=== PATIENT | female | born 1970 | race Caucasian/White ===

== ENCOUNTER 2021-07-16 12:18 | Emergency (ER) | payer OTHER, SELFPAY | END 2021-07-16 13:40 | disposition left against medical advice (07) | PROVIDERS: Emergency Provider Emergency Medicine; PCP Internal Medicine | DX: R10.9 Unspecified abdominal pain (principal) ==

== ENCOUNTER 2021-08-01 14:14 | Outpatient (REF) | payer OTHER, SELFPAY ==
--- NOTE | ~2021-08-01 | XR_ITS ---
EXAMINATION: XR LUMBAR SPINE XR CERVICAL SPINE CLINICAL INFORMATION: Right-sided sciatica. COMPARISON: None TECHNIQUE: 3 views lumbar spine and 3 views cervical spine. FINDINGS: LUMBAR SPINE: There is maintained lumbar lordosis. The vertebral heights and alignment are normal. There is loss of L5-S1 disc height. Rest of the disc heights are normal. No visible acute fracture, dislocation or lytic process seen. SI joints are symmetrical. There is evidence of previous cholecystectomy. Otherwise the soft tissues are unremarkable. CERVICAL SPINE: There is normal cervical lordosis. There is loss of C5-C6 disc heights with mild ventral and posterior spondylosis. Rest of the disc heights are normal. There is mild bilateral C2-C3, C3-C4 and C4-C5 facet joint arthropathy. The prevertebral soft tissues are normal XR/XR lumbar spine 2-3V IMPRESSION: L5-S1 degenerative disc changes. Otherwise unremarkable lumbar spine. Degenerative C5-C6 disc disease with ventral and posterior spondylosis, cervical spine. There is mild facet joint arthropathy as described above.
--- NOTE | ~2021-08-01 | XR_ITS ---
EXAMINATION: XR LUMBAR SPINE XR CERVICAL SPINE CLINICAL INFORMATION: Right-sided sciatica. COMPARISON: None TECHNIQUE: 3 views lumbar spine and 3 views cervical spine. FINDINGS: LUMBAR SPINE: There is maintained lumbar lordosis. The vertebral heights and alignment are normal. There is loss of L5-S1 disc height. Rest of the disc heights are normal. No visible acute fracture, dislocation or lytic process seen. SI joints are symmetrical. There is evidence of previous cholecystectomy. Otherwise the soft tissues are unremarkable. CERVICAL SPINE: There is normal cervical lordosis. There is loss of C5-C6 disc heights with mild ventral and posterior spondylosis. Rest of the disc heights are normal. There is mild bilateral C2-C3, C3-C4 and C4-C5 facet joint arthropathy. The prevertebral soft tissues are normal XR/XR cervical spine 3V IMPRESSION: L5-S1 degenerative disc changes. Otherwise unremarkable lumbar spine. Degenerative C5-C6 disc disease with ventral and posterior spondylosis, cervical spine. There is mild facet joint arthropathy as described above.
== END 2021-08-01 14:15 | disposition home or self-care (01) ==
LOC: HO.HMGCX 14:14
PROVIDERS: PCP Nurse Practitioner Family; Visit Provider Nurse Practitioner Family
DX: M54.2 Cervicalgia (principal); M54.50 Low back pain, unspecified
CPT/HCPCS: 72040; 72100

== ENCOUNTER 2021-08-28 13:15 | Outpatient (REF) | payer OTHER, SELFPAY ==
[2021-08-30 15:26] LABS: HPV mRNA E6/E7 rflx Not Detected (Not Detected)
== END 2021-08-28 13:16 | disposition home or self-care (01) ==
LOC: HO.LAB 13:15
PROVIDERS: PCP Nurse Practitioner Family; Visit Provider Advanced Practice Midwife
DX: Z01.419 Encounter for gynecological examination (general) (routine) without abnormal findings (principal); Z11.51 Encounter for screening for human papillomavirus (HPV)
CPT/HCPCS: 87624; 88142

== ENCOUNTER → 2021-09-12 11:46 | Outpatient (BNVA) | payer OTHER, SELFPAY | PROVIDERS: PCP Nurse Practitioner Family; Referring Provider Nurse Practitioner Family; Visit Provider Physician Assistant | DX: Z13.89 Encounter for screening for other disorder (principal) ==

== ENCOUNTER 2021-10-12 09:34 | Outpatient (REF) | payer OTHER, SELFPAY ==
[2021-10-12 11:15] LABS: MANUAL DIFF FLAG NO
[2021-10-12 11:28] LABS: Basophils Percent Auto 0.5 % (0-2); Eosinophils Absolute Auto 0.3 X10*3/uL (0.0-0.4); Eosinophils Percent Auto 5.2 % (0-4); Hematocrit 39.9 % (37.0-47.0); Hemoglobin 13.5 g/dl (12.0-16.0); Imm Gran Abs Auto 0.02 X10*3/uL (0.00-0.03); Imm Gran Pct Auto 0.4 % (0.0-0.4); Lymphocytes Absolute Auto 2.5 X10*3/uL (1.2-4.9); Lymphocytes Percent Auto 45.2 % (20-40); Mean Corpuscular HGB Conc 33.8 g/dl (31.0-35.0); Mean Corpuscular Hemoglobin 31.5 pg (27.0-33.0); Mean Platelet Volume 9.9 fL (9.4-12.3); Monocytes Absolute Auto 0.4 X10*3/uL (0.1-1.2); Monocytes Percent Auto 6.6 % (2-11); Neutrophils Absolute Auto 2.3 x10*3/uL (2.0-8.3); Neutrophils Percent Auto 42.1 % (45-73); Platelet Count 334 X10*3/uL (160-400); Red Blood Count 4.29 X10*6/uL (4.20-5.50); Red Cell Distribution Width 12.8 % (11.0-16.0); White Blood Count 5.6 X10*3/uL (4.8-10.8)
[2021-10-12 11:53] LABS: Cholesterol 226 mg/dL; HDL Cholesterol 61 mg/dL; LDL Cholesterol Calculated 137 mg/dl; TSH reflex Free T4 4.82 uIU/mL (0.32-4.0); Triglycerides 144 mg/dL
[2021-10-12 12:47] LABS: Free T4 (Free Thyroxine) 0.79 ng/dL (0.71-1.85)
== END 2021-10-12 09:35 | disposition home or self-care (01) ==
LOC: HO.HMGCLDS 09:34
PROVIDERS: PCP Nurse Practitioner Family; Visit Provider Nurse Practitioner Family
DX: G89.29 Other chronic pain (principal); J43.9 Emphysema, unspecified; M54.2 Cervicalgia; E78.00 Pure hypercholesterolemia, unspecified; I10 Essential (primary) hypertension; Z76.89 Persons encountering health services in other specified circumstances
CPT/HCPCS: 36415; 80061; 84439; 84443; 85025

== ENCOUNTER → 2021-11-02 15:09 | Outpatient (BNVA) | payer OTHER, SELFPAY | PROVIDERS: PCP Nurse Practitioner Family; Visit Provider Internal Medicine Pulmonary Disease | DX: Z13.89 Encounter for screening for other disorder (principal) ==

== ENCOUNTER 2021-11-17 09:09 | Outpatient (REF) | payer OTHER, SELFPAY ==
[2021-11-17 11:01] LABS: MANUAL DIFF FLAG NO
[2021-11-17 11:04] LABS: Basophils Absolute Auto 0.1 X10*3/uL (0.0-0.2); Basophils Percent Auto 1.1 % (0-2); Eosinophils Absolute Auto 0.3 X10*3/uL (0.0-0.4); Eosinophils Percent Auto 5.7 % (0-4); Hemoglobin 12.9 g/dl (12.0-16.0); Imm Gran Abs Auto 0.02 X10*3/uL (0.00-0.03); Imm Gran Pct Auto 0.5 % (0.0-0.4); Lymphocytes Absolute Auto 1.8 X10*3/uL (1.2-4.9); Lymphocytes Percent Auto 42.1 % (20-40); Mean Corpuscular HGB Conc 33.9 g/dl (31.0-35.0); Mean Corpuscular Hemoglobin 31.5 pg (27.0-33.0); Mean Corpuscular Volume 92.9 fL (80.0-98.0); Mean Platelet Volume 9.7 fL (9.4-12.3); Monocytes Absolute Auto 0.3 X10*3/uL (0.1-1.2); Monocytes Percent Auto 7.8 % (2-11); Neutrophils Absolute Auto 1.9 x10*3/uL (2.0-8.3); Neutrophils Percent Auto 42.8 % (45-73); Platelet Count 299 X10*3/uL (160-400); Red Blood Count 4.09 X10*6/uL (4.20-5.50); Red Cell Distribution Width 12.6 % (11.0-16.0); White Blood Count 4.4 X10*3/uL (4.8-10.8)
[2021-11-20 10:46] LABS: Immunoglobulin E 37 kU/L (<OR=114)
== END 2021-11-17 09:10 | disposition home or self-care (01) ==
LOC: HO.CHCLDS 09:09
PROVIDERS: Visit Provider Internal Medicine Pulmonary Disease
DX: Z91.09 Other allergy status, other than to drugs and biological substances (principal)
CPT/HCPCS: 36415; 82785; 85025; 86003

== ENCOUNTER 2021-12-25 07:49 | Day surgery (SDC) | payer OTHER, SELFPAY ==
[2021-12-19 14:02] VITALS: BMI 26.2
[2021-12-25 08:09] VITALS: BP 105/78; PULSE 58; RESP 15; TEMP 36.3; O2SAT 97
[2021-12-25] MEDS: Lactated Ringers 1,000 ML 50 ML IVCONT (08:25)
--- NOTE | 2021-12-25 08:35 | MHC.SHP ---
Pre-Procedural Eval Section A Date of Service: 12/25/21 Section B Chief Complaint: screening Relevant Family History (Specify if Yes): No Relevant Social History: None (ex smoker) Present Medications: see Short Stay Collaborative assessment Medical History: Significant History (Arthritis Cervical spondylosis COVID-19 vaccine series completed Elevated cholesterol Emphysema/COPD GERD (gastroesophageal reflux disease) Thyroid condition) History of Previous Operations: Relevant previous surgery/procedure and date(s) ( History of cholecystectomy History of dental surgery History of partial hysterectomy History of tubal ligation) Allergies: Allergies Allergy/AdvReac Type Severity Reaction Status Date / Time ibuprofen AdvReac Intermediate Stomach Verified 11/02/21 15:11 Upset Review of Systems Sugical H&P ROS: Negative: Constitution, Cardiovascular, Respiratory, Neurological, Psychiatric, Hem-Onc, Allergic/Immunologic, Gastrointestinal, Genitourinary, Musculoskeletal, Integumentary, Endocrine and Eyes/Ears/Nose/Throat Exam Surgical H&P Exam: Normal: HEENT, Normal: Heart, Normal: Lungs, Normal: Extremities, Normal: Abdomen, Normal: Skin and Normal: Neurological Plan Diagnosis/Plan: Unchanged I have reviewed the history and physical and performed a pertinent physical examination on my patient. No changes have occurred unless specified.
--- NOTE | 2021-12-25 08:43 | HO.ANESPROP2 ---
HPI - Anesthesia Eval Consult details Narrative: 51 F for colonoscopy [facility] Active Problems Active Problems: All Active Problems (Updated 12/25/21 @ 08:03 by Surekha Lewis RN) Encounter to establish care (Acute) COPD (chronic obstructive pulmonary disease) (Acute) Cervicalgia (Acute) Chronic neck pain (Acute) Emphysema lung (Acute) Low back pain (Acute) Cervical cancer screening (Acute) History of partial hysterectomy (Acute) Cervical disc disease (Acute) Cervical spondylosis (Acute) Hyperlipidemia (Acute) GERD (gastroesophageal reflux disease) (Acute) Encounter for annual routine gynecological examination (Acute) Encounter for screening mammogram for malignant neoplasm of breast (Acute) Encounter for screening colonoscopy (Acute) Physical exam (Acute) Graves disease (Acute) Environmental allergies (Acute) Past Medical History Medical History (Updated 12/25/21 @ 08:03 by Surekha Lewis RN) Arthritis Cervical spondylosis COVID-19 vaccine series completed Elevated cholesterol Emphysema/COPD GERD (gastroesophageal reflux disease) Thyroid condition Family History Family History Mother GERD (gastroesophageal reflux disease) DVT (deep venous thrombosis) Father HTN (hypertension) Abnormal thyroid hormone metabolism Family history of problems with anesthesia: No Surgical History Surgical History History of cholecystectomy History of dental surgery History of partial hysterectomy History of tubal ligation History of Problems with Anesthesia: No Social History Social History Housing: House Do you presently have visiting nurse or other home services: No Alcohol intake: current Alcohol intake frequency: a few times a week Alcohol type: wine Patient Tobacco Use Status: Former Tobacco user Quit Date: 2019 Tobacco use type: Cigarette e-Cigarette/Vaping Use: Never Used Second Hand Smoke Exposure: No service: No Current occupational status: employed 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 Sexual orientation: Straight/Heterosexual Gender identity: Female Cognitive needs: No Hearing needs: No Vision needs: Yes (glasses) Meds Allergies Allergy/AdvReac Type Severity Reaction Status Date / Time ibuprofen AdvReac Intermediate Stomach Verified 11/02/21 15:11 Upset Active Medications: Current Medications Lactated Ringer's (Lr) 1,000 mls @ 50 mls/hr IVCONT .Q20H EDGARDO Last Admin: 12/25/21 08:25 Dose: 50 mls/hr Home Medications Medication Instructions Recorded Confirmed Last Taken Type acetaminophen 500 mg tablet 500 mg PO QID PRN Pain 08/01/21 12/25/21 Unknown History (Tylenol Extra Strength) ipratropium 20 mcg-albuterol 100 1 spray inhalation BID PRN Wheezing 12/19/21 12/25/21 Unknown History mcg/actuation mist for inhalation (Combivent Respimat) Exam Exam Date and Time: December 25, 2021 0843 Height,Weight and Vital Signs: Height 5 ft 4.5 in Weight 70.307 kg Last Vital Signs Temp 97.3 F 12/25/21 08:09 Pulse 58 12/25/21 08:09 Resp 15 12/25/21 08:09 BP 105/78 12/25/21 08:09 Pulse Ox 97 12/25/21 08:09 O2 Del Method 12/25/21 08:09 Airway Mallampati Class: II TM Dist: >3cm Neck ROM: Full Loose/Missing/Broken Teeth: Yes (Poor dentition globally , chipped multiple . ) Heart: S1,S2 Lungs: b/l breath sounds Assessment and Plan Assessment Anesthesia Assessment: Anesthesia Plan Discussed and Chart Reviewed Final Anesthetic Review Family History of Problems with Anesthesia: No History of Problems with Anesthesia: No NPO: Yes ASA Class: II Final Preanesthetic Review: Meds/Allgs Chart Reviewed, Consent Obtained/Reviewed and Anes Risks/Benef Reviewed Patient Risk: Intermediate Procedure Risk: Intermediate Anesthetic Plan Anesthetic Plan: MAC: Disposition: Standard PACU
--- NOTE | 2021-12-25 09:04 | W.PM.OPN ---
Operative Note Operative Note Date of Service: 12/25/21 Narrative: Operative Information Procedure Description: Colonoscopy Indication: screening Anesthesia: MAC COLONOSCOPY Instrument: Olympus variable stiffness pediatric scope 190L Colonoscopy Monitoring: Vital signs and clinical assessment, continuous EKG monitoring, Pulse oximetry, Carbon Dioxide monitoring and blood pressure monitoring were done throughout the procedure. Colon withdrawal time was 8 minutes. Procedure: The patient was placed in the left lateral decubitis position and pre-procedure medications were administered. After a digital rectal examination of the ano-rectum, the video colonoscope was inserted into the rectum and advanced through the colon to the cecum/TI. The colonoscope was slowly withdrawn in a retrograde panoramic fashion and the colon mucosa was carefully examined including a retroflexed view of the rectum. Findings and interventions are described below. Procedure Difficulty: easy Findings: Terminal Ileum-normal Right sided retroflexion-nml Cecum:normal Ascending Colon: scattered wide mouthed diverticula Transverse Colon -normal Descending Colon: moderate diverticulosis Sigmoid Colon: moderate severe diverticulosis Rectum: Retroflexion with small internal hemorrhoids, grade I Anorectum - normal Colon preparation: Linden Bowel Preparation Scale Right colon; 2 Transverse colon: 3 Left colon; 2 (0 = Unprepared colon segment with mucosa not seen due to solid stool that cannot be cleared. 1 = Portion of mucosa of the colon segment seen, but other areas of the colon segment not well seen due to staining, residual stool and/or opaque liquid. 2 = Minor amount of residual staining, small fragments of stool and/or opaque liquid, but mucosa of colon segment seen well. 3 = Entire mucosa of colon segment seen well with no residual staining, small fragments of stool or opaque liquid) Impression and Post Procedure Diagnosis: internal hemorrhoids diverticular disease Plan: High fiber diet leaflet Avoid straining at stool, epsom salts and sitz bath, anusol supps or cream Repeat Colonoscopy in 10 years or earlier if clinically indicated Above findings were reviewed with the patient and relevant handouts were provided if indicated.
[2021-12-25 09:42] VITALS: BP 103/69; PULSE 86; RESP 16; TEMP 36.3; O2SAT 100
[2021-12-25 09:57] VITALS: BP 122/79; PULSE 69; RESP 18; TEMP 36.6; O2SAT 99
== END 2021-12-25 10:28 | disposition home or self-care (01) ==
PROVIDERS: PCP Nurse Practitioner Family; Visit Provider Internal Medicine Gastroenterology
PROC: 0DJD8ZZ Inspection of Lower Intestinal Tract, Via Natural or Artificial Opening Endoscopic (ICD-10-PCS; CPT 45378; principal; 2021-12-25 09:10)
DX: Z12.11 Encounter for screening for malignant neoplasm of colon (principal); K57.30 Diverticulosis of large intestine without perforation or abscess without bleeding; K64.0 First degree hemorrhoids; J44.9 Chronic obstructive pulmonary disease, unspecified; K21.9 Gastro-esophageal reflux disease without esophagitis; E07.9 Disorder of thyroid, unspecified; Z79.899 Other long term (current) drug therapy; Z88.8 Allergy status to other drugs, medicaments and biological substances
CPT/HCPCS: 45378

== ENCOUNTER 2021-12-28 07:32 | Outpatient (REF) | payer OTHER, SELFPAY ==
[2021-12-28 12:03] LABS: TSH reflex Free T4 3.75 uIU/mL (0.32-4.0)
[2022-01-04 12:56] LABS: Vitamin D 25-OH, D2 <4 ng/mL; Vitamin D 25-OH, D3 23 ng/mL; Vitamin D 25-OH, Total 23 ng/mL (30-100)
== END 2021-12-28 07:33 | disposition home or self-care (01) ==
LOC: HO.HMGCLDS 07:32
PROVIDERS: Visit Provider Nurse Practitioner Family
DX: E05.00 Thyrotoxicosis with diffuse goiter without thyrotoxic crisis or storm (principal)
CPT/HCPCS: 36415; 82306; 84443

== ENCOUNTER 2022-01-07 09:05 | Outpatient (REF) | payer OTHER, SELFPAY ==
--- NOTE | 2022-01-07 11:53 | PFT_ITS ---
INDICATION: Dyspnea. SPIROMETRY: FEV1 to FVC of 83% with an FEV1 of 3.03 L, which is 108% predicted, an FVC of 2.63 L, which is 102% predicted. No significant response to bronchodilators noted. Maximum voluntary ventilation 125% predicted. LUNG VOLUMES: Total lung capacity 102% predicted with an expiratory reserve volume of 71% predicted. DIFFUSION CAPACITY: DLCO 64% predicted. COMPARISONS: None. INTERPRETATION: No obstructive nor restrictive ventilatory defects identified. No significant response to bronchodilators noted. Normal maximum voluntary ventilation. Normal lung volumes. However, the patient does have a mild isolated diffusion impairment. This did not correct to normal when correcting for the alveolar volume. Need to also correct for hemoglobin. Considered pulmonary vascular conditions or occult interstitial lung conditions. Clinical correlation warranted. MD AIDEN Harmon/VANESSA / [id number]
== END 2022-01-07 09:06 | disposition home or self-care (01) ==
LOC: HO.RESP 09:05
PROVIDERS: PCP Nurse Practitioner Family; Visit Provider Internal Medicine Pulmonary Disease
DX: J44.9 Chronic obstructive pulmonary disease, unspecified (principal); R06.00 Dyspnea, unspecified
CPT/HCPCS: 94060; 94727; 94729

== ENCOUNTER 2022-04-02 17:00 | Outpatient (RCR) | payer OTHER, SELFPAY ==
--- NOTE | 2022-03-14 08:44 | MHC.PT.EP ---
[facility] [place] Office [place] Office [place] Office [address] [phone] F: [phone] F: [phone] F: [phone] F: [phone] Physical Therapy Plan of Care Date of Evaluation: Date of Surgery: Diagnosis: Cervicalgia. Assessment: Pt is a 51 y/o female referred to PT for eval and treat of cervicalgia which results in decreased tolerance for reading and turning her head to end ranges, as well as disturbed sleep secondary to decreased cervical ROM and strength, decreased posture, increased cervical accessory muscle tissue tension, and pain. Pt is deemed an appropriate candidate to receive skilled PT services in order to address her physical impairments ti improve her functional ability. Frequency and Duration: The patient will be seen 2 x/ wk x 5 wks. Short Term Goals: Initiate HEP. Improve Baseline pain to < 4/10; initial: 7/10. [facility] Goals: I with HEP. Pt will report at most mildly disturbed sleep d/y cervical pain; initial: greatly disturbed 3-5 hours disturbed. Pt will no longer be limited of her reading tolerance d/t cervical pin; iitial: unable to read desired amount with moderate cervical pain. Symmetrical cervical rotation achieved. Treatment Plan: Modalities to reduce pain, spasms and effusion. Manual therapy to restore motion and function. Therapeutic exercise to improve strength and flexibility. Neuromuscular re-education for posture and balance. Therapeutic activities to return to functional activities of daily living. Electronically signed by: Brady Ingram PT. Please sign and return to therapist. Thank you for your referral.
--- NOTE | 2022-07-26 10:20 | MHC.PT.DC ---
[facility] [place] Office [place] Office [place] Office [address] Jerrod Tijerina [address] [phone] F: [phone] F: [phone] F: [phone] F: [phone] Physical Therapy Discharge Report Diagnosis: Cervicalgia. Date of Surgery: Date of Evaluation: 03/05/22 Date of Discharge: 07/26/22 Treatments to Date: 4 Cancellations to Date: No Shows to Date: 2 Discharge Status: Visit Non-compliance Discharge Summary: Pt DC'd per attendance policy. From last Tx note: Pt returns after about 1.5 weeks and reports she has had a lot of personal things come up and has not been great about her home program. Pt tolerated review well, reported she felt less discomfort post tx; no adverse effects. Electronically signed by: Brady Ingram PT. Please sign and return to therapist. Thank you for your referral.
== END 2022-07-26 10:19 | disposition home or self-care (01) ==
LOC: HO.PTCHIC 17:00
PROVIDERS: Visit Provider Nurse Practitioner Family
DX: M47.812 Spondylosis without myelopathy or radiculopathy, cervical region (principal); M47.817 Spondylosis without myelopathy or radiculopathy, lumbosacral region; M54.2 Cervicalgia; M62.838 Other muscle spasm; G89.29 Other chronic pain
CPT/HCPCS: 97014; 97110; 97140; 97161

== ENCOUNTER 2022-06-04 06:04 | Outpatient (REF) | payer OTHER, SELFPAY | END 2022-06-04 06:05 | disposition home or self-care (01) | LOC: CF 06:04 | PROVIDERS: Visit Provider Anesthesiology | DX: Z13.89 Encounter for screening for other disorder (principal) ==

== ENCOUNTER 2022-06-25 06:23 | Outpatient (REF) | payer OTHER, SELFPAY | END 2022-06-25 06:24 | disposition home or self-care (01) | LOC: CF 06:23 | PROVIDERS: Visit Provider Anesthesiology | DX: Z13.89 Encounter for screening for other disorder (principal) ==

== ENCOUNTER 2022-08-03 09:07 | Outpatient (REF) | payer OTHER, SELFPAY ==
--- NOTE | ~2022-08-03 | XR_ITS ---
EXAMINATION: XR CERVICAL SPINE CLINICAL INFORMATION: Neck pain COMPARISON: None TECHNIQUE: 3 views of the cervical spine were obtained. FINDINGS: There is maintained cervical lordosis. The vertebral heights and alignment is normal. There is loss of C5-C6 disc height with ventral and posterior spondylosis. Rest the disc heights are normal. No visible acute fracture, dislocation or lytic process seen. The soft tissues are normal. XR/XR cervical spine 3V IMPRESSION: Degenerative disc changes C5-C6 disc level with ventral and posterior spondylosis. No visible acute fracture or dislocation seen.
[2022-08-03 11:00] LABS: Hematocrit 42.3 % (37.0-47.0); Hemoglobin 14.6 g/dl (12.0-16.0); Mean Corpuscular HGB Conc 34.5 g/dl (31.0-35.0); Mean Corpuscular Hemoglobin 31.8 pg (27.0-33.0); Mean Corpuscular Volume 92.2 fL (80.0-98.0); Mean Platelet Volume 10.2 fL (9.4-12.3); Platelet Count 307 X10*3/uL (160-400); Red Blood Count 4.59 X10*6/uL (4.20-5.50); Red Cell Distribution Width 12.1 % (11.0-16.0); White Blood Count 6.7 X10*3/uL (4.8-10.8)
[2022-08-03 11:21] LABS: Alanine Aminotransferase 20 U/L (0-31); Albumin Level 4.6 g/dL (3.5-5.0); Alkaline Phosphatase 63 U/L (39-117); Anion Gap 16 (12-20); Aspartate Amino Transferase 17 U/L (5-31); Bilirubin Total 1.9 mg/dL (0.0-1.0); Blood Urea Nitrogen 15 mg/dL (9-16); Calcium 9.3 mg/dL (8.4-10.2); Carbon Dioxide 19 mmol/L (22-29); Chloride 108 mmol/L (96-108); Cholesterol 223 mg/dL; Estimated Glomerular Filt Rate > 60; Glucose Fasting 110 mg/dL (60-99); HDL Cholesterol 49 mg/dL; LDL Cholesterol Calculated 149 mg/dl; Sodium 139 mmol/L (135-145); Total Protein 6.9 g/dL (6.5-8.0); Triglycerides 128 mg/dL
[2022-08-03 11:50] LABS: Folate 13.5 ng/mL (> or = 4.0); TSH reflex Free T4 2.75 uIU/mL (0.32-4.0); Vitamin B12 309 pg/mL (200-900); Vitamin D 25-OH Total 18.5 ng/mL (>30)
== END 2022-08-03 09:08 | disposition home or self-care (01) ==
LOC: HO.HMGCX 09:07
PROVIDERS: PCP Nurse Practitioner Family; Visit Provider Nurse Practitioner Family
DX: M54.2 Cervicalgia (principal); E05.00 Thyrotoxicosis with diffuse goiter without thyrotoxic crisis or storm; E78.5 Hyperlipidemia, unspecified; J44.9 Chronic obstructive pulmonary disease, unspecified; E55.9 Vitamin D deficiency, unspecified
CPT/HCPCS: 36415; 72040; 80053; 80061; 82306; 82607; 82746; 84443; 85027

== ENCOUNTER 2022-08-17 09:32 | Outpatient (REF) | payer OTHER, SELFPAY ==
[2022-08-17 12:09] LABS: Estimated Average Glucose 105 mg/dL; Hemoglobin A1c % 5.3 %
== END 2022-08-17 09:33 | disposition home or self-care (01) ==
LOC: HO.HMGCLDS 09:32
PROVIDERS: PCP Nurse Practitioner Family; Visit Provider Nurse Practitioner Family
DX: R73.01 Impaired fasting glucose (principal)
CPT/HCPCS: 36415; 83036

== ENCOUNTER → 2022-08-26 08:51 | Outpatient (BNVA) | payer OTHER, SELFPAY | PROVIDERS: PCP Nurse Practitioner Family; Visit Provider Nurse Practitioner Family | DX: Z13.89 Encounter for screening for other disorder (principal) ==

== ENCOUNTER 2022-09-26 18:06 | Outpatient (REF) | payer OTHER, SELFPAY ==
--- NOTE | ~2022-09-26 | MR_ITS ---
EXAMINATION: MR CERVICAL SPINE WITHOUT CONTRAST CLINICAL INFORMATION: Cervicalgia. COMPARISON: Plain films of the cervical spine 08/03/2022. TECHNIQUE: MRI of the cervical spine was obtained using routine sequences without contrast. FINDINGS: VERTEBRAL BODIES AND PARASPINAL SOFT TISSUES: There is a mild anterolisthesis of C3 on C4, and there is a retrolisthesis of C5 on C6. There is narrowing of intervertebral disc height at C5-C6. Vertebral body heights are maintained, and no fractures are demonstrated. There are degenerative endplate contour changes with mild edematous signal at C4-C5 and C5-C6 toward the right. There are edematous signal changes in the left facets at C3-C4 and in the right facets at C4-C5. Overall, marrow signal is homogenous. The paravertebral structures are unremarkable. CERVICOMEDULLARY JUNCTION AND VISUALIZED POSTERIOR FOSSA: The craniocervical and posterior fossa structures are normal. Accounting for artifact, spinal cord signal appears normal. SPINAL LEVELS: C2-C3: There is moderate left facet arthropathy. Posterior disc contour is normal and there is no cord compression or central stenosis. There is a small left-sided uncovertebral osteophyte with mild left foraminal narrowing. C3-C4: There is severe left and mild right facet arthropathy, with a left facet joint effusion. There is a shallow posterior disc protrusion without cord compression or central stenosis. Facet arthropathic changes and uncovertebral osteophytes contribute to moderate to severe left foraminal narrowing. The right neural foramen is patent. C4-C5: There is moderate to severe right facet arthropathy with milder changes on the left. Posterior disc contour appears normal and there is no cord compression or central stenosis. There are uncovertebral osteophytes, and there is moderate to severe right foraminal narrowing. C5-C6: There is moderate bilateral facet arthropathy. There is a broad-based posterior disc protrusion which effaces CSF ventral to the cord, but there is no cord compression or central stenosis. There are uncovertebral osteophytes, and there is moderate severe right and mild left foraminal narrowing. C6-C7: There is mild bilateral facet arthropathy. Posterior disc contour is normal and there is no spinal cord compression or central stenosis. There is no central stenosis and the neural foramina are patent bilaterally. C7-T1: The facet joints appear normal bilaterally. Posterior disc contour is normal. There is no spinal cord compression or central stenosis. The neural foramina are patent bilaterally. MR/MR cervical spine wo con IMPRESSION: 1. At C3-C4 there is severe left and mild right facet arthropathy. There is no cord compression or central stenosis. There is moderate to severe left foraminal narrowing. 2. At C4-C5 there is moderate to severe right facet arthropathy. There is no cord compression or central stenosis. There is moderate to severe right foraminal narrowing. 3. At C5-C6 there is facet arthropathy and there is a broad-based posterior disc protrusion. There is no cord compression or central stenosis. There is moderate to severe right and mild left foraminal narrowing.
== END 2022-09-26 18:07 | disposition home or self-care (01) ==
LOC: HO.MRI 18:06
PROVIDERS: PCP Nurse Practitioner Family; Visit Provider Nurse Practitioner Family
DX: M47.812 Spondylosis without myelopathy or radiculopathy, cervical region (principal); M54.12 Radiculopathy, cervical region; M54.2 Cervicalgia
CPT/HCPCS: 72141

== ENCOUNTER → 2022-10-22 10:20 | Outpatient (BNVA) | payer OTHER, SELFPAY | PROVIDERS: PCP Nurse Practitioner Family; Visit Provider Neurological Surgery ==

== ENCOUNTER → 2022-10-29 15:05 | Outpatient (BNVA) | payer OTHER, SELFPAY | PROVIDERS: PCP Nurse Practitioner Family; Visit Provider Obstetrics & Gynecology ==

== ENCOUNTER 2022-11-08 14:03 | Outpatient (REF) | payer OTHER, SELFPAY ==
--- NOTE | ~2022-11-08 | US_ITS ---
EXAMINATION: US PELVIS CLINICAL INFORMATION: Right adnexal fullness. COMPARISON: None available. TECHNIQUE: Ultrasound of the pelvis is performed using both transabdominal and transvaginal transducers along with Doppler. Transvaginal imaging is performed due to inadequate visualization transabdominally. FINDINGS: UTERUS: The uterus has been removed but the cervix remains. No cervical masses seen. Nabothian cysts are present in the cervix. ADNEXA: Both ovaries are visualized. There is normal color flow to the adnexa. There is no ovarian torsion. There is no pelvic ascites or fluid collection. Right ovary measures 2.9 x 2.1 x 1.9 cm for a volume of 59 mL which includes a complex, predominantly solid 1.4 cm mass with cystic and solid components along with an echogenic area suggesting a possible dermoid. Left ovary measures 2.9 x 1.2 x 1.7 cm for a volume of 3.1 mL. US/US pelvic and transvaginal IMPRESSION: 1. Status post hysterectomy. 2. Complex predominantly solid 1.4 cm right ovarian mass. A follow-up study in 3 months is recommended for further evaluation. If this does not resolve, MRI is recommended for further evaluation as no prior studies are available for comparison.
[2022-11-08 16:38] LABS: Cholesterol 221 mg/dL; HDL Cholesterol 63 mg/dL; LDL Cholesterol Calculated 135 mg/dl; Triglycerides 118 mg/dL
[2022-11-08 16:53] LABS: Vitamin D 25-OH Total 27.5 ng/mL (>30)
== END 2022-11-08 14:04 | disposition home or self-care (01) ==
LOC: HO.HMGCX 14:03
PROVIDERS: PCP Nurse Practitioner Family; Visit Provider Obstetrics & Gynecology
DX: N94.9 Unspecified condition associated with female genital organs and menstrual cycle (principal); E78.5 Hyperlipidemia, unspecified; E55.9 Vitamin D deficiency, unspecified
CPT/HCPCS: 36415; 76830; 76856; 80061; 82306

== ENCOUNTER → 2022-11-12 15:28 | Outpatient (BNVA) | payer OTHER, SELFPAY | PROVIDERS: PCP Nurse Practitioner Family; Visit Provider Nurse Practitioner Family ==

== ENCOUNTER → 2022-11-13 11:38 | Outpatient (BNVA) | payer OTHER, SELFPAY | PROVIDERS: PCP Nurse Practitioner Family; Visit Provider Obstetrics & Gynecology ==

== ENCOUNTER 2022-11-13 12:31 | Outpatient (REF) | payer OTHER, SELFPAY ==
[2022-11-13 14:25] LABS: Lactate Dehydrogenase 233 U/L (122-220)
[2022-11-16 06:39] LABS: HCG Tumor Marker <5 mIU/mL
[2022-11-16 11:19] LABS: CA-125 7 U/mL (<35)
[2022-11-18 13:28] LABS: Alpha Fetoprotein 3.9 ng/mL
== END 2022-11-13 12:32 | disposition home or self-care (01) ==
LOC: HO.HMGCLDS 12:31
PROVIDERS: PCP Nurse Practitioner Family; Visit Provider Obstetrics & Gynecology
DX: N83.299 Other ovarian cyst, unspecified side (principal)
CPT/HCPCS: 36415; 82105; 83615; 84702; 86304

== ENCOUNTER → 2022-11-20 14:37 | Outpatient (REF) | payer OTHER, SELFPAY ==
--- NOTE | 2022-11-20 14:41 | ECG_ITS ---
Test Reason : cp Blood Pressure : / mmHG Vent. Rate : 082 BPM Atrial Rate : 082 BPM P-R Int : 148 ms QRS Dur : 074 ms QT Int : 382 ms P-R-T Axes : 066 057 072 degrees QTc Int : 446 ms Sinus rhythm with marked sinus arrhythmia Normal ECG No previous ECGs available Referred By: Elly Bar Electronically Signed By:MAXINE HOPSON
== END ==
LOC: HO.CARD 14:37
PROVIDERS: PCP Nurse Practitioner Family; Visit Provider Nurse Practitioner Family
DX: R07.9 Chest pain, unspecified (principal)
CPT/HCPCS: 93005

== ENCOUNTER → 2022-12-12 09:15 | Outpatient (REF) | payer OTHER, SELFPAY ==
--- NOTE | 2022-12-12 09:26 | HM_ITS ---
Conclusion: 1. Patient was monitored for total period of 2 days 2. Baseline was normal sinus rhythm with average heart rate of 83 beats per minute 3. No significant pauses noted 4. Patient marked the counter 16 times with varied symptoms of palpitations, lightheadedness, shaking, chest pain, shortness of breath, all correlating sinus rhythm MTDD
--- NOTE | 2022-12-12 09:26 | CA_ITS ---
Acquisition Time: 2022-12-12 09:42:45 Total Exercise Time: 00:03:22 Test Indications: CHEST PAIN Medications: Protocol: MIGUEL ANGEL Max HR: 148 BPM 87% of Pred: 169 BPM Max BP: 160/068 mmHG Max Work Load: 5.0 METS Exercise stress test exercise 3 min 22 sec of Miguel Angel protocol acheiving 86% MPHR, with significant SOB, no chest discomfort, without arrhythmias, with normotensive response to exercise, with standing to treatmill HR increased to 107bpm, without EKG changes. Breathing returned to baseline during recovery. Test reviewed with Alberto Martin. Referred By: Elly Bar Overread By:
== END ==
LOC: HO.CARD 09:15
PROVIDERS: PCP Nurse Practitioner Family; Visit Provider Nurse Practitioner Family
DX: R07.9 Chest pain, unspecified (principal); R00.2 Palpitations
CPT/HCPCS: 93017; 93242

== ENCOUNTER → 2022-12-12 09:26 | Outpatient (BNV) | payer OTHER, SELFPAY | PROVIDERS: PCP Nurse Practitioner Family; Visit Provider Internal Medicine Cardiovascular Disease | DX: R00.2 Palpitations (principal) | CPT/HCPCS: 93244 ==

== ENCOUNTER 2022-12-23 12:36 | Outpatient (REF) | payer OTHER, SELFPAY | END 2022-12-23 12:37 | disposition home or self-care (01) | LOC: HO.LNP 12:36 | PROVIDERS: Visit Provider Obstetrics & Gynecology | DX: Z13.89 Encounter for screening for other disorder (principal) ==

== ENCOUNTER 2022-12-23 13:25 | Outpatient (REF) | payer OTHER, SELFPAY ==
--- NOTE | ~2022-12-23 | CT_ITS ---
EXAMINATION: CT ABDOMEN AND PELVIS WITHOUT AND WITH CONTRAST CLINICAL INFORMATION: Ovarian cyst COMPARISON: 11/08/2022 pelvic ultrasound, CT angiography 02/13/2021. TECHNIQUE: Multidetector volumetric imaging was performed of the abdomen and pelvis before and after the IV administration of 85 mL of Omnipaque 300 intravenous contrast. Sagittal and coronal reformatted images were obtained on the technologist's workstation. This CT examination was performed using dose optimization techniques as appropriate, variously including the following: *Automated exposure control *Adjustment of mA and/or kV according to patient size (this includes techniques or standardized protocols for targeted exams where dose is matched to indication/reason for exam; i.e. extremities or head) *Use of iterative reconstruction technique DLP: 624 mGy-cm FINDINGS: HIGH [employer]OT[employer] COACH: Nonobstructive bowel pattern. Cholecystectomy clips. Phleboliths. LUNG BASES: The visualized lung bases are unremarkable. Nonenlarged heart. No pericardial effusion. LIVER, GALLBLADDER, AND BILIARY TREE: The liver is normal in size, shape, and attenuation. 2.9 x 1.5 cm subcapsular right hepatic lobe hypodensity is seen. On contrast enhanced portion of the examination, peripheral enhancement seen characteristic of hemangioma and likely stable from 2020 angiogram. Hypodensity adjacent to the falciform ligament likely focal fatty deposition. No biliary ductal dilatation is present. The gallbladder has been surgically removed. Cholecystectomy clips. PANCREAS: Unremarkable SPLEEN: Unremarkable ADRENAL GLANDS: Unremarkable KIDNEYS AND URETERS: The kidneys are normal in size, shape, and attenuation. No hydronephrosis, hydroureter, or calculi seen. No perinephric stranding. BLADDER: Under distended with thickened cole. GASTROINTESTINAL TRACT: The small and large bowel are unremarkable. The appendix is unremarkable. ABDOMINAL WALL: No significant hernia is appreciated. LYMPH NODES: Normal VASCULAR: Atherosclerotic calcifications nonaneurysmal aorta and iliac arteries. Mesenteric vessels are patent. Unremarkable inferior vena cava and iliac veins. Patent portal system. PELVIC VISCERA: By history, patient is status post hysterectomy. Left-sided vaginal cuff/cervix is bulky with calcifications. There is a 2.7 x 2.3 x 2.4 centimeter lobulated structure in the anterior midline pelvis with central hypoechoic component and intense peripheral enhancement. Mild surrounding stranding. There are no pathognomonic macroscopic fat or calcification components of dermoid. This corresponds in anticipated size and morphology to right ovarian findings on recent ultrasound. OSSEOUS STRUCTURES: Severe L5-S1 disc space narrowing. CT/CT abdomen pelvis wo/w IV con IMPRESSION: 2.7 cm intensely enhancing anterior midline pelvic structure which seems to correlate with recent ultrasound findings of complex predominantly solid right ovarian mass. No pathognomonic macroscopic fat or calcification components of dermoid are seen. Bulky left lateral vaginal cuff/cervix with calcifications status post hysterectomy. Pelvic MRI recommended for both findings. Redemonstration right hepatic hemangioma. An Fleischner guidelines were followed.
[2022-12-23 14:15] LABS: Blood Urea Nitrogen 13 mg/dL (9-16); Estimated Glomerular Filt Rate > 60
[2022-12-23] MEDS: iohexoL 350 MG/ML 100 ML INFUS..BTL IV (15:05)
== END 2022-12-23 13:26 | disposition home or self-care (01) ==
LOC: HO.CT 13:25
PROVIDERS: PCP Nurse Practitioner Family; Visit Provider Obstetrics & Gynecology
DX: N83.299 Other ovarian cyst, unspecified side (principal)
CPT/HCPCS: 36415; 74178; 82565; 84520; Q9967

== ENCOUNTER 2022-12-25 09:18 | Outpatient (REF) | payer OTHER, SELFPAY ==
--- NOTE | ~2022-12-25 | MM_ITS ---
EXAMINATION: MM SCREENING DIGITAL BREAST TOMOSYNTHESIS, BILATERAL CLINICAL INFORMATION: Screening. Asymptomatic. The lifetime risk of breast cancer based on the Tyrer-Cuzick Model is 6%. COMPARISON: Mammography: 02/17/2021, 07/08/2016, and dating back to 2015. TECHNIQUE: Digital breast tomosynthesis is performed in both the craniocaudal and mediolateral oblique views along with computer-aided detection (CAD). Synthesized 2D images are generated from the tomosynthesis. FINDINGS: There are scattered areas of fibroglandular density (ACR BI-RADS breast composition Category b). There are no suspicious masses, suspicious grouped calcifications, or areas of architectural distortion. The parenchymal pattern is stable from prior exams. There is a biopsy clip in the anterior upper outer right breast. There is a similar intramammary lymph node in the upper outer right breast, posterior one third. MM/MM tomosynthesis screening BI IMPRESSION: No mammographic evidence of malignancy. ASSESSMENT: BI-RADS BI-RADS 2 - Benign Findings RECOMMENDATION: Routine annual mammography screening. 1 year F/U This examination should not preclude the clinical evaluation of a suspicious palpable abnormality. This patient's information was entered into a reminder system with a target due date for their next mammogram.
== END 2022-12-25 09:19 | disposition home or self-care (01) ==
LOC: HO.MAMMO 09:18
PROVIDERS: PCP Nurse Practitioner Family; Visit Provider Advanced Practice Midwife
DX: Z12.31 Encounter for screening mammogram for malignant neoplasm of breast (principal)
CPT/HCPCS: 77063; 77067

== ENCOUNTER → 2022-12-25 09:30 | Outpatient (BNV) | payer OTHER, SELFPAY | PROVIDERS: PCP Nurse Practitioner Family; Visit Provider Radiology Diagnostic Radiology | DX: Z12.31 Encounter for screening mammogram for malignant neoplasm of breast (principal) | CPT/HCPCS: 77063; 77067 ==

== ENCOUNTER 2022-12-27 13:04 | Outpatient (AMB) | payer OTHER, SELFPAY ==
--- NOTE | 2022-12-27 09:20 | MHC.OFFVIS ---
Intake Intake Visit Reasons: LDCT SD Intake Note: Initial visit for this 52yo former smoker with a 30PYH. Patient started smoking at age 15 for 34 years at 1ppd. Quit 12/09/2019. . Reports daily marijuana use. Denies second hand smoke exposure. Denies exposure to chemicals or substances like asbestos. 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 Denies known family history of lung cancer. Denies personal history of cancers. . Denies chest CT in last year. Did have recent pelvic ct for ovary - currently undergoing workup. . Denies recent travel outside the [place]. Denies recent respiratory illness or recent hospitalization for respiratory issues. Reports testing positive for COVID last year. Admits receiving COVID Vaccine - x 3. . Denies fever, chills, new/worsening cough, hemoptysis, hoarseness or dysphagia. Denies significant chest pain, significant dyspnea or unintentional weight loss. Patient Lung Cancer Screening Questionnaire reviewed with patient by provider. . Shared Decision Making Completed. Patient meets criteria. Discussed in detail with patient, the risk vs benefit of LDCT screening. Patient consents to proceed with scan. Discussed smoking cessation. Allergies ibuprofen Adverse Reaction (Intermediate, Verified 11/20/22 14:05) Stomach Upset PFSH Medical History (Updated 12/27/22 @ 13:12 by Karolyn Bragg PA-C) Arthritis COPD (chronic obstructive pulmonary disease) COVID-19 vaccine series completed Emphysema lung GERD (gastroesophageal reflux disease) Personal history of nicotine dependence Surgical History (Updated 12/27/22 @ 13:17 by Karolyn Bragg PA-C) History of cholecystectomy History of colonoscopy History of dental surgery History of partial hysterectomy History of tubal ligation Family History Mother GERD (gastroesophageal reflux disease) DVT (deep venous thrombosis) Father HTN (hypertension) Abnormal thyroid hormone metabolism Social History (Updated 12/27/22 @ 13:13 by Karolyn Bragg PA-C) Housing: House Do you presently have visiting nurse or other home services: No Alcohol intake: current Alcohol intake frequency: a few times a week Alcohol type: wine Patient Tobacco Use Status: Former Tobacco user Quit Date: 12/09/2019 Tobacco use type: Cigarette Years Smoked: onset 15yo, 1ppd x 34yrs, 30pyh - quit 2019) e-Cigarette/Vaping Use: Never Used Second Hand Smoke Exposure: No service: No Current occupational status: employed 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 - Patient meets criteria for LDCT for lung cancer screening purposes and is asymptomatic. - Smoking cessation counseling offered. Patients can always call [phone]. - Will arrange for a LDCT scan of the chest for screening purposes at [facility]. - Risks, benefits, and alternatives were discussed in detail and the patient agrees to proceed. - Risks discussed include but are not limited to: radiation exposure, anxiety during testing and while awaiting results, false negatives, false positives and possibility of additional intervention such as further imaging or surgical procedures for benign disease. - Benefits are obviously detection of lung cancer at an early stage which can lead to improved outcomes. - Discussed the importance of screening program compliance with adherence to yearly LDCT scan as scheduled - or sooner interval scans for personalized screening regimen. - Discussed follow up plan. Our office will send a letter discussing results and if needed set up phone call and office visit based on CT findings. - Patient educated on results categorization and the management decisions for suspicious findings potentially found on the screening LDCT scan. Any patient with a Lung RADS score of 3 or 4 will be reviewed by a multidisciplinary team at [facility] to form a plan of action in regards to scan findings. - If further work up is warranted for a suspicious lung finding this will be followed by the Lung Cancer Screening program in conjunction with the Thoracic Surgery Department at [facility]. - A copy of the office note and LDCT will be sent to the patient's PCP - as well as documentation on any associated further plans of care. - Incidental findings on LDCT are the PCP's responsibility. These findings are indicated with an S finding on the LDCT Assessment. A note discussing the findings will be sent to the PCP who is then responsible for further management. - All questions answered.? Coding Level of Care Code Lung Cancer Screening G0296 Diagnoses Personal history of nicotine dependence Z87.891
== END 2022-12-27 13:31 | disposition home or self-care (01) ==
PROVIDERS: PCP Nurse Practitioner Family; Visit Provider Physician Assistant Medical
DX: Z87.891 Personal history of nicotine dependence (principal)
CPT/HCPCS: G0296

== ENCOUNTER 2022-12-27 13:21 | Outpatient (REF) | payer OTHER, SELFPAY ==
--- NOTE | ~2022-12-27 | CT_ITS ---
EXAMINATION: LOW-DOSE SCREENING CT CHEST WITHOUT CONTRAST CLINICAL INFORMATION: History of cigarette smoking. COMPARISON: Chest CT from 02/13/2021. TECHNIQUE: Multidetector volumetric noncontrast CT imaging of the chest was obtained using low dose screening CT technique. Axial thin section reformations in soft tissue and lung windows were obtained. Sagittal and coronal reformatted images were obtained. Axial images were created and reviewed. This CT examination was performed using dose optimization techniques as appropriate, variously including the following: *Automated exposure control *Adjustment of mA and/or kV according to patient size (this includes techniques or standardized protocols for targeted exams where dose is matched to indication/reason for exam; i.e. extremities or head) *Use of iterative reconstruction technique TOTAL EXAM DLP: 39 mGy-cm. CTDIvol: 1.18 mGy. FINDINGS: LUNGS: The central airways are unremarkable. Moderate centrilobular and paraseptal emphysema. A bulla at the anterior right apex measures up to 6.3 cm transverse dimension. No pneumothorax. No interstitial lung disease. NODULES: Small 0.3 cm noncalcified nodular focus in the medial right upper lobe probably represents inspissated mucus within a peripheral bronchus and is stable compared to 02/13/2021 (128, series 5). 0.3 cm noncalcified nodule is present in the lateral right upper lobe (211, series 5). A 0.4 cm noncalcified nodule adjacent to a vessel in the right middle lobe has not significantly changed in size (281, series 5). There is a small smoothly marginated pleural-based nodule or lymph node of the posterior right lower lobe (281, series 5). A 0.4 cm solid, noncalcified nodule in the posteromedial left upper lobe remains unchanged (120, series 5). No interval development of a suspicious-appearing lung nodule, mass or pleural effusion. LYMPHATIC STRUCTURES: No pathologic sized mediastinal, hilar or axillary lymph nodes. THYROID GLAND: Unremarkable to the extent seen. CARDIOVASCULAR STRUCTURES: The heart size is normal. Pulmonary arteries and thoracic aorta are normal in caliber. No pericardial effusion. CORONARY ARTERY CALCIFICATION: Mild atherosclerotic calcification of the left anterior descending coronary artery. MEDIASTINUM: The esophagus is unremarkable. No mediastinal mass. UPPER ABDOMEN: Included portions of the solid organs in the upper abdomen are unremarkable on noncontrast imaging. OSSEOUS STRUCTURES: Mild spondylosis of the thoracic spine. No acute or suspicious osseous abnormality. CT/CT lung screening IMPRESSION: * Moderate pulmonary emphysema. * Several small pulmonary nodules are detected. * However, no suspicious-appearing lung nodule, mass or lymphadenopathy. * There is mild atherosclerotic calcification of the left anterior descending coronary artery. Lung-RADS CATEGORY Lung RADS category: 2. Benign appearance or behavior. Nodules with a very low likelihood of becoming a clinically active cancer due to size or lack of growth. Continue annual screening with low-dose CT in 12 months. Probability of malignancy less than 1%. INCIDENTAL FINDINGS (S CATEGORY): No new or unexpected/actionable findings in this category. RECOMMENDATION: If the patient remains in a screening program, obtain low dose chest CT follow up in 12 months. The USPSTF recommends annual screening for lung cancer using low-dose CT in adults aged 50 - 80 years who have at least a 20 pack-year smoking history and currently smoke or have quit smoking within the past 15 years.
== END 2022-12-27 13:22 | disposition home or self-care (01) ==
LOC: HO.CT 13:21
PROVIDERS: PCP Nurse Practitioner Family; Visit Provider Physician Assistant Medical
DX: Z12.2 Encounter for screening for malignant neoplasm of respiratory organs (principal); Z87.891 Personal history of nicotine dependence
CPT/HCPCS: 71271; G0296

== ENCOUNTER 2023-01-01 07:18 | Outpatient (REF) | payer OTHER, SELFPAY ==
--- NOTE | ~2023-01-01 | FL_ITS ---
EXAMINATION: XR FLUOROSCOPY WITH IMAGES CLINICAL INFORMATION: Spinal stenosis, cervical region. COMPARISON: None available. TECHNIQUE: Fluoroscopy Supervised By: Dr. Jamie Montero. Fluoroscopy Time: 0.5 minutes. Cumulative Dose: 2.87 mGy. DAP: 0.297 Gycm2. Images: 4. FINDINGS: Images demonstrate needle placement and contrast injection adjacent to the lateral bilateral proximal cervical spine FL/FL guidance in treatment room IMPRESSION: Fluoroscopy guidance for pain management procedure.
== END 2023-01-01 07:19 | disposition home or self-care (01) ==
LOC: CF 07:18
PROVIDERS: PCP Nurse Practitioner Family; Visit Provider Internal Medicine
DX: M47.812 Spondylosis without myelopathy or radiculopathy, cervical region (principal); M48.02 Spinal stenosis, cervical region
CPT/HCPCS: 64490; 64491

== ENCOUNTER 2023-01-01 07:51 | Outpatient (AMB) | payer OTHER, SELFPAY ==
[2023-01-01 07:50] VITALS: BP 100/60; PULSE 65; RESP 14; O2SAT 98
--- NOTE | 2023-01-01 07:50 | A.OFFVIS_ITS ---
Intake Vital Signs 01/01/23 07:50 BP 100/60 Blood Pressure Location Rt brachial Position Sitting Respiration 14 Pulse 65 Pulse Source Pulse Oximeter Pulse Oximetry (%) 98 Oxygen Delivery Method Room Air Intake Visit Reasons: Jose Dx C4-C5-C6 MBB Allergies ibuprofen Adverse Reaction (Intermediate, Verified 01/01/23 07:51) Stomach Upset HPI Jose Dx C4-C5-C6 MBB HPI Details Patient presents for scheduled procedure. Denies any recent cough, cold, infection, fever or other significant changes in medical history since last office visit. [facility] Medical History (Updated 12/27/22 @ 13:12 by Karolyn Bragg PA-C) Arthritis COPD (chronic obstructive pulmonary disease) COVID-19 vaccine series completed Emphysema lung GERD (gastroesophageal reflux disease) Personal history of nicotine dependence Surgical History (Updated 12/27/22 @ 13:17 by Karolyn Bragg PA-C) History of cholecystectomy History of colonoscopy History of dental surgery History of partial hysterectomy History of tubal ligation Family History Mother GERD (gastroesophageal reflux disease) DVT (deep venous thrombosis) Father HTN (hypertension) Abnormal thyroid hormone metabolism Social History (Updated 12/27/22 @ 13:13 by Karolyn Bragg PA-C) Housing: House Do you presently have visiting nurse or other home services: No Alcohol intake: current Alcohol intake frequency: a few times a week Alcohol type: wine Patient Tobacco Use Status: Former Tobacco user Quit Date: 12/09/2019 Tobacco use type: Cigarette Years Smoked: onset 15yo, 1ppd x 34yrs, 30pyh - quit 2019) e-Cigarette/Vaping Use: Never Used Second Hand Smoke Exposure: No service: No Current occupational status: employed 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 The patient was placed in a lateral position. The respective cervical area was prepped with chloraprep and draped in sterile fashion. The skin over the target medial branch nerves was anesthetized with 0.5% lidocaine. A 25 gauge 1.5 inch needle was inserted into the target medial branch nerve under fluoroscopic guidance. No paresthesias were elicited with needle placement and aspiration was negative for blood and CSF. Next, 0.2cc of Isovue 300 was injected to verify positioning. Next 0.5 ml 0.5% ropivicaine was injected (0.5 cc total per level). The identical procedure was performed at the remaining levels. The skin was cleansed and a sterile bandage was applied. Following the procedure the patient's vital signs were stable. The patient tolerated the procedure well and no complications were encountered. Following the procedure the patient's vital signs were stable. The patient was discharged home in good condition with post-procedural instructions. Time Out: Immediately prior to the procedure, the following was verbally confirmed that there is a signed consent form and that the correct patient, planned procedure, site and side are consistent with documentation and that necessary equipment and/or blood products are available prior to the start of the case. Complications: none EBL: <5 cc 95534 - second level, with Fluoroscopy (bilateral) Procedure code (CPT) selection complete Assessment & Plan Assessment & Plan (1) Neck arthritis: Code(s): M47.812 - Spondylosis without myelopathy or radiculopathy, cervical region Plan Patient is status post bilateral C3, C4, C5 diagnostic medial branch blocks. Patient tolerated procedure well and was discharged home in stable condition with discharge instructions. All questions were answered. We will follow-up via telephone or in clinic to assess response to therapy. A follow-up appointment was made during today's visit. Orders: Orders FL guidance in treatment room Today M47.817 - Spondylosis without myelopathy or radiculopathy, lumbosacral region, M48.02 - Spinal stenosis, cervical region Coding Level of Care Code Procedure Only Diagnoses Neck arthritis M47.812 CPT Codes Facet Injection Cervical/Thoracic - CPT: 03884 - second level, with Fluoroscopy ([id number])
== END 2023-01-01 08:40 | disposition home or self-care (01) ==
PROVIDERS: PCP Nurse Practitioner Family; Visit Provider Internal Medicine
DX: M47.812 Spondylosis without myelopathy or radiculopathy, cervical region (principal)
CPT/HCPCS: 64490; 64491

== ENCOUNTER 2023-01-03 09:26 | Outpatient (AMB) | payer OTHER, SELFPAY ==
--- NOTE | 2023-01-03 09:34 | A.OFFVIS_ITS ---
Intake Vital Signs 01/03/23 09:38 Height 5 ft 4.5 in Weight 129 lb 4 oz BMI 21.8 BP 123/74 Blood Pressure Location Rt brachial Position Sitting Pulse 67 Pulse Source Pulse Oximeter Pulse Oximetry (%) 98 Oxygen Delivery Method Room Air Intake Visit Reasons: s/p kin Dx C4-C5-C6 MBB Intake Note: Pain today 5/10. 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 Montero Patient reports 10% pain relief for 2-3 hours after procedure with minimal improvement in her neck symptoms. Patient reports she resumed baclofen, tizanidine and Tylenol extra strength for axial cervical pain. She reports stopping gabapentin use after taking it for 2 weeks and developing insomnia and suicidal ideation. Denies any SI/HI or hallucinations since stopping gabapentin. We will add this to her allergies list. She presents with improved cervical ROM and reports having a good day today. She is willing to undergo a repeat cervical diagnostic medial branch block injections in order to establish reproducible response to the treatment for potential Sprint peripheral nerve stimulation. Past Procedures: 01/01/23: Bilateral Diagnostic C3, C4, C5 MBB-10% pain relief for 2-3 hours PRIOR: Patient presents today after neurosurgical evaluation and states she was deemed non-surgical. Patient is interested to proceed for interventional treatments to address her facetogenic cervical pain, most significant on left side but also has occasional pain on right side of the neck with daily headaches, spasms and neck stiffness. We reviewed cervical medial branch blocks again today in more detail and potential therapeutic injections, Sprint PNS trial or cervical medial branch RFA. Patient reports her neck symptoms continues to affect her daily activities, functions, at times are very debilitating and affecting her sleep and social activities. Denies any fever, chills, visual disturbances, unsteady gait, midline tenderness of cervical spine, lack of coordination, bladder or bowel incontinence or saddle anesthesia. PRIOR: Patient presents today for follow up for neck pain. Patient reports her neck pain has been minimal during rest but is significantly aggravated during work h ours. She is right hand dominant and spends time at the desk and working on computer. She reports periods of severe neck pain which put her in bed rest for up to 7 days, but notes this does not happen too often. During intense neck pain episodes, she experiences radiation of pain to her left lower extremity with weakness, numbness and tingling. She also notices numbness and tingling in both hands that has been progressive over the years. Patient reports she was ill when cervical medial blocks were scheduled. She would like to hold off for interventional treatments. Patient is concerned for i ntense severe episodes of disabling neck pain which require her to take time from work as well as affect her daily activities and sleep. She takes tizanidine at bedtime as this causes her drowsiness during daytime. Patient also reports she is using electrical pulse neck massager for muscle spasms and stiffness and is able to feel heat and pulsing on the right but does not feel same on her left side. She reports tenderness and numbness in her left occipital region. I will sent this patient to obtain cervical MRI for further evaluation. If normal, we will consider neurodiagnostic studies. Patient denies any fever, chills, vision disturbances, chest pain, shortness of breath, cough, gait imbalance, bladder or bowel incontinence or saddle anesthesia. PRIOR 05/08/22 Dr. Lambert: Santa is very pleasant 51 years old female who is in my office complaining on left-sided neck pain. She was examined originally by nurse practitioner here and was sent for physical therapy. She reported great improvement with physical therapy until few days before today when she hit her head while working in the office. She reported that all her pain came back. We discussed possibility of diagnosing and treating her condition with C4-C5 C6 left-sided diagnostic medial branch block. I offered her to have this procedure without sedation she agreed. PRIOR 12/28/21: Patient is a pleasant 51 years old female who presents today for evaluation of neck and lower back pain. Denies any trauma, injury or falls. She attributes her pain generators to arthritis and age since 2018. Her neck pain is increased with lateral movements to the left and right sides but no pain with flexion or extension. She reports her neck pain radiates to her left shoulder and at times to her upper chest and refers this to history of COVID illness and COPD. 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 Patient reports occasional objects dropping with mild weakness, numbness and tingling in her left hand and fingers. Lower back pain is aggravated by weather changes and movements. Pain described as intermittent pulsing, throbbing, shooting, stabbing, lancinating, shart, cutting, lacerating, cramping, wrenching, hot burning, tingling, stinging, dull, sore, hurting, aching, heavy, exhausting, radiating, piercing, tight and tearing. Lumbar and cervical spine x rays on 08/01/21 showed L5-S1 degenerative disc changes and degenerative C5-C6 disc disease with ventral and posterior cervical spondylosis and mild facet joint arthropathy. She denies any previous physical therapy, chiropractic manipulation, TENS unit, acupuncture, massage therapy or aqua therapy. Patient has been taking Tylenol, tizanidine and edible marijuana with partial pain relief. Denies any fever, weight changes, headaches, dizziness, abdominal or groin pain, weakness, bowel or bladder incontinence or saddle anesthesia. Ambulates with normal gait without assistive devices.? PFSH Medical History Arthritis COPD (chronic obstructive pulmonary disease) COVID-19 vaccine series completed Emphysema lung GERD (gastroesophageal reflux disease) Personal history of nicotine dependence Surgical History History of cholecystectomy History of colonoscopy History of dental surgery History of partial hysterectomy History of tubal ligation Family History Mother GERD (gastroesophageal reflux disease) DVT (deep venous thrombosis) Father HTN (hypertension) Abnormal thyroid hormone metabolism Social History Housing: House Do you presently have visiting nurse or other home services: No Alcohol intake: current Alcohol intake frequency: a few times a week Alcohol type: wine Patient Tobacco Use Status: Former Tobacco user Quit Date: 12/09/2019 Tobacco use type: Cigarette Years Smoked: onset 15yo, 1ppd x 34yrs, 30pyh - quit 2019) e-Cigarette/Vaping Use: Never Used Second Hand Smoke Exposure: No service: No Current occupational status: employed 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 Alert and oriented. Mood and affect appropriate. Follows and participates in conversation appropriately. Respiratory effort is unlabored. No cough. Able to transition from sit to stand unassisted. Ambulates with bilaterally normal heel strike and toe off. Back/Spine/Pelvis Cervical Spine: cervical ROM normal, cervical muscular tenderness, pain with cervical ROM (left lateral and bending), No Cervical spine tenderness and No step off deformity Assessment & Plan Assessment & Plan (1) Neck arthritis: Code(s): M47.812 - Spondylosis without myelopathy or radiculopathy, cervical region (2) Cervical spondylosis: Code(s): M47.812 - Spondylosis without myelopathy or radiculopathy, cervical region (3) Muscle spasm: Code(s): M62.838 - Other muscle spasm Plan Patient is status post Bilateral Diagnostic C3-C4-C5 MBBs with minimal pain relief. She is willing to undergo a repeat cervical diagnostic medial branch block injections in order to establish reproducible response to the treatment for potential Sprint peripheral nerve stimulation. Schedule a repeat Bilateral Diagnostic C4-C5-C6 MBB with local and fluoroscopy and oral Ativan prn. Gabapentin discontinued and allergy list updated. Continue muscle relaxants and Tylenol ES as tolerated. Script for topical compound cream from [facility]coming pharmacy. All questions and concerns have been answered and patient agreed with the plan. Follow up after injections and sooner if needed. Anticoagulation: Patient not on anticoagulant Justification for interventional therapy: ? Patient with average pain > 6/10 ? Patient has exhausted conservative therapy, NSAIDs, home exercise program The risks, consequences, alternatives, and benefits of various treatment options were discussed with the patient in great detail, including conservative management, injections and procedures. Medications: New cream base no.171 (bulk) (CompoundMax Base cream) Apply pea-sized amount 3-4 times daily to painful areas as needed 4 appl miscellaneous QID 180 grams 2RF muscle pain M47.812 - Spondylosis without myelopathy or radiculopathy, cervical region, M62.838 - Other muscle spasm Refilled diclofenac sodium 1% (Arthritis Pain (diclofenac)) 2 grams topical QID PRN 100 grams 3RF pain G89.29 - Other chronic pain, M47.812 - Spondylosis without mye lopathy or radiculopathy, cervical region, M54.2 - Cervicalgia Coding Level of Care Code Est Pt Level 4 (06453) Diagnoses Neck arthritis M47.812 Cervical spondylosis M47.812 Muscle spasm M62.838
[2023-01-03 09:38] VITALS: BP 123/74; PULSE 67; O2SAT 98; BMI 21.8
== END 2023-01-03 09:58 | disposition home or self-care (01) ==
PROVIDERS: PCP Nurse Practitioner Family; Visit Provider Nurse Practitioner Family
DX: M46.92 Unspecified inflammatory spondylopathy, cervical region (principal); M47.812 Spondylosis without myelopathy or radiculopathy, cervical region; M62.838 Other muscle spasm
CPT/HCPCS: 99214

== ENCOUNTER → 2023-01-03 09:26 | Outpatient (BNVA) | payer OTHER, SELFPAY | PROVIDERS: PCP Nurse Practitioner Family; Visit Provider Nurse Practitioner Family ==

== ENCOUNTER 2023-01-07 12:48 | Outpatient (AMB) | payer OTHER, SELFPAY ==
--- NOTE | 2023-01-07 13:05 | MHC.OFFVIS ---
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 CA 125 within normal, LDH was elevated at 233 CT scan showed the followin.7 cm intensely enhancing anterior midline pelvic structure which seems to correlate with recent ultrasound findings of complex predominantly solid right ovarian mass. No pathognomonic macroscopic fat or calcification components of dermoid are seen. Bulky left lateral vaginal cuff/cervix with calcifications status post hysterectomy. Pelvic MRI recommended for both findings. Redemonstration right hepatic hemangioma PFSH Medical History Arthritis COPD (chronic obstructive pulmonary disease) COVID-19 vaccine series completed Emphysema lung GERD (gastroesophageal reflux disease) Personal history of nicotine dependence Surgical History History of cholecystectomy History of colonoscopy History of dental surgery History of partial hysterectomy History of tubal ligation Family History Mother GERD (gastroesophageal reflux disease) DVT (deep venous thrombosis) Father HTN (hypertension) Abnormal thyroid hormone metabolism Social History Housing: House Do you presently have visiting nurse or other home services: No Alcohol intake: current Alcohol intake frequency: a few times a week Alcohol type: wine Patient Tobacco Use Status: Former Tobacco user Quit Date: 12/09/2019 Tobacco use type: Cigarette Years Smoked: onset 15yo, 1ppd x 34yrs, 30pyh - quit 2019) e-Cigarette/Vaping Use: Never Used Second Hand Smoke Exposure: No service: No Current occupational status: employed 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 In addition, discussed with the patient thickening of the bladder wall, recommended patient to contact her PCP regarding this finding for further management. Furthermore discussed with the patient the finding on CT of done with multiple nodules, possible metastatic lesion were discussed with the patient. CA 19 9 and CEA ordered and will refer to Administrative Library Assistant Oncology. Appointment scheduled on 01/22 at 09:30 , the patient is aware. All questions answered, the patient verbalized understanding. Orders: Orders Carbohydrate Antigen 19-9 Today N94.89 - Other specified conditions associated with female genital organs and menstrual cycle Carcinoembryonic Antigen Today N94.89 - Other specified conditions associated with female genital organs and menstrual cycle Referrals Gynecologic Oncology Referral N94.89 - Other specified conditions associated with female genital organs and menstrual cycle Coding Level of Care Code Est Pt Level 3 (58968) Diagnoses Adnexal mass N94.89
[2023-01-07 13:08] VITALS: BP 116/72; BMI 21.6
== END 2023-01-07 13:28 | disposition home or self-care (01) ==
LOC: HO.HWS 12:48
PROVIDERS: PCP Nurse Practitioner Family; Visit Provider Obstetrics & Gynecology
DX: N94.89 Other specified conditions associated with female genital organs and menstrual cycle (principal)
CPT/HCPCS: 99213

== ENCOUNTER → 2023-01-07 12:48 | Outpatient (BNVA) | payer OTHER, SELFPAY | PROVIDERS: PCP Nurse Practitioner Family; Visit Provider Obstetrics & Gynecology ==

== ENCOUNTER 2023-01-07 13:32 | Outpatient (AMB) | payer OTHER, SELFPAY ==
--- NOTE | 2023-01-07 13:46 | MHC.OFFVIS ---
Intake Vital Signs 01/07/23 13:49 Height 5 ft 3 in Weight 130 lb 1.164 oz BMI 23.0 BP 126/78 Blood Pressure Location Lt brachial Position Sitting Pulse 65 Pulse Source Pulse Oximeter Pulse Oximetry (%) 100 Oxygen Delivery Method Room Air Intake Visit Reasons: Asthma Intake Note: Pt presents today for a routine f/u but reports having a mass on her ovaries and will be going to oncology 01/22/23. 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 Patient also started to follow-up with lung cancer screening program, with essentially normal last CT chest. She is a rarely using albuterol MDI. She denies recent exacerbations. Unfortunately, patient has been recently diagnosed with pelvic mass and is undergoing workup for that. [facility] Medical History Arthritis COPD (chronic obstructive pulmonary disease) COVID-19 vaccine series completed Emphysema lung GERD (gastroesophageal reflux disease) Personal history of nicotine dependence Surgical History History of cholecystectomy History of colonoscopy History of dental surgery History of partial hysterectomy History of tubal ligation Family History Mother GERD (gastroesophageal reflux disease) DVT (deep venous thrombosis) Father HTN (hypertension) Abnormal thyroid hormone metabolism Social History Housing: House Do you presently have visiting nurse or other home services: No Alcohol intake: current Alcohol intake frequency: a few times a week Alcohol type: wine Patient Tobacco Use Status: Former Tobacco user Quit Date: 12/09/2019 Tobacco use type: Cigarette Years Smoked: onset 15yo, 1ppd x 34yrs, 30pyh - quit 2019) e-Cigarette/Vaping Use: Never Used Second Hand Smoke Exposure: No service: No Current occupational status: employed 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 Sexual orientation: Straight/Heterosexual Gender identity: Female Cognitive needs: No Hearing needs: No Vision needs: Yes (glasses) Review of Systems Const Denies daytime sleepiness, Denies excessive sweating, Denies fatigue, Denies fever(s), Denies lethargy, Denies malaise, Denies night sweats, Denies snoring and Denies weight loss Eyes Denies blurry vision and Denies itchy eyes ENT Denies nasal congestion, Denies post nasal drip, Denies sinus pain, Denies sinus pressure and Denies other ( Thrush) Card Denies chest pain, Denies pedal edema, Denies dyspnea, Denies orthopnea and Denies paroxysmal nocturnal dyspnea Resp Denies cough, Denies hemoptysis, Denies excessive phlegm production, Denies dyspnea, Denies snoring and Denies wheezing GI Denies abdominal pain and Denies heartburn Musc Denies myalgias, Denies arthralgias and Denies joint swelling Skin/Breast Denies rash Neuro Denies memory loss and Denies seizure-like activity Psych Denies abnormal sleep pattern, Denies anxiety and Denies memory loss Endo Denies excessive sweating, Denies fatigue and Denies heat intolerance Arie/Lymph Denies easy bruising Aller/Immun Denies itchy eyes, Denies seasonal rhinorrhea and Denies wheezing Physical Exam Vital Signs: Last Vital Signs Pulse 65 01/07/23 13:49 BP 126/78 01/07/23 13:49 Pulse Ox 100 01/07/23 13:49 Oxygen Delivery Method Room Air 01/07/23 13:49 BMI result Body Mass Index 23.0 Const General: no acute distress and alert Nutritional Appearance: not obese Orientation/consciousness: Other orientation findings ( oriented) HEENT Head: Yes atraumatic Eyes General: appearance normal, both eyes and all related structures Sclerae: sclerae normal EOM: EOMs intact bilaterally Neck Neck: Yes supple Lymphatic: no lymphadenopathy noted Resp Effort & Inspection: normal respiratory effort and no use of accessory muscles Auscultation: clear to auscultation bilaterally Cardio Rate: regular rate Rhythm: regular rhythm Heart sounds: no gallops, no murmurs and no rubs Skin General skin exam: other ( warm) Extrem General: No clubbing, No cyanosis and No edema Assessment & Plan Assessment & Plan (1) Emphysema lung: Code(s): J43.9 - Emphysema, unspecified Plan: No fixed obstruction. Rarely requires albuterol MDI. Continue current regimen. (2) Pulmonary nodules: Code(s): R91.8 - Other nonspecific abnormal finding of lung field Plan: Results of most recent screening reviewed. No worrisome nodules at this time. Continue with screening program. Coding Level of Care Code Est Pt Level 4 (98214) Diagnoses Emphysema lung J43.9 Pulmonary nodules R91.8
[2023-01-07 13:49] VITALS: BP 126/78; PULSE 65; O2SAT 100; BMI 23.0
== END 2023-01-07 14:04 | disposition home or self-care (01) ==
PROVIDERS: PCP Nurse Practitioner Family; Visit Provider Internal Medicine Pulmonary Disease
DX: J43.9 Emphysema, unspecified (principal); R91.8 Other nonspecific abnormal finding of lung field
CPT/HCPCS: 99214

== ENCOUNTER 2023-01-08 08:06 | Outpatient (REF) | payer OTHER, SELFPAY ==
[2023-01-10 14:42] LABS: Carbohydrate Antigen 19-9 <3 U/mL (<34)
== END 2023-01-08 08:07 | disposition home or self-care (01) ==
LOC: HO.HMGCLDS 08:06
PROVIDERS: PCP Nurse Practitioner Family; Visit Provider Obstetrics & Gynecology
DX: N94.89 Other specified conditions associated with female genital organs and menstrual cycle (principal)
CPT/HCPCS: 36415; 82378; 86301

== ENCOUNTER 2023-04-02 10:52 | Outpatient (AMB) | payer OTHER, SELFPAY ==
[2023-04-02 10:53] VITALS: BP 110/80; PULSE 61; O2SAT 100; BMI 24.6
--- NOTE | 2023-04-02 10:53 | MHC.PC.OV ---
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: No Allergies ibuprofen Adverse Reaction (Intermediate, Verified 04/02/23 11:00) Stomach Upset gabapentin Allergy (Severe, Uncoded 04/02/23 11:00) Insomnia Medication List - Last Reconciled 04/02/23 by MARLENA Gibson acetaminophen (Tylenol Extra Strength) 500 mg PO QID PRN albuterol sulfate 90 mcg/actuation 2 inhalations inhalation Q6-8H PRN baclofen 10 mg PO TID PRN cholecalciferol (vitamin D3) 25 mcg PO DAILY cream base no.171 (bulk) (CompoundMax Base cream) 4 appl miscellaneous QID diclofenac sodium 1% (Arthritis Pain (diclofenac)) 2 grams topical QID PRN ondansetron 4 mg PO BID PRN tizanidine 4 mg PO BEDTIME Tobacco use date assessed: 04/02/23 HPI F/U anxiety, HLD HPI Details Patient is a 52-year-old female who presents today for a routine follow-up. Medical history significant for low vitamin-D level, emphysema lung, COPD - followed by [facility], neck pain - followed by [facility], hyperlipidemia, GERD, and Graves disease.? Patient was seen by endocrinology due to Graves disease in the past and recommendation to monitor her TSH 1-2 times per year, no need to see endocrinology while TSH is normal. Patient recently did have total hysterectomy with endometriosis surgery with Dr. Orellana 01/2023, she has an upcoming appointment with the surgeon next week. In addition, patient reports ongoing anxiety, interested in medication. She also reports low back pain for the past couple weeks, no injury, pain is worse with activity, pain radiate to her groin and down to both lower extremities, reports chronic tingling in her feet and hands. Reports taking ibuprofen 800 mg and Tylenol 1000 mg as needed with some improvement in pain, also on muscle relaxer, interested in physical therapy referral. 11/2022 CT abdomen OSSEOUS STRUCTURES: Severe L5-S1 disc space narrowing. [facility], [facility] Medical History Personal history of nicotine dependence Emphysema lung COVID-19 vaccine series completed GERD (gastroesophageal reflux disease) Arthritis COPD (chronic obstructive pulmonary disease) Surgical History H/O total hysterectomy History of colonoscopy History of dental surgery History of cholecystectomy History of partial hysterectomy History of tubal ligation Family History Mother GERD (gastroesophageal reflux disease) DVT (deep venous thrombosis) Father HTN (hypertension) Abnormal thyroid hormone metabolism Social History Housing: House Do you presently have visiting nurse or other home services: No Alcohol intake: current Alcohol intake frequency: a few times a week Alcohol type: wine Patient Tobacco Use Status: Former Tobacco user Quit Date: 12/09/2019 Tobacco use type: Cigarette Years Smoked: onset 15yo, 1ppd x 34yrs, 30pyh - quit 2019) e-Cigarette/Vaping Use: Never Used Second Hand Smoke Exposure: No service: No Current occupational status: employed 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 1. Little interest or pleasure in doing things: several days 2. Feeling down, depressed, or hopeless: several days 3. Trouble falling or staying asleep, or sleeping too much: more than half the days 4. Feeling tired or having little energy: nearly every day 5. Poor appetite or overeating: more than half the days 6. Feeling bad about yourself - or that you are a failure or have let yourself or your family down: not at all 7. Trouble concentrating on things, such as reading the newspaper or watching television: not at all 8. Moving or speaking so slowly that other people could have noticed. Or the opposite - being so fidgety or restless that you have been moving around a lot more than usual: not at all 9. Thoughts that you would be better off or of hurting yourself in some way: not at all Total score: 9 Depression Screening Interpretation: Negative Depression Screening Done: Yes 36483 - PHQ-9 Billing: Yes Source: Developed by Drs. Abundio Kirkpatrick, Cassidy Mcfadden, Elier Ralph and colleagues, with an educational angélica from [employer]. Thrive Questionnaire Date Thrive assessed: 08/02/22 AUDIT C Alcohol Use Questionnaire (AUDIT-C) 1. How often do you have a drink containing alcohol?: Never 3. How often do you have six or more drinks on one occasion?: Never Total Score: 0 Score Reviewed/Action Taken: No ALISA-7 AMB Questionnaire ALISA-7 Date ALISA - 7 assessed: 04/02/23 Feeling nervous, anxious, or on edge: 1 = Several days Not being able to stop or control worryin = Several days Worrying too much about different things: 1 = Several days Trouble relaxin = Several days Being so restless that it is hard to sit still: 1 = Several days Becoming easily annoyed or irritable: 1 = Several days Feeling afraid as if something awful might happen: 1 = Several days Total ALISA-7 score (0-4 normal; 5-9 mild; 10-14 moderate; 15-21 severe): 7 Source: Developed by Drs. Abundio Kirkpatrick, Cassidy Mcfadden, Elier Ralph and colleagues, with an educational angélica from [employer]. ALISA-7 Assessment Billing ALISA-7 Assessment Tool: ALISA-7 Assessment 59256 Review of Systems Const Denies body aches, Denies chills, Denies fever(s) and Denies headache(s) Eyes Denies change in vision ENT Denies dizziness, Denies otalgia, Denies headache(s), Denies nasal discharge, Denies sinus pain and Denies sore throat Card Details: Intermittent palpitations Denies chest pain, Denies edema, Denies lightheadedness and Denies dyspnea Resp Denies chest congestion, Denies cough and Denies dyspnea GI Denies abdominal pain, Denies constipation, Denies diarrhea, Reports nausea (Intermittent) and Denies vomiting Denies dysuria Musc Reports as per HPI, Reports back pain and Denies myalgias Skin/Breast Reports lesions and Denies rash Neuro Denies dizziness and Denies headache(s) Physical exam (Primary Care) Vital Signs: Last Vital Signs Pulse 61 04/02/23 10:53 BP 110/80 04/02/23 10:53 Pulse Ox 100 04/02/23 10:53 Oxygen Delivery Method Room Air 04/02/23 10:53 BMI result Body Mass Index 24.6 Tobacco/Smoking Status: Tobacco use Status Tobacco use date assessed 04/02/23 04/02/23 10:58 Patient Tobacco Use Status Former Tobacco user 04/02/23 10:58 Tobacco use type Cigarette 04/02/23 10:58 e-Cigarette/Vaping Use Never Used 04/02/23 10:58 PHQ-9: PHQ-9 Score PHQ-9: Total score 9 04/02/23 10:58 Depression Screening Interpretation: Negative Thrive Assessment: Date of Thrive Assessment Date Thrive assessed 08/02/22 04/02/23 10:58 Const General: cooperative and no acute distress Orientation/consciousness: patient oriented x3 HENMT Head: Yes normocephalic and Yes atraumatic Throat: Yes posterior oropharynx normal Eyes General: appearance normal, both eyes and all related structures Neck Neck: Yes normal visual inspection and Yes full ROM Resp Effort & Inspection: normal respiratory effort and able to speak in complete sentences Auscultation: clear to auscultation bilaterally, no crackles, no rales, no rhonchi and no wheezes Cardio Rate: regular rate Rhythm: regular rhythm Heart sounds: S1 normal heart sound present, S2 normal heart sound present and no murmurs GI Auscultation: normal bowel sounds General: No CVA tenderness Back/Spine/Pelvis Back: No CVA tenderness Thoracic/Lumbar Spine: pain with thoraco-lumbar ROM, No paraspinal muscle tenderness, No thoracic spinal tenderness and No lumbar spinal tenderness Skin Other: Low abdomen surgical incision well approximated, dry, clean, intact, no signs of infection noted Neuro General: patient oriented x3 Gait exam (Neuro): Normal gait present Extrem General: Yes full ROM and No edema Assessment and Plan Assessment & Plan (1) Low back pain: Code(s): M54.50 - Low back pain, unspecified Plan: Physical therapy referral Continue ibuprofen 600-800 mg every 8 hours as needed Continue [id number] Tylenol 1000 mg every 6 hours as needed Continue muscle relaxers Notify office if improvement after physical therapy (2) Emphysema lung: Code(s): J43.9 - Emphysema, unspecified Plan: Albuterol inhaler p.r.n. Continue to follow-up with pulmonology Dr. Castaneda (3) COPD (chronic obstructive pulmonary disease): Code(s): J44.9 - Chronic obstructive pulmonary disease, unspecified Plan: Same as above (4) Hyperlipidemia: Code(s): E78.5 - Hyperlipidemia, unspecified Plan: LDL 135 10/2022 Low-cholesterol diet Continue to monitor (5) GERD (gastroesophageal reflux disease): Code(s): K21.9 - Gastro-esophageal reflux disease without esophagitis Plan: Avoid GERD trigger foods Do not lay down 2-3 hours after evening meal (6) Graves disease: Code(s): E05.00 - Thyrotoxicosis with diffuse goiter without thyrotoxic crisis or storm Plan: Continue to monitor TSH (7) Anxiety: Code(s): F41.9 - Anxiety disorder, unspecified Plan: Patient was referred to counseling in the past, although she did not like counseling, she stopped seeing them, she also reports that she was started on escitalopram and she stopped taking it Start hydroxyzine 10 mg b.i.d. p.r.n.-educated about drowsiness Plan Follow-up in 4 months or sooner as needed Orders: Orders Comprehensive Neptune. Panel Fast 3 Months F41.9 - Anxiety disorder, unspecified TSH reflex Free T4 3 Months E05.00 - Thyrotoxicosis with diffuse goiter without thyrotoxic crisis or storm PT Evaluation and Treatment Today M54.50 - Low back pain, unspecified Lipid Panel 3 Months E78.5 - Hyperlipidemia, unspecified Medications: New tizanidine 2 mg PO BEDTIME PRN 30 tabs 0RF muscle spasticity M54.50 - Low back pain, unspecified hydroxyzine HCl 10 mg PO BID PRN 20 tabs 0RF anxiety F41.9 - Anxiety disorder, unspecified Coding Level of Care Code Est Pt Level 4 (20012) Diagnoses Low back pain M54.50 Emphysema lung J43.9 COPD (chronic obstructive pulmonary disease) J44.9 Hyperlipidemia E78.5 GERD (gastroesophageal reflux disease) K21.9 Graves disease E05.00 Anxiety F41.9 Additional Codes ALISA-7 Assessment Billing - ALISA-7 Assessment Tool: ALISA-7 Assessment 80163 ([id number])
== END 2023-04-02 11:25 | disposition home or self-care (01) ==
PROVIDERS: PCP Nurse Practitioner Family; Visit Provider Nurse Practitioner Family
DX: M54.50 Low back pain, unspecified (principal); J43.9 Emphysema, unspecified; E78.5 Hyperlipidemia, unspecified; K21.9 Gastro-esophageal reflux disease without esophagitis; E05.00 Thyrotoxicosis with diffuse goiter without thyrotoxic crisis or storm; F41.9 Anxiety disorder, unspecified
CPT/HCPCS: 99214

== ENCOUNTER 2023-07-04 20:23 | Emergency (ER) | payer OTHER, SELFPAY ==
--- NOTE | 2023-07-04 | ECG_ITS ---
Test Reason : ABD PAIN Blood Pressure : / mmHG Vent. Rate : 064 BPM Atrial Rate : 064 BPM P-R Int : 154 ms QRS Dur : 080 ms QT Int : 420 ms P-R-T Axes : 070 063 067 degrees QTc Int : 433 ms Sinus rhythm with marked sinus arrhythmia Otherwise normal ECG When compared with ECG of 20-NOV-2022 14:44, No significant change was found Referred By: Generic ED Physician Electronically Signed By:CATARINO KELLY MD
--- NOTE | ~2023-07-04 | CT_ITS ---
EXAMINATION: CT ABDOMEN AND PELVIS WITH CONTRAST CLINICAL INFORMATION: N/V, lower abdominal pain R/O SBO , diverticulitis COMPARISON: 12/23/2022 TECHNIQUE: Multidetector volumetric images were obtained from the superior aspect of the liver through the pubic symphysis following administration 85 mL of Omnipaque 350 intravenous contrast. Sagittal and coronal reformatted images were obtained on the technologist's workstation. Oral contrast: Yes This CT examination was performed using dose optimization techniques as appropriate, variously including the following: *Automated exposure control *Adjustment of mA and/or kV according to patient size (this includes techniques or standardized protocols for targeted exams where dose is matched to indication/reason for exam; i.e. extremities or head) *Use of iterative reconstruction technique DLP: 448 mGy-cm FINDINGS: LUNG BASES: The visualized lung bases are unremarkable. LIVER, GALLBLADDER, AND BILIARY TREE: The liver is normal in size, shape, and attenuation. There is a right hepatic lobe lesion demonstrating peripheral nodular enhancement and central hypoattenuation measuring up to approximately 3 cm in size, most consistent with a hemangioma. Patient is status post cholecystectomy. There is mild hepatic biliary ductal prominence which may be physiologic in this setting. PANCREAS: Unremarkable. SPLEEN: Unremarkable. ADRENAL GLANDS: Unremarkable. KIDNEYS AND URETERS: Bilateral nephrograms are symmetric. No hydronephrosis or obstructing calculus identified. BLADDER: Unremarkable. GASTROINTESTINAL TRACT: No evidence of bowel obstruction. There is limited assessment for wall thickening in the sigmoid colon due to luminal collapse. However, there is slight stranding adjacent to the sigmoid colon along the left pelvic sidewall in the setting of a few diverticula, raising the possibility of mild sequelae of diverticulitis. The appendix is unremarkable. No free fluid or free air is seen. ABDOMINAL WALL: No significant hernia is appreciated. LYMPH NODES: Normal. VASCULAR: Scattered atherosclerotic calcifications. PELVIC VISCERA: Patient is status post hysterectomy. Soft tissue density along the left aspect of the vaginal cuff is decreased compared to prior. Previous pelvic mass adjacent to the anterior aspect of the bladder is no longer seen. OSSEOUS STRUCTURES: Degenerative changes at L5-S1. CT/CT abdomen pelvis w IV con IMPRESSION: 1. Slight stranding adjacent to the sigmoid colon in the setting of a few diverticula, raising the possibility of mild sequelae of diverticulitis. 2. No evidence of bowel obstruction. 3. Mild intrahepatic biliary ductal prominence, which may be physiologic in the setting of prior cholecystectomy.
[2023-07-04 20:29] VITALS: BP 120/80; BP 126/83; PULSE 66; PULSE 68; RESP 22; TEMP 36.9; O2SAT 100; O2SAT 98; BMI 23.8
--- NOTE | 2023-07-04 20:43 | MHC.EDTECH ---
This Tech assumed care of tis PT upon arrival. Pt changed into a hospital gown and hospital socks. PT placed on security monitor. EKG done and handed to provider
[2023-07-04 20:54] VITALS: PULSE 68; RESP 17
[2023-07-04 20:54] LABS: MANUAL DIFF FLAG NO
[2023-07-04 20:56] LABS: Basophils Absolute Auto 0.1 X10*3/uL (0.0-0.2); Basophils Percent Auto 0.6 % (0-2); Eosinophils Absolute Auto 0.2 X10*3/uL (0.0-0.4); Eosinophils Percent Auto 2.2 % (0-4); Hematocrit 36.8 % (37.0-47.0); Hemoglobin 13.3 g/dl (12.0-16.0); Imm Gran Abs Auto 0.03 X10*3/uL (0.00-0.03); Imm Gran Pct Auto 0.4 % (0.0-0.4); Lymphocytes Absolute Auto 2.1 X10*3/uL (1.2-4.9); Mean Corpuscular HGB Conc 36.1 g/dl (31.0-35.0); Mean Corpuscular Hemoglobin 31.5 pg (27.0-33.0); Mean Corpuscular Volume 87.2 fL (80.0-98.0); Mean Platelet Volume 9.4 fL (9.4-12.3); Monocytes Absolute Auto 0.6 X10*3/uL (0.1-1.2); Monocytes Percent Auto 7.9 % (2-11); Neutrophils Absolute Auto 5.1 x10*3/uL (2.0-8.3); Neutrophils Percent Auto 62.9 % (45-73); Platelet Count 307 X10*3/uL (160-400); Red Blood Count 4.22 X10*6/uL (4.20-5.50); Red Cell Distribution Width 12.2 % (11.0-16.0); White Blood Count 8.1 X10*3/uL (4.8-10.8)
[2023-07-04 21:10] LABS: Alanine Aminotransferase 25 U/L (0-31); Albumin Level 4.3 g/dL (3.5-5.0); Alkaline Phosphatase 71 U/L (39-117); Anion Gap 17 (12-20); Aspartate Amino Transferase 20 U/L (5-31); Bilirubin Total 0.6 mg/dL (0.0-1.0); Blood Urea Nitrogen 17 mg/dL (9-16); Calcium 9.7 mg/dL (8.4-10.2); Carbon Dioxide 18 mmol/L (22-29); Chloride 107 mmol/L (96-108); Creatinine Clr Calc Pharmacy 87.4; Estimated Glomerular Filt Rate > 60; Glucose Random 109 mg/dL (60-115); Lipase 52 U/L (8-78); Potassium 3.3 mmol/L (3.3-5.1); Sodium 139 mmol/L (135-145); Total Protein 6.9 g/dL (6.5-8.0)
[2023-07-04 21:18] LABS: Troponin-I High Sensitivity < 2.7 ng/L (<3.5-17.0)
[2023-07-04 21:44] VITALS: BP 114/49; PULSE 64; RESP 14; TEMP 36.9; O2SAT 98
--- NOTE | 2023-07-04 23:08 | ED.NAVMDI ---
HPI - Nausea/Vomiting/Diarrhea General Chief complaint: Nausea/Vomiting/Diarrhea Stated complaint: N/V/D x2 hours, IV established Time Seen by Provider: 07/04/23 22:47 Source: patient Mode of arrival: EMS Limitations: no limitations History of Present Illness HPI Narrative: 53-year-old female history of COPD, neck and back arthritis, endometriosis, cholecystectomy, hysterectomy with bilateral salpingo-oophorectomy who presents emergency department for evaluation of lower abdominal pain which started suddenly in the afternoon. Patient points to her lower abdomen when asked to localize the pain. She states the pain was 6/10 at its worst. Diaphoresis, chills, lightheadedness. She had 4-5 episodes of emesis. She denied feeling bloated or distended. She states this is a 1st episode of this type of pain. Patient states she has had multiple surgeries including a cholecystectomy, hysterectomy with bilateral salpingo-oophorectomy. She states that in January of 2023 surgery for endometriosis. Related Data Home Medications Medication Instructions Recorded Confirmed acetaminophen 500 mg tablet 500 mg PO QID PRN Pain 08/01/21 04/02/23 (Tylenol Extra Strength) Previous Rx's Medication Instructions Recorded albuterol sulfate 90 mcg/actuation 2 inh inhalation Q6-8H PRN 08/01/21 aerosol inhaler shortness of breath or wheezing #8.5 grams cream base no.171 (bulk) 4 appl miscellaneous QID muscle 01/03/23 (CompoundMax Base cream) pain #180 grams cholecalciferol (vitamin D3) 25 25 mcg PO DAILY #90 tabs 05/07/23 mcg (1,000 unit) tablet tizanidine 2 mg tablet 2 mg PO BEDTIME PRN muscle 05/07/23 spasticity #30 tabs ondansetron 4 mg disintegrating 4 mg PO BID PRN nausea and 05/08/23 tablet vomiting #20 tabs baclofen 10 mg tablet 10 mg PO TID PRN for muscle spasm 06/16/23 #90 tabs diclofenac sodium 1 % topical gel 2 g topical QID PRN pain #100 grams 06/16/23 (Arthritis Pain (diclofenac)) hydroxyzine HCl 10 mg tablet 10 mg PO BID PRN anxiety #20 tabs 06/17/23 Allergies Allergy/AdvReac Type Severity Reaction Status Date / Time ibuprofen AdvReac Intermediate Stomach Verified 04/02/23 11:00 Upset gabapentin Allergy Severe Insomnia Uncoded 04/02/23 11:00 Review of Systems Review of Systems: Yes all other systems are reviewed and are negative [facility] Past Medical History [facility] Narrative: Social history: She stop smoking cigarettes in 2019 but has a greater than 30 pack-year history of smoking. She drinks alcohol twice a week, mainly wine. She states that she smokes some marijuana daily and also eats edible marijuana daily Medical History Personal history of nicotine dependence Emphysema lung COVID-19 vaccine series completed GERD (gastroesophageal reflux disease) Arthritis COPD (chronic obstructive pulmonary disease) Surgical History H/O total hysterectomy History of colonoscopy History of dental surgery History of cholecystectomy History of partial hysterectomy History of tubal ligation Family History Family History Mother GERD (gastroesophageal reflux disease) DVT (deep venous thrombosis) Father HTN (hypertension) Abnormal thyroid hormone metabolism Social History Social History Housing: House Do you presently have visiting nurse or other home services: No Alcohol intake: current Alcohol intake frequency: holidays/special occasions only Alcohol type: wine Patient Tobacco Use Status: Former Tobacco user Quit Date: 12/09/2019 Tobacco use type: Cigarette Years Smoked: onset 15yo, 1ppd x 34yrs, 30pyh - quit 2019) Smoked in Last 30 Days: No e-Cigarette/Vaping Use: Never Used Second Hand Smoke Exposure: No Use of substances other than those prescribed or required for medical reasons: Yes Substance Use Type: Marijuana Advance Directives: No Advance Directives Information Provided: No service: No Current occupational status: employed 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 Sexual orientation: Straight/Heterosexual Gender identity: Female Cognitive needs: No Hearing needs: No Vision needs: Yes (glasses) Physical Exam Vital Signs: Vital Signs: Last Vital Signs Temp 98.0 F 07/04/23 23:37 Pulse 68 07/04/23 23:37 Resp 15 07/04/23 23:37 BP 128/70 07/04/23 23:37 Pulse Ox 98 07/04/23 23:37 O2 Del Method Room Air 07/04/23 23:37 BMI result Body Mass Index 23.8 Vital signs were Exam General: Awake, alert in no distress Head: Normocephalic, atraumatic EENT: PERRL, Lids normal, sclera normal, conjunctiva normal, nose normal , ears normal, throat without erythema or exudates Neck: Supple, no adenopathy Lung: breath sounds symmetric, no wheezing, rales or rhonchi Chest: symmetric movement, nontender Heart: regular rate and rhythm, normal S1, S2 no murmurs or rubs Abdomen: Patient's abdomen is soft, the patient has mild diffuse tenderness with moderate right lower quadrant tenderness and moderate to severe left lower quadrant tenderness, no rebound, no voluntary or involuntary guarding, she has normoactive bowel sounds Back: no vertebral tenderness, no CVAT Extremities: no deformities, moves all extremities symmetrically Neuro: Awake, alert, oriented, normal speech, cranial nerves intact, moves all extremities symmetrically Psych: Pleasant, cooperative Medications Administered Discontinued Medications Generic Name Dose Route Start Last Admin Trade Name Freq PRN Reason Stop Dose Admin Diatrizoate Meglum/Diatrizoate Sod 30 ml 07/04/23 23:12 07/04/23 23:13 Diatrizoate Meglumine, Sodium 30 Ml Solution PO 07/04/23 23:13 30 ml ONCE ONE Administration Hydromorphone HCl 1 mg 07/04/23 23:04 07/04/23 23:40 Hydromorphone Hcl 1 Mg/Ml Syringe IVPUSH 07/04/23 23:05 1 mg ONCE STA Administration Protocol Sodium Chloride 1,000 mls @ 999 mls/hr 07/04/23 23:34 07/05/23 01:19 Ns IV 07/05/23 00:34 Infused .Q1H1M STA Infusion Ondansetron HCl 4 mg 07/04/23 23:04 07/04/23 23:40 Ondansetron Hcl 4 Mg/2 Ml Vial IVPUSH 07/04/23 23:05 4 mg ONCE ONE Administration Medical Decision Making Medical Decision Making MDM Narrative: 53-year-old female history of COPD, neck and back arthritis, endometriosis surgery 01/2023, cholecystectomy, hysterectomy with bilateral salpingo-oophorectomy who presents emergency department for evaluation of lower abdominal pain which started suddenly in the afternoon, associated with diaphoresis, lightheadedness, chills nausea and vomiting 4-5 times. Vital signs were normal. Physical examination revealed diffuse abdominal tenderness with increased tenderness in the right lower and left lower quadrant. Differential diagnosis: Diverticulitis, appendicitis, pancreatitis, ureteral colic, small-bowel obstruction Patient was treated with Dilaudid 1 mg IV, Zofran 4 mg IV normal saline x1 L. Given her multiple surgeries the possibility of small-bowel obstruction, I did order a CT scan of the abdomen pelvis with oral and IV contrast. 02:00 My interpretation patient's laboratory evaluation is as follows: CBC was normal bicarb low 18 LFTs were normal troponin was below detectable limits. Lipase was normal at 52 The patient states that her pain improved with the above medications however she still has nausea therefore she was ordered to get Reglan 10 mg IV with Benadryl 25 mg IV. At the end of my shift, CT scan of the abdomen pelvis with IV and oral contrast result is pending therefore the patient's care was turned over to my colleague, Dr. Pascale High. Admission/Observation Consideration of admission/observation: Escalation of care including admission/observation considered Lab Data MDM Lab Attestation statement: I reviewed the patient's lab results. 07/04/23 20:50 07/04/23 20:50 Labs: Lab Results 07/04/23 Range/Units 20:50 WBC 8.1 (4.8-10.8) X10*3/uL RBC 4.22 (4.20-5.50) X10*6/uL Hgb 13.3 (12.0-16.0) g/dl Hct 36.8 L (37.0-47.0) % MCV 87.2 (80.0-98.0) fL MCH 31.5 (27.0-33.0) pg MCHC 36.1 H (31.0-35.0) g/dl RDW 12.2 (11.0-16.0) % Plt Count 307 (160-400) X10*3/uL MPV 9.4 (9.4-12.3) fL Immature Gran % (Auto) 0.4 (0.0-0.4) % Neut % (Auto) 62.9 (45-73) % Lymph % (Auto) 26.0 (20-40) % [place] % (Auto) 7.9 (2-11) % Eos % (Auto) 2.2 (0-4) % Baso % (Auto) 0.6 (0-2) % Lymph # (Auto) 2.1 (1.2-4.9) X10*3/uL [place] # (Auto) 0.6 (0.1-1.2) X10*3/uL Eos # (Auto) 0.2 (0.0-0.4) X10*3/uL Baso # (Auto) 0.1 (0.0-0.2) X10*3/uL Abs Immat Gran (auto) 0.03 (0.00-0.03) X10*3/uL Absolute Neuts (auto) 5.1 (2.0-8.3) x10*3/uL Absolute Nucleated RBC 0.000 (0.0-0.012) X10*3/uL Nucleated RBC % (auto) 0.0 (0.0-0.2) /100WBC Sodium 139 (135-145) mmol/L Potassium 3.3 (3.3-5.1) mmol/L Chloride 107 (96-108) mmol/L Carbon Dioxide 18 L (22-29) mmol/L Anion Gap 17 (12-20) BUN 17 H (9-16) mg/dL Creatinine 0.65 (0.5-1.4) mg/dL Estim Creat Clear Calc 87.4 Estimated GFR > 60 Random Glucose 109 (60-115) mg/dL Calcium 9.7 (8.4-10.2) mg/dL Total Bilirubin 0.6 (0.0-1.0) mg/dL AST 20 (5-31) U/L ALT 25 (0-31) U/L Alkaline Phosphatase 71 (39-117) U/L Troponin I High Sens < 2.7 (<3.5-17.0) ng/L Total Protein 6.9 (6.5-8.0) g/dL Albumin 4.3 (3.5-5.0) g/dL Lipase 52 (8-78) U/L Independent Interpretation I performed an independent interpretation of an: EKG Interpretation: My independent interpretation patient's 12 EKG done at 20:39 hours is as follows: Sinus rhythm with sinus arrhythmia with a rate of 64, normal TN interval, QRS duration QTC interval, no ST segment elevation, no ST segment depression, no significant T-wave abnormalities, this is a normal EKG Discharge Plan Discharge Clinical Impression: Abdominal pain Qualifiers: Abdominal location: lower abdomen, unspecified Qualified Code(s): R10.30 - Lower abdominal pain, unspecified Nausea & vomiting Qualifiers: Vomiting type: unspecified Qualified Code(s): R11.2 - Nausea with vomiting, unspecified Patient Disposition: Still a Patient Prescriptions: No Action tizanidine 2 mg tablet 2 mg PO BEDTIME PRN (Reason: muscle spasticity) Qty: 30 0RF cholecalciferol (vitamin D3) 25 mcg (1,000 unit) tablet 25 mcg PO DAILY Qty: 90 0RF ondansetron 4 mg tablet,disintegrating 4 mg PO BID PRN (Reason: nausea and vomiting) Qty: 20 0RF diclofenac sodium [Arthritis Pain (diclofenac)] 1 % gel 2 g topical QID PRN (Reason: pain) Qty: 100 3RF baclofen 10 mg tablet 10 mg PO TID PRN (Reason: for muscle spasm) Qty: 90 1RF hydroxyzine HCl 10 mg tablet 10 mg PO BID PRN (Reason: anxiety) Qty: 20 0RF acetaminophen [Tylenol Extra Strength] 500 mg tablet 500 mg PO QID PRN (Reason: Pain) albuterol sulfate 90 mcg/actuation HFA aerosol inhaler 2 inh inhalation Q6-8H PRN (Reason: shortness of breath or wheezing) Qty: 8.5 1RF CompoundMax Base Cream 4 appl miscellaneous QID Qty: 180 2RF Rx Instructions: Apply pea-sized amount 3-4 times daily to painful areas as needed
[2023-07-04] MEDS: Diatrizoate Meglumine, Sodium 30 ML SOLUTION PO (23:13)
[2023-07-04 23:37] VITALS: BP 128/70; PULSE 68; RESP 15; TEMP 36.7; O2SAT 98
[2023-07-04] MEDS: ondansetron HCL 4 MG/2 ML VIAL IVPUSH (23:40)
[2023-07-04] MEDS: 0.9 % Sodium Chloride 1,000 ML 999 ML IV (23:40)
[2023-07-04] MEDS: HYDROmorphone HCl 1 MG/ML SYRINGE IVPUSH (23:40)
--- NOTE | 2023-07-05 | PC.NURSE ---
pt tolerated and finished oral contrast. ct scan staff aware.
[2023-07-05] MEDS: iohexoL 350 MG/ML 100 ML INFUS..BTL 85 ML IV (01:35)
[2023-07-05] MEDS: Metoclopramide HCl 10 MG/2 ML VIAL IVPUSH (02:03)
[2023-07-05] MEDS: diphenhydrAMINE HCL 50 MG/ML VIAL 25 MG IVPUSH (02:03)
[2023-07-05 02:40] VITALS: BP 104/71; PULSE 81; RESP 15; TEMP 36.6; O2SAT 96
[2023-07-05] MEDS: Amoxicillin/Potassium Clav 875 MG TABLET PO (03:24)
[2023-07-05 03:28] VITALS: BP 109/66; PULSE 77; RESP 18; O2SAT 97
== END 2023-07-05 04:00 | disposition home or self-care (01) ==
PROVIDERS: Emergency Provider Emergency Medicine Emergency Medical Services
DX: K57.32 Diverticulitis of large intestine without perforation or abscess without bleeding (principal); R10.30 Lower abdominal pain, unspecified; I49.9 Cardiac arrhythmia, unspecified; R11.2 Nausea with vomiting, unspecified; F12.90 Cannabis use, unspecified, uncomplicated; Z79.899 Other long term (current) drug therapy; Z87.891 Personal history of nicotine dependence
CPT/HCPCS: 36415; 74177; 80053; 83690; 84484; 85025; 93005; 96361; 96374; 96375; 99284; 99285; J1170; J1200; J2405; J2765; Q9967

== ENCOUNTER → 2023-07-04 20:39 | Outpatient (BNV) | payer OTHER, SELFPAY | PROVIDERS: Emergency Provider Emergency Medicine Emergency Medical Services; Visit Provider Internal Medicine Cardiovascular Disease | DX: R10.30 Lower abdominal pain, unspecified (principal) | CPT/HCPCS: 93010 ==

== ENCOUNTER 2023-07-31 11:32 | Outpatient (REF) | payer OTHER, SELFPAY ==
[2023-07-31 13:45] LABS: Alanine Aminotransferase 21 U/L (0-31); Albumin Level 4.5 g/dL (3.5-5.0); Alkaline Phosphatase 69 U/L (39-117); Anion Gap 16 (12-20); Aspartate Amino Transferase 19 U/L (5-31); Bilirubin Total 1.2 mg/dL (0.0-1.0); Blood Urea Nitrogen 9 mg/dL (9-16); Calcium 9.8 mg/dL (8.4-10.2); Carbon Dioxide 25 mmol/L (22-29); Chloride 106 mmol/L (96-108); Cholesterol 253 mg/dL (<200); Estimated Glomerular Filt Rate > 60; Glucose Fasting 95 mg/dL (60-99); HDL Cholesterol 60 mg/dL (>40); LDL Cholesterol Calculated 174 mg/dL (<100); Potassium 3.8 mmol/L (3.3-5.1); Sodium 143 mmol/L (135-145); Total Protein 7.4 g/dL (6.5-8.0); Triglycerides 98 mg/dL (<150)
[2023-07-31 14:01] LABS: TSH reflex Free T4 3.07 uIU/mL (0.32-4.0); Vitamin D 25-OH Total 32.7 ng/mL (>30)
== END 2023-07-31 11:33 | disposition home or self-care (01) ==
LOC: HO.HMGCLDS 11:32
PROVIDERS: Visit Provider Nurse Practitioner Family
DX: E05.00 Thyrotoxicosis with diffuse goiter without thyrotoxic crisis or storm (principal); F41.9 Anxiety disorder, unspecified; R79.89 Other specified abnormal findings of blood chemistry; E78.5 Hyperlipidemia, unspecified
CPT/HCPCS: 36415; 80053; 80061; 82306; 84443

== ENCOUNTER 2023-11-19 09:57 | Outpatient (AMB) | payer SELFPAY ==
--- NOTE | 2023-11-19 10:00 | A.OFFPC_ITS ---
Vital Signs 11/19/23 10:05 Height 5 ft 4 in Weight 139 lb 4 oz BMI 23.9 BP 132/80 Blood Pressure Location Lt brachial Position Sitting Pulse 91 Pulse Source Pulse Oximeter Pulse Oximetry (%) 98 Oxygen Delivery Method Room Air Intake Visit Reasons: annual exam- establish [facility] Intake Note: Patient is here today for a physical. Fiberglass Grinder Required: No Sedimentationist: Not Required per policy Accompanied by: Self / Same As Patient Allergies ibuprofen Adverse Reaction (Intermediate, Verified 11/19/23 11:46) Stomach Upset gabapentin Allergy (Severe, Uncoded 11/19/23 11:46) Insomnia Medication List - Last Reconciled 11/19/23 by John Gastelum MD acetaminophen (Tylenol Extra Strength) 500 mg PO QID PRN albuterol sulfate 90 mcg/actuation 2 inhalations inhalation Q6-8H PRN baclofen 10 mg PO TID PRN cholecalciferol (vitamin D3) 25 mcg PO DAILY cream base no.171 (bulk) (CompoundMax Base cream) 4 appl miscellaneous QID hydroxyzine HCl 10 mg PO BID PRN ondansetron 4 mg PO BID PRN tizanidine 4 mg PO BEDTIME PRN Tobacco use date assessed: 11/19/23 Dental Screening Dental Screen Date: 11/19/23 Did you have a dental visit in the last 12 months?: Yes Did you have a dental problem in the last 6 months where you did not have access to dental care?: No Was dental information given to patient?: Patient has dentist HPI annual exam- establish [facility] HPI Details 53-year-old female presents to the offic e to discuss her medical issues. I am taking over her care, as her provider has left the practice. Patient is very tearful throughout the interview. She admits to history of depression, anxiety and worthlessness. She quit her job in June of 2023. 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 She was having pain in her neck, hands and lower extremities. In addition she had recovered from endometriosis surgery. Patient complains of fatigue, unable to work, and a lot of discomfort. She was seen in the pain clinic last year and is taking a prescription from the pain clinic which requires a special formulation. She is used diclofenac sodium in the past for pain relief. Patient lives with her boyfriend. Very few friends. Goes out of the house only to do grocery. [facility] Medical History (Updated 11/19/23 @ 12:01 by John Gastelum MD) Generalized anxiety disorder Personal history of nicotine dependence Emphysema lung COVID-19 vaccine series completed GERD (gastroesophageal reflux disease) Arthritis COPD (chronic obstructive pulmonary disease) Surgical History H/O total hysterectomy History of colonoscopy History of dental surgery History of cholecystectomy History of partial hysterectomy History of tubal ligation Family History Mother GERD (gastroesophageal reflux disease) DVT (deep venous thrombosis) Father HTN (hypertension) Abnormal thyroid hormone metabolism Social History Housing: House Do you presently have visiting nurse or other home services: No Alcohol intake: current Alcohol intake frequency: a few times a week Alcohol type: wine Patient Tobacco Use Status: Former Tobacco user Tobacco use type: Cigarette Years Smoked: onset 15yo, 1ppd x 34yrs, 30pyh - quit 2020) e-Cigarette/Vaping Use: Never Used Second Hand Smoke Exposure: No Substance Use Type: Marijuana service: No Current occupational status: employed 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 1. Little interest or pleasure in doing things: several days 2. Feeling down, depressed, or hopeless: nearly every day 3. Trouble falling or staying asleep, or sleeping too much: nearly every day 4. Feeling tired or having little energy: nearly every day 5. Poor appetite or overeating: several days 6. Feeling bad about yourself - or that you are a failure or have let yourself or your family down: nearly every day 7. Trouble concentrating on things, such as reading the newspaper or watching television: nearly every day 8. Moving or speaking so slowly that other people could have noticed. Or the opposite - being so fidgety or restless that you have been moving around a lot more than usual: not at all 9. Thoughts that you would be better off or of hurting yourself in some way: several days Total score: 18 Depression Screening Interpretation: Positive Depression Screening Done: Yes Source: Developed by Drs. Abundio Kirkpatrick, Elier Caba and colleagues, with an educational angélica from [employer]. Thrive Questionnaire Date Thrive assessed: 11/19/23 I am a: Patient What is your living situation today?: I have a steady place to live Within the past 12 months, did the food you bought not last and you didn't have the money to get more?: Never true Within the past 12 months, did you worry whether your food would run out before you got money to buy more?: Never true Do you have trouble paying for medicines?: No Do you have trouble getting transportation to medical appointments?: No Do you have trouble paying your heating and electricity bill?: No Do you have trouble taking care of your child, family member or friend?: No Do you have trouble with day-to-day activities such as bathing, preparing meals, shopping, managing finances, etc.?: No Are you currently unemployed and looking for a job?: No Are you interested in more education?: No Currently or been in a relationship where the following occur: no concerns reported THRIVE Score: 0 AUDIT C Alcohol Use Questionnaire (AUDIT-C) 1. How often do you have a drink containing alcohol?: Never Total Score: 0 ALISA-7 AMB Questionnaire ALISA-7 Date ALISA - 7 assessed: 11/19/23 Feeling nervous, anxious, or on edge: 3 = Nearly every day Not being able to stop or control worryin = Nearly every day Worrying too much about different things: 3 = Nearly every day Trouble relaxin = Nearly every day Being so restless that it is hard to sit still: 3 = Nearly every day Becoming easily annoyed or irritable: 3 = Nearly every day Feeling afraid as if something awful might happen: 3 = Nearly every day Total ALISA-7 score (0-4 normal; 5-9 mild; 10-14 moderate; 15-21 severe): 21 Source: Developed by Cassidy Mabry Kurt Kroenke and colleagues, with an educational angélica from [employer]. Physical exam (Primary Care) Vital Signs: Last Vital Signs Pulse 91 11/19/23 10:05 BP 132/80 11/19/23 10:05 Pulse Ox 98 11/19/23 10:05 Oxygen Delivery Method Room Air 11/19/23 10:05 BMI result Body Mass Index 23.9 Tobacco/Smoking Status: Tobacco use Status Tobacco use date assessed 11/19/23 11/19/23 10:14 Patient Tobacco Use Status Former Tobacco user 11/19/23 10:10 Tobacco use type Cigarette 11/19/23 10:10 e-Cigarette/Vaping Use Never Used 11/19/23 10:10 PHQ-9: PHQ-9 Score PHQ-9: Total score 18 11/19/23 10:14 Depression Screening Interpretation: Positive Thrive Assessment: Date of Thrive Assessment Date Thrive assessed 11/19/23 11/19/23 10:14 Currently or been in a relationship where the following occur: no concerns reported Const General: cooperative and healthy appearing Nutritional Appearance: well nourished Orientation/consciousness: patient oriented x3 Limitations: no limitations HENMT Head: Yes normal to inspection Eyes General: appearance normal, both eyes and all related structures Neck Neck: Yes normal visual inspection Chest Chest palpation & inspection: normal palpation of entire chest wall Resp Effort & Inspection: normal respiratory effort Neuro General: patient oriented x3 Assessment and Plan Assessment & Plan (1) Generalized anxiety disorder: Code(s): F41.1 - Generalized anxiety disorder Plan: Patient definitely has a lot of anxiety and depression that needs treatment with medications and therapy. She has no insurance and is unwilling to take on any expensive ventures. She declines to do any blood work secondary to the cost. I filled out a legal form that would help her with disability. I will get community navigation involved to see if she can get cheaper insurance. A referral to Psychiatry and possible therapy has been made. Medications: New tizanidine 4 mg PO BEDTIME PRN 30 tabs 0RF muscle spasticity Discontinued ondansetron Discontinued Reason: Doctor's Order 4 mg PO BID PRN 20 tabs 0RF nausea and vomiting R11.0 - Nausea albuterol sulfate 90 mcg/actuation Discontinued Reason: Doctor's Order 2 inhalations inhalation Q6-8H PRN 8.5 grams 1RF shortness of breath or wheezing baclofen Discontinued Reason: Doctor's Order 10 mg PO TID PRN 90 tabs 1RF for muscle spasm G89.29 - Other chronic pain, M54.2 - Cervicalgia, M62.838 - Other muscle spasm Coding Level of Care Code Est Pt Level 4 (98897) Complex EM visit Add On G2211 Diagnoses Generalized anxiety disorder F41.1
[2023-11-19 10:05] VITALS: BP 132/80; PULSE 91; O2SAT 98; BMI 23.9
== END 2023-11-19 10:53 | disposition home or self-care (01) ==
PROVIDERS: Visit Provider Internal Medicine
DX: F41.1 Generalized anxiety disorder (principal)
CPT/HCPCS: 99214; G2211

== ENCOUNTER 2024-04-18 02:59 | Inpatient (IN) | payer MEDICAID, OTHER, SELFPAY ==
[2024-04-18 03:07] VITALS: BP 128/71; BP 142/93; PULSE 84; PULSE 86; RESP 16; TEMP 36.9; O2SAT 100; O2SAT 98; BMI 24.8
--- NOTE | 2024-04-18 03:18 | ECG_ITS ---
Test Reason : OVERDOSE Blood Pressure : / mmHG Vent. Rate : 083 BPM Atrial Rate : 083 BPM P-R Int : 154 ms QRS Dur : 080 ms QT Int : 384 ms P-R-T Axes : 054 042 063 degrees QTc Int : 451 ms Normal sinus rhythm Normal ECG When compared with ECG of 04-JUL-2023 20:39, No significant change was found Referred By: Generic ED Physician Electronically Signed By:Alexys Pope
[2024-04-18 03:39] LABS: Basophils Absolute Auto 0.1 X10*3/uL (0.0-0.2); Basophils Percent Auto 0.5 % (0-2); Eosinophils Absolute Auto 0.1 X10*3/uL (0.0-0.4); Eosinophils Percent Auto 0.5 % (0-4); Hematocrit 36.4 % (37.0-47.0); Hemoglobin 12.9 g/dl (12.0-16.0); Imm Gran Abs Auto 0.04 X10*3/uL (0.00-0.03); Imm Gran Pct Auto 0.3 % (0.0-0.4); Lymphocytes Absolute Auto 1.9 X10*3/uL (1.2-4.9); Lymphocytes Percent Auto 15.7 % (20-40); MANUAL DIFF FLAG NO; Mean Corpuscular HGB Conc 35.4 g/dl (31.0-35.0); Mean Corpuscular Hemoglobin 31.9 pg (27.0-33.0); Mean Corpuscular Volume 89.9 fL (80.0-98.0); Mean Platelet Volume 9.2 fL (9.4-12.3); Monocytes Absolute Auto 0.5 X10*3/uL (0.1-1.2); Neutrophils Absolute Auto 9.4 x10*3/uL (2.0-8.3); Platelet Count 310 X10*3/uL (160-400); Red Blood Count 4.05 X10*6/uL (4.20-5.50); Red Cell Distribution Width 12.3 % (11.0-16.0); White Blood Count 11.9 X10*3/uL (4.8-10.8)
--- NOTE | 2024-04-18 03:49 | PC.NURSE ---
Patient PERI [place] on sec 12 by PD. Patient was found outdoors by PD reporting to officers that she mixed muscle relaxants with alcohol-bottle of wine with Tizanidine x 5 pills-as an attempt to kill herself. Patient had unopened bottle of Baclofen with her. Patient admits SI with plan to overdose. Patient changed into a hospital attire, belongings secured in banner. Cardiac monitoring initiated, EKG completed and reviewed by Dr. Larios, labs drawn and sent to lab. 1:1 sitter at bedside. VSS. Patient alert and oriented x4, speaks in full sentences, denies any pain. 20 G IV line in L FA established by EMS prior to arrival to ED.
--- NOTE | 2024-04-18 03:55 | PC.NURSE ---
Poison Control contacted, plan to redraw Acetaminophen, Salicylates and chemistry in 4 hours, monitor patient for s/s of DATA ENTRY REPRESENTATIVE depression, bradycardia, and hypotension.
[2024-04-18 03:59] LABS: Acetaminophen LAB < 3 mcg/mL (<30); Salicylate < 5.0 mg/dL (15-30)
[2024-04-18 04:00] LABS: Troponin-I High Sensitivity 32.9 ng/L (<3.5-17.0)
[2024-04-18 04:12] LABS: Alanine Aminotransferase 24 U/L (0-31); Albumin Level 4.4 g/dL (3.5-5.0); Alkaline Phosphatase 92 U/L (39-117); Anion Gap 19 (12-20); Aspartate Amino Transferase 32 U/L (5-31); Bilirubin Total 0.3 mg/dL (0.0-1.0); Blood Urea Nitrogen 17 mg/dL (9-16); Calcium 8.7 mg/dL (8.4-10.2); Carbon Dioxide 20 mmol/L (22-29); Chloride 112 mmol/L (96-108); Creatinine Clr Calc Pharmacy 83.1; Estimated Glomerular Filt Rate > 60; Ethanol 61 mg/dL; Glucose Random 94 mg/dL (60-115); Magnesium 1.7 mg/dL (1.6-2.6); Potassium 3.7 mmol/L (3.3-5.1); Sodium 147 mmol/L (135-145); Total Protein 6.9 g/dL (6.5-8.0)
--- NOTE | 2024-04-18 04:44 | PC.NURSE ---
Patient reports feeling nauseous and had 1episode of vomiting. Dr. Larios notified, verbal order obtained for Zofran 4 mg transling.
[2024-04-18] MEDS: Ondansetron ODT 4 MG TAB.RAPDIS TRANSLINGU (04:48)
--- NOTE | 2024-04-18 04:51 | PC.NURSE ---
Patient medicated per MAR.
--- NOTE | 2024-04-18 05:04 | ED_ITS ---
HPI - Psych General Chief Complaint: Psychiatric Symptoms Stated Complaint: Crisis Took hand full pf pills w/ ETOH Time Seen by Provider: 04/18/24 04:57 Source: patient, EMS and police Mode of arrival: EMS Limitations: no limitations History of Present Illness ED Provider: Dr. Vonda Larios HPI Narrative: Patient comes to the emergency room stating that she does not want to live anymore. Patient comes via ambulance with EMS and PD. Patient was found outdoors by police department, patient reported to officer that she makes muscle relaxants with alcohol. Patient mentioned tizanidine 5 mg, states that she took his medications to kill herself. Patient states that she does not want to be around anymore. Patient states she has been diagnosed with anxiety and depression in the past, states she has not compliant with her medications. Denies homicidal ideation Related Data Home Medications ?Medication ?Instructions ?Recorded ?Confirmed acetaminophen 500 mg tablet 500 mg PO QID PRN Pain 08/01/21 11/19/23 (Tylenol Extra Strength) Previous Rx's ?Medication ?Instructions ?Recorded cream base no.171 (bulk) 4 appl miscellaneous QID muscle 01/03/23 (CompoundMax Base cream) pain #180 grams cholecalciferol (vitamin D3) 25 25 mcg PO DAILY #90 tabs 05/07/23 mcg (1,000 unit) tablet tizanidine 4 mg tablet 4 mg PO BEDTIME PRN muscle 11/19/23 spasticity #30 tabs diclofenac sodium 1 % topical gel 2 g topical QID PRN pain #100 grams 12/23/23 (Arthritis Pain (diclofenac)) hydroxyzine HCl 10 mg tablet 10 mg PO BID PRN anxiety #20 tabs 12/23/23 Allergies Allergy/AdvReac Type Severity Reaction Status Date / Time ibuprofen AdvReac Intermediate Stomach Verified 04/18/24 03:08 Upset gabapentin Allergy Severe Insomnia Uncoded 04/18/24 03:08 Review of Systems 2 Review of Systems: Constitutional : No Weight loss, No Fever, No Chills, No Night Sweats, No Fatigue, No Malaise ENT/Mouth : No Hearing loss, No Ear Pain, No Nasal Congestion, No Sinus Pain, No Hoarseness, No sore throat, No Rhinorrhea, No Swallowing Difficulty Eyes: No Eye Pain, No Swelling, No Redness, No Foreign Body, No Discharge, No Vision Changes Cardiovascular : No Chest Pain, No SOB, No Dyspnea on Exertion, No Orthopnea, No Edema, No Palpitations Respiratory : No Cough, No Sputum, No Wheezing, No Smoke Exposure, No Dyspnea Gastrointestinal : No Nausea, No Vomiting, No Diarrhea, No Constipation, No abdominal Pain, No Hematochezia, No Melena Genitourinary : no irregular bleeding, No Dysuria, No Urinary Frequency, No Hematuria, No Urinary Incontinence, No Urgency, No Flank Pain, No Urinary Flow Changes, No Hesitancy Musculoskeletal : No joint pain, No Myalgias, No Joint Swelling Skin : No Skin Lesions, No rash Neuro : No Weakness, No Numbness, No Paresthesias, No Loss of Consciousness, No Dizziness, No Headache Psych : Complaining of anxiety, depression, suicidal ideation that is suicide attempt, no HI Heme/Lymph: No Bruising, No Bleeding,No Lymphadenopathy Endocrine : No Polyuria, No Polydipsia, No Temperature Intolerance PMFSH Past Medical History Medical History Generalized anxiety disorder Personal history of nicotine dependence Emphysema lung COVID-19 vaccine series completed GERD (gastroesophageal reflux disease) Arthritis COPD (chronic obstructive pulmonary disease) Surgical History H/O total hysterectomy History of colonoscopy History of dental surgery History of cholecystectomy History of partial hysterectomy History of tubal ligation Family History Family History Mother GERD (gastroesophageal reflux disease) DVT (deep venous thrombosis) Father HTN (hypertension) Abnormal thyroid hormone metabolism Social History Social History Housing: House Do you presently have visiting nurse or other home services: No Alcohol intake: current Alcohol intake frequency: a few times a week Alcohol type: wine Patient Tobacco Use Status: Former Tobacco user Tobacco use type: Cigarette Years Smoked: onset 15yo, 1ppd x 34yrs, 30pyh - quit 2020) Smoked in Last 30 Days: No e-Cigarette/Vaping Use: Never Used Second Hand Smoke Exposure: No Use of substances other than those prescribed or required for medical reasons: Yes Substance Use Type: Marijuana Substance Use Frequency: Daily Advance Directives: No Advance Directives Information Provided: No Do you have a plan to hurt others: No Plan service: No Current occupational status: employed 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 Oriented X3. No acute distress. Restless Eyes: Pupils equal, round and reactive to light. ENT: Pharynx normal. Neck: Normal inspection. Neck supple. No lymph nodes noted. No crepitus CVS: Normal heart rate and rhythm. Pulses normal. Normal S1 and S2 Respiratory: No respiratory distress. Breath sounds normal. No Wheezing. No rales Abdomen: Soft and nontender. No rigidity. No distention. Skin: Skin warm and dry. Normal skin color. Normal skin turgor. Extremities: No lower extremity edema. No Lacerations. No Rash Neuro: Oriented X 3. No motor deficit. No sensory deficit. Moving all extremities. No slurred speech. CN 2 through 12 grossly intact Psych: calm, cooperative, restless, anxious Medications Administered Discontinued Medications Generic Name Dose Route Start Last Admin Trade Name Williamq PRN Reason Stop Dose Admin Ondansetron HCl 4 mg 04/18/24 04:43 04/18/24 04:48 Ondansetron Odt 4 Mg Tab.Rapdis TRANSLINGU 04/18/24 04:44 4 mg ONCE ONE Administration Medical Decision Making Medical Decision Making [facility] Narrative: My interpretation of EKG, normal sinus rhythm, heart rate 83, no ST segment depression or elevation, no T-wave inversion, QTC 451 Labs: Patient's white blood cell count 11.9, likely reactive leukocytosis, chemistry shows a sodium of 147, normal LFTs, troponin slightly bumped at 32.9. Patient denies any chest pain or shortness of breath. Pathology negative for salicylates or acetaminophen, ETOH level 61 -patient came in on a Section 12 started by police department. -patient is on a one-to-one/sitter -poison control has been contacted, recommendations, monitor for hypotension. Although recommended labs have already been drawn. -troponin 2. Lower than the 1st 1. Flat troponin, no cardiac complaints -care team consult pending -physician observation started at 03:40 Patient has remained stable. At this time, 06:50, poison control called, they no longer have any concerns, patient medically cleared. Differential Diagnosis Differential Diagnoses: The differential diagnosis associated with the presentation includes (Anxiety, depression, alcohol abuse, polysubstance abuse) Admission/Observation Consideration of admission/observation: Escalation of care including admission/observation considered (Patient is under a section 12 waiting to be seen by the care team) Lab Data MDM Lab Attestation statement: I reviewed the patient's lab results. 04/18/24 03:33 04/18/24 03:33 Labs: Lab Results 04/18/24 04/18/24 Range/Units 03:33 05:05 WBC 11.9 H (4.8-10.8) X10*3/uL RBC 4.05 L (4.20-5.50) X10*6/uL Hgb 12.9 (12.0-16.0) g/dl Hct 36.4 L (37.0-47.0) % MCV 89.9 (80.0-98.0) fL MCH 31.9 (27.0-33.0) pg MCHC 35.4 H (31.0-35.0) g/dl RDW 12.3 (11.0-16.0) % Plt Count 310 (160-400) X10*3/uL MPV 9.2 L (9.4-12.3) fL Immature Gran % (Auto) 0.3 (0.0-0.4) % Neut % (Auto) 79.0 H (45-73) % Lymph % (Auto) 15.7 L (20-40) % [place] % (Auto) 4.0 (2-11) % Eos % (Auto) 0.5 (0-4) % Baso % (Auto) 0.5 (0-2) % Lymph # (Auto) 1.9 (1.2-4.9) X10*3/uL [place] # (Auto) 0.5 (0.1-1.2) X10*3/uL Eos # (Auto) 0.1 (0.0-0.4) X10*3/uL Baso # (Auto) 0.1 (0.0-0.2) X10*3/uL Abs Immat Gran (auto) 0.04 H (0.00-0.03) X10*3/uL Absolute Neuts (auto) 9.4 H (2.0-8.3) x10*3/uL Absolute Nucleated RBC 0.000 (0.0-0.012) X10*3/uL Nucleated RBC % (auto) 0.0 (0.0-0.2) /100WBC Sodium 147 H (135-145) mmol/L Potassium 3.7 (3.3-5.1) mmol/L Chloride 112 H (96-108) mmol/L Carbon Dioxide 20 L (22-29) mmol/L Anion Gap 19 (12-20) BUN 17 H (9-16) mg/dL Creatinine 0.71 (0.5-1.4) mg/dL Estim Creat Clear Calc 83.1 Estimated GFR > 60 Random Glucose 94 (60-115) mg/dL Calcium 8.7 D (8.4-10.2) mg/dL Magnesium 1.7 (1.6-2.6) mg/dL Total Bilirubin 0.3 (0.0-1.0) mg/dL AST 32 H (5-31) U/L ALT 24 (0-31) U/L Alkaline Phosphatase 92 (39-117) U/L Troponin I High Sens 32.9 H D 29.3 H (<3.5-17.0) ng/L Total Protein 6.9 (6.5-8.0) g/dL Albumin 4.4 (3.5-5.0) g/dL Salicylates < 5.0 L (15-30) mg/dL Acetaminophen < 3 (<30) mcg/mL Ethyl Alcohol 61 mg/dL Critical Care Time Critical Care Time Critical Care Time: Yes Total Critical Care Time: 40 Attestation: I have personally provided critical care time. Time includes review of lab data, radiology results, discussion with consultants, and monitoring for potential decompensation. Intervention performed as documented. Discharge Plan Discharge Clinical Impression: Suicide attempt Patient Disposition: Still a Patient Prescriptions: No Action cholecalciferol (vitamin D3) 25 mcg (1,000 unit) tablet 25 mcg PO DAILY Qty: 90 0RF diclofenac sodium [Arthritis Pain (diclofenac)] 1 % gel 2 g topical QID PRN (Reason: pain) Qty: 100 0RF hydroxyzine HCl 10 mg tablet 10 mg PO BID PRN (Reason: anxiety) Qty: 20 1RF acetaminophen [Tylenol Extra Strength] 500 mg tablet 500 mg PO QID PRN (Reason: Pain) tizanidine 4 mg tablet 4 mg PO BEDTIME PRN (Reason: muscle spasticity) Qty: 30 0RF CompoundMax Base Cream 4 appl miscellaneous QID Qty: 180 2RF Rx Instructions: Apply pea-sized amount 3-4 times daily to painful areas as needed Interventions: [place]-Suicide Risk Severity Scale Last Done: 04/18/24 03:26 Print Language: Kenyan
[2024-04-18 05:31] LABS: Troponin-I High Sensitivity 29.3 ng/L (<3.5-17.0)
--- NOTE | 2024-04-18 05:41 | PC.NURSE ---
This RN spoke with Rui with Poison prevention and provided to Rui results of labs and vital signs. Per Rui, patient is stable, she is closing the case with poison control. Dr. Larios notified.
[2024-04-18 06:21] VITALS: BP 123/54; PULSE 100; RESP 16; O2SAT 95
--- NOTE | 2024-04-18 07:04 | PC.NURSE ---
Per Yel with [facility]ison Prevention, OK to discontinue blood draw for Acetaminophen, Salicylates, and chem d/t case with Poison Prevention being closed.
[2024-04-18 07:31] VITALS: BP 105/54; PULSE 99; RESP 16; O2SAT 97
--- NOTE | 2024-04-18 07:37 | PC.NURSE ---
Care of Pt assumed at change of shift. Pt is currently resting comfortably with eyes closed. 1:1 sitter present. VSS Per charge master coordinator, Pt has been medically cleared for ED BH pod. Call placed to [facility] for report at this time. Kristin reports Pt will be assigned to room 7.
--- NOTE | 2024-04-18 09:30 | PC.NURSE ---
Assumed care of patient at 0930, patient is calm and cooperative, offering no complaints at this time. This RN removed IV from pts forearm, pt provided with gingerale and warm blanket
[2024-04-18 09:43] LABS: Appearance Urine Clear; Color Urine Yellow; Glucose Urine UA Negative (Negative); Leukocyte Esterase Urine Negative (Negative); Nitrite Urine Negative (Negative); PH 5.5 (5.0-9.0); UMIC TRIGGER UACC YES; Urine Blood Moderate (2+) (Negative); Urine Ketones 40 mg/dL (Negative); Urine Pregnancy NEGATIVE (NEGATIVE); Urine Protein Negative (Neg-Trace)
[2024-04-18 09:44] LABS: UPreg QC Valid YES
[2024-04-18 09:46] LABS: Bacteria Urine None Seen (None Seen); Hyaline Casts Urine 0-2 /LPF (0-2); WBC Urine 0-5 /HPF (0-5)
--- NOTE | 2024-04-18 09:46 | MHC.CARE ---
Pt meets the criteria for IPLOC and will remain on the pod on a Section 12a as an inpatient psychiatric bed search. Provider in agreement.
[2024-04-18 10:01] LABS: Amphetamine Screen Urine Not Detected (Not Detect); Barbiturates, Urine Not Detected (Not Detect); Benzodiazepines Screen Urine Not Detected (Not Detect); Buprenorphine Scr Not Detected (Not Detect); Cannabinoid Screen Urine POSITIVE (Not Detect); Cocaine Screen Urine Not Detected (Not Detect); Fentanyl, urine Not Detected (Not Detect); Methadone Screen, Urine Not Detected (Not Detect); Opiate Screen Urine Not Detected (Not Detect); Oxycodone Screen Urine Not Detected (Not Detect); Phencyclidine Screen Urine Not Detected (Not Detect)
--- NOTE | 2024-04-18 10:03 | MHC.CARE ---
T/W emailed Lina Campos from financial services to see Pt as she requires assistance getting set up with [facility].
[2024-04-18 16:52] VITALS: BP 111/68; PULSE 83; RESP 18; TEMP 36.9; O2SAT 98
--- NOTE | 2024-04-19 00:53 | PC.NURSE ---
verbal order from MD Larios to enter tylenol and melationin for pt
[2024-04-19] MEDS: Acetaminophen 325 MG TABLET 650 MG PO ×2 (01:05→10:15)
[2024-04-19] MEDS: Melatonin 3 MG TABLET 6 MG PO (01:05)
[2024-04-19 01:15] VITALS: BP 142/85; PULSE 94; RESP 16; TEMP 36.9; O2SAT 99
--- NOTE | 2024-04-19 01:15 | PC.NURSE ---
medicated per mar
--- NOTE | 2024-04-19 08:28 | MHC.EDTECH ---
Attempted to do vitals on patient, but patient refused vitals
--- NOTE | 2024-04-19 08:34 | PHA.MEDREC ---
Addendum entered by Terri Freed RPh 04/19/24 09:18: Reviewed by [facility] Original Note: Pharmacy Consult ? Medication Reconciliation Pharmacy has completed the medication reconciliation.
[2024-04-19] MEDS: LORazepam 1 MG TABLET 2 MG PO (19:21)
--- NOTE | 2024-04-19 20:18 | PC.NURSE ---
Addendum entered by Erika Walker RN 04/19/24 20:31: Santa is a former smoker who has not smoked for 3 plus years, declines NRT, and refused the flu vaccine. Original Note: Santa was brought to from [facility] POD on a 12B, skin/safety check was done, eczema looking rash noted on L lower leg. Pt refused vitals and weight, was oriented to her room. Placed on 5 minute checks for safety.
[2024-04-20] VITALS: RESP 14
[2024-04-20 04:00] VITALS: RESP 14
[2024-04-20 08:00] VITALS: BP 133/63; PULSE 112; RESP 16; TEMP 36.4; O2SAT 98
--- NOTE | 2024-04-20 08:49 | P.HPPS_ITS ---
HPI Date of Service: 04/20/24 Chief Complaint: Anxiety, Suicide attempt Sources of Information: chart reviewed and crisis/core team assessment reviewed HPI Subjective Notes: Avery Warning and Section 12B Healthcare Proxy: No Guardianship: No Medical Problems Affecting Mental Status: No Narrative: Do I have a choice of not meeting? Explained AVERY to pt. I prefer to stay here. Declined to meet. 53 yo female, found in the streets of [place] s/p intentional OD of prescription medications, having consumed a bottle of wine, mixed with muscle relaxants, #5 Tizanidine in an attempt to end her life. Baclofen was also on her person. Pt tells CARE Team OD was intentional, a suicide attempt. Section 12B was signed. Identified significant stressors as medical issues-cancer scare, fibromyalgia, arthritis. These caused her to stop work, created financial stressors, loss of health insurance and initiated a process of application for SSDI. Pt's partner tells crisis there was an argument between both, pt had been using alcohol and cannabis, which by history is dysregulating for her. Pt had texted partner that she was going to end her life. Partner continues to be a support and invested in their relationship and life, stating they have lived together for years. Past Psychiatric History: Denies Hx of OP Therapy, medications~ 1year ago. Hx of suicide attempts, OD of Ibuprofen, OD age 14 of OTC medicine Medical Evaluation Reviewed: Yes [facility] Medical History (Updated 04/20/24 @ 10:31 by Cecille Ríos APRN) PTSD (post-traumatic stress disorder) Generalized anxiety disorder Personal history of nicotine dependence Emphysema lung COVID-19 vaccine series completed GERD (gastroesophageal reflux disease) Arthritis COPD (chronic obstructive pulmonary disease) Surgical History H/O total hysterectomy History of colonoscopy History of dental surgery History of cholecystectomy History of partial hysterectomy History of tubal ligation Social History: Raised in [place] by biological parents with one older brother, one younger sister. 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 Alcohol weekly, hx of increased past consumption BAL 61, Toxicology positive for cannabis Trauma History: Affirmed Diagnostics Vital Signs (24Hr): Vital Signs - 24 hr 04/20/24 00:00 04/20/24 04:00 Respiratory Rate 14 14 BMI result Body Mass Index 24.8 Labs 04/18/24 03:33 04/18/24 03:33 Labs: Laboratory Results - last 48 hr 04/18/24 09:21 Urine Color Yellow Urine Appearance Clear Urine pH 5.5 Ur Specific [place] 1.020 Urine Protein Negative Urine Glucose (UA) Negative Urine Ketones 40 Urine Blood Moderate (2+) H Urine Nitrite Negative Ur Leukocyte Esterase Negative Urine RBC 11-20 H Urine WBC 0-5 Ur Squamous Epith Cells 3-5 Urine Bacteria None Seen Hyaline Casts 0-2 Urine Test NEGATIVE Urine Opiates Screen Not Detected Ur Buprenorphine Scrn Not Detected Ur Oxycodone Screen Not Detected Urine Methadone Screen Not Detected Urine Fentanyl Screen Not Detected Ur Barbiturates Screen Not Detected Ur Phencyclidine Scrn Not Detected Ur Amphetamines Screen Not Detected U Benzodiazepines Scrn Not Detected Urine Cocaine Screen Not Detected U Marijuana (THC) Screen POSITIVE H Meds/Allergies Meds Home Medications ?Medication ?Instructions ?Recorded ?Confirmed ?Type No Known Home Meds 04/18/24 04/18/24 History Allergies Allergies Allergy/AdvReac Type Severity Reaction Status Date / Time ibuprofen AdvReac Intermediate Stomach Verified 04/18/24 03:08 Upset gabapentin Allergy Severe Insomnia Uncoded 04/18/24 03:08 Mental Status Exam Mental Status Exam Patient Appearance: Fatigued Patient Orientation: Person, Place and Situation Level of Consciousness: Awake and Alert Patient Behavior: Guarded, Suspicious, Anxious, Fearful, Resistive to Care, Avoidant, Fatigued, Distractible, Isolative and Uncooperative Mood Description: Depressed and Angry Affect Description: Flat Patient Cognition Impaired: No Ability to Follow Directions: Fair Speech Pattern: Clear and Spontaneous Speech Thought Process: Distracted Thought Content: positive for Suicidal Ideation Depressive Symptoms: Thoughts of /Suicide Abnormal Motor Activity Signs and Symptoms: Agitation Judgement: Poor Assessment & Plan Assessment & Plan (1) Suicide attempt: Status: Acute Code(s): T14.91XA - Suicide attempt, initial encounter (2) Generalized anxiety disorder: Status: Acute Code(s): F41.1 - Generalized anxiety disorder (3) PTSD (post-traumatic stress disorder): Status: Acute Code(s): F43.10 - Post-traumatic stress disorder, unspecified Plan PTSD, Suicide Attempt via OD, Anxiety. Plan: Section 12B, 5 minute checks. Pt refuses to interview. Attempt alliance Collateral contacts Medical review as Troponin levels were still high on admission. Medication review when pt is ready Encouarge full milieu. Patient educated on: therapeutic strategies (refused) Reason for continued inpatient stay Substantial Risk for: rapid decompensation Statement Statement: I have reviewed the history and physical and performed a pertinent examination on my patient. No changes have occurred unless specified. If the History and Physical was not performed prior to admission, the Hospitalist's service will be consulted for completing the admission physical. Time Spent With Patient Time: Total time managing care of this patient today ____ minutes.
[2024-04-20 20:00] VITALS: RESP 18
[2024-04-20] MEDS: LORazepam 1 MG TABLET PO (22:18)
[2024-04-21] VITALS: RESP 16
[2024-04-21] MEDS: LORazepam 1 MG TABLET PO ×3 (03:47→19:20)
[2024-04-21 09:12] LABS: C Reactive Protein 0.32 mg/dL (< or = 0.50); Cholesterol 236 mg/dL (<200); HDL Cholesterol 44 mg/dL (>40); LDL Cholesterol Calculated 161 mg/dL (<100); Triglycerides 158 mg/dL (<150); Troponin-I High Sensitivity 7.8 ng/L (<3.5-17.0)
[2024-04-21 09:26] LABS: Thyroid Stimulating Hormone 3.59 uIU/mL (0.32-4.0)
[2024-04-21 09:31] LABS: Estimated Average Glucose 103 mg/dL; Hemoglobin A1C 115.9193 umol/L; Hemoglobin A1c % 5.2 % (<6.0); Total Hemoglobin (HGBA1C) 3431.2594 umol/L
[2024-04-21 09:34] LABS: Erythrocyte Sedimentation Rate 6 MM/HR (0-20)
--- NOTE | 2024-04-21 09:43 | P.PNPSI_ITS ---
Subjective Subjective Date of Service: 04/21/24 Reason For Visit: Anxiety, Suicide attempt Subjective Notes: Section 12B Healthcare Proxy: No Guardianship: No Medical Problems Affecting Mental Status: No Interim History: Pt agreed to meet and attended briefly. She reports her attempt was a suicide attempt. She asks that we fill out a DNR form today. She points out that her BAL was .06, that she is not in withdrawal as she drinks once per week and Ativan is helpful for her anxiety. She reports no trust in any medical provider here. She reports she drank during the day and did not take Tizanidine with the alcohol. She asks to see Hien, her pain mgt [facility]. Message left with pain mgt. Hien is off today. When asked what pain meds she was given in pain mgt she responded that it is in my chart, go through it. Caustic and verbally aggressive, along with angry. Reviewed Section XII B and expiration date of 04/22. Discussed signing a CV or filing for Section Seven. I am tired, and ready to go back to bed. Pt left the meeting. Medication Compliance: No (declines psych meds, will take Ativan and pain meds) Side effects from medications: No Attending Groups: No Review of Systems Chronic pain Review of Systems Review of Systems Chronic Pain Mental Status Exam Mental Status Exam Patient Appearance: Fatigued Patient Orientation: Person, Place, Time and Situation Level of Consciousness: Alert Patient Behavior: Suspicious, Swearing, Anxious, Fearful, Avoidant, Fatigued, Distractible, Impulsive and Poor Eye Contact Mood Description: Depressed, Hostile and Angry Affect Description: Constricted Patient Cognition Impaired: No Ability to Follow Directions: Fair Speech Pattern: Spontaneous Speech Memory Description: Episodic Impaired Thought Process: Distracted and Rumination Thought Content: positive for Circumstantial, positive for Perseveration and positive for Suicidal Ideation Depressive Symptoms: Thoughts of /Suicide Judgement: Poor Diagnostics Vital Signs (24Hr): Vital Signs - 24 hr 04/20/24 20:00 04/21/24 00:00 Respiratory Rate 18 16 BMI result Body Mass Index 24.8 Labs 04/18/24 03:33 04/18/24 03:33 Labs: Laboratory Results - last 48 hr 04/21/24 08:30 ESR 6 Estimat Average Glucose 103 Hemoglobin A1c % 5.2 Troponin I High Sens 7.8 D C-Reactive Protein 0.32 Triglycerides 158 H Cholesterol 236 H LDL Cholesterol, Calc 161 H HDL Cholesterol 44 TSH 3.59 Medications Medications Current Medications Acetaminophen (Acetaminophen 325 Mg Tablet) 650 mg PO Q6H PRN PRN Reason: Headache/Pain Mild Scale (1-3) Acetaminophen (Acetaminophen 325 Mg Tablet) 650 mg PO Q6H PRN PRN Reason: Pain, Mild (Pain Scale 1-3) Al Hydroxide/Mg Hydroxide (Magnesium Hydrox/Alum Hydrox 30 Ml Oral.Susp) 30 ml PO Q6H PRN PRN Reason: Heartburn/Nausea Folic Acid (Folic Acid 1 Mg Tablet) 1 mg PO DAILY [facility] Last Admin: 04/20/24 09:07 Dose: Not Given Hydroxyzine HCl (Hydroxyzine Hcl 25 Mg Tablet) 25 mg PO Q6H PRN PRN Reason: Anxiety Lorazepam (Lorazepam 1 Mg Tablet) 1 mg PO Q2H PRN PRN Reason: ciwa 6-10 Last Admin: 04/20/24 22:18 Dose: 1 mg Lorazepam (Lorazepam 1 Mg Tablet) 2 mg PO Q2H PRN PRN Reason: ciwa 11+ Last Admin: 04/19/24 19:21 Dose: 2 mg Lorazepam (Lorazepam 1 Mg Tablet) 1 mg PO Q4H PRN PRN Reason: anxiety Last Admin: 04/21/24 03:47 Dose: 1 mg Magnesium Hydroxide (Milk Of Magnesia 30 Ml Oral.Susp) 30 ml PO DAILY PRN PRN Reason: Constipation Melatonin (Melatonin 3 Mg Tablet) 6 mg PO BEDTIME PRN PRN Reason: Insomnia Last Admin: 04/19/24 01:05 Dose: 6 mg Multivitamins/Vitamin C (Multivitamin Tablet) 1 tab PO DAILY [facility] Last Admin: 04/20/24 09:07 Dose: Not Given Olanzapine (Olanzapine 5 Mg Tablet) 5 mg PO Q4H PRN PRN Reason: agitation, anxiety Thiamine HCl (Thiamine Hcl 100 Mg Tablet) 100 mg PO DAILY [facility] Last Admin: 04/20/24 09:07 Dose: Not Given Trazodone HCl (Trazodone Hcl 50 Mg Tablet) 50 mg PO BEDTIME MRX1 PRN PRN Reason: Insomnia Allergies Allergies Allergy/AdvReac Type Severity Reaction Status Date / Time ibuprofen AdvReac Intermediate Stomach Verified 04/18/24 03:08 Upset gabapentin Allergy Severe Insomnia Uncoded 04/18/24 03:08 Assessment & Plan Assessment & Plan (1) Suicide attempt: Status: Acute Code(s): T14.91XA - Suicide attempt, initial encounter (2) Generalized anxiety disorder: Status: Acute Code(s): F41.1 - Generalized anxiety disorder (3) PTSD (post-traumatic stress disorder): Status: Acute Code(s): F43.10 - Post-traumatic stress disorder, unspecified Plan PTSD, Suicide Attempt via OD, Anxiety. 04/21: Albuterol Inhaler prn Baclofen prn Vit D3 Lorazepam prn Tizanidine prn Plan: Section 12B, 5 minute checks. Pt refuses to interview. Attempt alliance Collateral contacts Medical review as Troponin levels were still high on admission. Medication review when pt is ready Encouarge full milieu. Reason for continued inpatient stay Substantial Risk for: harm to self and rapid decompensation Time Spent With Patient Time: Total time managing care of this patient today ____ minutes.
[2024-04-21] MEDS: Acetaminophen 325 MG TABLET 650 MG PO ×2 (15:06→20:44)
[2024-04-21] MEDS: Baclofen 10 MG TABLET PO (15:07)
[2024-04-21 19:50] VITALS: BP 129/95; PULSE 65; RESP 16; TEMP 36.9; O2SAT 94
[2024-04-21] MEDS: Melatonin 3 MG TABLET 6 MG PO (20:44)
[2024-04-21] MEDS: TiZANidine HCL 4 MG TABLET PO (20:44)
[2024-04-21] MEDS: traZODone HCL 50 MG TABLET PO (21:35)
[2024-04-22] MEDS: LORazepam 1 MG TABLET PO ×4 (01:55→18:11)
[2024-04-22] MEDS: hydrOXYzine HCL 25 MG TABLET PO ×2 (05:51→15:51)
[2024-04-22] MEDS: Baclofen 10 MG TABLET PO ×2 (09:46→22:58)
[2024-04-22 09:57] VITALS: BP 125/75; PULSE 104; RESP 16; TEMP 36.8; O2SAT 97
[2024-04-22] MEDS: Cholecalciferol (Vitamin D3) 25 MCG TABLET PO (10:00)
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
[2024-04-22] MEDS: Acetaminophen 325 MG TABLET 650 MG PO ×2 (13:06→21:16)
[2024-04-22] MEDS: TiZANidine HCL 4 MG TABLET PO (18:10)
[2024-04-22] MEDS: traZODone HCL 50 MG TABLET PO (21:17)
[2024-04-22] MEDS: Melatonin 3 MG TABLET 6 MG PO (21:17)
[2024-04-22] MEDS: OLANZapine 5 MG TABLET PO (21:18)
[2024-04-23 08:00] VITALS: BP 104/59; PULSE 82; RESP 18; TEMP 36.8; O2SAT 97
[2024-04-23] MEDS: Cholecalciferol (Vitamin D3) 25 MCG TABLET PO (08:37)
[2024-04-23] MEDS: Baclofen 10 MG TABLET PO (10:12)
[2024-04-23] MEDS: TiZANidine HCL 4 MG TABLET PO ×2 (10:20→18:12)
--- NOTE | 2024-04-23 12:48 | HO.PSYCHPN ---
Subjective Subjective Date of Service: 04/23/24 Reason For Visit: Anxiety, Suicide attempt Subjective Notes: Section 7 Healthcare Proxy: No Guardianship: No Medical Problems Affecting Mental Status: No Interim History: Court 04/30. Pt is connecting with team, peers, milieu. She is engaging and talking of her concerns and issues. Discussed scheduling Olanzapine for improved mood stability and mgt, she agrees. Will DC Lorazepam and begin Valium 2 mg tid prn as it may be more effective for pain mgt. Will also add Capsaicin. Pt reports she has been told she has psoriatic arthritis. Literature given on Lamictal, Cymbalta for review for possible trial. Discussed couples meeting for next week. Pt remains suicidal, feeling hopeless however is attempting treatment. Medication Compliance: Yes Side effects from medications: No Attending Groups: Intermittent Review of Systems chronic pain Medical Review of Systems: unchanged Review of Systems Review of Systems chronic pain Mental Status Exam Mental Status Exam Patient Appearance: Fatigued Patient Orientation: Person, Place, Time and Situation Level of Consciousness: Alert Patient Behavior: Anxious, Fearful, Fatigued and Good Eye Contact Mood Description: Depressed, Anxious and Sad Affect Description: Flat Patient Cognition Impaired: No Ability to Follow Directions: Good Speech Pattern: Spontaneous Speech Memory Description: Intact Hallucinations: None Delusions: Not Present Perceptual Disturbances: Depersonalization and Derealization Thought Process: Rumination Thought Content: positive for Circumstantial, positive for Perseveration and positive for Suicidal Ideation Depressive Symptoms: Thoughts of /Suicide Judgement: Fair Diagnostics Vital Signs (24Hr): Vital Signs - 24 hr 04/23/24 08:00 Temperature 98.3 F Pulse Rate 82 Respiratory Rate 18 Blood Pressure 104/59 L Pulse Oximetry 97 Oxygen Delivery Method Room Air BMI result Body Mass Index 24.8 Labs 04/18/24 03:33 04/18/24 03:33 Medications Medications Current Medications Acetaminophen (Acetaminophen 325 Mg Tablet) 650 mg PO Q6H PRN PRN Reason: Headache/Pain Mild Scale (1-3) Last Admin: 04/22/24 21:16 Dose: 650 mg Al Hydroxide/Mg Hydroxide (Magnesium Hydrox/Alum Hydrox 30 Ml Oral.Susp) 30 ml PO Q6H PRN PRN Reason: Heartburn/Nausea Albuterol Sulfate (Albuterol Sulfate 90 Mcg 8 Gm Inhaler) 2 puff INHALE RQ6H PRN PRN Reason: Wheezing Baclofen (Baclofen 10 Mg Tablet) 10 mg PO TID PRN PRN Reason: spasm Last Admin: 04/23/24 10:12 Dose: 10 mg Hydroxyzine HCl (Hydroxyzine Hcl 25 Mg Tablet) 25 mg PO Q6H PRN PRN Reason: Anxiety Last Admin: 04/22/24 15:51 Dose: 25 mg Lorazepam (Lorazepam 1 Mg Tablet) 1 mg PO Q4H PRN PRN Reason: anxiety Last Admin: 04/22/24 18:11 Dose: 1 mg Magnesium Hydroxide (Milk Of Magnesia 30 Ml Oral.Susp) 30 ml PO DAILY PRN PRN Reason: Constipation Melatonin (Melatonin 3 Mg Tablet) 6 mg PO BEDTIME PRN PRN Reason: Insomnia Last Admin: 04/22/24 21:17 Dose: 6 mg Olanzapine (Olanzapine 5 Mg Tablet) 5 mg PO Q4H PRN PRN Reason: agitation, anxiety Last Admin: 04/22/24 21:18 Dose: 5 mg Tizanidine HCl (Tizanidine Hcl 4 Mg Tablet) 4 mg PO DAILY@1800 PRN PRN Reason: spasm Last Admin: 04/22/24 18:10 Dose: 4 mg Trazodone HCl (Trazodone Hcl 50 Mg Tablet) 50 mg PO BEDTIME MRX1 PRN PRN Reason: Insomnia Last Admin: 04/22/24 21:17 Dose: 50 mg Vitamin D (Cholecalciferol (Vitamin D3) 25 Mcg Tablet) 25 mcg PO DAILY [facility] Last Admin: 04/23/24 08:37 Dose: 25 mcg Allergies Allergies Allergy/AdvReac Type Severity Reaction Status Date / Time ibuprofen AdvReac Intermediate Stomach Verified 04/18/24 03:08 Upset gabapentin Allergy Severe Insomnia Uncoded 04/18/24 03:08 Assessment & Plan Assessment & Plan (1) Suicide attempt: Status: Acute Code(s): T14.91XA - Suicide attempt, initial encounter (2) Generalized anxiety disorder: Status: Acute Code(s): F41.1 - Generalized anxiety disorder (3) PTSD (post-traumatic stress disorder): Status: Acute Code(s): F43.10 - Post-traumatic stress disorder, unspecified Plan PTSD, Suicide Attempt via OD, Anxiety. 04/22/24: Continue tx-baclofen, zofran, tizanidine Section 7 filed Medication education 04/23/24: Couples meeting next week Given literature on lamictal, cymbalta for review. Schedule Olanzapine 5 mg bid DC Lorazepam Valium 2 mg tid prn anxiety, muscle pain Capsaicin prn Plan: Section 12B, 5 minute checks. Pt refuses to interview. Attempt [facility] contacts Medical review as Troponin levels were still high on admission. Medication review when pt is ready Encouarge full milieu. Patient educated on: medication risk/benefits and therapeutic strategies Reason for continued inpatient stay Substantial Risk for: harm to self and rapid decompensation Time Spent With Patient Time: Total time managing care of this patient today ____ minutes.
[2024-04-23] MEDS: LORazepam 1 MG TABLET PO (13:21)
[2024-04-23] MEDS: OLANZapine 5 MG TABLET PO ×2 (13:30→21:22)
[2024-04-23] MEDS: diazePAM 2 MG TABLET PO (18:12)
[2024-04-23 20:00] VITALS: RESP 14
[2024-04-23] MEDS: traZODone HCL 50 MG TABLET PO (21:22)
[2024-04-24] MEDS: Baclofen 10 MG TABLET PO ×3 (01:33→14:22)
[2024-04-24] MEDS: Melatonin 3 MG TABLET 6 MG PO ×2 (01:33→22:13)
[2024-04-24] MEDS: traZODone HCL 50 MG TABLET PO ×2 (01:34→22:14)
[2024-04-24 08:55] VITALS: BP 133/90; PULSE 104; RESP 16; TEMP 36.6; O2SAT 98
[2024-04-24] MEDS: Cholecalciferol (Vitamin D3) 25 MCG TABLET PO (09:27)
[2024-04-24] MEDS: OLANZapine 5 MG TABLET PO ×4 (09:27→22:02)
[2024-04-24] MEDS: Acetaminophen 325 MG TABLET 650 MG PO ×2 (10:16→22:13)
--- NOTE | 2024-04-24 11:14 | HO.PSYCHPN ---
Subjective Subjective Date of Service: 04/24/24 Reason For Visit: Anxiety, Suicide attempt Subjective Notes: Section 7 Healthcare Proxy: No Guardianship: No Medical Problems Affecting Mental Status: No Interim History: 53 yo who had suicide attempt and was not engaging in care , now taking medications and more engaged, over involved with roommate- reports in 2022 she was put on ssri which she stopped- not sure why- REviewed what CRaysa Knapp gave her to review and she wants to start duloxetine. She appears quite bright affect on olanzapine . not engaged in outpatient care due to lack of insurance- quit her job Lives with partner of many years but says they are essentially roommates made suicide gesture before admission- Medication Compliance: Yes Side effects from medications: No Attending Groups: Intermittent Review of Systems Acute medical concerns: No Review of Systems: continues to complain of pain - chronic pain Mental Status Exam Mental Status Exam Patient Appearance: Well Grooomed Patient Orientation: Person, Place, Time and Situation Level of Consciousness: Awake Patient Behavior: Appropriate and Good Eye Contact Mood Description: Calm Affect Description: Labile (variable) Patient Cognition Impaired: No Ability to Follow Directions: Fair Speech Pattern: Clear Memory Description: Intact Hallucinations: None Delusions: Paranoid Ideation (? reluctant to engage in care/treatment despite knowing she has been depressed and suicidal with no insurance/care) Thought Process: Intact Thought Content: positive for Intact and positive for Suicidal Ideation (ongoing no intent here) Depressive Symptoms: Diff. Making Decisions, Difficulty Sleeping, Isolating-Friends/Family and Thoughts of /Suicide Judgement: Fair Diagnostics Vital Signs (24Hr): Vital Signs - 24 hr 04/23/24 20:00 04/24/24 08:55 Temperature 97.8 F Pulse Rate 104 H Respiratory Rate 14 16 Blood Pressure 133/90 H Pulse Oximetry 98 Oxygen Delivery Method Room Air BMI result Body Mass Index 24.8 Labs 04/18/24 03:33 04/18/24 03:33 Medications Medications Current Medications Acetaminophen (Acetaminophen 325 Mg Tablet) 650 mg PO Q6H PRN PRN Reason: Headache/Pain Mild Scale (1-3) Last Admin: 04/24/24 10:16 Dose: 650 mg Al Hydroxide/Mg Hydroxide (Magnesium Hydrox/Alum Hydrox 30 Ml Oral.Susp) 30 ml PO Q6H PRN PRN Reason: Heartburn/Nausea Albuterol Sulfate (Albuterol Sulfate 90 Mcg 8 Gm Inhaler) 2 puff INHALE RQ6H PRN PRN Reason: Wheezing Baclofen (Baclofen 10 Mg Tablet) 10 mg PO TID PRN PRN Reason: spasm Last Admin: 04/24/24 10:17 Dose: 10 mg Capsaicin (Capsaicin 0.025% Cream 60 Gm Tube) 1 appl TOPICAL QID PRN; Protocol PRN Reason: Pain, Mild (Pain Scale 1-3) Diazepam (Diazepam 2 Mg Tablet) 2 mg PO TID PRN PRN Reason: anxiety, chronic pain Last Admin: 04/23/24 18:12 Dose: 2 mg Hydroxyzine HCl (Hydroxyzine Hcl 25 Mg Tablet) 25 mg PO Q6H PRN PRN Reason: Anxiety Last Admin: 04/22/24 15:51 Dose: 25 mg Magnesium Hydroxide (Milk Of Magnesia 30 Ml Oral.Susp) 30 ml PO DAILY PRN PRN Reason: Constipation Melatonin (Melatonin 3 Mg Tablet) 6 mg PO BEDTIME PRN PRN Reason: Insomnia Last Admin: 04/24/24 01:33 Dose: 6 mg Olanzapine (Olanzapine 5 Mg Tablet) 5 mg PO Q4H PRN PRN Reason: agitation, anxiety Last Admin: 04/23/24 13:30 Dose: 5 mg Olanzapine (Olanzapine 5 Mg Tablet) 5 mg PO BID [facility] Last Admin: 04/24/24 09:27 Dose: 5 mg Tizanidine HCl (Tizanidine Hcl 4 Mg Tablet) 4 mg PO DAILY@1800 PRN PRN Reason: spasm Last Admin: 04/23/24 18:12 Dose: 4 mg Trazodone HCl (Trazodone Hcl 50 Mg Tablet) 50 mg PO BEDTIME MRX1 PRN PRN Reason: Insomnia Last Admin: 04/24/24 01:34 Dose: 50 mg Vitamin D (Cholecalciferol (Vitamin D3) 25 Mcg Tablet) 25 mcg PO DAILY [facility] Last Admin: 04/24/24 09:27 Dose: 25 mcg Allergies Allergies Allergy/AdvReac Type Severity Reaction Status Date / Time ibuprofen AdvReac Intermediate Stomach Verified 04/18/24 03:08 Upset gabapentin Allergy Severe Insomnia Uncoded 04/18/24 03:08 Assessment & Plan Assessment & Plan (1) Suicide attempt: Status: Acute Code(s): T14.91XA - Suicide attempt, initial encounter (2) Generalized anxiety disorder: Status: Acute Code(s): F41.1 - Generalized anxiety disorder (3) PTSD (post-traumatic stress disorder): Status: Acute Code(s): F43.10 - Post-traumatic stress disorder, unspecified Plan PTSD, Suicide Attempt via OD, Anxiety. 04/22/24: Continue tx-baclofen, zofran, tizanidine Section 7 filed Medication education 04/23/24: Couples meeting next week Given literature on lamictal, cymbalta for review. Schedule Olanzapine 5 mg bid DC Lorazepam Valium 2 mg tid prn anxiety, muscle pain Capsaicin prn Plan: Section 12B, 5 minute checks. Pt refuses to interview. Attempt [facility] contacts Medical review as Troponin levels were still high on admission. Medication review when pt is ready Encouarge full milieu. 04/24 - started patient on duloxetine to start 04/25- seems brighter and more engaged on olanzapine- Patient educated on: medication risk/benefits Informed Consent: understands Reason for continued inpatient stay Substantial Risk for: harm to self and rapid decompensation Time Spent With Patient Time: Total time managing care of this patient today ____ minutes.
[2024-04-24] MEDS: diazePAM 2 MG TABLET PO (14:22)
[2024-04-24] MEDS: polyethylene glycoL 3350 17 GM POWD.PACK PO (14:23)
[2024-04-24 15:11] VITALS: BP 130/70
[2024-04-24] MEDS: TiZANidine HCL 4 MG TABLET PO (18:04)
[2024-04-24 20:00] VITALS: BP 160/65; PULSE 102; TEMP 36.4; O2SAT 98
[2024-04-24] MEDS: hydrOXYzine HCL 25 MG TABLET PO (22:14)
[2024-04-25] MEDS: traZODone HCL 50 MG TABLET PO ×2 (03:22→20:29)
[2024-04-25] MEDS: diazePAM 2 MG TABLET PO ×3 (03:26→14:26)
[2024-04-25 08:00] VITALS: BP 163/92; PULSE 102; TEMP 36.3; O2SAT 99
[2024-04-25] MEDS: polyethylene glycoL 3350 17 GM POWD.PACK PO (09:00)
[2024-04-25] MEDS: OLANZapine 5 MG TABLET PO ×4 (09:00→20:29)
[2024-04-25] MEDS: DULoxetine HCl 20 MG CAPSULE.DR PO (09:00)
[2024-04-25] MEDS: Cholecalciferol (Vitamin D3) 25 MCG TABLET PO (09:01)
[2024-04-25] MEDS: Baclofen 10 MG TABLET PO ×2 (09:21→18:04)
--- NOTE | 2024-04-25 12:46 | P.PNPSI_ITS ---
Subjective Subjective Date of Service: 04/25/24 Reason For Visit: Anxiety, Suicide attempt Subjective Notes: Section 7 Healthcare Proxy: No Guardianship: No Medical Problems Affecting Mental Status: No Interim History: 53 yo WF reports she now has a purpose to get [facility] [place] to code with cleanliness she says she knows some people who will help address this- feeling better on medications started duloxetine 20mg today and likes that no bad effects- also seemed to have gotten much more engaged when olanzapine started- Ongoing backround si but denies focus now as she has a goal to focus on instead- Slept- Medication Compliance: Yes Side effects from medications: No Attending Groups: Yes Review of Systems Acute medical concerns: No Medical Review of Systems: unchanged Review of Systems: ongoing chronic pain Mental Status Exam Mental Status Exam Patient Appearance: Well Grooomed and Appropriate Patient Orientation: Person, Place, Time and Situation Level of Consciousness: Awake Patient Behavior: Appropriate Behavior Comments: out of her room more today- engaging with patients on unit, maybe too exclusively with one person- though yesterday it was her roommate today it is male patient Mood Description: Happy Affect Description: Expansive Patient Cognition Impaired: No Ability to Follow Directions: Fair Speech Pattern: Clear Hallucinations: None Thought Process: Racing Thought Content: positive for Intact Depressive Symptoms: Isolating-Friends/Family, Low Self Esteem (now I can focus on helping others) and Back Pain Judgement: Fair Diagnostics Vital Signs (24Hr): Vital Signs - 24 hr 04/24/24 15:11 04/24/24 20:00 04/25/24 08:00 Temperature 97.5 F 97.3 F Pulse Rate 102 H 102 H Blood Pressure 130/70 160/65 H 163/92 H Pulse Oximetry 98 99 Oxygen Delivery Method Room Air Room Air BMI result Body Mass Index 24.8 Labs 04/18/24 03:33 04/18/24 03:33 Medications Medications Current Medications Acetaminophen (Acetaminophen 325 Mg Tablet) 650 mg PO Q6H PRN PRN Reason: Headache/Pain Mild Scale (1-3) Last Admin: 04/24/24 22:13 Dose: 650 mg Al Hydroxide/Mg Hydroxide (Magnesium Hydrox/Alum Hydrox 30 Ml Oral.Susp) 30 ml PO Q6H PRN PRN Reason: Heartburn/Nausea Albuterol Sulfate (Albuterol Sulfate 90 Mcg 8 Gm Inhaler) 2 puff INHALE RQ6H PRN PRN Reason: Wheezing Baclofen (Baclofen 10 Mg Tablet) 10 mg PO TID PRN PRN Reason: spasm Last Admin: 04/25/24 09:21 Dose: 10 mg Capsaicin (Capsaicin 0.025% Cream 60 Gm Tube) 1 appl TOPICAL QID PRN; Protocol PRN Reason: Pain, Mild (Pain Scale 1-3) Diazepam (Diazepam 2 Mg Tablet) 2 mg PO TID PRN PRN Reason: anxiety, chronic pain Last Admin: 04/25/24 09:21 Dose: 2 mg Duloxetine HCl (Duloxetine Hcl 20 Mg Capsule.Dr) 20 mg PO DAILY [facility] Last Admin: 04/25/24 09:00 Dose: 20 mg Hydroxyzine HCl (Hydroxyzine Hcl 25 Mg Tablet) 25 mg PO Q6H PRN PRN Reason: Anxiety Last Admin: 04/24/24 22:14 Dose: 25 mg Magnesium Hydroxide (Milk Of Magnesia 30 Ml Oral.Susp) 30 ml PO DAILY PRN PRN Reason: Constipation Melatonin (Melatonin 3 Mg Tablet) 6 mg PO BEDTIME PRN PRN Reason: Insomnia Last Admin: 04/24/24 22:13 Dose: 6 mg Olanzapine (Olanzapine 5 Mg Tablet) 5 mg PO Q4H PRN PRN Reason: agitation, anxiety Last Admin: 04/25/24 10:38 Dose: 5 mg Olanzapine (Olanzapine 5 Mg Tablet) 5 mg PO BID [facility] Last Admin: 04/25/24 09:00 Dose: 5 mg Polyethylene Glycol (Polyethylene Glycol 3350 17 Gm Powd.Pack) 17 gm PO DAILY [facility] Last Admin: 04/25/24 09:00 Dose: 17 gm Tizanidine HCl (Tizanidine Hcl 4 Mg Tablet) 4 mg PO DAILY@1800 PRN PRN Reason: spasm Last Admin: 04/24/24 18:04 Dose: 4 mg Trazodone HCl (Trazodone Hcl 50 Mg Tablet) 50 mg PO BEDTIME MRX1 PRN PRN Reason: Insomnia Last Admin: 04/25/24 03:22 Dose: 50 mg Vitamin D (Cholecalciferol (Vitamin D3) 25 Mcg Tablet) 25 mcg PO DAILY [facility] Last Admin: 04/25/24 09:01 Dose: 25 mcg Allergies Allergies Allergy/AdvReac Type Severity Reaction Status Date / Time ibuprofen AdvReac Intermediate Stomach Verified 04/18/24 03:08 Upset gabapentin Allergy Severe Insomnia Uncoded 04/18/24 03:08 Assessment & Plan Assessment & Plan (1) Suicide attempt: Status: Acute Code(s): T14.91XA - Suicide attempt, initial encounter (2) Generalized anxiety disorder: Status: Acute Code(s): F41.1 - Generalized anxiety disorder (3) PTSD (post-traumatic stress disorder): Status: Acute Code(s): F43.10 - Post-traumatic stress disorder, unspecified Plan PTSD, Suicide Attempt via OD, Anxiety. 04/22/24: Continue tx-baclofen, zofran, tizanidine Section 7 filed Medication education 04/23/24: Couples meeting next week Given literature on lamictal, cymbalta for review. Schedule Olanzapine 5 mg bid DC Lorazepam Valium 2 mg tid prn anxiety, muscle pain Capsaicin prn Plan: Section 12B, 5 minute checks. Pt refuses to interview. Attempt [facility] contacts Medical review as Troponin levels were still high on admission. Medication review when pt is ready Encouarge full milieu. 04/24 - started patient on duloxetine to start 04/25- seems brighter and more engaged on olanzapine- 04/25 mood further up? dc duloxetine- will put hold on for am till patient can meet with providers continue olanzapine Patient educated on: medication risk/benefits and therapeutic strategies Informed Consent: further education needed Reason for continued inpatient stay Substantial Risk for: harm to self and rapid decompensation Time Spent With Patient Time: Total time managing care of this patient today ____ minutes.
[2024-04-25] MEDS: Milk of Magnesia 30 ML ORAL.SUSP PO (18:04)
[2024-04-25] MEDS: Acetaminophen 325 MG TABLET 650 MG PO (18:05)
[2024-04-25] MEDS: hydrOXYzine HCL 25 MG TABLET PO (18:06)
[2024-04-25 19:51] VITALS: BP 136/85; PULSE 72; RESP 15; TEMP 37; O2SAT 99
[2024-04-25] MEDS: Melatonin 3 MG TABLET 6 MG PO (20:29)
[2024-04-26 08:00] VITALS: BP 123/86; PULSE 91; TEMP 36.3; O2SAT 99
[2024-04-26] MEDS: Cholecalciferol (Vitamin D3) 25 MCG TABLET PO (08:42)
[2024-04-26] MEDS: OLANZapine 5 MG TABLET PO ×3 (08:42→21:10)
[2024-04-26] MEDS: polyethylene glycoL 3350 17 GM POWD.PACK PO (08:43)
[2024-04-26] MEDS: Baclofen 10 MG TABLET PO ×2 (08:52→17:11)
[2024-04-26] MEDS: diazePAM 2 MG TABLET PO ×2 (10:38→17:13)
--- NOTE | 2024-04-26 15:43 | P.PNPSI_ITS ---
Subjective Subjective Date of Service: 04/26/24 Reason For Visit: Anxiety, Suicide attempt Subjective Notes: Section 7 Healthcare Proxy: No Guardianship: No Medical Problems Affecting Mental Status: No Interim History: Pt met with her medical lab scientist today to discuss court. 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 Wanting her relationship to improve and her life to improve. Tolerating medications, denies SE at this time. Medication Compliance: Yes Side effects from medications: No Attending Groups: Yes Review of Systems Acute medical concerns: No Review of Systems Review of Systems chronic pain Mental Status Exam Mental Status Exam Narrative: Alert, oriented. Speech clear, articulate Mood is depressed, constricted, affect is flat. Apprehensive about couples meeting on 04/27. No symptoms of thought process,content are present Diagnostics Vital Signs (24Hr): Vital Signs - 24 hr 04/25/24 19:51 04/26/24 08:00 Temperature 98.6 F 97.3 F Pulse Rate 72 91 Respiratory Rate 15 Blood Pressure 136/85 123/86 Pulse Oximetry 99 99 Oxygen Delivery Method Room Air BMI result Body Mass Index 24.8 Labs 04/18/24 03:33 04/18/24 03:33 Medications Medications Current Medications Acetaminophen (Acetaminophen 325 Mg Tablet) 650 mg PO Q6H PRN PRN Reason: Headache/Pain Mild Scale (1-3) Last Admin: 04/25/24 18:05 Dose: 650 mg Al Hydroxide/Mg Hydroxide (Magnesium Hydrox/Alum Hydrox 30 Ml Oral.Susp) 30 ml PO Q6H PRN PRN Reason: Heartburn/Nausea Albuterol Sulfate (Albuterol Sulfate 90 Mcg 8 Gm Inhaler) 2 puff INHALE RQ6H PRN PRN Reason: Wheezing Baclofen (Baclofen 10 Mg Tablet) 10 mg PO TID PRN PRN Reason: spasm Last Admin: 04/26/24 08:52 Dose: 10 mg Capsaicin (Capsaicin 0.025% Cream 60 Gm Tube) 1 appl TOPICAL QID PRN; Protocol PRN Reason: Pain, Mild (Pain Scale 1-3) Diazepam (Diazepam 2 Mg Tablet) 2 mg PO TID PRN PRN Reason: anxiety, chronic pain Last Admin: 04/26/24 10:38 Dose: 2 mg Duloxetine HCl (Duloxetine Hcl 20 Mg Capsule.Dr) 20 mg PO DAILY [facility] Last Admin: 04/25/24 09:00 Dose: 20 mg Hydroxyzine HCl (Hydroxyzine Hcl 25 Mg Tablet) 25 mg PO Q6H PRN PRN Reason: Anxiety Last Admin: 04/25/24 18:06 Dose: 25 mg Magnesium Hydroxide (Milk Of Magnesia 30 Ml Oral.Susp) 30 ml PO DAILY PRN PRN Reason: Constipation Last Admin: 04/25/24 18:04 Dose: 30 ml Melatonin (Melatonin 3 Mg Tablet) 6 mg PO BEDTIME PRN PRN Reason: Insomnia Last Admin: 04/25/24 20:29 Dose: 6 mg Olanzapine (Olanzapine 5 Mg Tablet) 5 mg PO Q4H PRN PRN Reason: agitation, anxiety Last Admin: 04/25/24 14:27 Dose: 5 mg Olanzapine (Olanzapine 5 Mg Tablet) 5 mg PO BID [facility] Last Admin: 04/26/24 08:42 Dose: 5 mg Polyethylene Glycol (Polyethylene Glycol 3350 17 Gm Powd.Pack) 17 gm PO DAILY [facility] Last Admin: 04/26/24 08:43 Dose: 17 gm Tizanidine HCl (Tizanidine Hcl 4 Mg Tablet) 4 mg PO DAILY@1800 PRN PRN Reason: spasm Last Admin: 04/24/24 18:04 Dose: 4 mg Trazodone HCl (Trazodone Hcl 50 Mg Tablet) 50 mg PO BEDTIME MRX1 PRN PRN Reason: Insomnia Last Admin: 04/25/24 20:29 Dose: 50 mg Vitamin D (Cholecalciferol (Vitamin D3) 25 Mcg Tablet) 25 mcg PO DAILY [facility] Last Admin: 04/26/24 08:42 Dose: 25 mcg Allergies Allergies Allergy/AdvReac Type Severity Reaction Status Date / Time ibuprofen AdvReac Intermediate Stomach Verified 04/18/24 03:08 Upset gabapentin Allergy Severe Insomnia Uncoded 04/18/24 03:08 Assessment & Plan Assessment & Plan (1) Suicide attempt: Status: Acute Code(s): T14.91XA - Suicide attempt, initial encounter (2) Generalized anxiety disorder: Status: Acute Code(s): F41.1 - Generalized anxiety disorder (3) PTSD (post-traumatic stress disorder): Status: Acute Code(s): F43.10 - Post-traumatic stress disorder, unspecified Plan PTSD, Suicide Attempt via OD, Anxiety. 04/22/24: Continue tx-baclofen, zofran, tizanidine Section 7 filed Medication education 04/23/24: Couples meeting next week Given literature on lamictal, cymbalta for review. Schedule Olanzapine 5 mg bid DC Lorazepam Valium 2 mg tid prn anxiety, muscle pain Capsaicin prn Plan: Section 12B, 5 minute checks. Pt refuses to interview. Attempt [facility] contacts Medical review as Troponin levels were still high on admission. Medication review when pt is ready Encouarge full milieu. 04/24 - started patient on duloxetine to start 04/25- seems brighter and more engaged on olanzapine- 04/25 mood further up? dc duloxetine- will put hold on for am till patient can meet with providers continue olanzapine 04/26 - couples meeting 04/27. Reason for continued inpatient stay Substantial Risk for: rapid decompensation and med/psych decompensation Time Spent With Patient Time: Total time managing care of this patient today ____ minutes.
[2024-04-26 20:00] VITALS: BP 137/93; PULSE 133; TEMP 36.8; O2SAT 98
[2024-04-26] MEDS: traZODone HCL 50 MG TABLET PO (21:13)
[2024-04-26] MEDS: Capsaicin 0.025% Cream 60 GM TUBE 1 APPL TOPICAL (22:05)
[2024-04-26] MEDS: hydrOXYzine HCL 25 MG TABLET PO (22:09)
[2024-04-26 22:10] VITALS: PULSE 110
[2024-04-27] MEDS: traZODone HCL 50 MG TABLET PO (00:15)
[2024-04-27 09:29] VITALS: BP 121/71; PULSE 94; TEMP 36.8; O2SAT 99
[2024-04-27] MEDS: Cholecalciferol (Vitamin D3) 25 MCG TABLET PO (09:52)
[2024-04-27] MEDS: OLANZapine 5 MG TABLET PO ×3 (09:52→20:59)
[2024-04-27] MEDS: polyethylene glycoL 3350 17 GM POWD.PACK PO (09:53)
[2024-04-27] MEDS: diazePAM 2 MG TABLET PO ×2 (10:01→14:46)
[2024-04-27] MEDS: Acetaminophen 325 MG TABLET 650 MG PO ×2 (10:01→17:14)
[2024-04-27] MEDS: Baclofen 10 MG TABLET PO (10:01)
--- NOTE | 2024-04-27 18:07 | HO.PSYCHPN ---
Subjective Subjective Date of Service: 04/27/24 Reason For Visit: Anxiety, Suicide attempt Subjective Notes: Conditional Voluntary Healthcare Proxy: No Guardianship: No Medical Problems Affecting Mental Status: No Interim History: Pt signed CV today. [address] Difficult meeting with partner today, however, both did well. Pt articulate and comprehensive regarding her history, experience of trauma and rationale for her symptoms. Partner able to listen, confrontive on some subjects. Both affirm the importance of their relationship, their love for one another, yet both affirm not being happy in current circumstances. Medication Compliance: Yes Side effects from medications: No Attending Groups: Yes Review of Systems Acute medical concerns: No Medical Review of Systems: unchanged Review of Systems Review of Systems chronic pain Mental Status Exam Mental Status Exam Narrative: Alert, oriented, speech is clear, articulate. Denies SI.HI.AH.VH. No sx of tanja, psychosis Mood is depressed, labile, affect flat Expressive in articulating her traumatic hx to partner Diagnostics Vital Signs (24Hr): Vital Signs - 24 hr 04/26/24 20:00 04/26/24 22:10 04/27/24 09:29 Temperature 98.2 F 98.2 F Pulse Rate 133 H 110 H 94 Blood Pressure 137/93 H 121/71 Pulse Oximetry 98 99 Oxygen Delivery Method Room Air Room Air BMI result Body Mass Index 24.8 Labs 04/18/24 03:33 04/18/24 03:33 Medications Medications Current Medications Acetaminophen (Acetaminophen 325 Mg Tablet) 650 mg PO Q6H PRN PRN Reason: Headache/Pain Mild Scale (1-3) Last Admin: 04/27/24 17:14 Dose: 650 mg Al Hydroxide/Mg Hydroxide (Magnesium Hydrox/Alum Hydrox 30 Ml Oral.Susp) 30 ml PO Q6H PRN PRN Reason: Heartburn/Nausea Albuterol Sulfate (Albuterol Sulfate 90 Mcg 8 Gm Inhaler) 2 puff INHALE RQ6H PRN PRN Reason: Wheezing Baclofen (Baclofen 10 Mg Tablet) 10 mg PO TID PRN PRN Reason: spasm Last Admin: 04/27/24 10:01 Dose: 10 mg Capsaicin (Capsaicin 0.025% Cream 60 Gm Tube) 1 appl TOPICAL QID PRN; Protocol PRN Reason: Pain, Mild (Pain Scale 1-3) Last Admin: 04/26/24 22:05 Dose: 1 appl Diazepam (Diazepam 2 Mg Tablet) 2 mg PO TID PRN PRN Reason: anxiety, chronic pain Last Admin: 04/27/24 14:46 Dose: 2 mg Duloxetine HCl (Duloxetine Hcl 20 Mg Capsule.Dr) 20 mg PO DAILY [facility] Last Admin: 04/25/24 09:00 Dose: 20 mg Hydroxyzine HCl (Hydroxyzine Hcl 25 Mg Tablet) 25 mg PO Q6H PRN PRN Reason: Anxiety Last Admin: 04/26/24 22:09 Dose: 25 mg Magnesium Hydroxide (Milk Of Magnesia 30 Ml Oral.Susp) 30 ml PO DAILY PRN PRN Reason: Constipation Last Admin: 04/25/24 18:04 Dose: 30 ml Melatonin (Melatonin 3 Mg Tablet) 6 mg PO BEDTIME PRN PRN Reason: Insomnia Last Admin: 04/25/24 20:29 Dose: 6 mg Olanzapine (Olanzapine 5 Mg Tablet) 5 mg PO Q4H PRN PRN Reason: agitation, anxiety Last Admin: 04/27/24 14:46 Dose: 5 mg Olanzapine (Olanzapine 5 Mg Tablet) 5 mg PO BID [facility] Last Admin: 04/27/24 09:52 Dose: 5 mg Polyethylene Glycol (Polyethylene Glycol 3350 17 Gm Powd.Pack) 17 gm PO DAILY [facility] Last Admin: 04/27/24 09:53 Dose: 17 gm Tizanidine HCl (Tizanidine Hcl 4 Mg Tablet) 4 mg PO DAILY@1800 PRN PRN Reason: spasm Last Admin: 04/24/24 18:04 Dose: 4 mg Trazodone HCl (Trazodone Hcl 50 Mg Tablet) 50 mg PO BEDTIME MRX1 PRN PRN Reason: Insomnia Last Admin: 04/27/24 00:15 Dose: 50 mg Triamcinolone Acetonide (Triamcinolone Acet 0.1 % Cream 15 Gm Tube) 1 appl TOPICAL BID [facility]; Protocol Vitamin D (Cholecalciferol (Vitamin D3) 25 Mcg Tablet) 25 mcg PO DAILY [facility] Last Admin: 04/27/24 09:52 Dose: 25 mcg Allergies Allergies Allergy/AdvReac Type Severity Reaction Status Date / Time ibuprofen AdvReac Intermediate Stomach Verified 04/18/24 03:08 Upset gabapentin Allergy Severe Insomnia Uncoded 04/18/24 03:08 Assessment & Plan Assessment & Plan (1) Suicide attempt: Status: Acute Code(s): T14.91XA - Suicide attempt, initial encounter (2) Generalized anxiety disorder: Status: Acute Code(s): F41.1 - Generalized anxiety disorder (3) PTSD (post-traumatic stress disorder): Status: Acute Code(s): F43.10 - Post-traumatic stress disorder, unspecified Plan PTSD, Suicide Attempt via OD, Anxiety. 04/22/24: Continue tx-baclofen, zofran, tizanidine Section 7 filed Medication education 04/23/24: Couples meeting next week Given literature on lamictal, cymbalta for review. Schedule Olanzapine 5 mg bid DC Lorazepam Valium 2 mg tid prn anxiety, muscle pain Capsaicin prn Plan: Section 12B, 5 minute checks. Pt refuses to interview. Attempt [facility] contacts Medical review as Troponin levels were still high on admission. Medication review when pt is ready Encouarge full milieu. 04/24 - started patient on duloxetine to start 04/25- seems brighter and more engaged on olanzapine- 04/25 mood further up? dc duloxetine- will put hold on for am till patient can meet with providers continue olanzapine 04/27- Triamcinolone cream for areas of eczema Continue milieu work/work with medications. Reason for continued inpatient stay Substantial Risk for: rapid decompensation Time Spent With Patient Time: Total time managing care of this patient today ____ minutes.
[2024-04-27] MEDS: TiZANidine HCL 4 MG TABLET PO (18:26)
[2024-04-27 19:37] VITALS: BP 139/102; PULSE 109; RESP 16; TEMP 36.8; O2SAT 98
[2024-04-27] MEDS: Melatonin 3 MG TABLET 6 MG PO (20:59)
[2024-04-28 08:00] VITALS: BP 111/75; PULSE 74; TEMP 36.9; O2SAT 99
[2024-04-28] MEDS: Acetaminophen 325 MG TABLET 650 MG PO ×2 (08:33→20:18)
[2024-04-28] MEDS: Baclofen 10 MG TABLET PO ×2 (08:34→13:50)
[2024-04-28] MEDS: Cholecalciferol (Vitamin D3) 25 MCG TABLET PO (08:34)
[2024-04-28] MEDS: OLANZapine 5 MG TABLET PO ×2 (08:34→20:18)
[2024-04-28] MEDS: polyethylene glycoL 3350 17 GM POWD.PACK PO (08:36)
[2024-04-28] MEDS: hydrOXYzine HCL 25 MG TABLET PO ×2 (11:04→20:18)
[2024-04-28] MEDS: DULoxetine HCl 20 MG CAPSULE.DR PO (11:04)
[2024-04-28] MEDS: diazePAM 2 MG TABLET PO ×2 (13:50→23:45)
[2024-04-28] MEDS: Capsaicin 0.025% Cream 60 GM TUBE 1 APPL TOPICAL (13:50)
--- NOTE | 2024-04-28 18:04 | P.PNPSI_ITS ---
Subjective Subjective Date of Service: 04/28/24 Reason For Visit: Anxiety, Suicide attempt Subjective Notes: Conditional Voluntary Healthcare Proxy: No Guardianship: No Medical Problems Affecting Mental Status: No Interim History: Review of couples meeting. Discussion of communication strategies, supports from the environment to be more attuned to in moving forward. Cymbalta restarted today. Medication Compliance: Yes Side effects from medications: No Attending Groups: Yes Review of Systems Acute medical concerns: No Review of Systems Review of Systems Chronic pain Mental Status Exam Mental Status Exam Narrative: Alert, oriented, speech is clear, articulate. Denies SI.HI.AH.VH. No sx of tanja, psychosis Mood is depressed, labile, affect flat Considering her perceptions based upon what she has learned and beginning to challenge these. Diagnostics Vital Signs (24Hr): Vital Signs - 24 hr 04/27/24 19:37 04/28/24 08:00 Temperature 98.2 F 98.4 F Pulse Rate 109 H 74 Respiratory Rate 16 Blood Pressure 139/102 H 111/75 Pulse Oximetry 98 99 Oxygen Delivery Method Room Air Room Air BMI result Body Mass Index 24.8 Labs 04/18/24 03:33 04/18/24 03:33 Medications Medications Current Medications Acetaminophen (Acetaminophen 325 Mg Tablet) 650 mg PO Q6H PRN PRN Reason: Headache/Pain Mild Scale (1-3) Last Admin: 04/28/24 08:33 Dose: 650 mg Al Hydroxide/Mg Hydroxide (Magnesium Hydrox/Alum Hydrox 30 Ml Oral.Susp) 30 ml PO Q6H PRN PRN Reason: Heartburn/Nausea Albuterol Sulfate (Albuterol Sulfate 90 Mcg 8 Gm Inhaler) 2 puff INHALE RQ6H PRN PRN Reason: Wheezing Baclofen (Baclofen 10 Mg Tablet) 10 mg PO TID PRN PRN Reason: spasm Last Admin: 04/28/24 13:50 Dose: 10 mg Capsaicin (Capsaicin 0.025% Cream 60 Gm Tube) 1 appl TOPICAL QID PRN; Protocol PRN Reason: Pain, Mild (Pain Scale 1-3) Last Admin: 04/28/24 13:50 Dose: 1 appl Diazepam (Diazepam 2 Mg Tablet) 2 mg PO TID PRN PRN Reason: anxiety, chronic pain Last Admin: 04/28/24 13:50 Dose: 2 mg Duloxetine HCl (Duloxetine Hcl 20 Mg Capsule.Dr) 20 mg PO DAILY [facility] Last Admin: 04/28/24 11:04 Dose: 20 mg Hydroxyzine HCl (Hydroxyzine Hcl 25 Mg Tablet) 25 mg PO Q6H PRN PRN Reason: Anxiety Last Admin: 04/28/24 11:04 Dose: 25 mg Magnesium Hydroxide (Milk Of Magnesia 30 Ml Oral.Susp) 30 ml PO DAILY PRN PRN Reason: Constipation Last Admin: 04/25/24 18:04 Dose: 30 ml Melatonin (Melatonin 3 Mg Tablet) 6 mg PO BEDTIME PRN PRN Reason: Insomnia Last Admin: 04/27/24 20:59 Dose: 6 mg Olanzapine (Olanzapine 5 Mg Tablet) 5 mg PO Q4H PRN PRN Reason: agitation, anxiety Last Admin: 04/27/24 14:46 Dose: 5 mg Olanzapine (Olanzapine 5 Mg Tablet) 5 mg PO BID [facility] Last Admin: 04/28/24 08:34 Dose: 5 mg Polyethylene Glycol (Polyethylene Glycol 3350 17 Gm Powd.Pack) 17 gm PO DAILY [facility] Last Admin: 04/28/24 08:36 Dose: 17 gm Tizanidine HCl (Tizanidine Hcl 4 Mg Tablet) 4 mg PO DAILY@1800 PRN PRN Reason: spasm Last Admin: 04/27/24 18:26 Dose: 4 mg Trazodone HCl (Trazodone Hcl 50 Mg Tablet) 50 mg PO BEDTIME MRX1 PRN PRN Reason: Insomnia Last Admin: 04/27/24 00:15 Dose: 50 mg Triamcinolone Acetonide (Triamcinolone Acet 0.1 % Cream 15 Gm Tube) 1 appl TOPICAL BID [facility]; Protocol Last Admin: 04/28/24 11:10 Dose: Not Given Vitamin D (Cholecalciferol (Vitamin D3) 25 Mcg Tablet) 25 mcg PO DAILY [facility] Last Admin: 04/28/24 08:34 Dose: 25 mcg Allergies Allergies Allergy/AdvReac Type Severity Reaction Status Date / Time ibuprofen AdvReac Intermediate Stomach Verified 04/18/24 03:08 Upset gabapentin Allergy Severe Insomnia Uncoded 04/18/24 03:08 Assessment & Plan Assessment & Plan (1) Suicide attempt: Status: Acute Code(s): T14.91XA - Suicide attempt, initial encounter (2) Generalized anxiety disorder: Status: Acute Code(s): F41.1 - Generalized anxiety disorder (3) PTSD (post-traumatic stress disorder): Status: Acute Code(s): F43.10 - Post-traumatic stress disorder, unspecified Plan PTSD, Suicide Attempt via OD, Anxiety. 04/22/24: Continue tx-baclofen, zofran, tizanidine Section 7 filed Medication education 04/23/24: Couples meeting next week Given literature on lamictal, cymbalta for review. Schedule Olanzapine 5 mg bid DC Lorazepam Valium 2 mg tid prn anxiety, muscle pain Capsaicin prn Plan: Section 12B, 5 minute checks. Pt refuses to interview. Attempt [facility] [employer] contacts Medical review as Troponin levels were still high on admission. Medication review when pt is ready Encouarge full milieu. 04/24 - started patient on duloxetine to start 04/25- seems brighter and more engaged on olanzapine- 04/25 mood further up? dc duloxetine- will put hold on for am till patient can meet with providers continue olanzapine 04/27- Triamcinolone cream for areas of eczema Continue milieu work/work with medications. 04/28- Restart Cymbalta 20 mg daily Patient educated on: medication risk/benefits and therapeutic strategies Reason for continued inpatient stay Substantial Risk for: rapid decompensation Time Spent With Patient Time: Total time managing care of this patient today ____ minutes.
[2024-04-28 19:54] VITALS: BP 161/68; PULSE 84; RESP 16; TEMP 36.8; O2SAT 98
[2024-04-28] MEDS: TiZANidine HCL 4 MG TABLET PO (20:18)
[2024-04-28] MEDS: traZODone HCL 50 MG TABLET PO (23:45)
[2024-04-29] MEDS: Baclofen 10 MG TABLET PO ×4 (04:07→21:16)
[2024-04-29] MEDS: Acetaminophen 325 MG TABLET 650 MG PO ×2 (04:07→11:52)
[2024-04-29] MEDS: Capsaicin 0.025% Cream 60 GM TUBE 1 APPL TOPICAL (05:32)
[2024-04-29 08:00] VITALS: BP 185/93; PULSE 68; TEMP 36.4; O2SAT 99
[2024-04-29 09:02] VITALS: BP 136/82
[2024-04-29] MEDS: DULoxetine HCl 20 MG CAPSULE.DR PO (09:21)
[2024-04-29] MEDS: polyethylene glycoL 3350 17 GM POWD.PACK PO (09:21)
[2024-04-29] MEDS: Cholecalciferol (Vitamin D3) 25 MCG TABLET PO (09:21)
[2024-04-29] MEDS: OLANZapine 5 MG TABLET PO ×2 (09:21→21:14)
--- NOTE | 2024-04-29 09:40 | P.PNPSI_ITS ---
Subjective Subjective Date of Service: 04/29/24 Reason For Visit: Anxiety, Suicide attempt Interim History: Patient seen and discussed. Reports improvement in mood since admission although says she is generally irritable. It's my nature I think. No SI. Denies side effects. Denies AVH. Mostly isolated to her room. Overall doing better. Recent medication adjustments. Review of Systems Review of Systems Chronic pain Yes Unobtainable due to mental status Mental Status Exam Mental Status Exam Narrative: Alert, oriented, speech is clear, articulate. Denies SI.HI.AH.VH. No sx of tanja, psychosis Mood is depressed, labile, affect flat Considering her perceptions based upon what she has learned and beginning to challenge these. Patient Appearance: Well Grooomed and Appropriate Patient Orientation: Person, Place, Time and Situation Level of Consciousness: Awake Patient Behavior: Appropriate Behavior Comments: out of her room more today- engaging with patients on unit, maybe too exclusively with one person- though yesterday it was her roommate today it is male patient Mood Description: Happy Affect Description: Expansive Patient Cognition Impaired: No Ability to Follow Directions: Fair Speech Pattern: Clear Memory Description: Intact Diagnostics Vital Signs (24Hr): Vital Signs - 24 hr 04/28/24 19:54 Temperature 98.2 F Pulse Rate 84 Respiratory Rate 16 Blood Pressure 161/68 H Pulse Oximetry 98 Oxygen Delivery Method Room Air BMI result Body Mass Index 24.8 Labs 04/18/24 03:33 04/18/24 03:33 Medications Medications Current Medications Acetaminophen (Acetaminophen 325 Mg Tablet) 650 mg PO Q6H PRN PRN Reason: Headache/Pain Mild Scale (1-3) Last Admin: 04/29/24 04:07 Dose: 650 mg Al Hydroxide/Mg Hydroxide (Magnesium Hydrox/Alum Hydrox 30 Ml Oral.Susp) 30 ml PO Q6H PRN PRN Reason: Heartburn/Nausea Albuterol Sulfate (Albuterol Sulfate 90 Mcg 8 Gm Inhaler) 2 puff INHALE RQ6H PRN PRN Reason: Wheezing Baclofen (Baclofen 10 Mg Tablet) 10 mg PO TID PRN PRN Reason: spasm Last Admin: 04/29/24 04:07 Dose: 10 mg Capsaicin (Capsaicin 0.025% Cream 60 Gm Tube) 1 appl TOPICAL QID PRN; Protocol PRN Reason: Pain, Mild (Pain Scale 1-3) Last Admin: 04/29/24 05:32 Dose: 1 appl Diazepam (Diazepam 2 Mg Tablet) 2 mg PO TID PRN PRN Reason: anxiety, chronic pain Last Admin: 04/28/24 23:45 Dose: 2 mg Duloxetine HCl (Duloxetine Hcl 20 Mg Capsule.Dr) 20 mg PO DAILY [facility] Last Admin: 04/29/24 09:21 Dose: 20 mg Hydroxyzine HCl (Hydroxyzine Hcl 25 Mg Tablet) 25 mg PO Q6H PRN PRN Reason: Anxiety Last Admin: 04/28/24 20:18 Dose: 25 mg Magnesium Hydroxide (Milk Of Magnesia 30 Ml Oral.Susp) 30 ml PO DAILY PRN PRN Reason: Constipation Last Admin: 04/25/24 18:04 Dose: 30 ml Melatonin (Melatonin 3 Mg Tablet) 6 mg PO BEDTIME PRN PRN Reason: Insomnia Last Admin: 04/27/24 20:59 Dose: 6 mg Olanzapine (Olanzapine 5 Mg Tablet) 5 mg PO Q4H PRN PRN Reason: agitation, anxiety Last Admin: 04/27/24 14:46 Dose: 5 mg Olanzapine (Olanzapine 5 Mg Tablet) 5 mg PO BID [facility] Last Admin: 04/29/24 09:21 Dose: 5 mg Polyethylene Glycol (Polyethylene Glycol 3350 17 Gm Powd.Pack) 17 gm PO DAILY [facility] Last Admin: 04/29/24 09:21 Dose: 17 gm Tizanidine HCl (Tizanidine Hcl 4 Mg Tablet) 4 mg PO DAILY@1800 PRN PRN Reason: spasm Last Admin: 04/28/24 20:18 Dose: 4 mg Trazodone HCl (Trazodone Hcl 50 Mg Tablet) 50 mg PO BEDTIME MRX1 PRN PRN Reason: Insomnia Last Admin: 04/28/24 23:45 Dose: 50 mg Triamcinolone Acetonide (Triamcinolone Acet 0.1 % Cream 15 Gm Tube) 1 appl TOPICAL BID [facility]; Protocol Last Admin: 04/28/24 20:18 Dose: Not Given Vitamin D (Cholecalciferol (Vitamin D3) 25 Mcg Tablet) 25 mcg PO DAILY [facility] Last Admin: 04/29/24 09:21 Dose: 25 mcg Allergies Allergies Allergy/AdvReac Type Severity Reaction Status Date / Time ibuprofen AdvReac Intermediate Stomach Verified 04/18/24 03:08 Upset gabapentin Allergy Severe Insomnia Uncoded 04/18/24 03:08 Assessment & Plan Assessment & Plan (1) Suicide attempt: Status: Acute Code(s): T14.91XA - Suicide attempt, initial encounter (2) Generalized anxiety disorder: Status: Acute Code(s): F41.1 - Generalized anxiety disorder (3) PTSD (post-traumatic stress disorder): Status: Acute Code(s): F43.10 - Post-traumatic stress disorder, unspecified Plan PTSD, Suicide Attempt via OD, Anxiety. 04/22/24: Continue tx-baclofen, zofran, tizanidine Section 7 filed Medication education 04/23/24: Couples meeting next week Given literature on lamictal, cymbalta for review. Schedule Olanzapine 5 mg bid DC Lorazepam Valium 2 mg tid prn anxiety, muscle pain Capsaicin prn Plan: Section 12B, 5 minute checks. Pt refuses to interview. Attempt [facility] contacts Medical review as Troponin levels were still high on admission. Medication review when pt is ready Encouarge full milieu. 04/24 - started patient on duloxetine to start 04/25- seems brighter and more engaged on olanzapine- 04/25 mood further up? dc duloxetine- will put hold on for am till patient can meet with providers continue olanzapine 04/27- Triamcinolone cream for areas of eczema Continue milieu work/work with medications. 04/28- Restart Cymbalta 20 mg daily 04/29: Continue current management and treatment plan. Recent restart of Cymbalta. Monitor response. Reason for continued inpatient stay Substantial Risk for: harm to self, inability to function and rapid decompensation Time Spent With Patient Time: Total time managing care of this patient today ____ minutes.
[2024-04-29] MEDS: TiZANidine HCL 4 MG TABLET PO (17:58)
[2024-04-29] MEDS: diazePAM 2 MG TABLET PO (17:58)
[2024-04-29 20:00] VITALS: BP 152/96; PULSE 107; O2SAT 98
[2024-04-29] MEDS: traZODone HCL 50 MG TABLET PO (21:14)
[2024-04-30 08:00] VITALS: BP 142/85; PULSE 123; TEMP 36.7; O2SAT 96
[2024-04-30] MEDS: polyethylene glycoL 3350 17 GM POWD.PACK PO (08:44)
[2024-04-30] MEDS: Cholecalciferol (Vitamin D3) 25 MCG TABLET PO (08:44)
[2024-04-30] MEDS: OLANZapine 5 MG TABLET PO ×2 (08:44→20:41)
[2024-04-30] MEDS: DULoxetine HCl 20 MG CAPSULE.DR PO (08:44)
[2024-04-30] MEDS: Baclofen 10 MG TABLET PO ×2 (08:44→15:47)
[2024-04-30] MEDS: diazePAM 2 MG TABLET PO ×2 (10:55→17:09)
[2024-04-30] MEDS: Acetaminophen 325 MG TABLET 650 MG PO ×2 (12:38→20:41)
--- NOTE | 2024-04-30 15:01 | HO.PSYCHPN ---
Subjective Subjective Date of Service: 04/30/24 Reason For Visit: Anxiety, Suicide attempt Subjective Notes: Conditional Voluntary Healthcare Proxy: No Guardianship: No Medical Problems Affecting Mental Status: No Interim History: Today, Santa had an adverse response to Cymbalta, BP 171/97, 104, 174/99 91, so this was discontinued. Lamictal trial to begin. Message from partner Mane as he had been having difficulty reaching pt, however, they were able to talk on Thanksgiving. Pt has lost a pair of earrings-Mane is looking in her belongings he brought home from the unit. Pt is well engaged, spending some time giving thought to Monet perspective on their friends and some of the situations discussed in family meeting. Medication Compliance: Yes Side effects from medications: Yes (HTN with cymbalta this am. along with lightheadedness) Attending Groups: Yes Review of Systems Acute medical concerns: No Medical Review of Systems: unchanged Mental Status Exam Mental Status Exam Narrative: Alert, oriented. Affect flat Mood constricted Thought content and process intact Working in the milieu Medication reaction this a.m. with some recovery this afternoon. Diagnostics Vital Signs (24Hr): Vital Signs - 24 hr 04/29/24 20:00 04/30/24 08:00 Temperature 98.0 F Pulse Rate 107 H 123 H Blood Pressure 152/96 H 142/85 H Pulse Oximetry 98 96 Oxygen Delivery Method Room Air Room Air BMI result Body Mass Index 24.8 Labs 04/18/24 03:33 04/18/24 03:33 Medications Medications Current Medications Acetaminophen (Acetaminophen 325 Mg Tablet) 650 mg PO Q6H PRN PRN Reason: Headache/Pain Mild Scale (1-3) Last Admin: 04/30/24 12:38 Dose: 650 mg Al Hydroxide/Mg Hydroxide (Magnesium Hydrox/Alum Hydrox 30 Ml Oral.Susp) 30 ml PO Q6H PRN PRN Reason: Heartburn/Nausea Albuterol Sulfate (Albuterol Sulfate 90 Mcg 8 Gm Inhaler) 2 puff INHALE RQ6H PRN PRN Reason: Wheezing Baclofen (Baclofen 10 Mg Tablet) 10 mg PO TID PRN PRN Reason: spasm Last Admin: 04/30/24 08:44 Dose: 10 mg Capsaicin (Capsaicin 0.025% Cream 60 Gm Tube) 1 appl TOPICAL QID PRN; Protocol PRN Reason: Pain, Mild (Pain Scale 1-3) Last Admin: 04/29/24 05:32 Dose: 1 appl Diazepam (Diazepam 2 Mg Tablet) 2 mg PO TID PRN PRN Reason: anxiety, chronic pain Last Admin: 04/30/24 10:55 Dose: 2 mg Hydroxyzine HCl (Hydroxyzine Hcl 25 Mg Tablet) 25 mg PO Q6H PRN PRN Reason: Anxiety Last Admin: 04/28/24 20:18 Dose: 25 mg Magnesium Hydroxide (Milk Of Magnesia 30 Ml Oral.Susp) 30 ml PO DAILY PRN PRN Reason: Constipation Last Admin: 04/25/24 18:04 Dose: 30 ml Melatonin (Melatonin 3 Mg Tablet) 6 mg PO BEDTIME PRN PRN Reason: Insomnia Last Admin: 04/27/24 20:59 Dose: 6 mg Olanzapine (Olanzapine 5 Mg Tablet) 5 mg PO Q4H PRN PRN Reason: agitation, anxiety Last Admin: 04/27/24 14:46 Dose: 5 mg Olanzapine (Olanzapine 5 Mg Tablet) 5 mg PO BID [facility] Last Admin: 04/30/24 08:44 Dose: 5 mg Polyethylene Glycol (Polyethylene Glycol 3350 17 Gm Powd.Pack) 17 gm PO DAILY [facility] Last Admin: 04/30/24 08:44 Dose: 17 gm Tizanidine HCl (Tizanidine Hcl 4 Mg Tablet) 4 mg PO DAILY@1800 PRN PRN Reason: spasm Last Admin: 04/29/24 17:58 Dose: 4 mg Trazodone HCl (Trazodone Hcl 50 Mg Tablet) 50 mg PO BEDTIME MRX1 PRN PRN Reason: Insomnia Last Admin: 04/29/24 21:14 Dose: 50 mg Triamcinolone Acetonide (Triamcinolone Acet 0.1 % Cream 15 Gm Tube) 1 appl TOPICAL BID [facility]; Protocol Last Admin: 04/30/24 11:30 Dose: Not Given Vitamin D (Cholecalciferol (Vitamin D3) 25 Mcg Tablet) 25 mcg PO DAILY [facility] Last Admin: 04/30/24 08:44 Dose: 25 mcg Allergies Allergies Allergy/AdvReac Type Severity Reaction Status Date / Time ibuprofen AdvReac Intermediate Stomach Verified 04/18/24 03:08 Upset gabapentin Allergy Severe Insomnia Uncoded 04/18/24 03:08 Assessment & Plan Assessment & Plan (1) Suicide attempt: Status: Acute Code(s): T14.91XA - Suicide attempt, initial encounter (2) Generalized anxiety disorder: Status: Acute Code(s): F41.1 - Generalized anxiety disorder (3) PTSD (post-traumatic stress disorder): Status: Acute Code(s): F43.10 - Post-traumatic stress disorder, unspecified Plan PTSD, Suicide Attempt via OD, Anxiety. 04/22/24: Continue tx-baclofen, zofran, tizanidine Section 7 filed Medication education 04/23/24: Couples meeting next week Given literature on lamictal, cymbalta for review. Schedule Olanzapine 5 mg bid DC Lorazepam Valium 2 mg tid prn anxiety, muscle pain Capsaicin prn Plan: Section 12B, 5 minute checks. Pt refuses to interview. Attempt [facility] contacts Medical review as Troponin levels were still high on admission. Medication review when pt is ready Encouarge full milieu. 04/24 - started patient on duloxetine to start 04/25- seems brighter and more engaged on olanzapine- 04/25 mood further up? dc duloxetine- will put hold on for am till patient can meet with providers continue olanzapine 04/27- Triamcinolone cream for areas of eczema Continue milieu work/work with medications. 04/28- Restart Cymbalta 20 mg daily 04/29: Continue current management and treatment plan. Recent restart of Cymbalta. Monitor response. 04/30: DC Cymbalta-HTN, lightheadedness Lamictal 25 mg HS Reason for continued inpatient stay Substantial Risk for: rapid decompensation Time Spent With Patient Time: Total time managing care of this patient today ____ minutes.
[2024-04-30 19:54] VITALS: BP 132/81; PULSE 115; RESP 16; TEMP 36.8; O2SAT 97
[2024-04-30] MEDS: lamoTRIgine 25 MG TABLET PO (20:41)
[2024-04-30] MEDS: TiZANidine HCL 4 MG TABLET PO (20:41)
[2024-05-01] MEDS: Cholecalciferol (Vitamin D3) 25 MCG TABLET PO (08:28)
[2024-05-01] MEDS: polyethylene glycoL 3350 17 GM POWD.PACK PO (08:28)
[2024-05-01] MEDS: OLANZapine 5 MG TABLET PO ×3 (08:28→20:40)
[2024-05-01] MEDS: Triamcinolone Acet 0.1 % Cream 15 GM TUBE 1 APPL TOPICAL (08:33)
[2024-05-01 08:51] VITALS: BP 121/70; PULSE 86; RESP 18; TEMP 36.9; O2SAT 98
--- NOTE | 2024-05-01 10:41 | HO.PSYCHPN ---
Subjective Subjective Date of Service: 05/01/24 Reason For Visit: Anxiety, Suicide attempt Interim History: Patient reports she is improved compared to prior to admission. She had a visit with sig other. Having some lower abdominal pain. She says she had a bout of diverticulitis but also has a history of endometriosis and had hysterectomy and oophorectomy done so she is not sure it is related to her diverticulitis also has been constipated. Doesn't appear to be in distress. No N/V. No fevers. Mood is brighter than on previous occasions and more engaged. Review of Systems Review of Systems Chronic pain Mental Status Exam Mental Status Exam Narrative: Alert, oriented. Affect more reactive Mood constricted Thought content and process intact Working in the milieu Patient Appearance: Well Grooomed and Appropriate Patient Orientation: Person, Place, Time and Situation Level of Consciousness: Awake Patient Behavior: Appropriate Mood Description: Happy Affect Description: Expansive Patient Cognition Impaired: No Ability to Follow Directions: Fair Speech Pattern: Clear Memory Description: Intact Diagnostics Vital Signs (24Hr): Vital Signs - 24 hr 04/30/24 19:54 05/01/24 08:51 Temperature 98.2 F 98.5 F Pulse Rate 115 H 86 Respiratory Rate 16 18 Blood Pressure 132/81 121/70 Pulse Oximetry 97 98 Oxygen Delivery Method Room Air Room Air BMI result Body Mass Index 24.8 Labs 04/18/24 03:33 04/18/24 03:33 Medications Medications Current Medications Acetaminophen (Acetaminophen 325 Mg Tablet) 650 mg PO Q6H PRN PRN Reason: Headache/Pain Mild Scale (1-3) Last Admin: 04/30/24 20:41 Dose: 650 mg Al Hydroxide/Mg Hydroxide (Magnesium Hydrox/Alum Hydrox 30 Ml Oral.Susp) 30 ml PO Q6H PRN PRN Reason: Heartburn/Nausea Albuterol Sulfate (Albuterol Sulfate 90 Mcg 8 Gm Inhaler) 2 puff INHALE RQ6H PRN PRN Reason: Wheezing Baclofen (Baclofen 10 Mg Tablet) 10 mg PO TID PRN PRN Reason: spasm Last Admin: 04/30/24 15:47 Dose: 10 mg Capsaicin (Capsaicin 0.025% Cream 60 Gm Tube) 1 appl TOPICAL QID PRN; Protocol PRN Reason: Pain, Mild (Pain Scale 1-3) Last Admin: 04/29/24 05:32 Dose: 1 appl Diazepam (Diazepam 2 Mg Tablet) 2 mg PO TID PRN PRN Reason: anxiety, chronic pain Last Admin: 04/30/24 17:09 Dose: 2 mg Hydroxyzine HCl (Hydroxyzine Hcl 25 Mg Tablet) 25 mg PO Q6H PRN PRN Reason: Anxiety Last Admin: 04/28/24 20:18 Dose: 25 mg Lamotrigine (Lamotrigine 25 Mg Tablet) 25 mg PO BEDTIME EDGARDO Last Admin: 04/30/24 20:41 Dose: 25 mg Magnesium Hydroxide (Milk Of Magnesia 30 Ml Oral.Susp) 30 ml PO DAILY PRN PRN Reason: Constipation Last Admin: 04/25/24 18:04 Dose: 30 ml Melatonin (Melatonin 3 Mg Tablet) 6 mg PO BEDTIME PRN PRN Reason: Insomnia Last Admin: 04/27/24 20:59 Dose: 6 mg Olanzapine (Olanzapine 5 Mg Tablet) 5 mg PO Q4H PRN PRN Reason: agitation, anxiety Last Admin: 04/27/24 14:46 Dose: 5 mg Olanzapine (Olanzapine 5 Mg Tablet) 5 mg PO BID [facility] Last Admin: 05/01/24 08:28 Dose: 5 mg Polyethylene Glycol (Polyethylene Glycol 3350 17 Gm Powd.Pack) 17 gm PO DAILY EDGARDO Last Admin: 05/01/24 08:28 Dose: 17 gm Tizanidine HCl (Tizanidine Hcl 4 Mg Tablet) 4 mg PO DAILY@1800 PRN PRN Reason: spasm Last Admin: 04/30/24 20:41 Dose: 4 mg Trazodone HCl (Trazodone Hcl 50 Mg Tablet) 50 mg PO BEDTIME MRX1 PRN PRN Reason: Insomnia Last Admin: 04/29/24 21:14 Dose: 50 mg Triamcinolone Acetonide (Triamcinolone Acet 0.1 % Cream 15 Gm Tube) 1 appl TOPICAL BID EDGARDO; Protocol Last Admin: 05/01/24 08:33 Dose: 1 appl Vitamin D (Cholecalciferol (Vitamin D3) 25 Mcg Tablet) 25 mcg PO DAILY [facility] Last Admin: 05/01/24 08:28 Dose: 25 mcg Allergies Allergies Allergy/AdvReac Type Severity Reaction Status Date / Time ibuprofen AdvReac Intermediate Stomach Verified 04/18/24 03:08 Upset gabapentin Allergy Severe Insomnia Uncoded 04/18/24 03:08 Assessment & Plan Assessment & Plan (1) Suicide attempt: Status: Acute Code(s): T14.91XA - Suicide attempt, initial encounter (2) Generalized anxiety disorder: Status: Acute Code(s): F41.1 - Generalized anxiety disorder (3) PTSD (post-traumatic stress disorder): Status: Acute Code(s): F43.10 - Post-traumatic stress disorder, unspecified Plan PTSD, Suicide Attempt via OD, Anxiety. 04/22/24: Continue tx-baclofen, zofran, tizanidine Section 7 filed Medication education 04/23/24: Couples meeting next week Given literature on lamictal, cymbalta for review. Schedule Olanzapine 5 mg bid DC Lorazepam Valium 2 mg tid prn anxiety, muscle pain Capsaicin prn Plan: Section 12B, 5 minute checks. Pt refuses to interview. Attempt [facility] contacts Medical review as Troponin levels were still high on admission. Medication review when pt is ready Encouarge full milieu. 04/24 - started patient on duloxetine to start 04/25- seems brighter and more engaged on olanzapine- 04/25 mood further up? dc duloxetine- will put hold on for am till patient can meet with providers continue olanzapine 04/27- Triamcinolone cream for areas of eczema Continue milieu work/work with medications. 04/28- Restart Cymbalta 20 mg daily 04/29: Continue current management and treatment plan. Recent restart of Cymbalta. Monitor response. 04/30: DC Cymbalta-HTN, lightheadedness Lamictal 25 mg HS 05/01: Continue current management and treatment plan. Reason for continued inpatient stay Substantial Risk for: harm to self and rapid decompensation Time Spent With Patient Time: Total time managing care of this patient today ____ minutes.
[2024-05-01] MEDS: diazePAM 2 MG TABLET PO ×3 (11:25→20:41)
[2024-05-01] MEDS: Acetaminophen 325 MG TABLET 650 MG PO (14:22)
[2024-05-01] MEDS: Capsaicin 0.025% Cream 60 GM TUBE 1 APPL TOPICAL (14:26)
[2024-05-01] MEDS: Baclofen 10 MG TABLET PO (16:18)
[2024-05-01] MEDS: hydrOXYzine HCL 25 MG TABLET PO (16:19)
[2024-05-01] MEDS: TiZANidine HCL 4 MG TABLET PO (18:05)
[2024-05-01 20:00] VITALS: BP 111/60; PULSE 84; RESP 16; TEMP 36.4; O2SAT 96
[2024-05-01] MEDS: traZODone HCL 50 MG TABLET PO ×2 (20:41→22:28)
[2024-05-01] MEDS: lamoTRIgine 25 MG TABLET PO (20:41)
[2024-05-02] MEDS: hydrOXYzine HCL 25 MG TABLET PO ×3 (00:03→17:39)
[2024-05-02] MEDS: diazePAM 2 MG TABLET PO ×2 (04:48→13:14)
[2024-05-02] MEDS: Baclofen 10 MG TABLET PO ×2 (04:48→13:14)
[2024-05-02] MEDS: OLANZapine 5 MG TABLET PO ×2 (08:31→21:25)
[2024-05-02] MEDS: Cholecalciferol (Vitamin D3) 25 MCG TABLET PO (08:31)
[2024-05-02] MEDS: polyethylene glycoL 3350 17 GM POWD.PACK PO (08:32)
[2024-05-02] MEDS: Acetaminophen 325 MG TABLET 650 MG PO ×2 (08:34→14:52)
--- NOTE | 2024-05-02 09:13 | HO.PSYCHPN ---
Subjective Subjective Date of Service: 05/02/24 Reason For Visit: Anxiety, Suicide attempt Interim History: Patient reports she is feeling better and ready for DC and is excited to be leaving soon. Reports tolerating medications well. Denies SI/HI or AVH. She is engaged in the milieu. Mood improved. Review of Systems Review of Systems Chronic pain Yes Unobtainable due to mental status Mental Status Exam Mental Status Exam Narrative: Alert, oriented. Affect more reactive Mood constricted Thought content and process intact Working in the milieu Patient Appearance: Well Grooomed and Appropriate Patient Orientation: Person, Place, Time and Situation Level of Consciousness: Awake Patient Behavior: Appropriate Behavior Comments: out of her room more today- engaging with patients on unit, maybe too exclusively with one person- though yesterday it was her roommate today it is male patient Mood Description: Happy Affect Description: Expansive Patient Cognition Impaired: No Ability to Follow Directions: Fair Speech Pattern: Clear Memory Description: Intact Diagnostics Vital Signs (24Hr): Vital Signs - 24 hr 05/01/24 20:00 Temperature 97.5 F Pulse Rate 84 Respiratory Rate 16 Blood Pressure 111/60 Pulse Oximetry 96 Oxygen Delivery Method Room Air BMI result Body Mass Index 24.8 Labs 04/18/24 03:33 04/18/24 03:33 Medications Medications Current Medications Acetaminophen (Acetaminophen 325 Mg Tablet) 650 mg PO Q6H PRN PRN Reason: Headache/Pain Mild Scale (1-3) Last Admin: 05/02/24 08:34 Dose: 650 mg Al Hydroxide/Mg Hydroxide (Magnesium Hydrox/Alum Hydrox 30 Ml Oral.Susp) 30 ml PO Q6H PRN PRN Reason: Heartburn/Nausea Albuterol Sulfate (Albuterol Sulfate 90 Mcg 8 Gm Inhaler) 2 puff INHALE RQ6H PRN PRN Reason: Wheezing Baclofen (Baclofen 10 Mg Tablet) 10 mg PO TID PRN PRN Reason: spasm Last Admin: 05/02/24 04:48 Dose: 10 mg Capsaicin (Capsaicin 0.025% Cream 60 Gm Tube) 1 appl TOPICAL QID PRN; Protocol PRN Reason: Pain, Mild (Pain Scale 1-3) Last Admin: 05/01/24 14:26 Dose: 1 appl Hydroxyzine HCl (Hydroxyzine Hcl 25 Mg Tablet) 25 mg PO Q6H PRN PRN Reason: Anxiety Last Admin: 05/02/24 00:03 Dose: 25 mg Lamotrigine (Lamotrigine 25 Mg Tablet) 25 mg PO BEDTIME EDGARDO Last Admin: 05/01/24 20:41 Dose: 25 mg Magnesium Hydroxide (Milk Of Magnesia 30 Ml Oral.Susp) 30 ml PO DAILY PRN PRN Reason: Constipation Last Admin: 04/25/24 18:04 Dose: 30 ml Melatonin (Melatonin 3 Mg Tablet) 6 mg PO BEDTIME PRN PRN Reason: Insomnia Last Admin: 04/27/24 20:59 Dose: 6 mg Olanzapine (Olanzapine 5 Mg Tablet) 5 mg PO Q4H PRN PRN Reason: agitation, anxiety Last Admin: 05/01/24 18:06 Dose: 5 mg Olanzapine (Olanzapine 5 Mg Tablet) 5 mg PO BID [facility] Last Admin: 05/02/24 08:31 Dose: 5 mg Polyethylene Glycol (Polyethylene Glycol 3350 17 Gm Powd.Pack) 17 gm PO DAILY EDGARDO Last Admin: 05/02/24 08:32 Dose: 17 gm Tizanidine HCl (Tizanidine Hcl 4 Mg Tablet) 4 mg PO DAILY@1800 PRN PRN Reason: spasm Last Admin: 05/01/24 18:05 Dose: 4 mg Trazodone HCl (Trazodone Hcl 50 Mg Tablet) 50 mg PO BEDTIME MRX1 PRN PRN Reason: Insomnia Last Admin: 05/01/24 22:28 Dose: 50 mg Triamcinolone Acetonide (Triamcinolone Acet 0.1 % Cream 15 Gm Tube) 1 appl TOPICAL BID [facility]; Protocol Last Admin: 05/01/24 22:26 Dose: Not Given Vitamin D (Cholecalciferol (Vitamin D3) 25 Mcg Tablet) 25 mcg PO DAILY [facility] Last Admin: 05/02/24 08:31 Dose: 25 mcg Allergies Allergies Allergy/AdvReac Type Severity Reaction Status Date / Time ibuprofen AdvReac Intermediate Stomach Verified 04/18/24 03:08 Upset gabapentin Allergy Severe Insomnia Uncoded 04/18/24 03:08 Assessment & Plan Assessment & Plan (1) Suicide attempt: Status: Acute Code(s): T14.91XA - Suicide attempt, initial encounter (2) Generalized anxiety disorder: Status: Acute Code(s): F41.1 - Generalized anxiety disorder (3) PTSD (post-traumatic stress disorder): Status: Acute Code(s): F43.10 - Post-traumatic stress disorder, unspecified Plan PTSD, Suicide Attempt via OD, Anxiety. 04/22/24: Continue tx-baclofen, zofran, tizanidine Section 7 filed Medication education 04/23/24: Couples meeting next week Given literature on lamictal, cymbalta for review. Schedule Olanzapine 5 mg bid DC Lorazepam Valium 2 mg tid prn anxiety, muscle pain Capsaicin prn Plan: Section 12B, 5 minute checks. Pt refuses to interview. Attempt [facility] [employer] contacts Medical review as Troponin levels were still high on admission. Medication review when pt is ready Encouarge full milieu. 04/24 - started patient on duloxetine to start 04/25- seems brighter and more engaged on olanzapine- 04/25 mood further up? dc duloxetine- will put hold on for am till patient can meet with providers continue olanzapine 04/27- Triamcinolone cream for areas of eczema Continue milieu work/work with medications. 04/28- Restart Cymbalta 20 mg daily 04/29: Continue current management and treatment plan. Recent restart of Cymbalta. Monitor response. 04/30: DC Cymbalta-HTN, lightheadedness Lamictal 25 mg HS 05/01: Continue current management and treatment plan. 05/02: Continue current management and treatment plan. Reason for continued inpatient stay Substantial Risk for: harm to self and rapid decompensation Time Spent With Patient Time: Total time managing care of this patient today ____ minutes.
[2024-05-02 10:20] VITALS: BP 118/72; PULSE 72; RESP 16; TEMP 36.9; O2SAT 100
[2024-05-02] MEDS: TiZANidine HCL 4 MG TABLET PO (17:39)
[2024-05-02 20:00] VITALS: BP 119/76; PULSE 112; TEMP 36.8; O2SAT 98
[2024-05-02] MEDS: lamoTRIgine 25 MG TABLET PO (21:25)
[2024-05-02] MEDS: traZODone HCL 50 MG TABLET PO (21:35)
[2024-05-03] MEDS: Acetaminophen 325 MG TABLET 650 MG PO (06:34)
[2024-05-03] MEDS: Baclofen 10 MG TABLET PO ×3 (06:34→16:39)
[2024-05-03 08:00] VITALS: BP 147/83; PULSE 84; RESP 16; TEMP 36.4; O2SAT 99
[2024-05-03] MEDS: Triamcinolone Acet 0.1 % Cream 15 GM TUBE 1 APPL TOPICAL (09:17)
[2024-05-03] MEDS: Cholecalciferol (Vitamin D3) 25 MCG TABLET PO (09:18)
[2024-05-03] MEDS: OLANZapine 5 MG TABLET PO ×3 (09:18→20:41)
[2024-05-03] MEDS: polyethylene glycoL 3350 17 GM POWD.PACK PO (09:18)
--- NOTE | 2024-05-03 10:15 | HO.PSYCHPN ---
Subjective Subjective Date of Service: 05/03/24 Reason For Visit: Anxiety, Suicide attempt Subjective Notes: Conditional Voluntary Healthcare Proxy: No Guardianship: No Medical Problems Affecting Mental Status: No Interim History: Preparing for discharge. Pt attempting to make contact with Naa Webb [employer] to initiate psychotherapy today. Pt feeling prepared for discharge, hopeful. Denies SI,HI, AH, VH No sx of acute psychosis, tanja. Medication Compliance: Yes Side effects from medications: No Attending Groups: Intermittent Review of Systems Acute medical concerns: No Medical Review of Systems: unchanged Review of Systems Review of Systems Yes all other systems are reviewed and are negative Mental Status Exam Mental Status Exam Narrative: Alert, oriented. Speech is clear. Thought process and content are logical, without SI,HI, AH, VH, paranoia or psychosis. Mood and affect are appropriate. Diagnostics Vital Signs (24Hr): Vital Signs - 24 hr 05/02/24 10:20 05/02/24 20:00 05/03/24 08:00 Temperature 98.4 F 98.2 F 97.5 F Pulse Rate 72 112 H 84 Respiratory Rate 16 16 Blood Pressure 118/72 119/76 147/83 H Pulse Oximetry 100 98 99 Oxygen Delivery Method Room Air Room Air BMI result Body Mass Index 24.8 Labs 04/18/24 03:33 04/18/24 03:33 Medications Medications Current Medications Acetaminophen (Acetaminophen 325 Mg Tablet) 650 mg PO Q6H PRN PRN Reason: Headache/Pain Mild Scale (1-3) Last Admin: 05/03/24 06:34 Dose: 650 mg Al Hydroxide/Mg Hydroxide (Magnesium Hydrox/Alum Hydrox 30 Ml Oral.Susp) 30 ml PO Q6H PRN PRN Reason: Heartburn/Nausea Albuterol Sulfate (Albuterol Sulfate 90 Mcg 8 Gm Inhaler) 2 puff INHALE RQ6H PRN PRN Reason: Wheezing Baclofen (Baclofen 10 Mg Tablet) 10 mg PO TID PRN PRN Reason: spasm Last Admin: 05/03/24 06:34 Dose: 10 mg Capsaicin (Capsaicin 0.025% Cream 60 Gm Tube) 1 appl TOPICAL QID PRN; Protocol PRN Reason: Pain, Mild (Pain Scale 1-3) Last Admin: 05/01/24 14:26 Dose: 1 appl Diazepam (Diazepam 2 Mg Tablet) 2 mg PO TID PRN PRN Reason: anxiety and chronic pain Last Admin: 05/02/24 13:14 Dose: 2 mg Hydroxyzine HCl (Hydroxyzine Hcl 25 Mg Tablet) 25 mg PO Q6H PRN PRN Reason: Anxiety Last Admin: 05/02/24 17:39 Dose: 25 mg Lamotrigine (Lamotrigine 25 Mg Tablet) 25 mg PO BEDTIME EDGARDO Last Admin: 05/02/24 21:25 Dose: 25 mg Magnesium Hydroxide (Milk Of Magnesia 30 Ml Oral.Susp) 30 ml PO DAILY PRN PRN Reason: Constipation Last Admin: 04/25/24 18:04 Dose: 30 ml Melatonin (Melatonin 3 Mg Tablet) 6 mg PO BEDTIME PRN PRN Reason: Insomnia Last Admin: 04/27/24 20:59 Dose: 6 mg Olanzapine (Olanzapine 5 Mg Tablet) 5 mg PO Q4H PRN PRN Reason: agitation, anxiety Last Admin: 05/01/24 18:06 Dose: 5 mg Olanzapine (Olanzapine 5 Mg Tablet) 5 mg PO BID [facility] Last Admin: 05/03/24 09:18 Dose: 5 mg Polyethylene Glycol (Polyethylene Glycol 3350 17 Gm Powd.Pack) 17 gm PO DAILY EDGARDO Last Admin: 05/03/24 09:18 Dose: 17 gm Tizanidine HCl (Tizanidine Hcl 4 Mg Tablet) 4 mg PO DAILY@1800 PRN PRN Reason: spasm Last Admin: 05/02/24 17:39 Dose: 4 mg Trazodone HCl (Trazodone Hcl 50 Mg Tablet) 50 mg PO BEDTIME MRX1 PRN PRN Reason: Insomnia Last Admin: 05/02/24 21:35 Dose: 50 mg Triamcinolone Acetonide (Triamcinolone Acet 0.1 % Cream 15 Gm Tube) 1 appl TOPICAL BID [facility]; Protocol Last Admin: 05/03/24 09:17 Dose: 1 appl Vitamin D (Cholecalciferol (Vitamin D3) 25 Mcg Tablet) 25 mcg PO DAILY [facility] Last Admin: 05/03/24 09:18 Dose: 25 mcg Allergies Allergies Allergy/AdvReac Type Severity Reaction Status Date / Time ibuprofen AdvReac Intermediate Stomach Verified 04/18/24 03:08 Upset gabapentin Allergy Severe Insomnia Uncoded 04/18/24 03:08 Assessment & Plan Assessment & Plan (1) Suicide attempt: Status: Acute Code(s): T14.91XA - Suicide attempt, initial encounter (2) Generalized anxiety disorder: Status: Acute Code(s): F41.1 - Generalized anxiety disorder (3) PTSD (post-traumatic stress disorder): Status: Acute Code(s): F43.10 - Post-traumatic stress disorder, unspecified Plan PTSD, Suicide Attempt via OD, Anxiety. 04/22/24: Continue tx-baclofen, zofran, tizanidine Section 7 filed Medication education 04/23/24: Couples meeting next week Given literature on lamictal, cymbalta for review. Schedule Olanzapine 5 mg bid DC Lorazepam Valium 2 mg tid prn anxiety, muscle pain Capsaicin prn Plan: Section 12B, 5 minute checks. Pt refuses to interview. Attempt [facility] [employer] contacts Medical review as Troponin levels were still high on admission. Medication review when pt is ready Encouarge full milieu. 04/24 - started patient on duloxetine to start 04/25- seems brighter and more engaged on olanzapine- 04/25 mood further up? dc duloxetine- will put hold on for am till patient can meet with providers continue olanzapine 04/27- Triamcinolone cream for areas of eczema Continue milieu work/work with medications. 04/28- Restart Cymbalta 20 mg daily 04/29: Continue current management and treatment plan. Recent restart of Cymbalta. Monitor response. 04/30: DC Cymbalta-HTN, lightheadedness Lamictal 25 mg HS 05/01: Continue current management and treatment plan. 05/02: Continue current management and treatment plan. 05/03: Discharge 05/04. Reason for continued inpatient stay Substantial Risk for: stable for discharge Time Spent With Patient Time: Total time managing care of this patient today ____ minutes.
[2024-05-03] MEDS: diazePAM 2 MG TABLET PO ×2 (11:18→18:02)
[2024-05-03] MEDS: hydrOXYzine HCL 25 MG TABLET PO (16:39)
[2024-05-03 20:00] VITALS: BP 167/110; PULSE 89; TEMP 36.6; O2SAT 100
[2024-05-03] MEDS: TiZANidine HCL 4 MG TABLET PO (20:41)
[2024-05-03] MEDS: traZODone HCL 50 MG TABLET PO (20:42)
[2024-05-03] MEDS: lamoTRIgine 25 MG TABLET PO (20:42)
[2024-05-03 22:20] VITALS: BP 105/65; PULSE 87; TEMP 36.4
[2024-05-04] MEDS: traZODone HCL 50 MG TABLET PO (00:36)
[2024-05-04] MEDS: Baclofen 10 MG TABLET PO (07:32)
[2024-05-04] MEDS: Acetaminophen 325 MG TABLET 650 MG PO (07:33)
[2024-05-04] MEDS: diazePAM 2 MG TABLET PO (07:33)
[2024-05-04 08:00] VITALS: BP 176/97; PULSE 87; RESP 16; TEMP 36.5; O2SAT 98
[2024-05-04] MEDS: OLANZapine 5 MG TABLET PO (08:32)
[2024-05-04] MEDS: Cholecalciferol (Vitamin D3) 25 MCG TABLET PO (08:32)
[2024-05-04] MEDS: polyethylene glycoL 3350 17 GM POWD.PACK PO (08:33)
[2024-05-04 10:00] VITALS: BP 134/78
--- NOTE | 2024-05-04 23:52 | PM.PSYDC ---
DS: Providers Provider Date of admission: 04/19/24 15:50 Primary care physician: Unknown Physician DS: Diagnosis Discharge Diagnosis (1) Suicide attempt: Status: Acute (2) Generalized anxiety disorder: Status: Acute (3) PTSD (post-traumatic stress disorder): Status: Acute DS: Medications Discharge Medications Home Medications: Previous Rx's ?Medication ?Instructions ?Recorded albuterol sulfate 90 mcg/actuation 2 puff inhalation RQ6H PRN 05/03/24 aerosol inhaler (Ventolin HFA) Wheezing #1 inhaler baclofen 10 mg tablet 10 mg PO TID PRN spasm #90 tabs 05/03/24 capsaicin 0.025 % topical cream 1 appl topical QID PRN Pain, Mild 05/03/24 (Pain Scale 1-3) #42.5 grams cholecalciferol (vitamin D3) 25 25 mcg PO DAILY #30 tabs 05/03/24 mcg (1,000 unit) tablet diazepam 2 mg tablet 2 mg PO TID PRN anxiety and 05/03/24 chronic pain #21 tabs hydroxyzine HCl 25 mg tablet 25 mg PO Q6H PRN Anxiety #30 tabs 05/03/24 lamotrigine 25 mg tablet 25 mg PO BEDTIME #30 tabs 05/03/24 melatonin 3 mg tablet 6 mg (2 x 3 mg) PO BEDTIME PRN 05/03/24 Insomnia #30 tabs olanzapine 5 mg tablet 5 mg PO BID #60 tabs 05/03/24 olanzapine 5 mg tablet 5 mg PO Q4H PRN agitation, anxiety 05/03/24 #30 tabs tizanidine 4 mg tablet 4 mg PO DAILY@1800 PRN spasm #30 05/03/24 tabs trazodone 50 mg tablet 50 mg PO BEDTIME MRX1 PRN Insomnia 05/03/24 #30 tabs triamcinolone acetonide 0.1 % 1 appl topical BID #28 grams 05/03/24 topical cream DS: Summary Time Spent with Patient Time attestation: Total time managing care of this patient today ____ minutes. Discharge Plan Discharge Anticipated Discharge Date/Time: 05/04/24 12:00 Patient Disposition: Home, Self-Care Discharge Diagnosis: PTSD Recurrent Major Depression Anxiety Referrals: Physician,Unknown J [Primary Care Provider] - 1 Week Discharge Medications: New trazodone 50 mg Tablet 50 mg PO BEDTIME MRX1 PRN (Reason: Insomnia) Qty: 30 1RF tizanidine 4 mg Tablet 4 mg PO DAILY@1800 PRN (Reason: spasm) Qty: 30 0RF olanzapine 5 mg Tablet 5 mg PO Q4H PRN (Reason: agitation, anxiety) Qty: 30 0RF olanzapine 5 mg Tablet 5 mg PO BID Qty: 60 0RF melatonin 3 mg Tablet 6 mg PO BEDTIME PRN (Reason: Insomnia) Qty: 30 0RF lamotrigine 25 mg Tablet 25 mg PO BEDTIME Qty: 30 0RF diazepam 2 mg Tablet 2 mg PO TID PRN (Reason: anxiety and chronic pain) Qty: 21 4RF baclofen 10 mg Tablet 10 mg PO TID PRN (Reason: spasm) Qty: 90 0RF hydroxyzine HCl 25 mg Tablet 25 mg PO Q6H PRN (Reason: Anxiety) Qty: 30 0RF capsaicin 0.025 % Cream 1 appl topical QID PRN (Reason: Pain, Mild (Pain Scale 1-3)) Qty: 42.5 0RF Protocol: Apply to: Apply to: affected areas albuterol sulfate [Ventolin HFA] 90 mcg/actuation Hfa Aerosol Inhaler 2 puff inhalation RQ6H PRN (Reason: Wheezing) Qty: 1 0RF triamcinolone acetonide 0.1 % Cream 1 appl topical BID Qty: 28 0RF Protocol: Apply to: Apply to: affected areas cholecalciferol (vitamin D3) 25 mcg (1,000 unit) Tablet 25 mcg PO DAILY Qty: 30 0RF Discharge Orders: Discharge Order (Routine); Ordered 05/04/24 Ordered By: Tristin Krueger Diet: Advance to usual diet Activity on Discharge: As tolerated Stand Alone Forms: Patient Portal Discharge page, Community Support Print Language: Sammarinese Care Plan Goals: Mood and Behavioral Stabilization Health Concerns: Mood and Behavioral Stabilization Plan of Treatment: Attend scheduled appointments Take medications as directed Call Naa DURAND [phone] [email or web address] for therapy appt. Assessment: Risk assessment at time of discharge:? Patient was interviewed prior to discharge and found to be fully oriented and without any SI or HI. Patient has improved insight and judgment and wants to continue treatment. Patient is not in imminent risk of harm to self or others and has a safety plan that includes presenting to the closest ER or calling 911 if feeling unsafe.? Patient has been observed closely by nursing and unit staff throughout admission; patient has not engaged in any behaviors that suggest dangerousness to self or others and has demonstrated appropriate behaviors and impulse control Discharge Date/Time: 05/04/24 11:40
== END 2024-05-04 11:40 | disposition home or self-care (01) | DRG 751 ==
LOC: HO.ED 04-19 08:13 → HO.PM5 04-19 16:15
PROVIDERS: Emergency Medicine; Admitting Provider Clinical Nurse Specialist Psychiatric/Mental Health, Adult; Emergency Provider Emergency Medicine Emergency Medical Services; Visit Provider Clinical Nurse Specialist Psychiatric/Mental Health, Adult
DX: F33.9 Major depressive disorder, recurrent, unspecified (principal); F41.1 Generalized anxiety disorder; F43.10 Post-traumatic stress disorder, unspecified; T42.8X2A Poisoning by antiparkinsonism drugs and other central muscle-tone depressants, intentional self-harm, initial encounter; Z87.891 Personal history of nicotine dependence; Z79.899 Other long term (current) drug therapy
CPT/HCPCS: 36415; 80053; 80061; 80143; 80179; 80307; 81001; 81025; 83036; 83735; 84443; 84484; 85025; 85652; 86140; 93005; 99285; S9485

== ENCOUNTER → 2024-04-18 03:18 | Outpatient (BNV) | payer MEDICAID, SELFPAY | PROVIDERS: Emergency Provider Emergency Medicine; Visit Provider Internal Medicine Cardiovascular Disease | DX: T14.91XA Suicide attempt, initial encounter (principal) | CPT/HCPCS: 93010 ==

== ENCOUNTER → 2024-04-19 15:50 | Outpatient (BNV) | payer OTHER, SELFPAY | PROVIDERS: Admitting Provider Clinical Nurse Specialist Psychiatric/Mental Health, Adult; Emergency Provider Emergency Medicine Emergency Medical Services; Visit Provider Clinical Nurse Specialist Psychiatric/Mental Health, Adult | DX: F41.1 Generalized anxiety disorder (principal); T14.91XA Suicide attempt, initial encounter; F43.11 Post-traumatic stress disorder, acute | CPT/HCPCS: 99231; 99232 ==

== ENCOUNTER 2024-09-27 10:41 | Outpatient (AMB) | payer OTHER, SELFPAY ==
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
[2024-09-27 10:44] VITALS: BP 112/70; PULSE 97; O2SAT 99; BMI 26.3
== END 2024-09-27 12:20 | disposition home or self-care (01) ==
LOC: HO.HMCH 10:41
PROVIDERS: PCP Internal Medicine
DX: J44.9 Chronic obstructive pulmonary disease, unspecified (principal); F41.1 Generalized anxiety disorder; F43.10 Post-traumatic stress disorder, unspecified; E78.00 Pure hypercholesterolemia, unspecified; M25.641 Stiffness of right hand, not elsewhere classified; M25.642 Stiffness of left hand, not elsewhere classified; M25.561 Pain in right knee; M25.562 Pain in left knee; R55 Syncope and collapse; R00.2 Palpitations; L30.9 Dermatitis, unspecified; R73.01 Impaired fasting glucose

== ENCOUNTER → 2024-09-27 10:41 | Outpatient (BNVA) | payer OTHER, SELFPAY | PROVIDERS: PCP Internal Medicine | DX: F41.1 Generalized anxiety disorder (principal); F43.10 Post-traumatic stress disorder, unspecified; E78.00 Pure hypercholesterolemia, unspecified; M25.461 Effusion, right knee; M25.462 Effusion, left knee; M25.561 Pain in right knee; M25.562 Pain in left knee; R55 Syncope and collapse; R00.2 Palpitations; L30.9 Dermatitis, unspecified; R73.01 Impaired fasting glucose; J44.9 Chronic obstructive pulmonary disease, unspecified; M54.12 Radiculopathy, cervical region | CPT/HCPCS: 96127; 99212 ==

== ENCOUNTER 2024-10-15 10:37 | Outpatient (REF) | payer OTHER, SELFPAY ==
--- NOTE | ~2024-10-15 | XR_ITS ---
EXAMINATION: XR KNEE 1-2 VIEWS BILATERAL HISTORY: M25.561 - Pain in right knee COMPARISON: There are no prior studies available for comparison. FINDINGS: AP and lateral views of the bilateral knees are submitted. Osseous mineralization is normal. There is no fracture or dislocation. The joint spaces are preserved. The soft tissues are unremarkable. There is no joint effusion. XR/XR Knee Jose 1or 2V IMPRESSION: Unremarkable examination of the bilateral knees. Electronically signed by: Abundio Csatro MD 10/15/2024 01:41 PM EDT
--- OUTSIDE RECORDS SUMMARY | 2024-10-15 11:07 | XMS_ITS | Encounter Summary ---
Author Organization [facility] Address [address] [place] [address] Care Team Providers Care Lamination Operator Name Role Phone Lacey Rivas MD Primary Care Provider [phone] Reason for Visit * Reason Onset Date Comments Appointment-Internal Referral 07/08/2016 Transfer Records 07/08/2016 Encounter Details Date Type Department Care Team Description 07/08/2016 Telephone OBGYN - [place] [address] [place] [address] Patricia Dunn MD Appointment-Internal Referral; Transfer Records Social History Tobacco Use Types Packs/Day Years Used Date Smoking Tobacco: Every Day Cigarettes 1 Alcohol Use Standard Drinks/Week Comments Yes 0 (1 standard drink = 0.6 oz pur e alcohol) 18/week Sex Assigned at Date Recorded Not on file documented as of this encounter Miscellaneous Notes * Telephone Encounter - Elizabeth Beck - 07/15/2016 2:00 PM EST Records received, placed in Dr. Dunn's bin. Appointment needs to be made once records are reviewed. * Telephone Encounter - Jose Aguirre - 07/08/2016 12:01 PM EST Patient stopped in and filled out LEYDA. Faxed to [facility] documented in this encounter Plan of Treatment Not on file documented as of this encounter Visit Diagnoses Not on filedocumented in this encounter Care Teams Lamination Operator Relationship Specialty Start Date End Date Lacey Rivas MD [address] [place] [id number] PCP - General Internal Medicine 06/15/15 documented as of this encounter
--- OUTSIDE RECORDS SUMMARY | 2024-10-15 11:07 | XMS_ITS | Encounter Summary ---
Author Organization [facility] Address [address] [place] [address] Care Team Providers Care Coin Box Inspector Name Role Phone Lacey Rivas MD Primary Care Provider [phone] Encounter Details Date Type Department Care Team Description 07/04/2015 Transfer Records Medical Records [address] [place] [id number] Abstract, Provider Social History Tobacco Use Types Packs/Day Years Used Date Smoking Tobacco: Every Day Cigarettes 1 Alcohol Use Standard Drinks/Week Comments Yes 0 (1 standard drink = 0.6 oz pur e alcohol) 18/week Sex Assigned at Date Recorded Not on file documented as of this encounter Plan of Treatment Not on file documented as of this encounter Visit Diagnoses Not on filedocumented in this encounter Care Teams Coin Box Inspector Relationship Specialty Start Date End Date Lacey Rivas MD [address] [place] [id number] PCP - General Internal Medicine 06/15/15 documented as of this encounter
--- OUTSIDE RECORDS SUMMARY | 2024-10-15 11:07 | XMS_ITS | Encounter Summary ---
Author Organization [facility] Address [address] [place] [address] Care Team Providers Care Splitter Hand Name Role Phone Lacey Rivas MD Primary Care Provider [phone] Encounter Details Date Type Department Care Team Description 07/21/2016 Release of Information Medical Records [address] [place] [id number] Abstract, Provider Social History Tobacco Use Types [...] on filedocumented in this encounter Care Teams Splitter Hand Relationship Specialty Start Date End Date Lacey Rivas MD [address] [place] [id number] PCP - General Internal Medicine 06/15/15 documented as of this encounter
--- OUTSIDE RECORDS SUMMARY | 2024-10-15 11:07 | XMS_ITS | Encounter Summary ---
Author Organization [facility] Address [address] [place] [address] Care Team Providers Care Sales And Service Consultant Name Role Phone Lacey Rivas MD Primary Care Provider [phone] Encounter Details Date Type Department Care Team Description 05/10/2019 Orders Only Adult Medicine [facility] [address] [place] [id number] Madeleine Morgan PA-C [address] [place] [address] [phone] Leukocytosis, unspecified type (Primary Dx) Social History Tobacco Use Types Packs/Day Years Used Date Smoking Tobacco: Every Day Cigarettes 1 Smokeless Tobacco: Former Alcohol Use Standard Drinks/Week Comments Yes 0 (1 standard drink = 0.6 oz pur e alcohol) 18/week Sex Assigned at Date Recorded Not on file documented as of this encounter Plan of Treatment Not on file documented as of this encounter Results * CBC (AUTO DIFF PLATELET) (07/02/2019 11:10 AM EST) WHITE BLOOD COUNT 6.3 4.8 - 10.8 x10-3/uL 07/02/2019 2:27 PM EST [facility] RED BLOOD COUNT 4.3 3.8 - 4.8 x10-6/uL 07/02/2019 2:27 PM EST [facility] Hemoglobin 13.6 11.5 - 16.0 g/dL 07/02/2019 2:27 PM EST [facility] Hematocrit 39.8 35 - 47 % 07/02/2019 2:27 PM EST [facility] MEAN CORPUSCULAR VOLUME 93.6 79 - 98 fL 07/02/2019 2:27 PM EST [facility] MEAN CORPUSCULAR HEMOGLOBIN 32.0 27 - 32 pg 07/02/2019 2:27 PM EST [facility] MEAN CORPUSCULAR HGB CONC 34.2 32 - 37 g/dL 07/02/2019 2:27 PM EST [facility] RED CELL DISTRIBUTION WIDTH 12.2 11 - 15 % 07/02/2019 2:27 PM EST [facility] PLT COUNT 374 130 - 400 x10-3/uL 07/02/2019 2:27 PM EST [facility] MEAN PLATELET VOLUME 9.7 7 - 11 fL 07/02/2019 2:27 PM EST [facility] NRBC % AUTO 0.0 <1 % 07/02/2019 2:27 PM EST [facility] NEUTROPHILS % 44.4 % 07/02/2019 2:27 PM EST [facility] LYMPH % 43.2 % 07/02/2019 2:27 PM EST [facility] MONO % 6.6 % 07/02/2019 2:27 PM EST [facility] EOS % 4.7 % 07/02/2019 2:27 PM EST [facility] BASO % 0.6 % 07/02/2019 2:27 PM EST [facility] IMMATURE GRANULOCYTES % 0.5 % 07/02/2019 2:27 PM EST [facility] NRBC # AUTO 0.00 <0.1 x10-3/uL 07/02/2019 2:27 PM EST [facility] NEUT # 2.81 1.5 - 7.0 x10-3/uL 07/02/2019 2:27 PM EST [facility] LYMPH # 2.74 1 - 5.0 x10-3/uL 07/02/2019 2:27 PM EST [facility] MONO # 0.42 0.2 - 1.0 x10-3/uL 07/02/2019 2:27 PM EST [facility] EOS # 0.30 0 - 0.5 x10-3/uL 07/02/2019 2:27 PM EST [facility] BASO # 0.04 0 - 0.2 x10-3/uL 07/02/2019 2:27 PM EST [facility] IMMATURE GRANULOCYTES # 0.03 0 - 0.03 x10-3/uL 07/02/2019 2:27 PM EST [facility] 07/02/2019 11:1 0 AM EST 07/02/2019 11:11 AM EST Madeleine Morgan PA-C [facility] documented in this encounter Visit Diagnoses Diagnosis Leukocytosis, unspecified type- Primary documented in this encounter Care Teams Sales And Service Consultant Relationship Specialty Start Date End Date Lacey Rivas MD [address] [place] [phone] PCP - General Internal Medicine 06/15/15 documented as of this encounter
--- OUTSIDE RECORDS SUMMARY | 2024-10-15 11:07 | XMS_ITS | Encounter Summary ---
Author Organization [facility] Address [address] [place] [address] Care Team Providers Care Learning Designer Name Role Phone Lacey Rivas MD Primary Care Provider [phone] Encounter Details Date Type Department Care Team Description 12/10/2019 Sagger Preparer Report Medical Records [address] [place] [address] Shonda Avina Social History Tobacco Use Types Packs/Day Years Used Date Smoking Tobacco: Some Days Cigarettes 1 20 Smokeless Tobacco: Former Comments:currently- 1 PP Wee k Alcohol Use Standard Drinks/Week Comments Yes 0 (1 standard drink = 0.6 oz pur e alcohol) 18/week Sex Assigned at Date Recorded Not on file documented as of this encounter Plan of Treatment Not on file documented as of this encounter Visit Diagnoses Not on filedocumented in this encounter Care Teams Learning Designer Relationship Specialty Start Date End Date Lacey Rivas MD [address] [place] [phone] PCP - General Internal Medicine 06/15/15 documented as of this encounter
--- OUTSIDE RECORDS SUMMARY | 2024-10-15 11:07 | XMS_ITS | Encounter Summary ---
Author Organization [facility] Address [address] [place] [address] Care Team Providers Care Scagliola Mechanic Name Role Phone Lacey Rivas MD Primary Care Provider [phone] Reason for Visit * Reason Onset Date Comments Call From Office 08/02/2016 Encounter Details Date Type Department Care Team Description 08/02/2016 Telephone Adult Medicine [address] [phone] Lacey Rivas MD [address] [place] [address] [phone] Call From Md Office Social History Tobacco Use Types Packs/Day Years Used Date Smoking Tobacco: Every Day Cigarettes 1 Alcohol Use Standard Drinks/Week Comments Yes 0 (1 standard drink = 0.6 oz pur e alcohol) 18/week Sex Assigned at Date Recorded Not on file documented as of this encounter Miscellaneous Notes * Telephone Encounter - Wilbert Bonilla PA-C - 08/02/2016 3:33 PM EST Failure to keep referral letter sent. sabina * Telephone Encounter - Leticia Peace - 08/02/2016 9:39 AM EST KAYLIN Brandon from [facility] was calling to inform Wilbert Bonilla that the pt no showed her appointment.They have tried to contact her to reschedule but they are unable to reach her. documented in this encounter Plan of Treatment Not on file documented as of this encounter Visit Diagnoses Not on filedocumented in this encounter Care Teams Scagliola Mechanic Relationship Specialty Start Date End Date Lacey Rivas MD [address] [place] [phone] PCP - General Internal Medicine 06/15/15 documented as of this encounter
--- OUTSIDE RECORDS SUMMARY | 2024-10-15 11:07 | XMS_ITS | Encounter Summary ---
Author Organization [facility] Address [address] [place] [address] Care Team Providers Care Stretching Machine Tender Frame Name Role Phone Lacey Rivas MD Primary Care Provider [phone] Encounter Details Date Type Department Care Team Description 01/15/2021 Release of Information Medical Records [address] [place] [id number] Abstract, Provider Social History Tobacco Use Types Packs/Day Years Used Date Smoking Tobacco: Former Cigarettes 1 20 Smokeless Tobacco: Former Comments:quit in December 2019 Alcohol Use Standard Drinks/Week Comments Yes 0 (1 standard drink = 0.6 oz pur e alcohol) 2 glasses of wine a week Sex Assigned at Date Recorded Not on file COVID-19 Exposure Response Date Recorded In the last month, have you been in contact with someone who was confirmed or suspected to have Coronavirus / COVID-19? No / Unsure 01/10/2021 1:03 PM EDT documented as of this encounter Nursing Notes * Elyse Keith - 01/15/2021 11:31 AM EDT AUTHORIZATION TO OBTAIN MEDICAL RECORDS FAXED TO DR LENARD JACKSON. documented in this encounter Plan of Treatment Not on file documented as of this encounter Visit Diagnoses Not on filedocumented in this encounter Care Teams Stretching Machine Tender Frame Relationship Specialty Start Date End Date Lacey Rivas MD [address] [place] [phone] PCP - General Internal Medicine 06/15/15 documented as of this encounter
--- OUTSIDE RECORDS SUMMARY | 2024-10-15 11:07 | XMS_ITS | Encounter Summary ---
Author Organization [facility] Address [address] [place] [address] Care Team Providers Care Rail Car Mechanic Name Role Phone Lacey Rivas MD Primary Care Provider Reason for Visit * Reason Comments E-prescribe Rx Request Encounter Details Date Type Department Care Team Description 08/24/2020 Refill Adult Medicine [address] [phone] Lacey Rivas MD [address] [place] [address] [phone] E-prescribe Rx Request Social History Tobacco Use Types Packs/Day Years Used Date Smoking Tobacco: Former Cigarettes 1 20 Smokeless Tobacco: Former Comments:quit in December 2019 Alcohol Use Standard Drinks/Week Comments Yes 0 (1 standard drink = 0.6 oz pur e alcohol) 2 glasses of wine a week Sex Assigned at Date Recorded Not on file documented as of this encounter Miscellaneous Notes * Telephone Encounter - Mary Bradley M.A. - 08/24/2020 11:49 AM EDT [place] 04/10/2020 No F/U appt * Telephone Encounter - Bonita Dave - 08/24/2020 11:07 AM EDT Patient would like script to be: E-PRESCRIBED/FAXED TO PHARMACY WHEN WAS THE PATIENT'S LAST APPOINTMENT IN ADULT MEDICINE? 04/10/2020 WHEN WAS THE LAST TIME THE PATIENT SAW THEIR PCP? 05/12/2019 Does patient have an upcoming appointment? No- patient will get letter to book appointment (THE MEDICATION REQUESTED IS ON THE MED LIST ABOVE) All of the medications requested were on the CURRENT MEDS list Did you check the Pharmacy information above?: YES Patient wants: 90 -day supply Is this a mail order prescription request ? NO If the refill is from a FAXED refill request what is the RX # listed on the fax? N/A Patients current insurance carrier is: Payor: [employer] / Plan: PPO $[id number] [id number] / Product Type: PPO [id number] documented in this encounter Plan of Treatment Not on file documented as of this encounter Visit Diagnoses Not on filedocumented in this encounter Care Teams Rail Car Mechanic Relationship Specialty Start Date End Date Lacey Rivas MD [address] [place] [phone] PCP - General Internal Medicine 06/15/15 documented as of this encounter
--- OUTSIDE RECORDS SUMMARY | 2024-10-15 11:07 | XMS_ITS | Encounter Summary ---
Author Organization [facility] Address [address] [place] [address] Care Team Providers Care Clinical Engineer Name Role Phone Lacey Rivas MD Primary Care Provider [phone] Encounter Details Date Type Department Care Team Description 07/16/2016 Pt. Referral Request [facility] Alex [address] [place] [phone] Md Alex Social History Tobacco Use Types Packs/Day Years [...] on filedocumented in this encounter Care Teams Clinical Engineer Relationship Specialty Start Date End Date Lacey Rivas MD [address] [place] [address] [phone] PCP - General Internal Medicine 06/15/15 documented as of this encounter
[2024-10-15 13:17] LABS: MANUAL DIFF FLAG NO
[2024-10-15 13:24] LABS: Basophils Absolute Auto 0.1 X10*3/uL (0.0-0.2); Basophils Percent Auto 1.1 % (0-2); Eosinophils Absolute Auto 0.3 X10*3/uL (0.0-0.4); Eosinophils Percent Auto 4.2 % (0-4); Hematocrit 37.7 % (37.0-47.0); Hemoglobin 12.7 g/dl (12.0-16.0); Imm Gran Abs Auto 0.01 X10*3/uL (0.00-0.03); Imm Gran Pct Auto 0.2 % (0.0-0.4); Lymphocytes Absolute Auto 2.7 X10*3/uL (1.2-4.9); Mean Corpuscular HGB Conc 33.7 g/dl (31.0-35.0); Mean Corpuscular Hemoglobin 30.8 pg (27.0-33.0); Mean Corpuscular Volume 91.3 fL (80.0-98.0); Mean Platelet Volume 9.9 fL (9.4-12.3); Monocytes Absolute Auto 0.4 X10*3/uL (0.1-1.2); Monocytes Percent Auto 6.9 % (2-11); Neutrophils Absolute Auto 2.8 x10*3/uL (2.0-8.3); Neutrophils Percent Auto 44.6 % (45-73); Platelet Count 330 X10*3/uL (160-400); Red Blood Count 4.13 X10*6/uL (4.20-5.50); Red Cell Distribution Width 13.2 % (11.0-16.0); White Blood Count 6.2 X10*3/uL (4.8-10.8)
[2024-10-15 13:40] LABS: Alanine Aminotransferase 27 U/L (0-31); Albumin Level 4.3 g/dL (3.5-5.0); Alkaline Phosphatase 94 U/L (39-117); Anion Gap 12 (12-20); Aspartate Amino Transferase 30 U/L (5-31); Bilirubin Total 0.5 mg/dL (0.0-1.0); Blood Urea Nitrogen 12 mg/dL (9-16); Calcium 9.6 mg/dL (8.4-10.2); Carbon Dioxide 26 mmol/L (22-29); Chloride 107 mmol/L (96-108); Estimated Glomerular Filt Rate > 60; Glucose Random 97 mg/dL (60-115); Sodium 141 mmol/L (135-145); Total Protein 6.9 g/dL (6.5-8.0)
[2024-10-15 13:57] LABS: Free T4 (Free Thyroxine) 0.71 ng/dL (0.71-1.85); TSH reflex Free T4 5.63 uIU/mL (0.32-4.0); Vitamin D 25-OH Total 38.3 ng/mL (>30)
[2024-10-15 14:07] LABS: Folate 12.2 ng/mL (> or = 4.0); Vitamin B12 260 pg/mL (200-900)
== END 2024-10-15 10:38 | disposition home or self-care (01) ==
LOC: HO.HMGCX 10:37
DX: Z00.00 Encounter for general adult medical examination without abnormal findings (principal); M25.561 Pain in right knee; M25.562 Pain in left knee
CPT/HCPCS: 36415; 73560; 80053; 82306; 82607; 82746; 84439; 84443; 85025

== ENCOUNTER → 2024-10-15 10:46 | Outpatient (BNV) | payer OTHER, SELFPAY | PROVIDERS: Visit Provider Radiology Diagnostic Radiology | DX: M25.561 Pain in right knee (principal) | CPT/HCPCS: 73560 ==

== ENCOUNTER → 2024-10-19 14:01 | Outpatient (REF) | payer OTHER, SELFPAY ==
--- NOTE | 2024-10-19 14:08 | ECG_ITS ---
Test Reason : SYNCOPE Blood Pressure : */* mmHG Vent. Rate : 73 BPM Atrial Rate : 73 BPM P-R Int : 144 ms QRS Dur : 78 ms QT Int : 402 ms P-R-T Axes : 66 61 72 degrees QTcB Int : 442 ms Normal sinus rhythm with sinus arrhythmia Normal ECG When compared with ECG of 18-Apr-2024 03:34, No significant change was found Referred By: Katie Mcginnis Electronically Signed By: Alexys Pope
--- OUTSIDE RECORDS SUMMARY | 2024-10-19 15:24 | XMS_ITS | Encounter Summary ---
Author Organization [facility] Address [address] [place] [address] Care Team Providers Care Prn Physical Therapist Name Role Phone Lacey Rivas MD Primary Care Provider [phone] Encounter Details Date Type Department Care Team Description 07/16/2016 Pt. Referral Request [facility] Alex [address] [place] [id number] Md Alex Social History Tobacco Use Types [...] on filedocumented in this encounter Care Teams Prn Physical Therapist Relationship Specialty Start Date End Date Lacey Rivas MD [address] [place] [address] [phone] PCP - General Internal Medicine 06/15/15 documented as of this encounter
--- OUTSIDE RECORDS SUMMARY | 2024-10-19 15:24 | XMS_ITS | Encounter Summary ---
Author Organization [facility] Address [address] [place] [address] Care Team Providers Care Maintenance Leader Name Role Phone Lacey Rivas MD Primary Care Provider [phone] Encounter Details Date Type Department Care Team Description 07/08/2021 Telephone Pulmonology - [place] [address] [facility] [address] [place] [address] Héctor Guevara MD [address] [place] [address] Social History Tobacco Use Types Packs/Day Years [...] have Coronavirus / COVID-19? No / Unsure 07/02/2021 11:15 AM EST documented as of this encounter Miscellaneous Notes * Telephone Encounter - Héctor Guevara MD - 07/09/2021 6:52 PM EST Spoke to her and gave her the results- she will sign form * Telephone Encounter - Jeannie Combs - 07/09/2021 10:09 AM EST Called [facility] and they wouldn't release patient information without a release. I called patient and she stated that she gave you a copy of the CD and a detailedreport in office visit. She also stated you called her recently and said everything is looking good. So patient is now anxious because she would like to know what happened to the original cd and report? * Telephone Encounter - Héctor Guevara MD - 07/08/2021 4:54 PM EST Can you get me a CD of the pt's chest CT from [facility]- done in 01/2021 documented in this encounter Plan of Treatment Not on file documented as of this encounter Visit Diagnoses Not on filedocumented in this encounter Care Teams Maintenance Leader Relationship Specialty Start Date End Date Lacey Rivas MD [address] [place] [phone] PCP - General Internal Medicine 06/15/15 documented as of this encounter
--- OUTSIDE RECORDS SUMMARY | 2024-10-19 15:24 | XMS_ITS | Encounter Summary ---
Author Organization [facility] Address [address] [place] [address] Care Team Providers Care Nuclear Plant Technical Advisor Name Role Phone Lacey Rivas MD Primary Care Provider [phone] Encounter Details Date Type Department Care Team Description 07/21/2016 Release of Information Medical Records [address] [place] [id number] Abstract, Provider Social History Tobacco Use Types [...] on filedocumented in this encounter Care Teams Nuclear Plant Technical Advisor Relationship Specialty Start Date End Date Lacey Rivas MD [address] [place] [phone] PCP - General Internal Medicine 06/15/15 documented as of this encounter
--- OUTSIDE RECORDS SUMMARY | 2024-10-19 15:24 | XMS_ITS | Encounter Summary ---
Author Organization [facility] Address [address] [place] [address] Care Team Providers Care Physician Recruiter Name Role Phone Lacey Rivas MD Primary Care Provider [phone] Encounter Details Date Type Department Care Team Description 12/10/2019 Fine Hairer Report Medical Records [address] [place] [address] Shonda Avina Social History Tobacco Use Types [...] on filedocumented in this encounter Care Teams Physician Recruiter Relationship Specialty Start Date End Date Lacey Rivas MD [address] [place] [phone] PCP - General Internal Medicine 06/15/15 documented as of this encounter
--- OUTSIDE RECORDS SUMMARY | 2024-10-19 15:24 | XMS_ITS | Encounter Summary ---
Author Organization [facility] Address [address] [place] [address] Care Team Providers Care Identity Management Developer Name Role Phone Lacey Rivas MD Primary Care Provider Encounter Details Date Type Department Care Team Description 01/15/2021 Release of Information Medical Records [address] [place] [id number] Abstract, Provider Social History Tobacco Use Types [...] of this encounter Nursing Notes * Elyse Keiht - 01/15/2021 11:31 AM EDT AUTHORIZATION TO OBTAIN MEDICAL RECORDS FAXED TO DR LENARD JACKSON. documented in this encounter Plan of Treatment Not on file documented as of this encounter Visit Diagnoses Not on filedocumented in this encounter Care Teams Identity Management Developer Relationship Specialty Start Date End Date Lacey Rivas MD [address] [place] [phone] PCP - General Internal Medicine 06/15/15 documented as of this encounter
--- OUTSIDE RECORDS SUMMARY | 2024-10-19 15:24 | XMS_ITS | Encounter Summary ---
Author Organization [facility] Address [address] [place] [address] Care Team Providers Care Safety Engineer Pressure Vessels Name Role Phone Lacey Rivas MD Primary Care Provider [phone] Encounter Details Date Type Department Care Team Description 11/10/2020 Refill Adult Medicine [address] [address] Lacey Rivas MD [address] [place] [address] [phone] Social History Tobacco Use Types Packs/Day Years [...] on filedocumented in this encounter Care Teams Safety Engineer Pressure Vessels Relationship Specialty Start Date End Date Lacey Rivas MD [address] [place] [address] [phone] PCP - General Internal Medicine 06/15/15 documented as of this encounter
--- OUTSIDE RECORDS SUMMARY | 2024-10-19 15:24 | XMS_ITS | Encounter Summary ---
Author Organization [facility] Address [address] [place] [address] Care Team Providers Care Undercoater Name Role Phone Lacey Rivas MD Primary Care Provider [phone] Encounter Details Date Type Department Care Team Description 05/10/2019 Pt. Non Urgent [place] [address] Madeleine Morgan PA-C [address] [place] [address] Social History Tobacco Use Types Packs/Day Years Used Date Smoking Tobacco: Every Day Cigarettes 1 Smokeless Tobacco: Former Alcohol Use Standard Drinks/Week Comments Yes 0 (1 standard drink = 0.6 oz pur e alcohol) 18/week Sex Assigned at Date Recorded Not on file documented as of this encounter Progress Notes * Madeleine Morgan PA-C - 05/10/2019 11:14 AM EST Reviewed; [employer] message sent. Madeleine Morgan PA-C documented in this encounter Miscellaneous Notes * Telephone Encounter - Leticia Varma M.A. - 05/10/2019 9:48 AM ESTFrom: Leona Frank To: Madeleine Morgan PA-C Sent: 05/10/2019 9:42 AM EST Subject: Follow up to blood work Waylon Salvador, Thank you for sending me the results of my blood work. When you have a chance can you give me an idea of what all of this means? It looks like there have been some changes since my last panel and I'mwondering if there are next steps that need to be taken - should I start see ing an Endocrinologistfor my Thyroid? Should I be concerned about any of the other changes for example my white blood cell count? I'm absolutely ok with a response to the message rather than a phone call - which ever means of communication is best for you. Thank you again, Leona Frank documented in this encounter Plan of Treatment Not on file documented as of this encounter Visit Diagnoses Not on filedocumented in this encounter Care Teams Undercoater Relationship Specialty Start Date End Date Lacey Rivas MD [address] [place] [address] 13257 PCP - General Internal Medicine 06/15/15 documented as of this encounter
--- OUTSIDE RECORDS SUMMARY | 2024-10-19 15:24 | XMS_ITS | Encounter Summary ---
Author Organization [facility] Address [address] [place] [address] Care Team Providers Care Manager Of Hospital Name Role Phone Lacey Rivas MD Primary Care Provider [phone] Reason for Visit * Reason Comments E-prescribe Rx Request Encounter Details Date Type Department Care Team Description 08/24/2020 Refill Adult Medicine [address] [id number] Lacey Rivas MD [address] [place] [address] [phone] E-prescribe Rx Request Social History Tobacco Use [...] N/A Patients current insurance carrier is: Payor: [facility] / Plan: PPO $20 ANDOVER [id number] / Product Type: PPO [id number] documented in this encounter Plan of Treatment Not on file documented as of this encounter Visit Diagnoses Not on filedocumented in this encounter Care Teams Manager Of Hospital Relationship Specialty Start Date End Date Lacey Rivas MD [address] [place] [address]77 PCP - General Internal Medicine 06/15/15 documented as of this encounter
--- OUTSIDE RECORDS SUMMARY | 2024-10-19 15:24 | XMS_ITS | Encounter Summary ---
Author Organization [facility] Address [address] [place] [address] Care Team Providers Care Sales And Marketing Administrator Name Role Phone Lacey Rivas MD Primary Care Provider [phone] Reason for Visit * Reason Onset Date Comments Appointment-Internal Referral 07/08/2016 Transfer Records 07/08/2016 Encounter Details Date Type Department Care Team Description 07/08/2016 Telephone OBGYN - [place] [address] [place] [address] Patricia Dunn MD Appointment-Internal Referral; Transfer Records [...] in and filled out LEYDA. Faxed to [facility] documented in this encounter Plan of Treatment Not on file documented as of this encounter Visit Diagnoses Not on filedocumented in this encounter Care Teams Sales And Marketing Administrator Relationship Specialty Start Date End Date Lacey Rivas MD [address] [place] [phone] PCP - General Internal Medicine 06/15/15 documented as of this encounter
--- OUTSIDE RECORDS SUMMARY | 2024-10-19 15:24 | XMS_ITS | Encounter Summary ---
Author Organization [facility] Address [address] [place] [address] Care Team Providers Care Home Appliance Tech Name Role Phone Lacey Rivas MD Primary Care Provider [phone] Encounter Details Date Type Department Care Team Description 07/04/2015 Transfer Records Medical Records [address] [place] [address] 30545 Abstract, Provider Social History Tobacco Use Types [...] on filedocumented in this encounter Care Teams Home Appliance Tech Relationship Specialty Start Date End Date Lacey Rivas MD [address] [place] [address] 0[address] PCP - General Internal Medicine 06/15/15 documented as of this encounter
--- OUTSIDE RECORDS SUMMARY | 2024-10-19 15:24 | XMS_ITS | Encounter Summary ---
Author Organization [facility] Address [address] [place] [address] Care Team Providers Care General Surgeon Name Role Phone Lacey Rivas MD Primary Care Provider [phone] Encounter Details Date Type Department Care Team Description 05/10/2019 Orders Only Adult Medicine [facility] [address] [place] [address] Madeleine Morgan PA-C [address] [place] [address] [phone] Leukocytosis, unspecified type (Primary Dx) Social History [...] Primary documented in this encounter Care Teams General Surgeon Relationship Specialty Start Date End Date Lacey Rivas MD [address] [place] [address] PCP - General Internal Medicine 06/15/15 documented as of this encounter
== END ==
LOC: HO.CARD 14:01
PROVIDERS: PCP Internal Medicine
DX: R55 Syncope and collapse (principal); M47.817 Spondylosis without myelopathy or radiculopathy, lumbosacral region; M51.369 Other intervertebral disc degeneration, lumbar region without mention of lumbar back pain or lower extremity pain; M54.16 Radiculopathy, lumbar region; M62.830 Muscle spasm of back; M54.51 Vertebrogenic low back pain
CPT/HCPCS: 93005; 99212

== ENCOUNTER → 2024-10-19 14:08 | Outpatient (BNV) | payer OTHER, SELFPAY | PROVIDERS: PCP Internal Medicine; Visit Provider Internal Medicine Cardiovascular Disease | DX: R55 Syncope and collapse (principal) | CPT/HCPCS: 93010 ==

== ENCOUNTER 2024-10-19 14:38 | Outpatient (AMB) | payer OTHER, SELFPAY ==
--- NOTE | 2024-10-19 14:52 | A.OFFVIS_ITS ---
Vital Signs 10/19/24 14:53 Height 5 ft 4 in Weight 161 lb 2 oz BMI 27.7 BP 125/79 Blood Pressure Location Rt brachial Position Sitting Pulse 69 Pulse Source Pulse Oximeter Pulse Oximetry (%) 98 Oxygen Delivery Method Room Air Intake Visit Reasons: Back Pain SHERWIN 01/03/23 Intake Note: Pain today 12/09 Business Intelligence Architect Required: No Accompanied by: Self / Same As Patient Allergies gabapentin Allergy (Unknown, Verified 10/19/24 14:53) Insomnia ibuprofen Adverse Reaction (Intermediate, Verified 10/19/24 14:53) Stomach Upset HPI Comments Details: The patient is a 54-year-old female presenting with chronic back pain with radiculopathy for evaluation. The primary concerns involve persistent cervical and lumbar spine pain, with lumbar radiculopathy resulting in bilateral leg pain. The cervical issue dates back to December 2022, described as arthritis, where initial management via injections did not yield relief. Lumbar symptoms, exacerbated following a recent accident, have been ongoing, impacting ambulatory function and pain expressed both anteriorly and posteriorly in the legs, worse on the right. Furthermore, intermittent bowel incontinence episodes and muscle spasms affect multiple areas, including lower lumbar paraspinals and genital areas. Current conditions are complicated by suspected carpal tunnel syndrome with pending neurodiagnostic studies per Hand Specialist recent evaluation. The patient reports a concerning episode involving transient loss of consciousness, followed by involuntary urination six weeks ago, marking a new occurrence without prior similar episodes. - Onset: Chronic, with recent exacerbation following an accident two weeks ago. - Quality: Described as varied in pattern, both piercing and aching, with distinct posterior and anterior leg involvement. - Primary Location: Lower back, extending to both legs. - Radiation: Pain radiates along the anterior and posterior aspects of both lower extremities. - Aggravating Factors: Includes walking and forward bending. - Alleviating Factors: Extension of the back and some medication use. - Interference with Activities: Significant impact on walking, standing, and activities requiring bending. - Affect: Pain contributes to psychological stress, manifesting as anxiety and frustration. - Analgesia: Current medications include Baclofen, which has been beneficial, supplemented by Tizanidine. Goal is to maintain pain at a functional level. - Adverse Effects: Concerns about medication effects on blood pressure. Liver function considerations were noted for Tizanidine use. - Activities of Daily Living: Pain significantly impacts mobility, requiring frequent readjustments during seated periods. - Aberrant Drug Related Behaviors: None reported; there is frustration with changes in medication management by other providers. PRIOR 01/03/23: Patient presents today to assess response to Bilateral Diagnostic C3, C4, C5 medial branches blocks on 01/01/[address] Montero Patient reports 10% pain relief for 2-3 hours after procedure with minimal improvement in her neck symptoms. Patient reports she resumed baclofen, tizanidine and Tylenol extra strength for axial cervical pain. She reports stopping gabapentin use after taking it for 2 weeks and developing insomnia and suicidal ideation. Denies any SI/HI or hallucinations since stopping gabapentin. We will add this to her allergies list. She presents with improved cervical ROM and reports having a good day today. She is willing to undergo a repeat cervical diagnostic medial branch block injections in order to establish reproducible response to the treatment for potential Sprint peripheral nerve stimulation. Past Procedures: 01/01/23: Bilateral Diagnostic C3, C4, C5 MBB-10% pain relief for 2-3 hours PRIOR: Patient presents today after neurosurgical evaluation and states she was deemed non-surgical. Patient is interested to proceed for interventional treatments to address her facetogenic cervical pain, most significant on left side but also has occasional pain on right side of the neck with daily headaches, spasms and neck stiffness. We reviewed cervical medial branch blocks again today in more detail and potential therapeutic injections, Sprint PNS trial or cervical medial branch RFA. Patient reports her neck symptoms continues to affect her daily activities, functions, at times are very debilitating and affecting her sleep and social activities. Denies any fever, chills, visual disturbances, unsteady gait, midline tenderness of cervical spine, lack of coordination, bladder or bowel incontinence or saddle anesthesia. PRIOR: Patient presents today for follow up for neck pain. Patient reports her neck pain has been minimal during rest but is significantly aggravated during work hours. She is right hand dominant and spends time at the desk and working on computer. She reports periods of severe neck pain which put her in bed rest for up to 7 days, but notes this does not happen too often. During intense neck pain episodes, she experiences radiation of pain to her left lower extremity with weakness, numbness and tingling. She also notices numbness and tingling in both hands that has been progressive over the years. Patient reports she was ill when cervical medial blocks were scheduled. She would like to hold off for interventional treatments. Patient is concerned for intense severe episodes of disabling neck pain which require her to take time from work as well as affect her daily activities and sleep. She takes tizanidine at bedtime as this causes her drowsiness during daytime. Patient also reports she is using electrical pulse neck massager for muscle spasms and stiffness and is able to feel heat and pulsing on the right but does not feel same on her left side. She reports tenderness and numbness in her left occipital region. I will sent this patient to obtain cervical MRI for further evaluation. If normal, we will consider neurodiagnostic studies. Patient denies any fever, chills, vision disturbances, chest pain, shortness of breath, cough, gait imbalance, bladder or bowel incontinence or saddle anesthesia. PRIOR 05/08/22 Dr. Lambert: Santa is very pleasant 51 years old female who is in my office complaining on left-sided neck pain. She was examined originally by nurse practitioner here and was sent for physical therapy. She reported great improvement with physical therapy until few days before today when she hit her head while working in the office. She reported that all her pain came back. We discussed possibility of diagnosing and treating her condition with C4-C5 C6 left-sided diagnostic medial branch block. I offered her to have this procedure without sedation she agreed. PRIOR 12/28/21: Patient is a pleasant 51 years old female who presents today for evaluation of neck and lower back pain. Denies any trauma, injury or falls. She attributes her pain generators to arthritis and age since 2018. Her neck pain is increased with lateral movements to the left and right sides but no pain with flexion or extension. She reports her neck pain radiates to her left shoulder and at times to her upper chest and refers this to history of COVID illness and COPD. 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 Patient reports occasional objects dropping with mild weakness, numbness and tingling in her left hand and fingers. Lower back pain is aggravated by weather changes and movements. Pain described as intermittent pulsing, throbbing, shooting, stabbing, lancinating, shart, cutting, lacerating, cramping, wrenching, hot burning, tingling, stinging, dull, sore, hurting, aching, heavy, exhausting, radiating, piercing, tight and tearing. Lumbar and cervical spine x rays on 08/01/21 showed L5-S1 degenerative disc changes and degenerative C5-C6 disc disease with ventral and posterior cervical spondylosis and mild facet joint arthropathy. She denies any previous physical therapy, chiropractic manipulation, TENS unit, acupuncture, massage therapy or aqua therapy. Patient has been taking Tylenol, tizanidine and edible marijuana with partial pain relief. Denies any fever, weight changes, headaches, dizziness, abdominal or groin pain, weakness, bowel or bladder incontinence or saddle anesthesia. Ambulates with normal gait without assistive devices.? [facility] Medical History PTSD (post-traumatic stress disorder) Generalized anxiety disorder Personal history of nicotine dependence Emphysema lung COVID-19 vaccine series completed GERD (gastroesophageal reflux disease) Arthritis COPD (chronic obstructive pulmonary disease) Surgical History H/O total hysterectomy History of colonoscopy History of dental surgery History of cholecystectomy History of partial hysterectomy History of tubal ligation Family History Mother GERD (gastroesophageal reflux disease) DVT (deep venous thrombosis) Father HTN (hypertension) Abnormal thyroid hormone metabolism Social History Housing: House Do you presently have visiting nurse or other home services: No Alcohol intake: current Alcohol intake frequency: a few times a week Alcohol type: wine Patient Tobacco Use Status: Former Tobacco user Tobacco use type: Cigarette Years Smoked: onset 15yo, 1ppd x 34yrs, 30pyh - quit 2020) e-Cigarette/Vaping Use: Never Used Second Hand Smoke Exposure: No Substance Use Type: Marijuana service: No Current occupational status: employed 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 - Neurological: Denies dizziness or falls. Reports muscle spasms and numbness in buttocks. - Gastrointestinal: Reports bowel incontinence. - Urinary: Reports one episode of involuntary urination. - Constitutional: Reports difficulty with flexibility. - Other: Denies daily alcohol use; reports marijuana use for anxiety. All systems reviewed & are unremarkable except as noted in HPI and below Physical Exam Vital Signs: Last Vital Signs Pulse 69 10/19/24 14:53 BP 125/79 10/19/24 14:53 Pulse Ox 98 10/19/24 14:53 Oxygen Delivery Method Room Air 10/19/24 14:53 BMI result Body Mass Index 27.7 General: Appears afebrile. Alert and oriented. Mood and affect appropriate. Follows and participates in conversation appropriately. Respiratory effort is unlabored. No cough. Able to transition from sit to stand unassisted. Ambulates with bilaterally normal heel strike and toe off. General: Yes no CVA tenderness Back/Spine/Pelvis Other: Patient is able to walk and stand on heels and tip toes with no difficulties demonstrating good motor tone. No limping. Limited lumbar ROM due to pain. Lumbar bending and flexing forward reproduces moderate to severe pain, lumbar extension is intact and relieves back pain after bending partially. Demonstrates 5/5 left and 4/5 right strength of quadriceps bilaterally as well as flexion/dorsiflexion of bilateral feet against resistance. 2+ pedal pulses bilaterally. Straight leg rise with dorsiflexion positive on the right. +2 left +1 right patellar and +1 achilles reflexes bilaterally. Facet loading test positive bilaterally. Santy sign, Yobany?s, Pelvic compression and Stinchfield tests are positive bilaterally. No groin pain with I/E hip rotations. Valsalva maneuver negative. Back: no CVA tenderness Cervical Spine: cervical ROM normal, cervical muscular tenderness, pain with cervical ROM (left lateral and bending), No Cervical spine tenderness and No step off deformity Thoracic/Lumbar Spine: thoracic and lumbar spine normal to inspection, No Thoracic/lumbar spine scar(s), Lasegue's sign positive on the right and localized, pain with thoraco-lumbar ROM, paraspinal muscle tenderness, thoraco- lumbar ROM limited, No thoracic spinal tenderness and lumbar spinal tenderness (L4-S1) Pelvis: buttock tenderness on the right Sacroiliac joints: bilaterally tender to palpation Extrem General: Yes capillary refill normal, Yes no clubbing, cyanosis or edema and Yes no calf tenderness Results Reviewed Results Reviewed: XR LUMBAR SPINE 08/01/21 XR CERVICAL SPINE 08/01/21 FINDINGS: LUMBAR SPINE: There is maintained lumbar lordosis. The vertebral heights and alignment are normal. There is loss of L5-S1 disc height. Rest of the disc heights are normal. No visible acute fracture, dislocation or lytic process seen. SI joints are symmetrical. There is evidence of previous cholecystectomy. Otherwise the soft tissues are unremarkable. CERVICAL SPINE: There is normal cervical lordosis. There is loss of C5-C6 disc heights with mild ventral and posterior spondylosis. Rest of the disc heights are normal. There is mild bilateral C2-C3, C3-C4 and C4-C5 facet joint arthropathy. The prevertebral soft tissues are normal IMPRESSION: L5-S1 degenerative disc changes. Otherwise unremarkable lumbar spine. Degenerative C5-C6 disc disease with ventral and posterior spondylosis, cervical spine. There is mild facet joint arthropathy as described above. CT abdomen pelvis w IV con 07/05/23: OSSEOUS STRUCTURES: Degenerative changes at L5-S1. Assessment & Plan Assessment & Plan (1) Lumbosacral spondylosis: Code(s): M47.817 - Spondylosis without myelopathy or radiculopathy, lumbosacral region Category: Medical (2) Lumbar degenerative disc disease: Code(s): M51.369 - Other intervertebral disc degeneration, lumbar region without mention of lumbar back pain or lower extremity pain Category: Medical (3) Lumbar radiculopathy: Code(s): M54.16 - Radiculopathy, lumbar region Category: Medical (4) Muscle spasm of back: Code(s): M62.830 - Muscle spasm of back Category: Medical (5) Vertebrogenic low back pain: Code(s): M54.51 - Vertebrogenic low back pain Category: Medical Plan To manage the chronic lumbar pain, suspect lumbar radiculopathy is prioritized, pending further imaging via an MRI. Concurrently, physical therapy is initiated to enhance mobility, flexibility, strength and manage pain effectively. Baclofen will be prescribed to maintain current analgesic levels while monitoring for adverse effects associated with its use. Patient alternates baclofen with tizanidine. Continued use of adjunct therapies is recommended as we assess responses, ensure efficacy, and mitigate adverse effects. Follow-up care was discussed, focusing on potential progression monitoring. Patient was informed and verbally consented to the use of an ambient scribe for clinic note documentation during this visit. Orders: Orders PT Evaluation and Treatment Today M47.817 - Spondylosis without myelopathy or radiculopathy, lumbosacral region, M51.369 - Other intervertebral disc degeneration, lumbar region without mention of lumbar back pain or lower extremity pain, M54.16 - Radiculopathy, lumbar region, M62.830 - Muscle spasm of back MR lumbar spine wo con Today M47.817 - Spondylosis without myelopathy or radiculopathy, lumbosacral region, M51.369 - Other intervertebral disc degeneration, lumbar region without mention of lumbar back pain or lower extremity pain, M54.16 - Radiculopathy, lumbar region, M62.830 - Muscle spasm of back Medications: Changed From baclofen 10 mg PO TID PRN 90 tabs 3RF spasm M47.817 - Spondylosis without myelopathy or radiculopathy, lumbosacral region, M51.369 - Other intervertebral disc degeneration, lumbar region without mention of lumbar back pain or lower extremity pain, M62.830 - Muscle spasm of back To baclofen 10 mg PO TID 90 days PRN 270 tabs 3RF spasm M47.817 - Spondylosis without myelopathy or radiculopathy, lumbosacral region, M51.369 - Other intervertebral disc degeneration, lumbar region without mention of lumbar back pain or lower extremity pain, M62.830 - Muscle spasm of back Patient Instructions: - Attend scheduled physical therapy sessions for back and radicular pain. - You will receive a Baclofen prescription to help with muscle spasms. - Inform me immediately if your symptoms worsen or new symptoms appear. - Follow through with MRI and hand specialist appointment as soon as possible. - Avoid activities that exacerbate your pain, such as prolonged walking and bending forward. - You should monitor your response to medication and keep track of any side effects. - Contact claim review medical director if bowel or urinary symptoms return or increase. Coding Level of Care Code Est Pt Level 4 (57921) Complex EM visit Add On G2211 Diagnoses Lumbosacral spondylosis M47.817 Lumbar degenerative disc disease M51.369 Lumbar radiculopathy M54.16 Muscle spasm of back M62.830 Vertebrogenic low back pain M54.51
[2024-10-19 14:53] VITALS: BP 125/79; PULSE 69; O2SAT 98; BMI 27.7
--- OUTSIDE RECORDS SUMMARY | 2024-10-19 15:59 | XMS_ITS | Encounter Summary ---
Author Organization [facility] Address [address] [place] [address] Care Team Providers Care Builder Beam Name Role Phone Lacey Rivas MD Primary Care Provider [phone] Reason for Visit * Reason Onset Date Comments Abnormal Mammogram 02/20/2016 Encounter Details Date Type Department Care Team Description 02/20/2016 Telephone Radiology - [address] [phone] Radiology, Authorizing Abnormal Mammogram Social History Tobacco Use Types Packs/Day Years Used Date Smoking Tobacco: Every Day Cigarettes 1 Alcohol Use Standard Drinks/Week Comments Yes 0 (1 standard drink = 0.6 oz pur e alcohol) 18/week Sex Assigned at Date Recorded Not on file documented as of this encounter Miscellaneous Notes * Telephone Encounter - Elly Hoover - 02/20/2016 10:08 AM EDT Benavidez for pt to jose her f/u mammo 02/20/16 bw documented in this encounter Plan of Treatment Not on file documented as of this encounter Visit Diagnoses Not on filedocumented in this encounter Care Teams Builder Beam Relationship Specialty Start Date End Date Lacey Rivas MD [address] [place] [address] [phone] PCP - General Internal Medicine 06/15/15 documented as of this encounter
--- OUTSIDE RECORDS SUMMARY | 2024-10-19 15:59 | XMS_ITS | Encounter Summary ---
Author Organization [facility] Address [address] [place] [address] Care Team Providers Care Tucking Machine Operator Name Role Phone Lacey Rivas MD Primary Care Provider [phone] Encounter Details Date Type Department Care Team Description 07/04/2015 Transfer Records Medical Records [address] [place] [address] Abstract, Provider Social History Tobacco Use Types [...] on filedocumented in this encounter Care Teams Tucking Machine Operator Relationship Specialty Start Date End Date Lacey Rivas MD [address] [place] [address] PCP - General Internal Medicine 06/15/15 documented as of this encounter
--- OUTSIDE RECORDS SUMMARY | 2024-10-19 15:59 | XMS_ITS | Encounter Summary ---
Author Organization [facility] Address [address] [place] [address] Care Team Providers Care Roller Mill Operator Name Role Phone Lacey Rivas MD Primary Care Provider [phone] Encounter Details Date Type Department Care Team Description 07/21/2016 Release of Information Medical Records [address] [place] [address] 414[address] Abstract, Provider Social History Tobacco Use Types [...] on filedocumented in this encounter Care Teams Roller Mill Operator Relationship Specialty Start Date End Date Lacey Rivas MD [address] [place] [address] 447[address] PCP - General Internal Medicine 06/15/15 documented as of this encounter
--- OUTSIDE RECORDS SUMMARY | 2024-10-19 15:59 | XMS_ITS | Encounter Summary ---
Author Organization [facility] Address [address] [place] [address] Care Team Providers Care Oven Loader Name Role Phone Lacey Rivas MD Primary Care Provider [phone] Reason for Visit * Reason Onset Date Comments Mammography Outreach 05/07/2019 Encounter Details Date Type Department Care Team Description 05/07/2019 Telephone Adult Medicine [address] [phone] Madeleine Morgan PA-C [address] [place] [address] Mammography Outreach Social History Tobacco Use Types Packs/Day Years Used Date Smoking Tobacco: Every Day Cigarettes 1 Smokeless Tobacco: Former Alcohol Use Standard Drinks/Week Comments Yes 0 (1 standard drink = 0.6 oz pur e alcohol) 18/week Sex Assigned at Date Recorded Not on file documented as of this encounter Miscellaneous Notes * Telephone Encounter - Renetta Edwards M.A. - 05/11/2019 3:43 PM EST Left voicemail for pt to call back * Telephone Encounter - Madeleine Morgan PA-C - 05/07/2019 5:57 PM EST Please call patient and ask where she is receiving mammograms. We do not have record of mammogram since 2017. Please schedule patient for physical exam with PCP to address overdue health maintenance items. Madeleine Morgan PA-C documented in this encounter Plan of Treatment Not on file documented as of this encounter Visit Diagnoses Not on filedocumented in this encounter Care Teams Oven Loader Relationship Specialty Start Date End Date Lacey Rivas MD [address] [place], [place] [phone] PCP - General Internal Medicine 06/15/15 documented as of this encounter
--- OUTSIDE RECORDS SUMMARY | 2024-10-19 15:59 | XMS_ITS | Encounter Summary ---
Author Organization [facility] Address [address] [place] [address] Care Team Providers Care Tool Dresser Name Role Phone Lacey Rivas MD Primary Care Provider [phone] Encounter Details Date Type Department Care Team Description 01/15/2021 Release of Information Medical Records [address] [place] [address] 28524 Abstract, Provider Social History Tobacco Use Types [...] on filedocumented in this encounter Care Teams Tool Dresser Relationship Specialty Start Date End Date Lacey Rivas MD [address] [place] [address] 87182 PCP - General Internal Medicine 06/15/15 documented as of this encounter
--- OUTSIDE RECORDS SUMMARY | 2024-10-19 15:59 | XMS_ITS | Encounter Summary ---
Author Organization [facility] Address [address] [place] [address] Care Team Providers Care Vending Route Servicer Name Role Phone Lacey iRvas MD Primary Care Provider [phone] Reason for Visit * Reason Onset Date Comments Call-returning From Provider 07/13/2015 Encounter Details Date Type Department Care Team Description 07/13/2015 Telephone Adult Medicine [address] [phone] Tye Mackenzie PA-C Call-returning From Provider Social History Tobacco Use Types Packs/Day Years Used Date Smoking Tobacco: Every Day Cigarettes 1 Alcohol Use Standard Drinks/Week Comments Yes 0 (1 standard drink = 0.6 oz pur e alcohol) 18/week Sex Assigned at Date Recorded Not on file documented as of this encounter Miscellaneous Notes * Telephone Encounter - Karen Torrez - 07/13/2015 2:28 PM EST Patient returned call from Tye/ Ulices time to reach her is 1 PM or after 5 PM/she is aware he has left for the day today/ [phone] documented in this encounter Plan of Treatment Not on file documented as of this encounter Visit Diagnoses Not on filedocumented in this encounter Care Teams Vending Route Servicer Relationship Specialty Start Date End Date Lacey Rivas MD [address] [place] [phone] PCP - General Internal Medicine 06/15/15 documented as of this encounter
--- OUTSIDE RECORDS SUMMARY | 2024-10-19 15:59 | XMS_ITS | Encounter Summary ---
Author Organization [facility] Address [address] [place] [address] Care Team Providers Care Energy Conservation Engineer Name Role Phone Lacey Rivas MD Primary Care Provider [phone] Reason for Visit * Reason Onset Date Comments Appointment-Internal Referral 07/08/2016 Transfer Records 07/08/2016 Encounter Details Date Type Department Care Team Description 07/08/2016 Telephone OBGYN - [place] [address] [place] [address] Patricia Dunn MD Appointment-Internal Referral; Transfer Records [...] in and filled out LEYDA. Faxed to [facility] documented in this encounter Plan of Treatment Not on file documented as of this encounter Visit Diagnoses Not on filedocumented in this encounter Care Teams Energy Conservation Engineer Relationship Specialty Start Date End Date Lacey Rivas MD [address] [place] [address] 9[address]10 PCP - General Internal Medicine 06/15/15 documented as of this encounter
--- OUTSIDE RECORDS SUMMARY | 2024-10-19 15:59 | XMS_ITS | Encounter Summary ---
Author Organization [facility] Address [address] [place] [address] Care Team Providers Care Stewarding Supervisor Name Role Phone Lacey Rivas MD Primary Care Provider [phone] Reason for Visit * Reason Comments E-prescribe Rx Request Encounter Details Date Type Department Care Team Description 08/24/2020 Refill Adult Medicine [address] [phone] Lacey Rivas MD [address] [place] [address] [phone] E-prescribe Rx Request Social History Tobacco Use [...] N/A Patients current insurance carrier is: [facility]: [facility] / Plan: PPO $20 ANDOVER [id number] / Product Type: PPO [id number] documented in this encounter Plan of Treatment Not on file documented as of this encounter Visit Diagnoses Not on filedocumented in this encounter Care Teams Stewarding Supervisor Relationship Specialty Start Date End Date Lacey Rivas MD [address] [place] [address] PCP - General Internal Medicine 06/15/15 documented as of this encounter
--- OUTSIDE RECORDS SUMMARY | 2024-10-19 15:59 | XMS_ITS | Clinical Summary ---
Author Organization [facility] Address [address] [place] [address] Care Team Providers Care Sales And Merchandising Representative Name Role Phone Lacey Rivas MD Primary Care Provider [phone] Allergies No known active allergies Medications Medication Sig Dispensed Refills Start Date End Date Status acetaminophen (TYLENOL) 500 MG tablet Take 500 mg by mouth every 6 hours as needed. 0 Active tizanidine (ZANAFLEX) 4 MG tablet TAKE 1 TABLET BY MOUTH 3 TIMES A WEEK 36 tablet 0 11/13/2020 Active Ipratropium-Albuterol (Combivent Respimat) 20-100 MCG/ACT Aero SolnIndications:Chroni c obstructive pulmonary disease, unspecified COPD type (HCC) Inhale 20 mcg into the lungs 4 times daily as needed (Dyspnea/Wheezin g) for up to 90 days. This is a rescue medication. No exceed more than 6 puffs daily. 1 g 2 07/02/2021 Active Active Problems Problem Noted Date GERD (gastroesophageal reflux disease) 0 01/10/2021 Cervical polyp 11/01/2020 Seasonal allergies 11/01/2020 Cervical spondylosis 05/07/2019 Heavy alcohol use 05/07/2019 Subclinical hypothyroidism 07/06/2015 Overview: Graves disease in the distant past, rx methimazole, no JONES, stabilized Resolved Problems Problem Noted Date Resolved Date Left flank pain 07/06/2015 05/12/2019 Breast pain, left 07/06/2015 05/12/2019 Abnormal mammogram 07/06/2015 05/12/2019 Immunizations Name Administration Dates Next Due COVID-19 (Pfizer) 10/18/2020,09/27/2020 Tdap 07/08/2016 Family History Medical History Relation Name Comments VA Aunt 1 40s skin cancer Aunt 2 Hypothyroid Maternal Grandmother Colon Polyps Mother ??>10 graves Other cousin VA Paternal Grandfather 55 thyroid dysfunction Paternal Grandmother CA of Pancreas Uncle CA Breast Negative Hx Relation Name Status Comments Aunt 1 Aunt 2 Maternal Grandmother Mother Alive Other Paternal Grandfather Paternal Grandmother Uncle Social History Tobacco Use Types Packs/Day Years Used Date Smoking Tobacco: Former Cigarettes 1 20 Smokeless Tobacco: Former Tobacco Cessation:Ready to Q uit: No; Counseling Given: Yes Comments:quit in December 2019 Alcohol Use Standard Drinks/Week Comments Yes 0 (1 standard drink = 0.6 oz pur e alcohol) 2 glasses of wine a week Sex Assigned at Date Recorded Not on file Last Filed Vital Signs Vital Sign Reading Time Taken Comments Blood Pressure 120/78 07/02/2021 11:25 AM EST Pulse 80 07/02/2021 11:25 AM EST Temperature 36.5 ??C (97.7 ??F) 07/02/2021 11:[address] Respiratory Rate 12 07/02/2021 11:25 AM EST Oxygen Saturation 98% 07/02/2021 11:25 AM EST Inhaled Oxygen Concentration - - Weight 67.1 kg (148 lb) 07/02/2021 11:25 AM EST Height 162.6 cm (5' 4 ) 07/02/2021 11:25 AM EST Body Mass Index 25.4 07/02/2021 11:25 AM EST Plan of Treatment Health Maintenance Due Date Last Done Comments BASELINE HEALTH EXAM 40-64 07/08/201807/08, 07/08/2016, 06/27/2015, Additional history exists CERVICAL CANCER SCREENING 07/19/2019 07/19/2016 COLON CANCER SCREENING 2021 SHINGLES VACCINE (1 of 2) 2021 MAMMOGRAM 02/17/2022 02/17/2021, 02/0 10/2016, 04/05/2016, Additional history exists Covid-19 Vaccine (2022-2 4 season) 2024 10/18/2020, 09/27/2020 BMI CHECK/ADVISE 06/02/2024 01/10/2021, 04/2019, 07/19/2016, Additional history exists INFLUENZA (Season Ended) 2025 CHOLESTEROL SCREENING 01/10/2026 01/10/2021 , 05/06/2019, 07/08/2016, Additional history exists DTAP/TDAP/TD (2 - Td or Tdap) 07/08/2026 07/08/2016 PNEUMOCOCCAL VACCINE FOR HIG H RISK PATIENTS (#1) 2036 Care Teams Sales And Merchandising Representative Relationship Specialty Start Date End Date Lacey Rivas MD [address] [place] [phone] PCP - General Internal Medicine 06/15/15
--- OUTSIDE RECORDS SUMMARY | 2024-10-19 15:59 | XMS_ITS | Encounter Summary ---
Author Organization [facility] Address [address] [place] [address] Care Team Providers Care Truck Caterer Name Role Phone Lacey Rivas MD Primary Care Provider [phone] Encounter Details Date Type Department Care Team Description 07/08/2021 Telephone Pulmonology - [place] [address] [facility] [address] [place] [address] Héctor Guevara MD [address] [place] [address] Social History Tobacco Use Types [...] CD of the pt's chest CT from [facility]- done in 01/2021 documented in this encounter Plan of Treatment Not on file documented as of this encounter Visit Diagnoses Not on filedocumented in this encounter Care Teams Truck Caterer Relationship Specialty Start Date End Date Lacey Rivas MD [address] [place] [address] PCP - General Internal Medicine 06/15/15 documented as of this encounter
== END 2024-10-19 15:30 | disposition home or self-care (01) ==
LOC: HO.PMC 14:38
PROVIDERS: PCP Internal Medicine; Visit Provider Nurse Practitioner Family
DX: M47.817 Spondylosis without myelopathy or radiculopathy, lumbosacral region (principal); M51.369 Other intervertebral disc degeneration, lumbar region without mention of lumbar back pain or lower extremity pain; M54.16 Radiculopathy, lumbar region; M62.830 Muscle spasm of back; M54.51 Vertebrogenic low back pain
CPT/HCPCS: 99214; G2211

== ENCOUNTER → 2024-10-30 08:22 | Outpatient (BNV) | payer OTHER, SELFPAY | PROVIDERS: PCP Internal Medicine; Visit Provider Specialist | DX: M51.362 Other intervertebral disc degeneration, lumbar region with discogenic back pain and lower extremity pain (principal) | CPT/HCPCS: 72148 ==

== ENCOUNTER 2024-10-30 08:30 | Outpatient (REF) | payer OTHER, SELFPAY ==
--- NOTE | ~2024-10-30 | MR_ITS ---
CLINICAL HISTORY: M47.817 - Spondylosis without myelopathy or radiculopathy, lumbosacral r... MR lumbar spine without gadolinium Comparison: None Findings: No scoliosis or spondylolisthesis. No acute fracture or pathologic bone lesion. Cauda equina and conus medullaris within normal limits. No significant spinal canal or foraminal stenoses. There is broad-based degenerative disc bulge at L4-L5 and L5-S1. There is reactive marrow signal changes in the posterior superior L5 vertebra. Paraspinous musculature intact. IMPRESSION: No acute findings. This document has been electronically signed by: Wilbert Moody MD on 10/30/2024 09:38:27
== END 2024-10-30 08:31 | disposition home or self-care (01) ==
LOC: HO.MRI 08:30
PROVIDERS: PCP Internal Medicine; Visit Provider Nurse Practitioner Family
DX: M47.817 Spondylosis without myelopathy or radiculopathy, lumbosacral region (principal); M51.369 Other intervertebral disc degeneration, lumbar region without mention of lumbar back pain or lower extremity pain; M54.16 Radiculopathy, lumbar region; M62.830 Muscle spasm of back
CPT/HCPCS: 72148

== ENCOUNTER 2024-11-16 08:23 | Outpatient (REF) | payer OTHER, SELFPAY ==
--- NOTE | 2024-11-16 08:26 | EMG_ITS ---
FINDINGS: Bilateral median and ulnar motor and sensory studies were performed. Bilateral radial and median and lateral antecubital brachial sensory studies were performed and paraspinal muscles were tested with a needle. IMPRESSION: Mild bilateral median neuropathy across carpal tunnel. No evidence of radiculopathy. MD YONG Nava/AFUAL / [id number]
--- OUTSIDE RECORDS SUMMARY | 2024-11-16 08:37 | XMS_ITS | Encounter Summary ---
Author Organization [facility] Address [address] [place] [address] Care Team Providers Care Rn Military Name Role Phone Lacey Rivas MD Primary Care Provider [phone] Encounter Details Date Type Department Care Team Description 07/08/2021 Telephone Pulmonology - [place] [address] [facility] [address] [place] [address] Héctor Guevara MD [address] [place] [address] Social History Tobacco Use Types [...] CD of the pt's chest CT from [facility]- done in 01/2021 documented in this encounter Plan of Treatment Not on file documented as of this encounter Visit Diagnoses Not on filedocumented in this encounter Care Teams Rn Military Relationship Specialty Start Date End Date Lacey Rivas MD [address] [place] [phone] PCP - General Internal Medicine 06/15/15 documented as of this encounter
== END 2024-11-16 08:24 | disposition home or self-care (01) ==
LOC: HO.NEURO 08:23
PROVIDERS: PCP Internal Medicine
DX: R20.0 Anesthesia of skin (principal); R20.2 Paresthesia of skin
CPT/HCPCS: 95886; 95913

== ENCOUNTER 2024-11-22 14:03 | Outpatient (AMB) | payer OTHER, SELFPAY ==
--- NOTE | 2024-11-22 14:16 | A.OFFVIS_ITS ---
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: No Accompanied by: Self / Same As Patient Allergies gabapentin Allergy (Unknown, Verified 11/23/24 10:36) Insomnia ibuprofen Adverse Reaction (Intermediate, Verified 11/23/24 10:36) Stomach Upset Medication List - Last Reconciled 11/22/24 by MARLENA Carey albuterol sulfate 90 mcg/actuation (Ventolin HFA) 2 puffs inhalation RQ6H PRN baclofen 10 mg PO TID PRN 90 days cholecalciferol (vitamin D3) 25 mcg PO DAILY clobetasol 0.05% 1 appl topical DAILY diazepam 2 mg PO TID PRN hydroxyzine HCl 25 mg PO Q6H PRN melatonin 6 mg (2 x 3 mg) PO BEDTIME PRN olanzapine 5 mg PO BID olanzapine 5 mg PO Q4H PRN tizanidine 4 mg PO DAILY@1800 PRN trazodone 50 mg PO BEDTIME MRX1 PRN HPI Comments Details: The patient is a 54-year-old female presenting with chronic low back pain and associated intermittent radiculopathy. She reports that the pain began more than 30 years ago and initially stemmed from an injury. 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 She indicates the pain is aggravated by sitting for extended periods, bending, or lifting, increased discomfort while rising from flexed position and notes difficulty maintaining a single position due to discomfort between the neck and back. Earlier diagnostic evaluations have revealed lumbar disc degeneration, particularly at the L4, L5, and S1 intervertebral disc spaces and Modic changes on endplates. Neuropathy symptoms suggest possible involvement of cervical or lumbar nerves, though further evaluation by Orthopedics is planned to rule out other causes, including carpal tunnel syndrome for ongoing numbness and tingling in both hands. The patient has previously undergone EMG studies on her hands and neck for evaluation purposes and is dealing with osteoarthritis, impacting her musculoskeletal health. Denies any recent cough, cold, infection, fever or any other significant changes in medical history since last office visit. PRIOR: The patient is a 54-year-old female presenting with chronic back pain with radiculopathy for evaluation. The primary concerns involve persistent cervical and lumbar spine pain, with lumbar radiculopathy resulting in bilateral leg pain. The cervical issue dates back to December 2022, described as arthritis, where initial management via injections did not yield relief. Lumbar symptoms, exacerbated following a recent accident, have been ongoing, impacting ambulatory function and pain expressed both anteriorly and posteriorly in the legs, worse on the right. Furthermore, intermittent bowel incontinence episodes and muscle spasms affect multiple areas, including lower lumbar paraspinals and genital areas. Current conditions are complicated by suspected carpal tunnel syndrome with pending neurodiagnostic studies per Hand Specialist recent evaluation. The patient reports a concerning episode involving transient loss of consciousness, followed by involuntary urination six weeks ago, marking a new occurrence without prior similar episodes. - Onset: Chronic, with recent exacerbation following an accident two weeks ago. - Quality: Described as varied in pattern, both piercing and aching, with distinct posterior and anterior leg involvement. - Primary Location: Lower back, extending to both legs. - Radiation: Pain radiates along the anterior and posterior aspects of both lower extremities. - Aggravating Factors: Includes walking and forward bending. - Alleviating Factors: Extension of the back and some medication use. - Interference with Activities: Significant impact on walking, standing, and activities requiring bending. - Affect: Pain contributes to psychological stress, manifesting as anxiety and frustration. - Analgesia: Current medications include Baclofen, which has been beneficial, supplemented by Tizanidine. Goal is to maintain pain at a functional level. - Adverse Effects: Concerns about medication effects on blood pressure. Liver function considerations were noted for Tizanidine use. - Activities of Daily Living: Pain significantly impacts mobility, requiring frequent readjustments during seated periods. - Aberrant Drug Related Behaviors: None reported; there is frustration with changes in medication management by other providers. PRIOR 01/03/23: Patient presents today to assess response to Bilateral Diagnostic C3, C4, C5 medial branches blocks on 01/01/[address] Montero Patient reports 10% pain relief for 2-3 hours after procedure with minimal improvement in her neck symptoms. Patient reports she resumed baclofen, tizanidine and Tylenol extra strength for axial cervical pain. She reports stopping gabapentin use after taking it for 2 weeks and developing insomnia and suicidal ideation. Denies any SI/HI or hallucinations since stopping gabapentin. We will add this to her allergies list. She presents with improved cervical ROM and reports having a good day today. She is willing to undergo a repeat cervical diagnostic medial branch block injections in order to establish reproducible response to the treatment for potential Sprint peripheral nerve stimulation. Past Procedures: 01/01/23: Bilateral Diagnostic C3, C4, C5 MBB-10% pain relief for 2-3 hours PRIOR: Patient presents today after neurosurgical evaluation and states she was deemed non-surgical. Patient is interested to proceed for interventional treatments to address her facetogenic cervical pain, most significant on left side but also has occasional pain on right side of the neck with daily headaches, spasms and neck stiffness. We reviewed cervical medial branch blocks again today in more detail and potential therapeutic injections, Sprint PNS trial or cervical medial branch RFA. Patient reports her neck symptoms continues to affect her daily activities, functions, at times are very debilitating and affecting her sleep and social activities. Denies any fever, chills, visual disturbances, unsteady gait, midline tenderness of cervical spine, lack of coordination, bladder or bowel incontinence or saddle anesthesia. PRIOR: Patient presents today for follow up for neck pain. Patient reports her neck pain has been minimal during rest but is significantly aggravated during work hours. She is right hand dominant and spends time at the desk and working on computer. She reports periods of severe neck pain which put her in bed rest for up to 7 days, but notes this does not happen too often. During intense neck pain episodes, she experiences radiation of pain to her left lower extremity with weakness, numbness and tingling. She also notices numbness and tingling in both hands that has been progressive over the years. Patient reports she was ill when cervical medial blocks were scheduled. She would like to hold off for interventional treatments. Patient is concerned for intense severe episodes of disabling neck pain which require her to take time from work as well as affect her daily activities and sleep. She takes tizanidine at bedtime as this causes her drowsiness during daytime. Patient also reports she is using electrical pulse neck massager for muscle spasms and stiffness and is able to feel heat and pulsing on the right but does not feel same on her left side. She reports tenderness and numbness in her left occipital region. I will sent this patient to obtain cervical MRI for further evaluation. If normal, we will consider neurodiagnostic studies. Patient denies any fever, chills, vision disturbances, chest pain, shortness of breath, cough, gait imbalance, bladder or bowel incontinence or saddle anesthesia. PRIOR 05/08/22 Dr. Lambert: Santa is very pleasant 51 years old female who is in my office complaining on left-sided neck pain. She was examined originally by nurse practitioner here and was sent for physical therapy. She reported great improvement with physical therapy until few days before today when she hit her head while working in the office. She reported that all her pain came back. We discussed possibility of diagnosing and treating her condition with C4-C5 C6 left-sided diagnostic medial branch block. I offered her to have this procedure without sedation she agreed. PRIOR 12/28/21: Patient is a pleasant 51 years old female who presents today for evaluation of neck and lower back pain. Denies any trauma, injury or falls. She attributes her pain generators to arthritis and age since 2018. Her neck pain is increased with lateral movements to the left and right sides but no pain with flexion or extension. She reports her neck pain radiates to her left shoulder and at times to her upper chest and refers this to history of COVID illness and COPD. 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 Patient reports occasional objects dropping with mild weakness, numbness and tingling in her left hand and fingers. Lower back pain is aggravated by weather changes and movements. Pain described as intermittent pulsing, throbbing, shooting, stabbing, lancinating, shart, cutting, lacerating, cramping, wrenching, hot burning, tingling, stinging, dull, sore, hurting, aching, heavy, exhausting, radiating, piercing, tight and tearing. Lumbar and cervical spine x rays on 08/01/21 showed L5-S1 degenerative disc changes and degenerative C5-C6 disc disease with ventral and posterior cervical spondylosis and mild facet joint arthropathy. She denies any previous physical therapy, chiropractic manipulation, TENS unit, acupuncture, massage therapy or aqua therapy. Patient has been taking Tylenol, tizanidine and edible marijuana with partial pain relief. Denies any fever, weight changes, headaches, dizziness, abdominal or groin pain, weakness, bowel or bladder incontinence or saddle anesthesia. Ambulates with normal gait without assistive devices.? PFSH Medical History PTSD (post-traumatic stress disorder) Generalized anxiety disorder Personal history of nicotine dependence Emphysema lung COVID-19 vaccine series completed GERD (gastroesophageal reflux disease) Arthritis COPD (chronic obstructive pulmonary disease) Surgical History H/O total hysterectomy History of colonoscopy History of dental surgery History of cholecystectomy History of partial hysterectomy History of tubal ligation Family History Mother GERD (gastroesophageal reflux disease) DVT (deep venous thrombosis) Father HTN (hypertension) Abnormal thyroid hormone metabolism Social History Housing: House Do you presently have visiting nurse or other home services: No Alcohol intake: current Alcohol intake frequency: a few times a week Alcohol type: wine Patient Tobacco Use Status: Former Tobacco user Tobacco use type: Cigarette Years Smoked: onset 15yo, 1ppd x 34yrs, 30pyh - quit 2020) e-Cigarette/Vaping Use: Never Used Second Hand Smoke Exposure: No Substance Use Type: Marijuana service: No Current occupational status: employed 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 Alert and oriented. Mood and affect appropriate. Follows and participates in conversation appropriately. Respiratory effort is unlabored. No cough. Able to transition from sit to stand unassisted. Ambulates with bilaterally normal heel strike and toe off. General: Yes no CVA tenderness Back/Spine/Pelvis Other: Limited lumbar ROM due to pain. Lumbar bending and flexing forward reproduces moderate to severe pain, lumbar extension reproduces mild to moderate pain. Lumbar spine stiffness upon forward flexion with increased discomfort while rising from flexed position. Demonstrates 5/5 strength of quadriceps bilaterally as well as flexion/dorsiflexion of bilateral feet against resistance. 2+ pedal pulses bilaterally. Straight leg rise with dorsiflexion is negative bilaterally. +2 patellar and +1 achilles reflexes bilaterally. Facet loading test positive bilaterally. Santy sign, Yobany?s, Pelvic compression and Stinchfield tests are positive bilaterally. No groin pain with I/E hip rotations. Valsalva maneuver is negative. Back: no CVA tenderness Cervical Spine: cervical ROM normal, cervical muscular tenderness, pain with cervical ROM (left lateral and bending), No Cervical spine tenderness and No step off deformity Thoracic/Lumbar Spine: thoracic and lumbar spine normal to inspection, No Thoracic/lumbar spine scar(s), Lasegue's sign negative, straight leg raise negative bilaterally, pain with thoraco-lumbar ROM, paraspinal muscle tenderness, thoraco-lumbar ROM limited, No thoracic spinal tenderness and lumbar spinal tenderness (L4-S1) Pelvis: buttock tenderness on the right Sacroiliac joints: bilaterally tender to palpation Extrem General: Yes capillary refill normal, Yes no clubbing, cyanosis or edema and Yes no calf tenderness Results Reviewed Results Reviewed: MR lumbar spine without gadolinium 10/30/24 Comparison: None Findings: No scoliosis or spondylolisthesis. No acute fracture or pathologic bone lesion. Cauda equina and conus medullaris within normal limits. No significant spinal canal or foraminal stenoses. There is broad-based degenerative disc bulge at L4-L5 and L5-S1. There is reactive marrow signal changes in the posterior superior L5 vertebra. Paraspinous musculature intact. IMPRESSION: No acute findings. Assessment & Plan Assessment & Plan (1) Lumbosacral spondylosis: Code(s): M47.817 - Spondylosis without myelopathy or radiculopathy, lumbosacral region Category: Medical (2) Lumbar degenerative disc disease: Code(s): M51.369 - Other intervertebral disc degeneration, lumbar region without mention of lumbar back pain or lower extremity pain Category: Medical (3) Vertebrogenic low back pain: Code(s): M54.51 - Vertebrogenic low back pain Category: Medical (4) Muscle spasm of back: Code(s): M62.830 - Muscle spasm of back Category: Medical (5) Chronic low back pain: Code(s): M54.50 - Low back pain, unspecified; G89.29 - Other chronic pain Category: Medical Plan We discussed the presence of degenerative changes at L3 through S1, contributing to the patient's chronic low back pain. I explained the potential benefits of basivertebral nerve ablation as a targeted approach to disrupt pain transmission and alleviate symptoms related to vertebrogenic pain. The patient expressed understanding and a willingness to pursue this plan. She was also guided regarding the pre-authorization process, and optimistic outcomes were communicated given her age and condition specifics. We also reviewed alternative options and continued physical therapy as possible treatment options Proceed with basivertebral nerve ablation at L3, L4, L5, S1 levels to address vertebrogenic pain with sedation and fluoroscopy. Expectations, risks and benefits were reviewed. Patient is aware she will be contacted to schedule this procedure. All questions and concerns have been answered and patient agreed with the treatment plan. Follow-up after BVN ablation (Intracept) and sooner as needed. Patient was informed and verbally consented to the use of an ambient scribe for clinic note documentation during this visit. Coding Level of Care Code Est Pt Level 4 (06895) Complex EM visit Add On G2211 Diagnoses Lumbosacral spondylosis M47.817 Lumbar degenerative disc disease M51.369 Vertebrogenic low back pain M54.51 Muscle spasm of back M62.830 Chronic low back pain M54.50; G89.29
[2024-11-22 14:20] VITALS: BP 141/86; PULSE 71; O2SAT 98; BMI 26.8
== END 2024-11-22 14:52 | disposition home or self-care (01) ==
LOC: HO.PMC 14:04
PROVIDERS: PCP Internal Medicine; Visit Provider Nurse Practitioner Family
DX: M47.817 Spondylosis without myelopathy or radiculopathy, lumbosacral region (principal); M51.369 Other intervertebral disc degeneration, lumbar region without mention of lumbar back pain or lower extremity pain; M54.51 Vertebrogenic low back pain; M62.830 Muscle spasm of back; M54.50 Low back pain, unspecified; G89.29 Other chronic pain
CPT/HCPCS: 99214; G2211

== ENCOUNTER → 2024-11-22 14:03 | Outpatient (BNVA) | payer OTHER, SELFPAY | PROVIDERS: PCP Internal Medicine; Visit Provider Nurse Practitioner Family | DX: M47.817 Spondylosis without myelopathy or radiculopathy, lumbosacral region (principal); M51.369 Other intervertebral disc degeneration, lumbar region without mention of lumbar back pain or lower extremity pain; M54.51 Vertebrogenic low back pain; M54.50 Low back pain, unspecified; G89.29 Other chronic pain; M62.830 Muscle spasm of back | CPT/HCPCS: 99212 ==

== ENCOUNTER 2024-11-23 10:27 | Outpatient (AMB) | payer OTHER, SELFPAY ==
[2024-11-23 10:35] VITALS: BMI 26.8
--- NOTE | 2024-11-23 10:35 | MHC.OFFVIS ---
Vital Signs 11/23/24 10:35 Height 5 ft 4 in Weight 156 lb BMI 26.8 Intake Visit Reasons: Right knee pain and giving way Intake Note: Santa is a 54 year old male who presents with complaints of progressively worsening bilateral knee pains and giving way, right greater than left. She describes her right knee pain as sharp in nature. Most of the pain is along the medial aspect of her knee. She states that her symptoms have gotten worse over the last year. She has failed the last 6 weeks of conservative treatment which has included physical therapy exercises, a home exercise program, Tylenol and anti-inflammatory medicines. She states that her right knee will give out several times per day. Allergies gabapentin Allergy (Unknown, Verified 11/23/24 10:36) Insomnia ibuprofen Adverse Reaction (Intermediate, Verified 11/23/24 10:36) Stomach Upset Medication List - Last Reconciled 11/23/24 by Michael Bardales MD albuterol sulfate 90 mcg/actuation (Ventolin HFA) 2 puffs inhalation RQ6H PRN baclofen 10 mg PO TID PRN 90 days cholecalciferol (vitamin D3) 25 mcg PO DAILY clobetasol 0.05% 1 appl topical DAILY diazepam 2 mg PO TID PRN hydroxyzine HCl 25 mg PO Q6H PRN melatonin 6 mg (2 x 3 mg) PO BEDTIME PRN olanzapine 5 mg PO BID olanzapine 5 mg PO Q4H PRN tizanidine 4 mg PO DAILY@1800 PRN trazodone 50 mg PO BEDTIME MRX1 PRN PFSH Medical History PTSD (post-traumatic stress disorder) Generalized anxiety disorder Personal history of nicotine dependence Emphysema lung COVID-19 vaccine series completed GERD (gastroesophageal reflux disease) Arthritis COPD (chronic obstructive pulmonary disease) Surgical History H/O total hysterectomy History of colonoscopy History of dental surgery History of cholecystectomy History of partial hysterectomy History of tubal ligation Family History Mother GERD (gastroesophageal reflux disease) DVT (deep venous thrombosis) Father HTN (hypertension) Abnormal thyroid hormone metabolism Social History Housing: House Do you presently have visiting nurse or other home services: No Alcohol intake: current Alcohol intake frequency: a few times a week Alcohol type: wine Patient Tobacco Use Status: Former Tobacco user Tobacco use type: Cigarette Years Smoked: onset 15yo, 1ppd x 34yrs, 30pyh - quit 2020) e-Cigarette/Vaping Use: Never Used Second Hand Smoke Exposure: No Substance Use Type: Marijuana service: No Current occupational status: employed 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 Sexual orientation: Straight/Heterosexual Gender identity: Female Cognitive needs: No Hearing needs: No Vision needs: Yes (glasses) Physical Exam Vital Signs: BMI result Body Mass Index 26.8 Const Other: Well-nourished well-developed very friendly female awake alert and oriented x3 in no acute distress Extrem Other: Bilateral lower extremity examination shows good capillary refill, no skin lesions noted, normal sensation light touch Right knee examination shows a minimal effusion, mild crepitus with range of motion, tenderness along her medial joint line, positive Sandrita's test, no instability Results Reviewed Results Reviewed: X-rays of the patient's right knee show mild diffuse joint space narrowing, no acute bony abnormalities Assessment & Plan Assessment & Plan (1) Tear of medial meniscus of right knee: Code(s): S83.241A - Other tear of medial meniscus, current injury, right knee, initial encounter Category: Medical Plan Ms. Frank presents with right knee pain and mechanical symptoms most likely due to a medial meniscus tear. Thus, I will send the patient for an MRI of her right knee for further evaluation. I will see her back following the MRI to discuss the findings and treatment options. Feel free to call me at any time should questions regarding her orthopedic management arise. Thank you very much for asking me to see this very friendly patient. I spent 20 minutes in reviewing the patient's records and imaging studies, seeing the patient and documenting in the medical record. Orders: Orders MR knee RT wo con 11/23/24 S83.241A - Other tear of medial meniscus, current injury, right knee, initial encounter Coding Level of Care Code New Pt Level 3 (95886) Complex EM visit Add On G2211 Diagnoses Tear of medial meniscus of right knee S83.241A
== END 2024-11-23 11:10 | disposition home or self-care (01) ==
LOC: HO.HOS 10:28
PROVIDERS: PCP Internal Medicine; Visit Provider Orthopaedic Surgery
DX: S83.241A Other tear of medial meniscus, current injury, right knee, initial encounter (principal)
CPT/HCPCS: 99203; G2211

== ENCOUNTER → 2024-11-23 10:27 | Outpatient (BNVA) | payer OTHER, SELFPAY | PROVIDERS: PCP Internal Medicine; Visit Provider Orthopaedic Surgery | DX: M25.561 Pain in right knee (principal); M25.562 Pain in left knee; S83.241A Other tear of medial meniscus, current injury, right knee, initial encounter | CPT/HCPCS: 99202 ==

== ENCOUNTER 2024-12-06 08:06 | Outpatient (REF) | payer OTHER, SELFPAY ==
[2024-12-06 12:13] LABS: Free T4 (Free Thyroxine) 0.66 ng/dL (0.71-1.85)
[2024-12-06 12:53] LABS: Cholesterol 258 mg/dL (<200); HDL Cholesterol 61 mg/dL (>40); Triglycerides 205 mg/dL (<150)
== END 2024-12-06 08:07 | disposition home or self-care (01) ==
LOC: HO.HMGCLDS 08:06
PROVIDERS: PCP Internal Medicine
DX: E78.00 Pure hypercholesterolemia, unspecified (principal); R79.89 Other specified abnormal findings of blood chemistry; G56.03 Carpal tunnel syndrome, bilateral upper limbs
CPT/HCPCS: 36415; 80061; 84439; 84443; 99212

== ENCOUNTER 2024-12-06 12:44 | Outpatient (AMB) | payer OTHER, SELFPAY ==
--- NOTE | 2024-12-06 12:49 | MHC.OFFVIS ---
Vital Signs 12/06/24 12:50 Height 5 ft 3 in Weight 164 lb BMI 29.0 Intake Visit Reasons: New Prob:Numbness & tingling B/L hands-EMG Review Intake Note: Santa is a 54 year old right hand dominant female who presents today for a new problem of her bilateral hands paresthesia and EMG review. Patient reports that both hand pain has been going on for years now. Patient states that b/l hands hurt to make a fist, she noted that her right middle finger is a concern for her. EMG/NCS done on 11/16/24 IMPRESSION: Mild bilateral median neuropathy across carpal tunnel. No evidence of radiculopathy. Allergies gabapentin Allergy (Unknown, Verified 12/06/24 12:52) Insomnia ibuprofen Adverse Reaction (Intermediate, Verified 12/06/24 12:52) Stomach Upset PFSH Medical History PTSD (post-traumatic stress disorder) Generalized anxiety disorder Personal history of nicotine dependence Emphysema lung COVID-19 vaccine series completed GERD (gastroesophageal reflux disease) Arthritis COPD (chronic obstructive pulmonary disease) Surgical History H/O total hysterectomy History of colonoscopy History of dental surgery History of cholecystectomy History of partial hysterectomy History of tubal ligation Family History Mother GERD (gastroesophageal reflux disease) DVT (deep venous thrombosis) Father HTN (hypertension) Abnormal thyroid hormone metabolism Social History Housing: House Do you presently have visiting nurse or other home services: No Alcohol intake: current Alcohol intake frequency: a few times a week Alcohol type: wine Patient Tobacco Use Status: Former Tobacco user Tobacco use type: Cigarette Years Smoked: onset 15yo, 1ppd x 34yrs, 30pyh - quit 2019) e-Cigarette/Vaping Use: Never Used Second Hand Smoke Exposure: No Substance Use Type: Marijuana service: No Current occupational status: employed 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 The symptoms are primarily in the hands and have been described as cramping and tingling, particularly worsening at night, causing sleep disturbances. The patient reports that the numbness and tingling come and go during the day but intensify when lying down at night. The patient has been diagnosed with mild carpal tunnel syndrome, which is believed to explain the symptoms from the wrist down but not the forearm or proximal symptoms. The patient also reports swelling in the middle finger, which has been persistent for the past couple of years, although no arthritis was noted on the EMG. The patient denies having diabetes and is not on any blood-thinning medications. She is currently unemployed and awaiting disability for neck and back issues, which are not the focus of this visit. Review of Systems - Neurological: Reports numbness and tingling in hands, particularly at night. Denies persistent numbness. - Musculoskeletal: Reports swelling in the middle finger. Denies arthritis diagnosis. - Endocrine: Denies diabetes. Systems reviewed and are negative except as per HPI and below Physical Exam - Neurological: Normal sensation in the tips of all digits of both hands - Musculoskeletal: No evidence of thenar muscle wasting Results - EMG: Mild carpal tunnel syndrome, no evidence of arthritis Procedure Plan I educated the patient about the condition. I discussed both operative and nonoperative treatment options. The patient would like to proceed with surgery. The risks and benefits of operative treatment were discussed with the patient and the patient wishes to proceed with surgery. These risks include, but are not limited to, risk of damage to blood vessels, nerves, tendons, infection, recurrence, incomplete relief of preoperative symptoms, persistent pain, possible need for further surgery, and the risks associated with regional blocks and/or anesthesia. Plan is to take the patient to the operating room at some point in the next few weeks for the following procedures: 1. Left carpal tunnel release under local All of the preoperative paperwork including the consent was discussed today. All of the patient's questions were answered in the clinic today. The patient understands that they will be in contact with our neurosurgical physician assistant to discuss scheduling their procedure. Patient denies diabetes, blood thinners, asthma, heart issues, lung issues, kidney issues, or current smoking. Discussion Notes I discussed with the patient the diagnosis of carpal tunnel syndrome and the recommended surgical intervention. We reviewed the risks, including injury to blood vessels, nerves, tendons, and bones, as well as infection and the possibility of the surgery not being effective. These risks are considered low for this procedure. The patient was informed about the postoperative care and the importance of not using both hands simultaneously for surgery to maintain daily functionality. The patient agreed to proceed with the surgery, and we discussed the follow-up plan, including the potential for surgery on the other hand if recovery is satisfactory. Patient Instructions - Keep the dressing clean and dry for the first five days after surgery. - Avoid submerging the hand in water for three weeks. - Do not lift anything heavier than a cell phone for four weeks. - Follow up in two weeks for suture removal and assessment. Coding Level of Care Code New Pt Level 4 (62898) Diagnoses Bilateral carpal tunnel syndrome G56.03
[2024-12-06 12:50] VITALS: BMI 29.0
== END 2024-12-06 13:28 | disposition home or self-care (01) ==
LOC: HO.HOS 12:45
PROVIDERS: PCP Internal Medicine
DX: G56.03 Carpal tunnel syndrome, bilateral upper limbs (principal)
CPT/HCPCS: 99214

== ENCOUNTER 2024-12-08 14:31 | Outpatient (AMB) | payer OTHER, SELFPAY ==
--- NOTE | 2024-12-08 14:38 | MHC.PC.OV ---
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 Secret Service Required: No Accompanied by: Self / Same As Patient Allergies gabapentin Allergy (Unknown, Verified 12/08/24 14:58) Insomnia ibuprofen Adverse Reaction (Intermediate, Verified 12/08/24 14:58) Stomach Upset Medication List - Last Reconciled 12/08/24 by Katie Mcginnis PA-C albuterol sulfate 90 mcg/actuation (Ventolin HFA) 2 puffs inhalation RQ6H PRN baclofen 10 mg PO TID PRN 90 days cholecalciferol (vitamin D3) 25 mcg PO DAILY clobetasol 0.05% 1 appl topical DAILY diazepam 2 mg PO TID PRN hydroxyzine HCl 25 mg PO Q6H PRN melatonin 6 mg (2 x 3 mg) PO BEDTIME PRN olanzapine 5 mg PO BID olanzapine 5 mg PO Q4H PRN tizanidine 4 mg PO DAILY@1800 PRN trazodone 50 mg PO BEDTIME MRX1 PRN Tobacco use date assessed: 12/08/24 Dental Screening Dental Screen Date: 12/08/24 HPI annual exam HPI Details 54-year-old female with past medical history of PTSD, anxiety, GERD, COPD, impaired glucose tolerance, Graves disease and generalized anxiety disorder last seen 08/2024 coming to the office for annual exam. Presenting for an annual wellness visit and management of chronic conditions. Left-sided abdominal spasms unrelieved by muscle relaxants, with a history of diverticulitis. Reports weight gain, possibly related to lifestyle and menopause. Experiences GERD symptoms which were previously managed with dietary modification, advised to try omeprazole. colonoscopy: 2021 repeat in 10 years pap smear: overdue for annual exam - does not have cervix vaccines: UTD mammogram: 2022 overdue [facility] Medical History PTSD (post-traumatic stress disorder) Generalized anxiety disorder Personal history of nicotine dependence Emphysema lung COVID-19 vaccine series completed GERD (gastroesophageal reflux disease) Arthritis COPD (chronic obstructive pulmonary disease) Surgical History H/O total hysterectomy History of colonoscopy History of dental surgery History of cholecystectomy History of partial hysterectomy History of tubal ligation Family History Mother GERD (gastroesophageal reflux disease) DVT (deep venous thrombosis) Father HTN (hypertension) Abnormal thyroid hormone metabolism Social History Housing: House Do you presently have visiting nurse or other home services: No Alcohol intake: current Alcohol intake frequency: a few times a week Alcohol type: wine Patient Tobacco Use Status: Former Tobacco user Tobacco use type: Cigarette Years Smoked: onset 15yo, 1ppd x 34yrs, 30pyh - quit 2020) e-Cigarette/Vaping Use: Never Used Second Hand Smoke Exposure: No Substance Use Type: Marijuana service: No Current occupational status: employed 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 1. Little interest or pleasure in doing things: nearly every day 2. Feeling down, depressed, or hopeless: nearly every day 3. Trouble falling or staying asleep, or sleeping too much: nearly every day 4. Feeling tired or having little energy: nearly every day 5. Poor appetite or overeating: nearly every day 6. Feeling bad about yourself - or that you are a failure or have let yourself or your family down: nearly every day 7. Trouble concentrating on things, such as reading the newspaper or watching television: nearly every day 8. Moving or speaking so slowly that other people could have noticed. Or the opposite - being so fidgety or restless that you have been moving around a lot more than usual: nearly every day 9. Thoughts that you would be better off or of hurting yourself in some way: nearly every day Total score: 27 Depression Screening Interpretation: Positive Depression Screening Follow-up: Existing condition and In treatment Depression Screening Done: Yes 29580 - PHQ-9 Billing: Yes Source: Developed by Drs. Abundio Kirkpatrick, Elier Caba and colleagues, with an educational angélica from [employer]. Thrive Questionnaire Date Thrive assessed: 12/08/24 I am a: Patient What is your living situation today?: I have a place to live, but I am worried about losing it in the future Within the past 12 months, did the food you bought not last and you didn't have the money to get more?: I choose not to answer this question Within the past 12 months, did you worry whether your food would run out before you got money to buy more?: Often true Do you have trouble paying for medicines?: I choose not to answer this question Do you have trouble getting transportation to medical appointments?: Yes Do you have trouble paying your heating and electricity bill?: Yes Do you have trouble taking care of your child, family member or friend?: I choose not to answer this question Do you have trouble with day-to-day activities such as bathing, preparing meals, shopping, managing finances, etc.?: Yes Are you currently unemployed and looking for a job?: I choose not to answer this question Are you interested in more education?: I choose not to answer this question THRIVE Score: 4 AUDIT C Alcohol Use Questionnaire (AUDIT-C) 1. How often do you have a drink containing alcohol?: Never 3. How often do you have six or more drinks on one occasion?: Never Total Score: 0 ALISA-7 AMB Questionnaire ALISA-7 Date ALISA - 7 assessed: 12/08/24 Feeling nervous, anxious, or on edge: 3 = Nearly every day Not being able to stop or control worryin = Nearly every day Worrying too much about different things: 3 = Nearly every day Trouble relaxin = Nearly every day Being so restless that it is hard to sit still: 3 = Nearly every day Becoming easily annoyed or irritable: 3 = Nearly every day Feeling afraid as if something awful might happen: 3 = Nearly every day Total ALISA-7 score (0-4 normal; 5-9 mild; 10-14 moderate; 15-21 severe): 21 Source: Developed by Drs. Abundio Kirkpatrick, Elier Caba and colleagues, with an educational angélica from [employer]. ALISA-7 Assessment Billing ALISA-7 Assessment Tool: ALISA-7 Assessment 18371 Review of Systems Const Denies body aches, Denies fatigue, Denies fever(s), Denies frequent falls, Denies headache(s) and Denies weakness Eyes Reports no additional complaints, Denies change in vision and Reports requires corrective lenses ENT Denies dysphagia, Denies dizziness, Denies headache(s) and Denies odynophagia Card Denies chest pain, Denies syncope, Reports irregular heart rhythm, Denies leg edema, Denies lightheadedness and Denies dyspnea Resp Denies cough and Denies dyspnea GI Details: left flank pain Denies abdominal pain, Denies constipation, Denies dysphagia, Reports dyspepsia, Reports heartburn, Denies diarrhea, Reports nausea, Denies odynophagia and Denies vomiting Denies urinary frequency, Denies dysuria, Denies urinary hesitancy and Denies urinary urgency Musc Denies back pain and Denies myalgias Skin/Breast Reports system reviewed and no additional complaints, except as documented Neuro Denies dizziness, Denies syncope, Denies frequent falls, Denies headache(s) and Denies weakness Psych Reports no additional complaints Endo Denies fatigue Physical exam (Primary Care) Vital Signs: Last Vital Signs Temp 97.3 F 12/08/24 14:40 Pulse 92 12/08/24 14:40 BP 110/70 12/08/24 14:40 Pulse Ox 98 12/08/24 14:40 Oxygen Delivery Method Room Air 12/08/24 14:40 BMI result Body Mass Index 28.9 Tobacco/Smoking Status: Tobacco use Status Tobacco use date assessed 12/08/24 12/08/24 14:41 Patient Tobacco Use Status Former Tobacco user 12/08/24 14:41 Tobacco use type Cigarette 12/08/24 14:41 e-Cigarette/Vaping Use Never Used 12/08/24 14:41 PHQ-9: PHQ-9 Score PHQ-9: Total score 27 12/08/24 14:58 Depression Screening Interpretation: Positive Depression Screening Follow-up: Existing condition and In treatment Thrive Assessment: Date of Thrive Assessment Date Thrive assessed 12/08/24 12/08/24 14:41 Const General: cooperative, healthy appearing, comfortable and no acute distress Orientation/consciousness: patient oriented x3 HENMT Head: Yes normocephalic Ears: hearing grossly normal bilaterally, external ears normal, TM's normal bilaterally and EAC's normal General nose exam: Normal external nose present Face and sinus: Yes normal facial exam and Yes sinuses nontender Mouth: Normal oral and palatal mucosa present and tongue normal Throat: Yes posterior oropharynx normal Eyes General: appearance normal, both eyes and all related structures Conjunctivae: conjunctivae normal Pupils: Equal, round and reactive pupils present EOM: EOMs intact bilaterally and No Nystagmus present Neck Neck: Yes normal visual inspection, Yes full ROM and Yes no lymphadenopathy Chest Chest palpation & inspection: normal inspection of the chest Resp Effort & Inspection: normal respiratory effort Auscultation: clear to auscultation bilaterally, no crackles, no rales, no rhonchi, no wheezes and breath sounds present Cardio Rate: regular rate Rhythm: regular rhythm Peripheral pulses: radial pulses present and dorsalis pedis present GI Other: Left flank tenderness Inspection: Yes normal to inspection and No Abdominal wall edema Palpation (GI): Soft to palpation, not firm and nontender Auscultation: normal bowel sounds Rectal Exam - Female: deferred General: Yes no CVA tenderness Back/Spine/Pelvis Back: no CVA tenderness Skin General skin exam: no rashes or lesions noted Neuro General: patient oriented x3 Cranial nerves: Yes Equal, round and reactive pupils present, Yes Midline tongue present, Yes Ability to bilaterally elevate shoulders present and No Nystagmus present Gait exam (Neuro): Normal gait present Extrem General: Yes normal to inspection, Yes full ROM, No no pedal edema and No edema Psych Speech and movement: Normal speech and movement present Affect: normal affect Insight: Good insight present (Psych) Judgement: Good judgement present (Psych) Coding Level of Care Code Est Pt Prev Care 40-64y(92408) Diagnoses Annual physical exam Z00.00 Generalized anxiety disorder F41.1 PTSD (post-traumatic stress disorder) F43.10 Hypercholesterolemia E78.00 Bilateral knee pain M25.561; M25.562 Syncopal episodes R55 Intermittent palpitations R00.2 Impaired fasting glucose R73.01 COPD (chronic obstructive pulmonary disease) J44.9 Graves disease E05.00 GERD (gastroesophageal reflux disease) K21.9 Cervical radiculopathy M54.12 Lumbar degenerative disc disease M51.369 Bilateral carpal tunnel syndrome G56.03 Overweight (BMI 25.0-29.9) E66.3 Left flank pain R10.9 Additional Codes ALISA-7 Assessment Billing - ALISA-7 Assessment Tool: ALISA-7 Assessment 49583 ([id number]) PHQ-9 - 86393 - PHQ-9 Billing: Yes ([id number]) Assessment & Plan Assessment & Plan (1) Annual physical exam: Code(s): Z00.00 - Encounter for general adult medical examination without abnormal findings Category: Medical Plan: She is overdue for her mammogram and orders have been placed today. She is up to date on her colonoscopy and is no longer having pap smears. Healthy diet and regular exercise is encouraged. Blood work is up to date and has been reviewed with the patient today. (2) Generalized anxiety disorder: Code(s): F41.1 - Generalized anxiety disorder Category: Medical Plan: She was recently hospitilized for management of mental health. She is being seen by [facility] every Friday and she will work on establishing with a med provider through their practice. (3) PTSD (post-traumatic stress disorder): Code(s): F43.10 - Post-traumatic stress disorder, unspecified Category: Medical Plan: See above plan (4) Hypercholesterolemia: Code(s): E78.00 - Pure hypercholesterolemia, unspecified Category: Medical Plan: Avoid foods that are high in cholesterol such as red meat, fried foods, eggs and baked goods. Triglyceride goal of less than 150 and LDL goal of less than 130. Plan to start on low-dose atorvastatin for better cholesterol management and repeat labs in 3 months (5) Bilateral knee pain: Code(s): M25.561 - Pain in right knee; M25.562 - Pain in left knee Category: Medical Plan: Patient having chronic bilateral knee pain for the last several years. Orthopedic appointment is coming up after MRI of knees to evaluate for meniscus tear. (6) Syncopal episodes: Code(s): R55 - Syncope and collapse Category: Medical Plan: Patient having suspected syncopal episode 2 months ago. Blood work and EKG are normal. She has appt with cardiology in January. (7) Intermittent palpitations: Code(s): R00.2 - Palpitations Category: Medical Plan: Patient has a long history of intermittent palpitations and has had workup in the past years including various EKGs and Holter monitor all revealing normal sinus rhythm. Appt with cardiology in January. (8) Impaired fasting glucose: Code(s): R73.01 - Impaired fasting glucose Category: Medical Plan: Decrease the amount of carbohydrates such as pasta, bread, rice, and potatoes and limit the amount of sweets. Although fruits are generally healthy they should be eaten in moderation as they are still high in sugar. (9) COPD (chronic obstructive pulmonary disease): Code(s): J44.9 - Chronic obstructive pulmonary disease, unspecified Category: Medical Plan: Advised patient to reach out to pulmonology to schedule follow up. (10) Graves disease: Code(s): E05.00 - Thyrotoxicosis with diffuse goiter without thyrotoxic crisis or storm Category: Medical Plan: history of Graves and was previously seeing Dr. Sheffield. She was discharged from their practice and advised to monitor TSH every 6 months if exceeds 10 then start 75mcg Levothyhroxine or refer back to endo. (11) GERD (gastroesophageal reflux disease): Code(s): K21.9 - Gastro-esophageal reflux disease without esophagitis Category: Medical Plan: Avoid trigger foods such as citrus, tomato products, soda, caffeine, spicy foods and other foods that may be irritating to your stomach. Avoid laying flat 3-4 hours after eating and elevate the head of the bed 30 degrees to prevent acid from moving into the esophagus. Restart on Omeprazole 20mg (12) Cervical radiculopathy: Code(s): M54.12 - Radiculopathy, cervical region Category: Medical Plan: Seeing pain management for the back and neck and has been finding this helpful. (13) Lumbar degenerative disc disease: Code(s): M51.369 - Other intervertebral disc degeneration, lumbar region without mention of lumbar back pain or lower extremity pain Category: Medical Plan: See above. (14) Bilateral carpal tunnel syndrome: Code(s): G56.03 - Carpal tunnel syndrome, bilateral upper limbs Category: Medical Plan: Scheduled to have CTR with [facility] [place] in January. (15) Overweight (BMI 25.0-29.9): Code(s): E66.3 - Overweight Category: Medical Plan: Healthy diet and regular exercise is encouraged. Referral was placed to longwall shearer operator today (16) Left flank pain: Code(s): R10.9 - Unspecified abdominal pain Category: Medical Plan: Patient could not provide urine sample in the office today. Placed order for urinalysis with culture she agrees to have it done tomorrow morning at the [place] location. If urinalysis is negative likely muscular. Plan The patient will undergo further evaluation for the visual disturbance, and a urine test will be conducted to rule out a urinary tract infection related to the left-sided abdominal spasms. Anxiety management will continue with weekly sessions, and establishing a medication provider at [facility] is recommended. Hyperlipidemia will be addressed with a low-dose statin, and cholesterol levels will be reassessed in three months. Thyroid levels will be monitored due to the patient's history of Graves' disease, with potential adjustments in consultation with an incinerator operator. Weight management strategies, including dietary changes and exercise, will be discussed with a longwall shearer operator to address weight gain and menopausal symptoms. For GERD, the patient will try omeprazole, starting with a 20 mg dose once daily, with the option to increase to twice daily if needed. Preventative care measures include scheduling a mammogram and ensuring vaccinations are up to date. This note was constructed using voice recognition software. While every effort has been made to ensure accuracy and online project manager, still areas may have been included sometimes these areas may affect the content or meeting of the given symptoms. Total time spent caring for the patient today was 45 minutes. This includes time spent before the visit reviewing the chart, time spent during the visit, and time spent after the visit and documentation. Patient was informed and verbally consented to the use of an ambient scribe for clinic note documentation during this visit. Orders: Orders Lipid Panel 3 Months E78.00 - Pure hypercholesterolemia, unspecified MM tomosynthesis screening BI Today Z12.31 - Encounter for screening mammogram for malignant neoplasm of breast AMB Urinalysis Dipstick Today Z13.9 - Encounter for screening, unspecified UA CC w/rflx Micro + Cult Today R35.89 - Other polyuria Referrals Optometry Referral Z00.00 - Encounter for general adult medical examination without abnormal findings Candy Maker Helper Nutrition Referral E66.3 - Overweight Medications: New atorvastatin (Lipitor) 10 mg PO BEDTIME 90 tabs 1RF omeprazole 20 mg PO DAILY 90 caps 0RF
[2024-12-08 14:40] VITALS: BP 110/70; PULSE 92; TEMP 36.3; O2SAT 98; BMI 28.9
== END 2024-12-08 15:44 | disposition home or self-care (01) ==
LOC: HO.HMCH 14:32
PROVIDERS: PCP Internal Medicine
DX: Z00.00 Encounter for general adult medical examination without abnormal findings (principal); F41.1 Generalized anxiety disorder; J44.9 Chronic obstructive pulmonary disease, unspecified; F43.10 Post-traumatic stress disorder, unspecified; E78.00 Pure hypercholesterolemia, unspecified; M25.561 Pain in right knee; M25.562 Pain in left knee; R55 Syncope and collapse; R00.2 Palpitations; R73.01 Impaired fasting glucose; E05.00 Thyrotoxicosis with diffuse goiter without thyrotoxic crisis or storm; K21.9 Gastro-esophageal reflux disease without esophagitis

== ENCOUNTER → 2024-12-08 14:31 | Outpatient (BNVA) | payer OTHER, SELFPAY | PROVIDERS: PCP Internal Medicine | DX: Z00.00 Encounter for general adult medical examination without abnormal findings (principal); F41.1 Generalized anxiety disorder; F43.10 Post-traumatic stress disorder, unspecified; E78.00 Pure hypercholesterolemia, unspecified; M25.561 Pain in right knee; M25.562 Pain in left knee; R55 Syncope and collapse; R00.2 Palpitations; R73.01 Impaired fasting glucose; J44.9 Chronic obstructive pulmonary disease, unspecified; E05.00 Thyrotoxicosis with diffuse goiter without thyrotoxic crisis or storm; K21.9 Gastro-esophageal reflux disease without esophagitis; M54.12 Radiculopathy, cervical region; M51.369 Other intervertebral disc degeneration, lumbar region without mention of lumbar back pain or lower extremity pain; G56.03 Carpal tunnel syndrome, bilateral upper limbs; E66.3 Overweight; R10.9 Unspecified abdominal pain; Z13.31 Encounter for screening for depression; Z13.30 Encounter for screening examination for mental health and behavioral disorders, unspecified | CPT/HCPCS: 96127; 99396 ==

== ENCOUNTER 2024-12-10 07:57 | Outpatient (REF) | payer OTHER, SELFPAY ==
[2024-12-10 10:36] LABS: Appearance Urine Clear; Glucose Urine UA Negative (Negative); PH 7.0 (5.0-9.0); Specific Gravity - Urine <= 1.005 (1.005-1.025); UMIC TRIGGER UACC YES
== END 2024-12-10 07:58 | disposition home or self-care (01) ==
LOC: HO.HMGCLDS 07:57
DX: R35.89 Other polyuria (principal)
CPT/HCPCS: 81001

== ENCOUNTER 2024-12-23 13:23 | Day surgery (SDC) | payer OTHER, SELFPAY ==
--- NOTE | 2024-12-23 10:24 | W.PM.OPN ---
Operative Note Operative Note Date of Service: 12/23/24 Narrative: Preop diagnosis: 1. Left Carpal tunnel syndrome Postop diagnosis: same Procedure: 1. Left Carpal tunnel release Surgeon: Italia Mackenzie MD Street Light Inspector: Brent ALVAREZ Anesthesia: local block using 1% lidocaine with epinephrine Findings: Thickened transverse carpal ligament. EBL: Less than 5 mL Specimens: None Complications: None Disposition: Brought to recovery room in stable condition Plan: Follow-up for 10-14 days for wound check and suture removal Indications: The patient is 54 years old, with left carpal tunnel syndrome that has been unresponsive to nonoperative management. The risks and benefits of operative treatment including but not limited to risk of damage to blood vessels, nerves, tendons, infection, persistent pain, persistent symptoms, or possible need for additional surgery were discussed with the patient and the patient wishes to proceed with surgery. Procedure: Once consent was obtained a local block was performed using a combination of 1% lidocaine with epinephrine. The patient was then brought back to the operating suite and placed on the operative table in supine position. The left upper extremity was prepped and draped in a standard surgical fashion. Once assured that we had a good block, a 2.0 cm longitudinal incision was made centered over the carpal tunnel. The incision was made through the skin to the subcutaneous tissues using a #15 blade. Dissection was made down to the level of the transverse carpal ligament with care being taken to protect the palmar cutaneous nerve. Once the transverse carpal ligament was clearly visualized, a longitudinal incision was made in the transverse carpal ligament 1st using a #15 blade, then using tenotomy scissors under direct visualization. Care was taken to look for and protect the motor branch of the median nerve when seen in this area. Once satisfied with our carpal tunnel release the wound was copiously irrigated with normal saline and hemostasis was obtained with a brief period of local pressure. The skin edges were reapproximated with some 5.0 nylon suture material and a sterile dressing was applied. The patient appears to have tolerated the procedure well and with no complications. All digits were well vascularized at the conclusion of the case.
[2024-12-23 13:34] VITALS: BMI 29.2
[2024-12-23 13:37] VITALS: BP 114/73; PULSE 76; RESP 16; TEMP 36.8; O2SAT 97
--- NOTE | 2024-12-23 14:26 | MHC.SHP ---
Pre-Procedural Eval Section A - 24 Hr Update-Section A only Date of Service: 12/23/24 The patient is an INPATIENT: No Changes since office visit: No Cold of Flu in the past 2 weeks, No New Medical Problems, No Changes in Medication and No Patient answered all questions The patient has been examined within 24 hours of the surgical procedure. The History & Physical has been completed within 30 days and I have reviewed it.: Yes Section B - Complete if H&P > 30 days Chief Complaint: Carpal tunnel syndrome, left upper limb Allergies: Allergies Allergy/AdvReac Type Severity Reaction Status Date / Time gabapentin Allergy Intermediate Insomnia Verified 12/23/24 13:33 ibuprofen AdvReac Intermediate Stomach Verified 12/23/24 13:33 Upset Plan Diagnosis/Plan: Unchanged I have reviewed the history and physical and performed a pertinent physical examination on my patient. No changes have occurred unless specified. Time Spent With Patient Time: Total time managing care of this patient today ____ minutes.
[2024-12-23 14:43] VITALS: BP 113/71; PULSE 68; RESP 16; O2SAT 96
== END 2024-12-23 15:19 | disposition home or self-care (01) ==
PROVIDERS: PCP Internal Medicine; Visit Provider Orthopaedic Surgery
PROC: (CPT 64721; principal; 2024-12-23 15:10)
DX: G56.02 Carpal tunnel syndrome, left upper limb (principal); R20.0 Anesthesia of skin; R20.2 Paresthesia of skin; J44.9 Chronic obstructive pulmonary disease, unspecified; K21.9 Gastro-esophageal reflux disease without esophagitis; F41.1 Generalized anxiety disorder; M19.90 Unspecified osteoarthritis, unspecified site; F43.10 Post-traumatic stress disorder, unspecified; Z88.6 Allergy status to analgesic agent; Z88.8 Allergy status to other drugs, medicaments and biological substances; Z87.891 Personal history of nicotine dependence; Z98.890 Other specified postprocedural states; Z56.0 Unemployment, unspecified
CPT/HCPCS: 64721; J0165; J2003; J2004

== ENCOUNTER → 2024-12-23 13:23 | Outpatient (BNV) | payer OTHER, SELFPAY | PROVIDERS: PCP Internal Medicine; Visit Provider Orthopaedic Surgery | DX: G56.02 Carpal tunnel syndrome, left upper limb (principal) | CPT/HCPCS: 64721 ==

== ENCOUNTER → 2024-12-31 07:13 | Outpatient (BNV) | payer OTHER, SELFPAY | PROVIDERS: Visit Provider Radiology Diagnostic Radiology | DX: M17.11 Unilateral primary osteoarthritis, right knee (principal) | CPT/HCPCS: 73721 ==

== ENCOUNTER 2024-12-31 07:16 | Outpatient (REF) | payer OTHER, SELFPAY ==
--- NOTE | ~2024-12-31 | MR_ITS ---
EXAM: MRI LOWER EXTREMITY JOINT, KNEE, LEFT TECHNIQUE: Multiplanar multisequence MR imaging performed through the left knee without contrast. INDICATION: Right knee pain, mostly medial, chronic PRIOR: X-ray on October 15, 2024 FINDINGS: Menisci: Lateral Meniscus: Intact Medial Meniscus: Intact ACL/PCL: ACL is intact. PCL is intact. There is a multiloculated cystic lesion is recommended PCL, likely ganglion or synovial cyst. Extensor mechanism: There is a physiologic volume of joint fluid. There is no fat pad edema. Tendons are intact and unremarkable. MCL/LCL: Proximal fibers of superficial MCL are minimally thickened with mildly increased signal. LCL complex is within normal limits. There is trace fluid signal between impacted and lateral femoral condyle. Articular cartilage: Patellofemoral Compartment: Very shallow surface defect 5 mm wide is present in the middle third patella, lateral facet, grade II chondromalacia Trochlear cartilage is intact. Lateral Compartment: Lateral compartment articular cartilage is intact. Medial Compartment: There is a full-thickness fissure in the articular cartilage centrally appearing region of the medial femoral condyle with adjacent reactive marrow signal change. Toward the notch side of the medial femoral condyle there is a 6 mm partial thickness articular cartilage defect involving less than half of the thickness. On the left side of this defect, there is a fracture that extends through nearly the full-thickness of the articular cartilage. Tibial cartilage is intact. Bones/Marrow: 6 mm low signal focus in the far medial aspect of medial femoral condyle is consistent with a benign bone island. There is a smaller similar lesion in the lateral femoral condyle. There is a marginal osteophyte involving the right side of the medial femoral condyle. Soft tissues: There is no mass, fluid collection, muscle edema, or fatty infiltration. MR/MR knee RT wo con IMPRESSION: Medial compartment osteoarthritis: Irregular articular cartilage defects in the central weightbearing region the medial femoral condyle with areas of full-thickness or near full-thickness fissuring with adjacent reactive marrow signal change. Additionally, there is a marginal osteophyte, not side of the medial femoral condyle. Finally, there is a 5 mm area of grade II chondromalacia involving the middle third patella, lateral facet. Chronic changes in proximal superficial MCL related to a remote sprain. There is a ganglion or synovial cyst encircling PCL. Minimal edema like signal interposed between IT band lateral femoral condyle is probably not clinically significant. Correlate for signs symptoms of IT band friction syndrome. Electronically signed by: Deandre Graff MD 12/31/2024 09:57 AM EDT RP
== END 2024-12-31 07:17 | disposition home or self-care (01) ==
LOC: HO.MRI 07:16
PROVIDERS: Visit Provider Orthopaedic Surgery
DX: S83.241A Other tear of medial meniscus, current injury, right knee, initial encounter (principal)
CPT/HCPCS: 73721

== ENCOUNTER 2025-01-05 13:02 | Outpatient (AMB) | payer OTHER, SELFPAY ==
--- NOTE | 2025-01-05 13:13 | A.OFFVIS_ITS ---
Vital Signs 01/05/25 13:22 Height 5 ft 3 in Weight 165 lb BMI 29.2 Intake Visit Reasons: PO LT CTR 12/23/24 AR Intake Note: Santa is a 54 year old right hand dominant female who presents today for their first post-operative visit status post left carpal tunnel release, DOS: 12/23/[address] Mackenzie. Patient reports she is doing well. Denies numbness, tingling, finger locking. Patient is not taking any pain medications at this time. Sutures removed and steri strips applied. Allergies gabapentin Allergy (Intermediate, Verified 01/05/25 13:23) Insomnia ibuprofen Adverse Reaction (Intermediate, Verified 01/05/25 13:23) Stomach Upset HPI HPI PO LT CTR 12/23/24 AR: Details: Santa is a 54 year old right hand dominant female who presents today for their first post-operative visit status post left carpal tunnel release, DOS: 12/23/[address] Mackenzie. Patient reports she is doing well. Denies numbness, tingling, finger locking. Patient is not taking any pain medications at this time. Sutures removed and steri strips applied. FOR[facility]LY [facility], [facility] Medical History (Updated 12/30/24 @ 08:07 by Karolyn Bragg PA-C) PTSD (post-traumatic stress disorder) Generalized anxiety disorder Personal history of nicotine dependence Emphysema lung COVID-19 vaccine series completed GERD (gastroesophageal reflux disease) Arthritis COPD (chronic obstructive pulmonary disease) Surgical History H/O total hysterectomy History of colonoscopy History of dental surgery History of cholecystectomy History of partial hysterectomy History of tubal ligation Family History Mother GERD (gastroesophageal reflux disease) DVT (deep venous thrombosis) Father HTN (hypertension) Abnormal thyroid hormone metabolism Social History Housing: House Do you presently have visiting nurse or other home services: No Alcohol intake: current Alcohol intake frequency: a few times a week Alcohol type: wine Comment: COUNTS CORRECT Patient Tobacco Use Status: Former Tobacco user Tobacco use type: Cigarette Years Smoked: onset 15yo, 1ppd x 34yrs, 30pyh - quit 2019) e-Cigarette/Vaping Use: Never Used Second Hand Smoke Exposure: No Substance Use Type: Marijuana service: No Current occupational status: employed 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 Good APB muscle firing and good finger cross. Vascular: Capillary refill brisk. ROM: Patient can make a fist and extend all their digits. Skin: Well approximated and well healing incision site noted on the volar left wrist No lacerations or abrasions noted. General: No ecchymosis. No erythema or evidence of infection. Results Reviewed Results Reviewed: IMPRESSION: Mild bilateral median neuropathy across carpal tunnel. No evidence of radiculopathy. Jacky Hameed MD Assessment & Plan Assessment & Plan (1) Bilateral carpal tunnel syndrome: Code(s): G56.03 - Carpal tunnel syndrome, bilateral upper limbs Category: Medical Plan 1. Right carpal tunnel syndrome Symptoms intermittent, daily, worse at night I educated the patient about the condition. I discussed both operative and nonoperative treatment options. The patient would like to proceed with surgery. The risks and benefits of operative treatment were discussed with the patient and the patient wishes to proceed with surgery. These risks include, but are not limited to, risk of damage to blood vessels, nerves, tendons, infection, recurrence, incomplete relief of preoperative symptoms, persistent pain, possible need for further surgery, and the risks associated with regional blocks and/or anesthesia. Plan is to take the patient to the operating room at some point in the next few weeks for the following procedures: 1. Right carpal tunnel release under local All of the preoperative paperwork including the consent was discussed today. All of the patient's questions were answered in the clinic today. The patient understands that they will be in contact with our tapper bit to discuss scheduling their procedure. Patient denies diabetes, blood thinners, asthma, heart issues, lung issues, kidney issues, or current smoking. 2. Status post left carpal tunnel release DOS 12/23/2024 Patient appears to be recovering very well postoperatively Patient is educated about the typical recovery course Patient is educated on the particular restrictions of the next 2 weeks, particularly no under water or dirty activities for one-week any 2 lb weight limit for a further 2 weeks No acute follow-up indicated, as patient appears to be recovering very well Patient understands this is amenable to this plan Coding Level of Care Code Est Pt Level 4 (47659) Diagnoses Bilateral carpal tunnel syndrome G56.03
[2025-01-05 13:22] VITALS: BMI 29.2
== END 2025-01-05 13:48 | disposition home or self-care (01) ==
LOC: HO.HOS 13:03
PROVIDERS: PCP Internal Medicine
DX: G56.03 Carpal tunnel syndrome, bilateral upper limbs (principal)
CPT/HCPCS: 99214

== ENCOUNTER → 2025-01-05 13:02 | Outpatient (BNVA) | payer OTHER, SELFPAY | PROVIDERS: PCP Internal Medicine | DX: G56.03 Carpal tunnel syndrome, bilateral upper limbs (principal) | CPT/HCPCS: 99212 ==

== ENCOUNTER 2025-01-27 07:30 | Outpatient (AMB) | payer OTHER, SELFPAY ==
--- OUTSIDE RECORDS SUMMARY | 2025-01-27 07:33 | XMS_ITS | Encounter Summary ---
Author Organization [facility] Address [address] [place] [address] Care Team Providers Care Shirt Creaser Name Role Phone Lacey Rivas MD Primary Care Provider [phone] Reason for Visit * Reason Onset Date Comments Mammography Outreach 05/07/2019 Encounter Details Date Type Department Care Team Description 05/07/2019 Telephone Adult Medicine [address] [phone] Madeleine Morgan PA-C [address] [place] [address] [phone] Mammography Outreach Social History Tobacco Use Types [...] on filedocumented in this encounter Care Teams Shirt Creaser Relationship Specialty Start Date End Date Lacey Rivas MD [address] [place], [place] [phone] PCP - General Internal Medicine 06/15/15 documented as of this encounter
--- OUTSIDE RECORDS SUMMARY | 2025-01-27 07:33 | XMS_ITS | Encounter Summary ---
Author Organization [facility] Address [address] [place] [address] Care Team Providers Care Cvicu Nurse Name Role Phone Lacey Rivas MD Primary Care Provider [phone] Encounter Details Date Type Department Care Team Description 05/10/2019 Orders Only Adult Medicine [facility] [address] [place] [phone] Madeleine Morgan PA-C [address] [place] [address] [phone] Leukocytosis, unspecified type (Primary Dx) Social History [...] Primary documented in this encounter Care Teams Cvicu Nurse Relationship Specialty Start Date End Date Lacey Rivas MD [address] [place] [phone] PCP - General Internal Medicine 06/15/15 documented as of this encounter
--- OUTSIDE RECORDS SUMMARY | 2025-01-27 07:33 | XMS_ITS | Encounter Summary ---
Author Organization [facility] Address [address] [place] [address] Care Team Providers Care Dry Cell Battery Assembler Name Role Phone Lacey Rivas MD Primary Care Provider [phone] Reason for Visit * Reason Onset Date Comments Call From Office 08/02/2016 Encounter Details Date Type Department Care Team Description 08/02/2016 Telephone Adult Medicine [address] [phone] Lacey Rivas MD [address] [place] [address] [phone] Call From Md Office Social History Tobacco [...] 08/02/2016 9:39 AM EST KAYLIN Brandon from [facility] was calling to inform Wilbert Bonilla that the pt no showed her appointment.They have tried to contact her to reschedule but they are unable to reach her. documented in this encounter Plan of Treatment Not on file documented as of this encounter Visit Diagnoses Not on filedocumented in this encounter Care Teams Dry Cell Battery Assembler Relationship Specialty Start Date End Date Lacey Rivas MD [address] [place] [phone] PCP - General Internal Medicine 06/15/15 documented as of this encounter
--- OUTSIDE RECORDS SUMMARY | 2025-01-27 07:33 | XMS_ITS | Encounter Summary ---
Author Organization [facility] Address [address] [place] [address] Care Team Providers Care Band Saw Operator Cake Cutting Name Role Phone Lacey Rivas MD Primary Care Provider [phone] Encounter Details Date Type Department Care Team Description 11/10/2020 Refill Adult Medicine [address] [phone] Lacey Rivas MD [address] [place] [address] [phone] Social History Tobacco Use Types Packs/Day Years [...] on filedocumented in this encounter Care Teams Band Saw Operator Cake Cutting Relationship Specialty Start Date End Date Lacey Rivas MD [address] [place] [address] [phone] PCP - General Internal Medicine 06/15/15 documented as of this encounter
--- OUTSIDE RECORDS SUMMARY | 2025-01-27 07:33 | XMS_ITS | Clinical Summary ---
Author Organization [facility] Address [address] [place] [address] Care Team Providers Care Metal Sprayer Production Name Role Phone Lacey Rivas MD Primary Care Provider [phone] Allergies No known active allergies Medications Medication [...] Family History Medical History Relation Name Comments CT Aunt 1 40s skin cancer Aunt 2 Hypothyroid Maternal Grandmother Colon Polyps Mother ??>[address] Paternal Grandfather 55 thyroid dysfunction Paternal Grandmother [...] 81 07/02/2021 11:25 AM EST Temperature 36.5 C (97.7 F) 07/02/2021 11:25 AM EST Respiratory Rate 12 07/02/2021 11:25 AM EST [...] (1 of 2) 2021 MAMMOGRAM 02/17/2022 02/17/2021, 02/10/2016, 04/05/2016, Additional history exists Covid-19 Vaccine ( - 2022-2 4 season) 2024 10/18/2020, 09/27/2020 BMI CHECK/ADVISE 06/02/2024 01/10/2021, 04/2019, 07/19/2016, Additional history exists INFLUENZA (#1) 2025 CHOLESTEROL SCREENING 01/10/2026 01/10/2021 , 05/06/2019, 07/08/2016, Additional history exists DTAP/TDAP/TD (2 - Td or Tdap) 07/08/2026 07/08/2016 PNEUMOCOCCAL VACCINE FOR HIG H RISK PATIENTS (#1) 2036 Care Teams Metal Sprayer Production Relationship Specialty Start Date End Date Lacey Rivas MD [address] [place] [phone] PCP - General Internal Medicine 06/15/15
--- OUTSIDE RECORDS SUMMARY | 2025-01-27 07:33 | XMS_ITS | Encounter Summary ---
Author Organization [facility] Address [address] [place] [address] Care Team Providers Care Retail Cosmetics Sales Beauty Advisor Name Role Phone Lacey Rivas MD Primary Care Provider [phone] Reason for Visit * Reason Onset Date Comments Call-returning From Provider 07/13/2015 Encounter Details Date Type Department Care Team Description 07/13/2015 Telephone Adult Medicine [address] [phone] Tye Mackenzie PA-C Call-returning From Provider Social [...] he has left for the day today/ [phone] documented in this encounter Plan of Treatment Not on file documented as of this encounter Visit Diagnoses Not on filedocumented in this encounter Care Teams Retail Cosmetics Sales Beauty Advisor Relationship Specialty Start Date End Date Lacey Rivas MD [address] [place] [phone] PCP - General Internal Medicine 06/15/15 documented as of this encounter
--- OUTSIDE RECORDS SUMMARY | 2025-01-27 07:33 | XMS_ITS | Encounter Summary ---
Author Organization [facility] Address [address] [place] [address] Care Team Providers Care Silicator Name Role Phone Lacey Rivas MD Primary Care Provider [phone] Encounter Details Date Type Department Care Team Description 07/04/2015 Transfer Records Medical Records [address] [place] [phone] Abstract, Provider Social History Tobacco Use Types [...] on filedocumented in this encounter Care Teams Silicator Relationship Specialty Start Date End Date Lacey Rivas MD [address] [place] [phone] PCP - General Internal Medicine 06/15/15 documented as of this encounter
--- OUTSIDE RECORDS SUMMARY | 2025-01-27 07:33 | XMS_ITS | Encounter Summary ---
Author Organization [facility] Address [address] [place] [address] Care Team Providers Care Report Analyst Name Role Phone Lacey Rivas MD Primary Care Provider Reason for Visit * Reason Onset Date Comments medication problems 05/07/2019 Encounter Details Date Type Department Care Team Description 05/07/2019 Telephone Adult Medicine [address] [address] Kate Morgan PA-C [address] [place] [address] [phone] medication problems Social History Tobacco Use Types Packs/Day Years Used Date Smoking Tobacco: Every Day Cigarettes 1 Smokeless Tobacco: Former Alcohol Use Standard Drinks/Week Comments Yes 0 (1 standard drink = 0.6 oz pur e alcohol) 18/week Sex Assigned at Date Recorded Not on file documented as of this encounter Miscellaneous Notes * Telephone Encounter - Kate Morgan PA-C - 05/07/2019 3:11 PM EST RX sent. Kate Morgan PA-C * Telephone Encounter - Kimberlyn Vera M.A. - 05/07/2019 1:42 PM EST Kate, Please see message below. I can not tell what was discussed due to note not being done yet. please review and advise * Telephone Encounter - Zulema Tyler - 05/07/2019 1:33 PM EST Pt saw kate ramirez on 05/06/19. Pt states she discussed with kate the possiblity of a muscle relaxer sent to pharmacy. Pt does not know the name of the drug. Please review documented in this encounter Plan of Treatment Not on file documented as of this encounter Visit Diagnoses Not on filedocumented in this encounter Care Teams Report Analyst Relationship Specialty Start Date End Date Lacey Rivas MD [address] [place] [id number] PCP - General Internal Medicine 06/15/15 documented as of this encounter
--- NOTE | 2025-01-27 07:44 | A.OFFVIS_ITS ---
Vital Signs 01/27/25 07:45 Height 5 ft 3 in Weight 165 lb BMI 29.2 Intake Visit Reasons: Bilateral knee pain and giving way Intake Note: Santa is a 54 year old female who presents with complaints of progressively worsening bilateral knee pain and giving way, left greater than right. She describes her left knee pain as sharp in nature. Most of the pain is along the medial aspect of her left knee. She has failed the last 6 weeks of conservative treatment which has included Tylenol, anti-inflammatory medicines, muscle relaxants, a home exercise program and physical therapy exercises. The patient states that her left knee will give out several times per day. Allergies gabapentin Allergy (Intermediate, Verified 01/05/25 13:23) Insomnia ibuprofen Adverse Reaction (Intermediate, Verified 01/05/25 13:23) Stomach Upset Medication List - Last Reconciled 01/27/25 by Michael Bardales MD albuterol sulfate 90 mcg/actuation (Ventolin HFA) 2 puffs inhalation RQ6H PRN atorvastatin (Lipitor) 20 mg (2 x 10 mg) PO BEDTIME baclofen 10 mg PO TID PRN 90 days cholecalciferol (vitamin D3) 25 mcg PO DAILY clobetasol 0.05% 1 appl topical DAILY diazepam 2 mg PO TID PRN hydroxyzine HCl 25 mg PO Q6H PRN melatonin 6 mg (2 x 3 mg) PO BEDTIME PRN olanzapine 5 mg PO BID olanzapine 5 mg PO Q4H PRN omeprazole 20 mg PO DAILY tizanidine 4 mg PO DAILY@1800 PRN trazodone 50 mg PO BEDTIME MRX1 PRN PFSH Medical History (Updated 01/27/25 @ 08:12 by Michael Bardales MD) PTSD (post-traumatic stress disorder) Generalized anxiety disorder Personal history of nicotine dependence Emphysema lung COVID-19 vaccine series completed GERD (gastroesophageal reflux disease) Arthritis COPD (chronic obstructive pulmonary disease) Surgical History H/O total hysterectomy History of colonoscopy History of dental surgery History of cholecystectomy History of partial hysterectomy History of tubal ligation Family History Mother GERD (gastroesophageal reflux disease) DVT (deep venous thrombosis) Father HTN (hypertension) Abnormal thyroid hormone metabolism Social History Housing: House Do you presently have visiting nurse or other home services: No Alcohol intake: current Alcohol intake frequency: a few times a week Alcohol type: wine Comment: COUNTS CORRECT Patient Tobacco Use Status: Former Tobacco user Tobacco use type: Cigarette Years Smoked: onset 15yo, 1ppd x 34yrs, 30pyh - quit 2020) e-Cigarette/Vaping Use: Never Used Second Hand Smoke Exposure: No Substance Use Type: Marijuana service: No Current occupational status: employed 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 Sexual orientation: Straight/Heterosexual Gender identity: Female Cognitive needs: No Hearing needs: No Vision needs: Yes (glasses) Physical Exam Vital Signs: BMI result Body Mass Index 29.2 Const Other: Well-nourished well-developed very friendly female awake alert and oriented x3 in no acute distress Extrem Other: Right knee examination shows a minimal effusion, minimal crepitus with range of motion, tenderness over her medial collateral ligament, no instability Left knee examination shows a mild effusion, minimal crepitus with range of motion, tenderness along her medial joint line, positive Sandrita's test Results Reviewed Results Reviewed: Standing full weight-bearing x-rays of the patient's left knee taken previously show mild diffuse joint space narrowing, no acute bony abnormalities MRI of the patient's right knee shows a sprain of the medial collateral ligament, no evidence of meniscus injury, mild diffuse degenerative changes Assessment & Plan Assessment & Plan (1) Tear of medial meniscus of left knee: Code(s): S83.242A - Other tear of medial meniscus, current injury, left knee, initial encounter Category: Medical Plan Ms. Frank presents with progressively worsening left knee pain and mechanical symptoms most likely due to a tear of her medial meniscus. Thus, I will send the patient for an MRI of her left knee for further evaluation. I will see her back once the MRI is completed to discuss the findings and treatment options. Feel free to call me at any time should questions regarding her orthopedic management arise. I spent 22 minutes in reviewing the patient's records and imaging studies, seeing the patient and documenting in the medical record. Orders: Orders MR knee LT wo con 01/28/25 S83.242A - Other tear of medial meniscus, current injury, left knee, initial encounter Coding Level of Care Code Est Pt Level 3 (31202) Complex EM visit Add On G2211 Diagnoses Tear of medial meniscus of left knee S83.346L
[2025-01-27 07:45] VITALS: BMI 29.2
== END 2025-01-27 08:15 | disposition home or self-care (01) ==
LOC: HO.HOS 07:31
PROVIDERS: PCP Internal Medicine; Visit Provider Orthopaedic Surgery
DX: S83.242A Other tear of medial meniscus, current injury, left knee, initial encounter (principal)
CPT/HCPCS: 99213

== ENCOUNTER → 2025-01-27 07:30 | Outpatient (BNVA) | payer OTHER, SELFPAY | PROVIDERS: PCP Internal Medicine; Visit Provider Orthopaedic Surgery | DX: M25.561 Pain in right knee (principal); M25.562 Pain in left knee; S83.242A Other tear of medial meniscus, current injury, left knee, initial encounter | CPT/HCPCS: 99212 ==

== ENCOUNTER 2025-02-01 09:27 | Outpatient (AMB) | payer OTHER, SELFPAY ==
--- NOTE | 2025-02-01 09:39 | MHC.OFFVIS ---
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 Allergies gabapentin Allergy (Intermediate, Verified 01/05/25 13:23) Insomnia ibuprofen Adverse Reaction (Intermediate, Verified 01/05/25 13:23) Stomach Upset Medication List - Last Reconciled 02/01/25 by Paul Dominguez MD albuterol sulfate 90 mcg/actuation (Ventolin HFA) 2 puffs inhalation RQ6H PRN atorvastatin (Lipitor) 20 mg (2 x 10 mg) PO BEDTIME baclofen 10 mg PO TID PRN 90 days cholecalciferol (vitamin D3) 25 mcg PO DAILY clobetasol 0.05% 1 appl topical DAILY diazepam 2 mg PO TID PRN hydroxyzine HCl 25 mg PO Q6H PRN melatonin 6 mg (2 x 3 mg) PO BEDTIME PRN olanzapine 5 mg PO Q4H PRN omeprazole 20 mg PO DAILY tizanidine 4 mg PO DAILY@1800 PRN trazodone 50 mg PO BEDTIME MRX1 PRN HPI Comments Details: Santa was referred here for symptoms of palpitations as well as loss of consciousness in winter. Patient says about 2 years ago she started having symptoms of palpitations. She describes 2 different kinds of palpitation. She says when she is in bed and turning over she feels like a heart turning over/flip-flop feeling in his chest. This lasts for few sec. she also symptoms at other times of rapid heart rate which last for few sec in his subside. This is sometimes associated with dizziness. She had also has dizziness intermittently without palpitations. No clear orthostatic symptoms. She said about last winter she was in bed and not feeling well and felt like she might throw up so she is start rushing to the bathroom and then woke up on the floor with a puddle of urine. Not sure as to if she had a seizure event. She had no obvious tongue bites. Patient has not had any significant episodes of syncope since then. She had a Holter monitor in 2022 for symptoms of palpitation which was benign and she had reported multiple symptoms all of which correlated with sinus rhythm. Patient also had a stress test although she was able to only performed low-level stress test up to 4 minutes with shortness of breath or symptoms but negative EKG changes at a heart rate which was well above her age predicted maximum heart rate. Patient has reduced exercise capacity due to her emphysema. She has stopped smoking at current point time. She denies any exertional chest pain. Denies any orthopnea, PND, leg edema. She is limited in exercise because of her back issues and neck issues. She has prior history of anxiety as well as posttraumatic stress disorder. She had also worried about heart disease as she has strong family history on father's side of premature coronary artery disease [facility] Medical History PTSD (post-traumatic stress disorder) Generalized anxiety disorder Personal history of nicotine dependence Emphysema lung COVID-19 vaccine series completed GERD (gastroesophageal reflux disease) Arthritis COPD (chronic obstructive pulmonary disease) Surgical History H/O total hysterectomy History of colonoscopy History of dental surgery History of cholecystectomy History of partial hysterectomy History of tubal ligation Family History Mother GERD (gastroesophageal reflux disease) DVT (deep venous thrombosis) Father HTN (hypertension) Abnormal thyroid hormone metabolism Social History Housing: House Do you presently have visiting nurse or other home services: No Alcohol intake: current Alcohol intake frequency: a few times a week Alcohol type: wine Comment: COUNTS CORRECT Patient Tobacco Use Status: Former Tobacco user Tobacco use type: Cigarette Years Smoked: onset 15yo, 1ppd x 34yrs, 30pyh - quit 2019) e-Cigarette/Vaping Use: Never Used Second Hand Smoke Exposure: No Substance Use Type: Marijuana service: No Current occupational status: employed 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 Sexual orientation: Straight/Heterosexual Gender identity: Female Cognitive needs: No Hearing needs: No Vision needs: Yes (glasses) Review of Systems Const Reports body aches and Denies weakness ENT Reports dizziness and Reports neck pain Card Reports chest pain, Reports chest pain at rest, Reports chest pain with activity, Denies syncope, Denies rapid heart rate, Denies pedal edema, Denies edema, Denies leg edema, Reports lightheadedness, Reports palpitations, Reports dyspnea, Reports dyspnea on exertion and Reports orthopnea Resp Denies cough, Reports dyspnea and Reports dyspnea on exertion GI Denies hematochezia and Denies change in stool character Musc Denies abnormal gait, Reports myalgias, Denies muscle cramps, Denies muscle weakness, Reports neck pain, Denies numbness, Denies radiating pain into limb and Denies tingling Neuro Denies abnormal gait, Reports dizziness, Denies syncope, Denies numbness, Denies tingling and Denies weakness Endo Reports palpitations Physical Exam Vital Signs: Last Vital Signs Pulse 80 02/01/25 09:55 BP 120/80 02/01/25 09:55 BMI result Body Mass Index 28.5 Const General: cooperative, comfortable, no acute distress, alert and awake Nutritional Appearance: overweight Orientation/consciousness: patient oriented x3 Limitations: no limitations HEENT Head: Yes normocephalic and Yes atraumatic Neck Neck: Yes trachea midline, Yes supple and Yes no JVD Resp Effort & Inspection: normal respiratory effort Auscultation: clear to auscultation bilaterally and diminished lung sounds Cardio Jugular venous distension: no JVD Palpation: normal PMI Rate: regular rate Rhythm: regular rhythm Heart sounds: S1 normal heart sound present, S2 normal heart sound present, no click, no gallops, no murmurs and no rubs GI Auscultation: normal bowel sounds Skin General skin exam: no rashes or lesions noted Neuro General: patient oriented x3 and no focal motor deficits Extrem General: Yes no clubbing, cyanosis or edema Psych Appearance: grossly normal Office Procedures EKG Details: EKG shows sinus bradycardia 56 beats per minute [id number], Complete Assessment & Plan Assessment & Plan (1) Intermittent palpitations: Code(s): R00.2 - Palpitations Category: Medical Plan: Patient has 2 different forms of palpitation, flip-flops as well as short rapid heart rate. She had a Holter monitor couple of years ago and with that Holter monitor with her symptoms she had predominantly normal sinus rhythm without any significant arrhythmias. It is possibl that her flip-flops that she feels a probably related to isolated extra systoles. A short rapid heart rate could be SVT, less likely atrial fibrillation or more likely related to her anxiety stress disorder. Will suggest a event monitor to assess for the same. Will also suggest echocardiogram to evaluate LV systolic and diastolic function to evaluate for biatrial chamber size in his any valvular abnormality. (2) LOC (loss of consciousness): Code(s): R40.20 - Unspecified coma Plan: Patient had transient loss of consciousness after getting out of bed and not feeling well. She had a urinary incontinence. Suspect that this could be a seizure. Although also likely that this could be orthostatic hypotension. Suggest her to undergo head-up tilt-table test for further evaluation. (3) At risk for cardiovascular event: Code(s): Z91.89 - Other specified personal risk factors, not elsewhere classified Plan: Patient with premature coronary artery disease in his family with hyperlipidemia. Her stress test although at low exercise capacity was within normal limits. I suggested her to go for screening test with coronary calcium score to assess for presence of coronary atherosclerosis that can guide treatment. Further arrhythmias based on the findings. We discussed the rationale for coronary calcium score. She wants to think about it due to cost issues associated with it. Benefits of the testing was discussed. Will follow up in 3 months after testing. Thank you for allowing me to partake in her care Orders: Orders ECG 30 day event monitor Today R00.2 - Palpitations CA echo transthoracic complete Today R00.2 - Palpitations ECG Tilt Table Test Today R40.20 - Unspecified coma Coding Level of Care Code New Pt Level 4 (57088) Complex EM visit Add On G2211 Diagnoses Intermittent palpitations R00.2 LOC (loss of consciousness) R40.20 At risk for cardiovascular event Z91.89 CPT Codes EKG - CPT: 80440-[id number], Complete ([id number])
[2025-02-01 09:40] VITALS: BP 120/80; PULSE 71; BMI 28.5
[2025-02-01 09:50] VITALS: BP 124/80; PULSE 73
[2025-02-01 09:55] VITALS: BP 120/80; PULSE 80
== END 2025-02-01 10:12 | disposition home or self-care (01) ==
LOC: HO.HCS 09:28
PROVIDERS: PCP Internal Medicine; Visit Provider Internal Medicine Cardiovascular Disease
DX: R00.2 Palpitations (principal); R40.20 Unspecified coma; Z91.89 Other specified personal risk factors, not elsewhere classified; R00.1 Bradycardia, unspecified
CPT/HCPCS: 93010; 99214

== ENCOUNTER → 2025-02-01 09:27 | Outpatient (BNVA) | payer OTHER, SELFPAY | PROVIDERS: PCP Internal Medicine; Visit Provider Internal Medicine Cardiovascular Disease | DX: R00.2 Palpitations (principal); R40.20 Unspecified coma; Z91.89 Other specified personal risk factors, not elsewhere classified | CPT/HCPCS: 93005; 99212 ==

== ENCOUNTER 2025-03-07 09:46 | Emergency (ER) | payer OTHER, SELFPAY ==
--- NOTE | ~2025-03-07 | CT_ITS ---
EXAMINATION: CT ABDOMEN AND PELVIS WITH CONTRAST CLINICAL INFORMATION: Left lower quadrant abdominal pain. COMPARISON: 07/05/2023, 12/23/2022. TECHNIQUE: Multidetector volumetric images were obtained from the superior aspect of the liver through the pubic symphysis following administration 85 mL of Omnipaque 350 intravenous contrast. Sagittal and coronal reformatted images were obtained on the technologist's workstation. Oral contrast: No This CT examination was performed using dose optimization techniques as appropriate, variously including the following: *Automated exposure control *Adjustment of mA and/or kV according to patient size (this includes techniques or standardized protocols for targeted exams where dose is matched to indication/reason for exam; i.e. extremities or head) *Use of iterative reconstruction technique FINDINGS: LUNG BASES: The visualized lung bases are unremarkable. There is a small type I hiatus hernia. LIVER, GALLBLADDER, AND BILIARY TREE: The liver is normal in size, shape, and attenuation. No suspicious focal hepatic lesion or pathologic biliary ductal dilatation is present. Stable mild prominence of the bile ducts. There is a segment 7 hemangioma again demonstrated measuring approximately 2.8 cm in diameter. The gallbladder is surgically absent. PANCREAS: Unremarkable. SPLEEN: Unremarkable. ADRENAL GLANDS: Unremarkable. KIDNEYS AND URETERS: The kidneys are normal in size, shape, and attenuation. No hydronephrosis, hydroureter, or calculi seen. No perinephric stranding. There is a 3 mm nonobstructing calculus in the left kidney inferior pole. BLADDER: Unremarkable. GASTROINTESTINAL TRACT: There is a prominent enhancing diverticulum in the ascending colon just inferior to the hepatic flexure, with abutting wall thickening and pericolonic fat stranding/inflammation. Findings are consistent with acute uncomplicated diverticulitis. There is diverticulosis of the entire colon, most severe in the sigmoid region. No additional regions of inflammation. There is a small type I hiatus hernia. Stomach and duodenal sweep appear normal. The small bowel is normal in caliber and course without wall thickening or inflammation. A normal appendix is visualized. ABDOMINAL WALL: No significant hernia is appreciated. LYMPH NODES: There is no abnormal lymphadenopathy present. VASCULAR: Mild to moderate atheromatous calcification of the aorta and iliac arteries, without aneurysm present. PELVIC VISCERA: There has been a hysterectomy. There are no adnexal masses. OSSEOUS STRUCTURES: No suspicious lytic or blastic bone lesions. Degenerative disc and facet changes at L5-S1. Mild degenerative arthritis bilateral hip joints. CT/CT abdomen pelvis w IV con IMPRESSION: 1. Acute noncomplicated diverticulitis of the ascending colon. 2. Extensive colonic diverticulosis, severe in the sigmoid region. 3. Small type I hiatus hernia. 4. Cholecystectomy. 5. Stable hemangioma in segment 7 of the liver. 6. Nonobstructing 3 mm calculus in the left kidney inferior pole. Electronically signed by: Tye Sandoval MD 03/07/2025 01:25 PM EDT
[2025-03-07 10:17] VITALS: BP 177/82; PULSE 78; RESP 18; TEMP 36.7; O2SAT 97; BMI 28.7
--- NOTE | 2025-03-07 10:20 | ED.GENADULT ---
HPI - General Adult General Chief complaint: Abdominal Pain Stated complaint: severe abd pain Time Seen by Provider: 03/07/25 11:50 Source: patient and old records reviewed Mode of arrival: ambulatory Limitations: no limitations History of Present Illness ED Provider: NIA KOLB narrative: 54 yo female with PMH of back pain, HLD, PTSD, COPD, GERD, prior colonoscopy a few years ago follow up in 10 years here with c/o LLQ Pain and n/v with chills and mucousy non bloody stools. Hasn't felt well for a week but her pain really worsened in the last few days. She thinks she has diverticulitis vs renal colic. She has no urinary symptoms. She has not had a fever but feels like her temp has been off. MD complaint: abd pain Onset (ago): day(s) (few) Location: abdomen Radiation: non-radiation Severity: severe Quality: stabbing and aching Pain Consistency: constant Relieving factors: none Exacerbating factors: movement Associated symptoms: fever/chills, loss of appetite, malaise and nausea/vomiting Treatments prior to arrival: none Related Data Previous Rx's ?Medication ?Instructions ?Recorded cholecalciferol (vitamin D3) 25 25 mcg PO DAILY #30 tabs 05/03/24 mcg (1,000 unit) tablet albuterol sulfate 90 mcg/actuation 2 puff inhalation RQ6H PRN 09/27/24 aerosol inhaler (Ventolin HFA) Wheezing #1 inhaler clobetasol 0.05 % topical cream 1 appl topical DAILY #45 grams 09/27/24 melatonin 3 mg tablet 6 mg (2 x 3 mg) PO BEDTIME PRN 09/27/24 Insomnia #90 tabs olanzapine 5 mg tablet 5 mg PO Q4H PRN agitation, anxiety 09/27/24 #30 tabs tizanidine 4 mg tablet 4 mg PO DAILY@1800 PRN spasm #30 09/27/24 tabs baclofen 10 mg tablet 10 mg PO TID PRN spasm 90 days 10/19/24 #270 tabs diazepam 2 mg tablet 2 mg PO TID PRN anxiety and 12/08/24 chronic pain #21 tabs omeprazole 20 mg capsule,delayed 20 mg PO DAILY #90 caps 12/08/24 release atorvastatin 10 mg tablet (Lipitor) 20 mg (2 x 10 mg) PO BEDTIME #90 12/10/24 tabs hydroxyzine HCl 25 mg tablet 25 mg PO Q6H PRN Anxiety #90 tabs 02/17/25 amoxicillin 875 mg-potassium 1 tab PO BID 10 days #14 tabs 03/07/25 clavulanate 125 mg tablet hydrocodone 5 mg-acetaminophen 325 1 tab PO Q6H PRN pain #10 tabs 03/07/25 mg tablet ondansetron 4 mg disintegrating 4 mg PO Q8H PRN nausea and 03/07/25 tablet vomiting #20 tabs trazodone 50 mg tablet 50 mg PO BEDTIME MRX1 PRN Insomnia 03/08/25 #30 tabs Allergies Allergy/AdvReac Type Severity Reaction Status Date / Time gabapentin Allergy Intermediate Insomnia Verified 03/07/25 10:21 ibuprofen AdvReac Intermediate Stomach Verified 03/07/25 10:21 Upset Review of Systems Review of Systems: Constitutional : No Weight loss, No Fever, pos Chills ENT/Mouth : No sore throat, No Rhinorrhea Eyes: No Swelling, No Redness Cardiovascular : No Chest Pain, No SOB, NoEdema Respiratory : No Cough, No Sputum, No Wheezing Gastrointestinal : Positive Nausea, Positive Vomiting, positive Diarrhea, positive abdominal Pain, No Hematochezia, No Melena Genitourinary : No Dysuria, No Urinary Frequency, No Hematuria, No Urgency Musculoskeletal : No joint pain, No Myalgias, No Joint Swelling Skin : No Skin Lesions, No rash Neuro : No Weakness, No Numbness, No Dizziness, No Headache All other systems reviewed and are negative. [facility] Past Medical History Attestation statement: The following information was validated with the patient. Source: old records reviewed Medical History PTSD (post-traumatic stress disorder) Generalized anxiety disorder Personal history of nicotine dependence Emphysema lung COVID-19 vaccine series completed GERD (gastroesophageal reflux disease) Arthritis COPD (chronic obstructive pulmonary disease) Surgical History H/O total hysterectomy History of colonoscopy History of dental surgery History of cholecystectomy History of partial hysterectomy History of tubal ligation Family History Family History Mother GERD (gastroesophageal reflux disease) DVT (deep venous thrombosis) Father HTN (hypertension) Abnormal thyroid hormone metabolism Social History Social History Housing: House Do you presently have visiting nurse or other home services: No Alcohol intake: current Alcohol intake frequency: a few times a week Alcohol type: wine Comment: COUNTS CORRECT Patient Tobacco Use Status: Former Tobacco user Tobacco use type: Cigarette Years Smoked: onset 15yo, 1ppd x 34yrs, 30pyh - quit 2019) e-Cigarette/Vaping Use: Never Used Second Hand Smoke Exposure: No Substance Use Type: Marijuana service: No Current occupational status: employed 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 Oriented X3. No acute distress. Eyes: Pupils equal, round and reactive to light. ENT: Pharynx normal. Neck: Normal inspection. Neck supple. CVS: Normal heart rate and rhythm. Pulses normal. Respiratory: No respiratory distress. Breath sounds normal. Abdomen: Soft and moderate ttp in LLQ no rebound Skin: Skin warm and dry. Normal skin color. Normal skin turgor. Extremities: No lower extremity edema. No calf ttp Neuro: Oriented X 3. No motor deficit. No sensory deficit. CN2-12 intact Course Course Course Narrative: RME: 54 yold female with pmh of diverticulitits presents to the ED for left flank radiating to left lower quadrant pain for the past couple of days. Patient states also diarhea. patient denies any upper abdominal pain. positive for LLQ tenderness on palpation. labs ordered. Medications Administered Discontinued Medications Generic Name Dose Route Start Last Admin Trade Name Freq PRN Reason Stop Dose Admin Amoxicillin/Clavulanate Potassium 875 mg 03/07/25 13:31 03/07/25 13:52 Amoxicillin/Potassium Clav 875 Mg Tablet PO 03/07/25 13:32 875 mg ONCE ONE Administration Lactated Ringer's 1,000 mls @ 999 mls/hr 03/07/25 11:51 03/07/25 13:42 Lr IV 03/07/25 12:51 Infused .Q1H1M ONE Infusion Iohexol 100 ml 03/07/25 13:14 03/07/25 13:14 Iohexol 350 Mg/Ml 100 Ml Infus..Btl IV 03/07/25 13:15 85 ml ONCE ONE Administration Lorazepam 0.5 mg 03/07/25 13:45 03/07/25 13:53 Lorazepam 0.5 Mg Tablet PO 03/07/25 13:46 0.5 mg ONCE ONE Administration Morphine Sulfate 4 mg 03/07/25 11:51 03/07/25 12:14 Morphine Sulfate 4 Mg/Ml Cartridge IVPUSH 03/07/25 11:52 4 mg ONCE ONE Administration Protocol Morphine Sulfate 15 mg 03/07/25 13:45 03/07/25 13:52 Morphine Sulfate Immed Release 15 Mg Tablet PO 03/07/25 13:46 15 mg ONCE ONE Administration Ondansetron HCl 4 mg 03/07/25 11:51 03/07/25 12:14 Ondansetron Hcl 4 Mg/2 Ml Vial IVPUSH 03/07/25 11:52 4 mg ONCE ONE Administration Medical Decision Making Medical Decision Making [facility] Narrative: 54 yo female with PMH of back pain, HLD, PTSD, COPD, GERD, prior colonoscopy here with LLQ pain she is afebrile, not vomiting, not toxic at this time will need labs, UA, IV pain control, CT scan for suspected diverticulitis vs renal colic. She will likely be stable for outpatient care. Differential Diagnosis Differential Diagnoses: The differential diagnosis associated with the presentation includes renal colic, diverticulitis Admission/Observation Consideration of admission/observation: Escalation of care including admission/observation considered labs and VS stable can be managed with outpatient meds prior to DC given oral pain medications patient then notes she feels anxiety and felt weird after IV dye - no angioedema no hives will dose with oral ativan and reassess Lab Data [facility] Lab Attestation statement: I reviewed the patient's lab results. 03/07/25 11:22 03/07/25 11:22 Labs: Lab Results 03/07/25 03/07/25 03/07/25 Range/Units 11:22 11:33 11:47 WBC 10.9 H (4.8-10.8) X10*3/uL RBC 4.45 (4.20-5.50) X10*6/uL Hgb 13.8 (12.0-16.0) g/dl Hct 39.0 (37.0-47.0) % MCV 87.6 (80.0-98.0) fL MCH 31.0 (27.0-33.0) pg MCHC 35.4 H (31.0-35.0) g/dl RDW 12.7 (11.0-16.0) % Plt Count 279 (160-400) X10*3/uL MPV 9.4 (9.4-12.3) fL Immature Gran % (Auto) 0.4 (0.0-0.4) % Neut % (Auto) 63.2 (45-73) % Lymph % (Auto) 26.9 (20-40) % [place] % (Auto) 6.2 (2-11) % Eos % (Auto) 2.9 (0-4) % Baso % (Auto) 0.4 (0-2) % Lymph # (Auto) 2.9 (1.2-4.9) X10*3/uL [place] # (Auto) 0.7 (0.1-1.2) X10*3/uL Eos # (Auto) 0.3 (0.0-0.4) X10*3/uL Baso # (Auto) 0.0 (0.0-0.2) X10*3/uL Abs Immat Gran (auto) 0.04 H (0.00-0.03) X10*3/uL Absolute Neuts (auto) 6.9 (2.0-8.3) x10*3/uL Absolute Nucleated RBC 0.000 (0.0-0.012) X10*3/uL Nucleated RBC % (auto) 0.0 (0.0-0.2) /100WBC PT 11.6 (10.9-12.4) SEC INR 1.0 (0.9-1.1) APTT 26.2 L (26.7-34.1) SEC Sodium 138 (135-145) mmol/L Potassium 3.8 (3.3-5.1) mmol/L Chloride 106 (96-108) mmol/L Carbon Dioxide 24 (22-29) mmol/L Anion Gap 12 (12-20) BUN 15 (9-16) mg/dL Creatinine 0.65 (0.5-1.4) mg/dL Estim Creat Clear Calc 96.1 Estimated GFR > 60 Random Glucose 109 (60-115) mg/dL Calcium 9.6 (8.4-10.2) mg/dL Total Bilirubin 1.4 H (0.0-1.0) mg/dL AST 26 (5-31) U/L ALT 39 H (0-31) U/L Alkaline Phosphatase 107 (39-117) U/L Total Protein 7.4 (6.5-8.0) g/dL Albumin 4.8 (3.5-5.0) g/dL Beta HCG, Quant 4 mIU/mL Urine Color Yellow Urine Appearance Clear Urine pH 6.0 (5.0-9.0) Ur Specific [place] <= 1.005 (1.005-1.025) Urine Protein Negative (Neg-Trace) mg/dL Urine Glucose (UA) Negative (Negative) mg/dL Urine Ketones Negative (Negative) mg/dL Urine Blood Small (1+) H (Negative) Urine Nitrite Negative (Negative) Ur Leukocyte Esterase Negative (Negative) Urine RBC 0-2 (0-2) /HPF Urine WBC 0-5 (0-5) /HPF Ur Squamous Epith Cells 0-2 (0-2) /HPF Urine Bacteria None Seen (None Seen) Hyaline Casts 0-2 (0-2) /LPF Independent Interpretation I performed an independent interpretation of an: EKG and CT Scan (uncomplicated diverticulitis) Interpretation: Rate: 61 Rhythm: NSR [place]: normal Normal P waves. Normal SO. Normal QRS complex. ST T wave : no ADE, artifact in lateral leads qTC: 424 prior studies: no acute ischemia The study has been interpreted contemporaneously by me. . Radiology Impression Discussion of test interpretation with radiology: I have reviewed the radiologist's reading. External Record Review External record reviewed: Outpatient record Prescription Management I considered prescription management with: Pain Medication and Antibiotic Discharge Plan Discharge Clinical Impression: Diverticulitis Patient Disposition: Home, Self-Care Instructions: Diverticulitis (ED) Additional Instructions: labs reassuring other than mild bump in liver enzyme would repeat in 1 week with your doctor urine is normal blood pressure slightly elevated - repeat in [address] your doctor CT scan shows diverticulitis return for worsening pain, fevers, unable to eat or drinking, or any other concerns CT/CT abdomen pelvis w IV con IMPRESSION: 1. Acute noncomplicated diverticulitis of the ascending colon. 2. Extensive colonic diverticulosis, severe in the sigmoid region. 3. Small type I hiatus hernia. 4. Cholecystectomy. 5. Stable hemangioma in segment 7 of the liver. 6. Nonobstructing 3 mm calculus in the left kidney inferior pole. Prescriptions: New hydrocodone-acetaminophen 5-325 mg tablet 1 tab PO Q6H PRN (Reason: pain) Qty: 10 0RF Rx Instructions: partial fill okay; Partial Fill upon patient request. ondansetron 4 mg tablet,disintegrating 4 mg PO Q8H PRN (Reason: nausea and vomiting) Qty: 20 0RF amoxicillin-pot clavulanate 875-125 mg tablet 1 tab PO BID 10 Days Qty: 14 0RF No Action atorvastatin [Lipitor] 10 mg tablet 20 mg PO BEDTIME Qty: 90 1RF hydroxyzine HCl 25 mg tablet 25 mg PO Q6H PRN (Reason: Anxiety) Qty: 90 0RF trazodone 50 mg tablet 50 mg PO BEDTIME MRX1 PRN (Reason: Insomnia) Qty: 30 1RF cholecalciferol (vitamin D3) 25 mcg (1,000 unit) Tablet 25 mcg PO DAILY Qty: 30 0RF omeprazole 20 mg capsule,delayed release(DR/EC) 20 mg PO DAILY Qty: 90 0RF diazepam 2 mg tablet 2 mg PO TID PRN (Reason: anxiety and chronic pain) Qty: 21 0RF tizanidine 4 mg tablet 4 mg PO DAILY@1800 PRN (Reason: spasm) Qty: 30 0RF albuterol sulfate [Ventolin HFA] 90 mcg/actuation HFA aerosol inhaler 2 puff inhalation RQ6H PRN (Reason: Wheezing) Qty: 1 2RF melatonin 3 mg tablet 6 mg PO BEDTIME PRN (Reason: Insomnia) Qty: 90 2RF olanzapine 5 mg tablet 5 mg PO Q4H PRN (Reason: agitation, anxiety) Qty: 30 2RF clobetasol 0.05 % cream 1 appl topical DAILY Qty: 45 0RF baclofen 10 mg tablet 10 mg PO TID PRN (Reason: spasm) 90 Days Qty: 270 3RF Interventions: ED Discharge Assessment Last Done: 03/07/25 14:06 Discharge Date/Time: 03/07/25 14:26 Print Language: Afghan
[2025-03-07 11:28] LABS: MANUAL DIFF FLAG NO
[2025-03-07 11:30] LABS: Hematocrit 39.0 % (37.0-47.0); Hemoglobin 13.8 g/dl (12.0-16.0); Imm Gran Abs Auto 0.04 X10*3/uL (0.00-0.03); Imm Gran Pct Auto 0.4 % (0.0-0.4); Lymphocytes Absolute Auto 2.9 X10*3/uL (1.2-4.9); Mean Corpuscular HGB Conc 35.4 g/dl (31.0-35.0); Mean Corpuscular Hemoglobin 31.0 pg (27.0-33.0); Mean Corpuscular Volume 87.6 fL (80.0-98.0); NRBC Abs Auto 0.000 X10*3/uL (0.0-0.012); NRBC Pct Auto 0.0 /100WBC (0.0-0.2); Platelet Count 279 X10*3/uL (160-400); Red Blood Count 4.45 X10*6/uL (4.20-5.50); White Blood Count 10.9 X10*3/uL (4.8-10.8)
[2025-03-07 11:49] LABS: Alanine Aminotransferase 39 U/L (0-31); Albumin Level 4.8 g/dL (3.5-5.0); Alkaline Phosphatase 107 U/L (39-117); Anion Gap 12 (12-20); Aspartate Amino Transferase 26 U/L (5-31); Blood Urea Nitrogen 15 mg/dL (9-16); Calcium 9.6 mg/dL (8.4-10.2); Carbon Dioxide 24 mmol/L (22-29); Chloride 106 mmol/L (96-108); Creatinine Clr Calc Pharmacy 96.1; Estimated Glomerular Filt Rate > 60; Potassium 3.8 mmol/L (3.3-5.1); Sodium 138 mmol/L (135-145); Total Protein 7.4 g/dL (6.5-8.0)
[2025-03-07 11:54] LABS: INTERNATIONAL NORM RATIO 1.0 (0.9-1.1); Prothrombin Time 11.6 SEC (10.9-12.4)
[2025-03-07 11:56] LABS: Appearance Urine Clear; Glucose Urine UA Negative (Negative); PH 6.0 (5.0-9.0); Specific Gravity - Urine <= 1.005 (1.005-1.025); UMIC TRIGGER UACC YES
[2025-03-07 11:56] LABS: Partial Thromboplastin Time 26.2 SEC (26.7-34.1)
[2025-03-07] MEDS: Lactated Ringers 1,000 ML 999 ML IV (12:15)
[2025-03-07] MEDS: iohexoL 350 MG/ML 100 ML INFUS..BTL IV (13:14)
--- NOTE | 2025-03-07 13:45 | ECG_ITS ---
Test Reason : PAIN Blood Pressure : */* mmHG Vent. Rate : 61 BPM Atrial Rate : 61 BPM P-R Int : 136 ms QRS Dur : 80 ms QT Int : 422 ms P-R-T Axes : 65 54 70 degrees QTcB Int : 424 ms Normal sinus rhythm Normal ECG When compared with ECG of 19-Oct-2024 14:30, No significant change was found Referred By: Pascale High Electronically Signed By: CATARINO KELLY MD
[2025-03-07] MEDS: Morphine Sulfate Immed Release 15 MG TABLET PO (13:52)
--- OUTSIDE RECORDS SUMMARY | 2025-03-07 14:01 | XMS_ITS | Clinical Summary ---
Author Organization [facility] ity Address [address] [place] [address] Care Team Providers Care Glass Novelty Maker Name Role Phone Lacey Rivas MD Primary Care Provider [phone] Allergies No known active allergies Medications tiZANidine (ZANAFLEX) 4 mg tablet TAKE 1 TABLET BY MOUTH 3 TIMES A WEEK 11/13/2020 Active acetaminophen (TYLENOL) 500 mg tablet Take 500 mg by mouth every 6 hours as needed. Active Active Problems Problem Noted Date Diagnosed Date GERD (gastroesophageal reflux disease) 1 Cervical polyp 11/01/2020 Seasonal allergies 11/01/2020 Cervical spondylosis 05/07/2019 Heavy alcohol use 05/07/2019 Subclinical hypothyroidism 07/06/2015 Overview (05/24/2024): Graves disease in the distant past, rx methimazole, no JONES, stabilized Immunizations Immunization Administration Dates Next Due Smart Mocha SARS-CoV-2 COVID-19, mRNA, LNP-S, preservative free 10/18/2020 Tdap Tetanus diptheria acell ular pertussis (Boostrix; Adacel) 7yo and older 07/08/2016 Surgical History Surgery Date Site/Laterality Comments CHOLECYSTECTOMY 1989 PROCEDURE: LAPAROSCOPY, CHOLECYSTECTOMY PARTIAL HYSTERECTOMY jan 2013 PROCEDURE: DC SUPRACERVICAL ABDL HYSTER W/WO RMVL TUBE OVARY BREAST SURGERY age 21 Left PROCEDURE: DC UNLISTED PROCEDURE BREAST; COMMENT: cyst removed left breast neg OTHER SURGICAL HISTORY PROCEDURE: ---- OTHER ----; COMMENT: cervical laser surgery TUBAL LIGATION PROCEDURE: HISTORICAL TUBAL LIGATION BREAST BIOPSY 07/20/15 N/A PROCEDURE: BX BREAST; PERC NEEDLE CORE W/IMAG GUID; COMMENT: benign cyst-rt breast Medical History Medical History Date Comments Cervical dysplasia DX:Cervical d ysplasia; COMMENT: s/p laser surgery Cholecystitis DX:Cholecystitis Family History Medical History Relation Name Comments Heart attack Aunt 1 40s Other: skin cancer Aunt 2 Hyperthyroidism Maternal Grandmother Colon polyps Mother ??>10 Other: graves Other cousin Heart attack Paternal Grandfather 55 Other: thyroid dysfunction Paternal Grandmother Pancreatic cancer Uncle Breast cancer Neg Hx Relation Name Status Comments Aunt 1 Aunt 2 Maternal Grandmother Mother Alive Other Paternal Grandfather Paternal Grandmother Uncle Social History Tobacco Use Types Packs/Day Years Used Date Smoking Tobacco: Former Cigarettes Smokeless Tobacco: Former Alcohol Use Standard Drinks/Week Comments Yes 0 (1 standard drink = 0.6 oz pur e alcohol) Comments Unknown Sex and Gender Information Value Date Recorded Sex Assigned at Not on file Legal Sex Female 8:17 PM EST Gender Identity Not on file Sexual Orientation Not on file Obstetrics History Plan of Treatment Upcoming Encounters Date Type Department Care Team (Late st Contact Info) Description 05/17/2025 1:00 PM EST Appointment [facility] X[facility] [address] [place] [address] Health Maintenance Due Date Last Done Comments Colorectal Cancer Screening: Colonoscopy 1971 Hepatitis B Vaccines (1 of 3 - 19+ 3-dose series) 1990 Cervical Cancer Screening: P ap Smear 07/19/2019 07/19/2016, 07/19/2016 Pneumococcal Vaccine: 50+ Years (1 of 1 - PCV) 2021 Zoster Vaccines (1 of 2) 2021 Social Influencers of Health Screening 05/04/2022 Breast Cancer Screening 02/17/2023 02/17/2021 Depression Screening 06/02/2024 COVID-19 Vaccine (3 - 2024-2 6 season) 2025 10/18/2020, 09/27/2020 Influenza Vaccine (#1) 2025 Cholesterol Screening (Lipid Panel) 01/10/2026 01/10/2021 DTaP,Tdap,and Td Vaccines (2 - Td or Tdap) 07/08/2026 07/08/2016 RSV Immunization Adult Patients (1 - 1-dose 75+ series) 2046 HIV Screening Completed 07/19/2016 Hepatitis C Screening Completed 07/19/2016 HIB Vaccines Aged Out No longer eligi ble based on patient's age to complete this topic HPV Vaccines Aged Out No longer eligi ble based on patient's age to complete this topic Hepatitis A Vaccines Aged Out No long er eligible based on patient's age to complete this topic IPV Vaccines Aged Out No longer eligi ble based on patient's age to complete this topic MMR Vaccines Aged Out No longer eligi ble based on patient's age to complete this topic Meningococcal ACWY Vaccine Aged Out N o longer eligible based on patient's age to complete this topic Meningococcal B Vaccine Aged Out No l onger eligible based on patient's age to complete this topic RSV Immunization Patients Under 20 months Aged Out No longer eligible b ased on patient's age to complete this topic Varicella Vaccines Aged Out No longer eligible based on patient's age to complete this topic Procedures Procedure Name Priority Date/Time Associated Diagnosis Comments SCREENING MAMMOGRAPHY BI 2-VIEW BREAST INC CAD Routine 02/17/2021 9:17 AM EDT Encounter for screening mammogram for malignant neoplasm of breast LIPID PANEL Routine 01/10/2021 HEPATITIS C SCREENING Routine 07/19/2016 HIV SCREENING Routine 07/19/2016 HPV Routine 07/19/2016 from Last 3 Months or Most Recently Relevant to Health Maintenance Results * SCREENING MAMMOGRAPHY BI 2-VIEW BREAST INC CAD (02/17/2021 9:17 AM EDT) Anatomical Region Laterality Modality Radiographic Michelle ging 11/01/2020 9:54 AM EDT Narrative 02/19/2021 4:17 PM EDT This is a summary report. The complete report is available in the patient's medical record. If you cannot access the medical record, please contact the sending organization for a detailed fax or copy. Exam: Screening mammogram Findings: Digital bilateral full-field screening mammography is performed with tomosynthesis and interpreted with the aid of computer-aided detection. Comparison is made with 07/08/2016 and 04/05/2016. Breast parenchyma is composed of scattered fibroglandular densities. No new suspicious mass, architectural distortion, or suspicious calcifications. Impression: No mammographic evidence of malignancy. BI-RADS 1 - negative Procedure Note Bri Gomez MD - 05/21/2022 This is a summary report. The complete report is available in thepatient's medical record. If you cannot access the medical record, pleasecontact the sending organization for a detailed fax or copy. Exam: Screening mammogram Findings: Digital bilateral full-field screening mammography is performedwith tomosynthesis and interpreted with the aid of computer-aideddetection. Comparison is made with 07/08/2016 and 04/05/2016. Breast parenchyma is composed of scattered fibroglandular densities. Nonew suspicious mass, architectural distortion, or suspiciouscalcifications. Impression: No mammographic evidence of malignancy. BI-RADS 1 - negative Madeleine ALVAREZ IMG XR PROCEDURES Final Resul t * (ABNORMAL) Lipid panel (01/10/2021) [facility] LDL/HDL Ratio 4 0 - 4 Triglycerides 87 0 - 150 mg/dL Cholesterol 225(A) 0 - 200 mg/dL HDL 52 >=40 mg/dL LDL Cholesterol 156(A) 0 - 100 mg/dL Blood Venous blood specimen / Unknown Result [facility] Provider LAB BLOOD ORDERABLES Vanessa l Result * Cervical Cancer Screening: HPV (07/19/2016) [facility] Cervical Cancer Screening: HPV No interpretation , abstracted Result [facility] Provider HEALTH MAINTENANCE Final Result * HIV Screening (07/19/2016) [facility] HIV Screening Abstracted Result [facility] Provider HEALTH MAINTENANCE Final Result * Hepatitis C Screening (07/19/2016) [facility] Hepatitis C Screening Abstracted Result [facility] Provider HEALTH MAINTENANCE Final Result from Last 3 Months or Most Recently Relevant to Health Maintenance Insurance [facility] [employer] Care Teams Glass Novelty Maker Relationship Specialty Start Date End Date Lacey Rivas MD [address] [place] [address] PCP - General Internal Medicine 06/15/15
[2025-03-07 14:06] VITALS: BP 177/82; PULSE 78; RESP 18; TEMP 36.7; O2SAT 97
== END 2025-03-07 14:26 | disposition home or self-care (01) ==
PROVIDERS: Physician Assistant; Emergency Provider Emergency Medicine
DX: K57.92 Diverticulitis of intestine, part unspecified, without perforation or abscess without bleeding (principal); R10.32 Left lower quadrant pain; R11.2 Nausea with vomiting, unspecified; R07.9 Chest pain, unspecified
CPT/HCPCS: 36415; 74177; 80053; 81001; 84702; 85025; 85610; 85730; 93005; 96361; 96374; 96375; 99285; J2270; J2405; J7120; Q9967

== ENCOUNTER → 2025-03-07 11:51 | Outpatient (BNV) | payer OTHER, SELFPAY | PROVIDERS: Emergency Provider Emergency Medicine; Visit Provider Radiology Diagnostic Radiology | DX: K57.32 Diverticulitis of large intestine without perforation or abscess without bleeding (principal); K57.30 Diverticulosis of large intestine without perforation or abscess without bleeding; K44.9 Diaphragmatic hernia without obstruction or gangrene; D18.03 Hemangioma of intra-abdominal structures; N20.0 Calculus of kidney; Z90.49 Acquired absence of other specified parts of digestive tract | CPT/HCPCS: 74177 ==

== ENCOUNTER → 2025-03-07 13:45 | Outpatient (BNV) | payer OTHER, SELFPAY | PROVIDERS: Emergency Provider Emergency Medicine; Visit Provider Internal Medicine Cardiovascular Disease | DX: R10.32 Left lower quadrant pain (principal) | CPT/HCPCS: 93010 ==

== ENCOUNTER → 2025-03-12 09:17 | Outpatient (BNV) | payer OTHER, SELFPAY | PROVIDERS: PCP Internal Medicine; Visit Provider Radiology Diagnostic Radiology | DX: M71.22 Synovial cyst of popliteal space [Baker], left knee (principal); M65.862 Other synovitis and tenosynovitis, left lower leg; M94.262 Chondromalacia, left knee | CPT/HCPCS: 73721 ==

== ENCOUNTER 2025-03-12 09:27 | Outpatient (REF) | payer OTHER, SELFPAY ==
--- OUTSIDE RECORDS SUMMARY | 2025-03-12 09:29 | XMS_ITS | Clinical Summary ---
Author Organization [facility] ity Address [address] [place] [address] Care Team Providers Care Powder Blender And Pourer Name Role Phone Lacey Rivas MD Primary Care Provider [phone] Allergies No known active allergies Medications tiZANidine [...] stabilized Immunizations Immunization Administration Dates Next Due [employer] SARS-CoV-2 COVID-19, mRNA, LNP-S, preservative free 10/18/2020 Tdap Tetanus diptheria acell ular pertussis (Boostrix; Adacel) 7yo and older 07/08/2016 Surgical History Surgery Date Site/Laterality Comments CHOLECYSTECTOMY 1989 PROCEDURE: LAPAROSCOPY, CHOLECYSTECTOMY PARTIAL HYSTERECTOMY jan 2013 PROCEDURE: CA SUPRACERVICAL ABDL HYSTER W/WO RMVL TUBE OVARY BREAST SURGERY age 21 Left PROCEDURE: CA UNLISTED PROCEDURE BREAST; COMMENT: cyst removed left [...] Info) Description 05/17/2025 1:00 PM EST Appointment [facility] Xray [address] [place] [address] Health Maintenance Due Date Last [...] Resul t * (ABNORMAL) Lipid panel (01/10/2021) [facility] LDL/HDL Ratio 4 0 - 4 Triglycerides 87 0 - 150 mg/dL Cholesterol 225(A) 0 - 200 mg/dL HDL 52 >=40 mg/dL LDL Cholesterol 156(A) 0 - 100 mg/dL Blood Venous blood specimen / Unknown Result [facility] Provider LAB BLOOD ORDERABLES Vanessa l Result * Cervical Cancer Screening: HPV (07/19/2016) [facility] Cervical Cancer Screening: HPV No interpretation , abstracted Result [facility] Provider HEALTH MAINTENANCE Final Result * HIV Screening (07/19/2016) [facility] HIV Screening Abstracted Result [facility] Provider HEALTH MAINTENANCE Final Result * Hepatitis C Screening (07/19/2016) [facility] Hepatitis C Screening Abstracted Result [facility] Provider HEALTH MAINTENANCE Final Result from Last 3 Months or Most Recently Relevant to Health Maintenance Insurance [facility] Care Teams Powder Blender And Pourer Relationship Specialty Start Date End Date Lacey Rivas MD [address] [place] [address] PCP - General Internal Medicine 06/15/15
== END 2025-03-12 09:28 | disposition home or self-care (01) ==
LOC: HO.MRI 09:27
PROVIDERS: PCP Internal Medicine; Visit Provider Orthopaedic Surgery
DX: S83.242A Other tear of medial meniscus, current injury, left knee, initial encounter (principal)
CPT/HCPCS: 73721

== ENCOUNTER → 2025-03-16 07:32 | Outpatient (REF) | payer OTHER, SELFPAY ==
--- NOTE | 2025-03-16 07:34 | CA_ITS ---
Transthoracic Echocardiogram Patient (Last, First, Middle): Santa Frank L Gender: F Date of : 1970 Age: 54 Procedure Date: 03/16/2025 Procedure Type: Transthoracic Echocardiogram Location: OP Height: 160.02 cm Weight: 72.58 kg BSA: 1.76 m2 Heart Rate: bpm BP: 122 / 80 mmHg Rail Manager: Referring MD: Paul Dominguez MD Tool Machinist: Paul Dominguez MD Symptoms: R00.2 - Palpitations Study Quality: Good ECG Rhythm: Sinus Conclusions: - Essentially normal study Findings Left Ventricle Normal left ventricular size, thickness, and systolic function. The visually estimated ejection fraction is between 60-65%. Spectral Doppler is indicative of a normal filling pattern. Right Ventricle Normal right ventricular cavity size and systolic function. Atria Both atria are normal in size. There is no evidence of interatrial shunt. Aortic Valve Normal aortic valve structure and function. There is no aortic valve stenosis. There is no aortic valve regurgitation. Mitral Valve Normal mitral valve structure and function. There is trace mitral valve regurgitation. There is no mitral valve stenosis. Pulmonic Valve The pulmonic valve is likely normal. Tricuspid Valve Normal tricuspid valve structure. There is trace tricuspid valve regurgitation. The right ventricular systolic pressure is normal. The right ventricular systolic pressure is 19 mmHg. Normal right atrial pressure. There is no evidence of pulmonary hypertension. Great Vessels All visible segments of the aorta are normal in size. The pulmonary artery was not well visualized. Venous The inferior vena cava is normal in size and collapses greater than 50% with inspiration. Pericardium/Pleural There is no evidence of pericardial effusion. Measurements 2D Linear Measurements IVSd: 0.76 0.6-0.9/0.6-1.0 cm LVIDd: 4.23 3.9-5.3/4.2-5.9 cm LVIDd Index: 2.40 2.4-3.2/2.2-3.1 cm/m2 LVIDs: 2.75 2.0-3.6 cm LVPWd: 0.86 0.7-1.1 cm Ao Root: 3.00 2.1-3.5 cm LA Diam: 3.70 2.7-3.8/3.0-4.0 cm LAIDs Index: 2.10 1.5-2.3 cm/m2 LV Mass: 129.07 67-162/88-224 g LV Mass Index: 73.33 43-95/49-115 g/m2 LVOT Diam: 2.00 3.0+(-)1.3 cm 2D Systolic Function EF 4C: 59.80 >55% EF 2C: 61.70 >55% EF BiP: 60.80 >55% Mitral Valve MV VTI: 0.25 MV Pk Rony: 0.78 MV Mn Rony: 0.46 MV Pk Grad: 2.00 MV Mn Grad: 1.00 MV Pk E: 0.72 MV PK A: 0.80 MV Decel Time: 198.00 E/A: 0.90 E'Lateral: 11.50 E'Medial: 7.29 E/E' Med: 9.90 E/E' Lat: 6.30 PHT: 58.00 MVA PHT: 3.79 MVA Continuity: 3.09 Decel Bradley: 3.63 Aortic Valve AoV Pk Rony: 1.31 AoV Mn Rony: 0.95 AoV VTI: 0.34 AoV Pk Grad: 7.00 Aov Mn Grad: 4.00 MIO Cont.VTI: 2.25 LVOT LVOT Pk Rony: 1.12 LVOT Mn Rony: 0.72 LVOT VTI: 0.24 LVOT Pk Grad: 5.00 LVOT Mn Grad: 3.00 LVOT Diam: 2.00 LVOT Area: 3.14 Diastolic Function MV Pk E: 0.72 MV Pk A: 0.80 E/A: 0.90 E'Medial: 7.29 E/E' Med: 9.90 E' Laterial: 11.50 E/E' Lat: 6.30 Right Ventricle TAPSE (mm): 21.00 TVS' Rony: 10.00 Tricuspid Valve TR Pk Rony: 2.01 TR Pk Grad: 16.00 RA Press: 3.00 RVSP: 19.00 Great Vessels Aorta Ao Root-2D: 3.00 2.0-3.7 cm Ao Asc: 2.90 2.1-3.4 cm Pulmonary Valve PV Pk Rony: 0.85 Peak PV Grad: 3.00 Updated in Other Vendor System with Status of Final Paul Dominguez MD electronically signed on 03/16/2025 10:06:29 AM with status of Final
--- OUTSIDE RECORDS SUMMARY | 2025-03-16 07:35 | XMS_ITS | Encounter Summary ---
Author Organization [facility] Address [address] [place] [address] Care Team Providers Care Laborer Aquatic Life Name Role Phone Lacey Rivas MD Primary Care Provider [phone] Encounter Details Date Type Department Care Team Description 12/10/2019 Florist'S Decorator Report Medical Records [address] [place] [address] Shonda Avina Social History Tobacco Use Types [...] on filedocumented in this encounter Care Teams Laborer Aquatic Life Relationship Specialty Start Date End Date Lacey Rivas MD [address] [place] [address] PCP - General Internal Medicine 06/15/15 documented as of this encounter
--- OUTSIDE RECORDS SUMMARY | 2025-03-16 07:35 | XMS_ITS | Encounter Summary ---
Author Organization [facility] Address [address] [place] [address] Care Team Providers Care Ocean Freight Manager Name Role Phone Lacey Rivas MD Primary Care Provider [phone] Reason for Visit * Reason Onset Date Comments Call From Office 08/02/2016 Encounter Details Date Type Department Care Team Description 08/02/2016 Telephone Adult Medicine [address] [phone] Lacey Rivas MD [address] [place] [address] [phone] Call From Md Office Social History Tobacco [...] 08/02/2016 9:39 AM EST KAYLIN Brandon from [facility] was calling to inform Wilbert Bonilla that the pt no showed her appointment.They have tried to contact her to reschedule but they are unable to reach her. documented in this encounter Plan of Treatment Not on file documented as of this encounter Visit Diagnoses Not on filedocumented in this encounter Care Teams Ocean Freight Manager Relationship Specialty Start Date End Date Lacey Rivas MD [address] [place] [address] PCP - General Internal Medicine 06/15/15 documented as of this encounter
--- OUTSIDE RECORDS SUMMARY | 2025-03-16 07:35 | XMS_ITS | Encounter Summary ---
Author Organization [facility] Address [address] [place] [address] Care Team Providers Care Professional Driver Name Role Phone Lacey Rivas MD Primary Care Provider [phone] Reason for Visit * Reason Onset Date Comments Mammography Outreach 05/07/2019 Encounter Details Date Type Department Care Team Description 05/07/2019 Telephone Adult Medicine [address] [phone] Madeleine Morgan PA-C [address] [place] [address] [phone] Mammography Outreach Social History Tobacco Use Types [...] on filedocumented in this encounter Care Teams Professional Driver Relationship Specialty Start Date End Date Lacey Rivas MD [address] [place], [place] [phone] PCP - General Internal Medicine 06/15/15 documented as of this encounter
--- OUTSIDE RECORDS SUMMARY | 2025-03-16 07:35 | XMS_ITS | Encounter Summary ---
Author Organization [facility] Address [address] [place] [address] Care Team Providers Care Tractor Driver Teamster Name Role Phone Lacey Rivas MD Primary Care Provider [phone] Encounter Details Date Type Department Care Team Description 01/15/2021 Release of Information Medical Records [address] [place] [id number] Abstract, Provider Social History Tobacco Use Types [...] on filedocumented in this encounter Care Teams Tractor Driver Teamster Relationship Specialty Start Date End Date Lacey Rivas MD [address] [place] [address] PCP - General Internal Medicine 06/15/15 documented as of this encounter
--- OUTSIDE RECORDS SUMMARY | 2025-03-16 07:35 | XMS_ITS | Encounter Summary ---
Author Organization [facility] Address [address] [place] [address] Care Team Providers Care Consulting Networking Engineer Name Role Phone Lacey Rivas MD Primary Care Provider [phone] Encounter Details Date Type Department Care Team Description 07/08/2021 Telephone Pulmonology - [place] [address] [facility] [address] [place] [address] Héctor Guevara MD [address] [place] [address] Social History Tobacco Use Types [...] CD of the pt's chest CT from [facility]- done in 01/2021 documented in this encounter Plan of Treatment Not on file documented as of this encounter Visit Diagnoses Not on filedocumented in this encounter Care Teams Consulting Networking Engineer Relationship Specialty Start Date End Date Lacey Rivas MD [address] [place] [address] PCP - General Internal Medicine 06/15/15 documented as of this encounter
--- OUTSIDE RECORDS SUMMARY | 2025-03-16 07:35 | XMS_ITS | Encounter Summary ---
Author Organization [facility] Address [address] [place] [address] Care Team Providers Care Commanding Officer Traffic Division Name Role Phone Lacey Rivas MD Primary Care Provider [phone] Encounter Details Date Type Department Care Team Description 11/10/2020 Refill Adult Medicine [address] [address] Lacey Rivas MD [address] [place] [address] [phone] Social History Tobacco Use Types Packs/Day Years [...] on filedocumented in this encounter Care Teams Commanding Officer Traffic Division Relationship Specialty Start Date End Date Lacey Rivas MD [address] [place] [address] [phone] PCP - General Internal Medicine 06/15/15 documented as of this encounter
--- OUTSIDE RECORDS SUMMARY | 2025-03-16 07:35 | XMS_ITS | Encounter Summary ---
Author Organization [facility] Address [address] [place] [address] Care Team Providers Care Senior Financial Accountant Name Role Phone Lacey Rivas MD Primary Care Provider [phone] Reason for Visit * Reason Onset Date Comments Appointment-Internal Referral 07/08/2016 Transfer Records 07/08/2016 Encounter Details Date Type Department Care Team Description 07/08/2016 Telephone OBGYN - [place] [address] [place] [address] Patricia Dunn MD Appointment-Internal Referral; Transfer Records [...] in and filled out LEYDA. Faxed to [facility] documented in this encounter Plan of Treatment Not on file documented as of this encounter Visit Diagnoses Not on filedocumented in this encounter Care Teams Senior Financial Accountant Relationship Specialty Start Date End Date Lacey Rivas MD [address] [place] [address] PCP - General Internal Medicine 06/15/15 documented as of this encounter
--- OUTSIDE RECORDS SUMMARY | 2025-03-16 07:35 | XMS_ITS | Encounter Summary ---
Author Organization [facility] Address [address] [place] [address] Care Team Providers Care Senior Billing Consultant Name Role Phone Lacey Rivas MD Primary Care Provider [phone] Encounter Details Date Type Department Care Team Description 07/16/2016 Pt. Referral Request [facility] Alex [address] [place] [address] Md Alex Social History Tobacco Use Types [...] filedocumented in this encounter Care Teams Senior Billing Consultant Relationship Specialty Start Date End Date Lacey Rivas MD [address] [place] [address] [phone] PCP - General Internal Medicine 06/15/15 documented as of this encounter
--- OUTSIDE RECORDS SUMMARY | 2025-03-16 07:35 | XMS_ITS | Clinical Summary ---
Author Organization [facility] ity Address [address] [place] [address] Care Team Providers Care Highway Design Engineer Name Role Phone Lacey Rivas MD Primary Care Provider [phone] Allergies No known active allergies Medications tiZANidine [...] stabilized Immunizations Immunization Administration Dates Next Due [employer] SARS-CoV-2 COVID-19, mRNA, LNP-S, preservative free 10/18/2020 Tdap Tetanus diptheria acell ular pertussis (Boostrix; Adacel) 7yo and older 07/08/2016 Surgical History Surgery Date Site/Laterality Comments CHOLECYSTECTOMY 1989 PROCEDURE: LAPAROSCOPY, CHOLECYSTECTOMY PARTIAL HYSTERECTOMY jan 2013 PROCEDURE: [place] SUPRACERVICAL ABDL HYSTER W/WO RMVL TUBE OVARY BREAST SURGERY age 21 Left PROCEDURE: [place] UNLISTED PROCEDURE BREAST; COMMENT: cyst removed left [...] Info) Description 05/17/2025 1:00 PM EST Appointment [facility] Xray [address] [place] [address] Health Maintenance Due Date Last [...] Resul t * (ABNORMAL) Lipid panel (01/10/2021) [facility] LDL/HDL Ratio 4 0 - 4 Triglycerides 87 0 - 150 mg/dL Cholesterol 225(A) 0 - 200 mg/dL HDL 52 >=40 mg/dL LDL Cholesterol 156(A) 0 - 100 mg/dL Blood Venous blood specimen / Unknown Result [facility] Provider LAB BLOOD ORDERABLES Vanessa l Result * Cervical Cancer Screening: HPV (07/19/2016) [facility] Cervical Cancer Screening: HPV No interpretation , abstracted Result [facility] Provider HEALTH MAINTENANCE Final Result * HIV Screening (07/19/2016) [facility] HIV Screening Abstracted Result [facility] Provider HEALTH MAINTENANCE Final Result * Hepatitis C Screening (07/19/2016) [facility] Hepatitis C Screening Abstracted Result [facility] Provider HEALTH MAINTENANCE Final Result from Last 3 Months or Most Recently Relevant to Health Maintenance Insurance [facility] PL[facility] Care Teams Highway Design Engineer Relationship Specialty Start Date End Date Lacey Rivas MD [address] [place] [address] PCP - General Internal Medicine 06/15/15
--- OUTSIDE RECORDS SUMMARY | 2025-03-16 07:35 | XMS_ITS | Encounter Summary ---
Author Organization [facility] Address [address] [place] [address] Care Team Providers Care Artificial Flowers Dyer Name Role Phone Lacey Rivas MD Primary Care Provider [phone] Encounter Details Date Type Department Care Team Description 07/04/2015 Transfer Records Medical Records [address] [place] [address] Abstract, Provider Social History Tobacco Use Types [...] on filedocumented in this encounter Care Teams Artificial Flowers Dyer Relationship Specialty Start Date End Date Lacey Rivas MD [address] [place] [phone] PCP - General Internal Medicine 06/15/15 documented as of this encounter
--- OUTSIDE RECORDS SUMMARY | 2025-03-16 07:35 | XMS_ITS | Encounter Summary ---
Author Organization [facility] Address [address] [place] [address] Care Team Providers Care Guard Entrance Registrar Name Role Phone Lacey Rivas MD Primary Care Provider [phone] Reason for Visit * Reason Comments E-prescribe Rx Request Encounter Details Date Type Department Care Team Description 08/24/2020 Refill Adult Medicine [address] [phone] Lacey Rivas MD [address] [place] [address] [phone] E-prescribe Rx Request Social History Tobacco Use [...] N/A Patients current insurance carrier is: Payor: [facility] / Plan: PPO $[id number] ANDOVER [id number] / Product Type: PPO [id number] documented in this encounter Plan of Treatment Not on file documented as of this encounter Visit Diagnoses Not on filedocumented in this encounter Care Teams Guard Entrance Registrar Relationship Specialty Start Date End Date Lacey Rivas MD [address] [place] [phone] PCP - General Internal Medicine 06/15/15 documented as of this encounter
--- OUTSIDE RECORDS SUMMARY | 2025-03-16 07:35 | XMS_ITS | Clinical Summary ---
Author Organization [facility] Address [address] [place] [address] Care Team Providers Care Career And Transition Teacher Name Role Phone Lacey Rivas MD Primary Care Provider [phone] Allergies No known active allergies Medications Medication [...] Family History Medical History Relation Name Comments AL Aunt 1 40s skin cancer Aunt 2 Hypothyroid Maternal Grandmother Colon Polyps Mother ??>10 graves Other cousin AL Paternal Grandfather 55 thyroid dysfunction Paternal Grandmother [...] 02/17/2022 02/17/2021, 02/10/2016, 04/05/2016, Additional history exists BMI CHECK/ADVISE 06/02/2024 01/10/2021, 04/2019, 07/19/2016, Additional history exists Covid-19 Vaccine (3 - 2022-2 4 season) 2025 10/18/2020, 09/27/2020 INFLUENZA (#1) 2025 CHOLESTEROL SCREENING 01/10/2026 01/10/2021 , 05/06/2019, 07/08/2016, Additional history exists DTAP/TDAP/TD (2 - Td or Tdap) 07/08/2026 07/08/2016 PNEUMOCOCCAL VACCINE FOR HIG H RISK PATIENTS (#1) 2036 Care Teams Career And Transition Teacher Relationship Specialty Start Date End Date Lacey Rivas MD [address] [place] [phone] PCP - General Internal Medicine 06/15/15
== END ==
LOC: HO.CARD 07:32
PROVIDERS: PCP Internal Medicine; Visit Provider Internal Medicine Cardiovascular Disease
DX: R00.2 Palpitations (principal)
CPT/HCPCS: 93270; 93306

== ENCOUNTER → 2025-03-16 07:34 | Outpatient (BNV) | payer OTHER, SELFPAY | PROVIDERS: PCP Internal Medicine; Visit Provider Internal Medicine Cardiovascular Disease | DX: R00.2 Palpitations (principal) | CPT/HCPCS: 93306 ==

== ENCOUNTER 2025-03-23 12:43 | Outpatient (REF) | payer OTHER, SELFPAY ==
--- NOTE | ~2025-03-23 | CT_ITS ---
EXAMINATION: CT LUNG SCREENING HISTORY: Z87.891 - Personal history of nicotine dependence TECHNIQUE: Low dose axial images were obtained from the sternal notch to upper abdomen without IV contrast per standard departmental protocol. Sagittal and coronal reformatted images were also obtained and reviewed. One or more of the following techniques was used for dose reduction: Automated exposure control, adjustment of the mA and/or kV according to patient size, use of iterative reconstruction technique. DLP: 49 mGy-cm COMPARISON: Comparison is made with the prior examination dated 12/27/2022. FINDINGS: Lung nodules: Again seen is a 4 mm nodule in the medial right upper lobe (series 4, image 41). A 3 mm nodule in the right middle lobe (series 4, image 87) is unchanged. There is a 4 mm subpleural nodule in the right lower lobe without change (series 4, image 92). A 4 mm nodule in the medial left upper lobe (series 4, image 42) is also stable. Emphysema: moderate Coronary Calcification: mild Aortic Arch Calcification: none Potentially Significant Incidentals : none Additional Chest Findings: There is no pleural or pericardial effusion. No mediastinal or axillary lymphadenopathy is identified. There is a small hiatal hernia. Visualized upper abdomen: The visualized portions of the liver, spleen, and adrenals have an unremarkable unenhanced appearance. CT/CT lung screening IMPRESSION: No suspicious pulmonary nodules are identified. LUNG-RADS ASSESSMENT: Lung-RADS 2: Benign MANAGEMENT: Continue annual screening with LDCT in 12 months Category S: N/A Electronically signed by: Abundio Castro MD 03/23/2025 01:44 PM EDT
--- OUTSIDE RECORDS SUMMARY | 2025-03-23 17:35 | XMS_ITS | Encounter Summary ---
Author Organization [facility] Address [address] [place] [address] Care Team Providers Care Certified Prosthetist/Orthotist Name Role Phone Lacey Rivas MD Primary Care Provider Reason for Visit * Reason Onset Date Comments medication problems 05/07/2019 Encounter Details Date Type Department Care Team Description 05/07/2019 Telephone Adult Medicine [address] [address] Kate Morgan PA-C [address] [place] [address] [phone] medication problems Social History Tobacco Use Types [...] on filedocumented in this encounter Care Teams Certified Prosthetist/Orthotist Relationship Specialty Start Date End Date Lacey Rivas MD [address] [place] [address] PCP - General Internal Medicine 06/15/15 documented as of this encounter
--- OUTSIDE RECORDS SUMMARY | 2025-03-23 17:35 | XMS_ITS | Encounter Summary ---
Author Organization [facility] Address [address] [place] [address] Care Team Providers Care Senior Quality Engineer Name Role Phone Lacey Rivas MD Primary Care Provider [phone] Encounter Details Date Type Department Care Team Description 07/08/2021 Telephone Pulmonology - [place] [address] [facility] [address] [place] [address] Héctor Guevara MD [address] [place] [address] Social History Tobacco Use Types [...] CD of the pt's chest CT from [facility]- done in 01/2021 documented in this encounter Plan of Treatment Not on file documented as of this encounter Visit Diagnoses Not on filedocumented in this encounter Care Teams Senior Quality Engineer Relationship Specialty Start Date End Date Lacey Rivas MD [address] [place] [phone] PCP - General Internal Medicine 06/15/15 documented as of this encounter
--- OUTSIDE RECORDS SUMMARY | 2025-03-23 17:36 | XMS_ITS | Encounter Summary ---
Author Organization [facility] Address [address] [place] [address] Care Team Providers Care Molding Room Supervisor Name Role Phone Lacey Rivas MD Primary Care Provider [phone] Reason for Visit * Reason Onset Date Comments Abnormal Mammogram 02/20/2016 Encounter Details Date Type Department Care Team Description 02/20/2016 Telephone Radiology - [address] [phone] Radiology, Authorizing Abnormal Mammogram Social History Tobacco [...] on filedocumented in this encounter Care Teams Molding Room Supervisor Relationship Specialty Start Date End Date Lacey Rivas MD [address] [place] [address] [phone] PCP - General Internal Medicine 06/15/15 documented as of this encounter
--- OUTSIDE RECORDS SUMMARY | 2025-03-23 17:36 | XMS_ITS | Encounter Summary ---
Author Organization [facility] Address [address] [place] [address] Care Team Providers Care Body Component Engineer Name Role Phone Lacey Rivas MD Primary Care Provider Reason for Visit * Reason Onset Date Comments Appointment-Internal Referral 07/08/2016 Transfer Records 07/08/2016 Encounter Details Date Type Department Care Team Description 07/08/2016 Telephone OBGYN - [place] [address] [place] [address] Patricia Dunn MD Appointment-Internal Referral; Transfer Records [...] in and filled out LEYDA. Faxed to [facility] documented in this encounter Plan of Treatment Not on file documented as of this encounter Visit Diagnoses Not on filedocumented in this encounter Care Teams Body Component Engineer Relationship Specialty Start Date End Date Lacey Rivas MD [address] [place] [phone] PCP - General Internal Medicine 06/15/15 documented as of this encounter
--- OUTSIDE RECORDS SUMMARY | 2025-03-23 17:36 | XMS_ITS | Encounter Summary ---
Author Organization [facility] Address [address] [place] [address] Care Team Providers Care Desk Editor Name Role Phone Lacey Rivas MD Primary Care Provider [phone] Encounter Details Date Type Department Care Team Description 07/21/2016 Release of Information Medical Records [address] [place] [address] Abstract, Provider Social History Tobacco Use Types [...] on filedocumented in this encounter Care Teams Desk Editor Relationship Specialty Start Date End Date Lacey Rivas MD [address] [place] [phone] PCP - General Internal Medicine 06/15/15 documented as of this encounter
--- OUTSIDE RECORDS SUMMARY | 2025-03-23 17:36 | XMS_ITS | Encounter Summary ---
Author Organization [facility] Address [address] [place] [address] Care Team Providers Care Table Maker Name Role Phone Lacey Rivas MD Primary Care Provider [phone] Encounter Details Date Type Department Care Team Description 05/10/2019 Pt. Non Urgent Medical [place] [address] Madeleine Morgan PA-C [address] [place] [address] Social History Tobacco Use Types Packs/Day Years Used Date Smoking Tobacco: Every Day Cigarettes 1 Smokeless Tobacco: Former Alcohol Use Standard Drinks/Week Comments Yes 0 (1 standard drink = 0.6 oz pur e alcohol) 18/week Sex Assigned at Date Recorded Not on file documented as of this encounter Progress Notes * Madeleine Morgan PA-C - 05/10/2019 11:14 AM EST Reviewed; Meetyl message sent. Madeleine Morgan PA-C documented in this encounter Miscellaneous Notes * Telephone Encounter - Leticia Varam M.A. - 05/10/2019 9:48 AM ESTFrom: Leona [...] on filedocumented in this encounter Care Teams Table Maker Relationship Specialty Start Date End Date Lacey Rivas MD [address] [place] [address] PCP - General Internal Medicine 06/15/15 documented as of this encounter
--- OUTSIDE RECORDS SUMMARY | 2025-03-23 17:36 | XMS_ITS | Clinical Summary ---
Author Organization [facility] ity Address [address] [place] [address] Care Team Providers Care Appeals Manager Name Role Phone Lacey Rivas MD Primary Care Provider [phone] Allergies No known active allergies Medications tiZANidine [...] stabilized Immunizations Immunization Administration Dates Next Due [place] SARS-CoV-2 COVID-19, mRNA, LNP-S, preservative free 10/18/2020 Tdap Tetanus diptheria acell ular pertussis (Boostrix; Adacel) 7yo and older 07/08/2016 Surgical History Surgery Date Site/Laterality Comments CHOLECYSTECTOMY 1989 PROCEDURE: LAPAROSCOPY, CHOLECYSTECTOMY PARTIAL HYSTERECTOMY jan 2013 PROCEDURE: [place] SUPRACERVICAL ABDL HYSTER W/WO RMVL TUBE OVARY BREAST SURGERY age 21 Left PROCEDURE: [place] UNLISTED PROCEDURE BREAST; COMMENT: cyst removed left [...] Info) Description 05/17/2025 1:00 PM EST Appointment [facility] Xray [address] [place] [address] Health Maintenance Due Date Last [...] Resul t * (ABNORMAL) Lipid panel (01/10/2021) [facility] LDL/HDL Ratio 4 0 - 4 Triglycerides 87 0 - 150 mg/dL Cholesterol 225(A) 0 - 200 mg/dL HDL 52 >=40 mg/dL LDL Cholesterol 156(A) 0 - 100 mg/dL Blood Venous blood specimen / Unknown Result [facility] Provider LAB BLOOD ORDERABLES Vanessa l Result * Cervical Cancer Screening: HPV (07/19/2016) [facility] Cervical Cancer Screening: HPV No interpretation , abstracted Result [facility] Provider HEALTH MAINTENANCE Final Result * HIV Screening (07/19/2016) [facility] HIV Screening Abstracted Result [facility] Provider HEALTH MAINTENANCE Final Result * Hepatitis C Screening (07/19/2016) [facility] Hepatitis C Screening Abstracted Result [facility] Provider HEALTH MAINTENANCE Final Result from Last 3 Months or Most Recently Relevant to Health Maintenance Insurance [facility] [employer] Care Teams Appeals Manager Relationship Specialty Start Date End Date Lacey Rivas MD [address] [place] [address] PCP - General Internal Medicine 06/15/15
--- OUTSIDE RECORDS SUMMARY | 2025-03-23 17:36 | XMS_ITS | Encounter Summary ---
Author Organization [facility] Address [address] [place] [address] Care Team Providers Care Risk Control Manager Name Role Phone Lacey Rivas MD Primary Care Provider [phone] Reason for Visit * Reason Onset Date Comments Mammography Outreach 05/07/2019 Encounter Details Date Type Department Care Team Description 05/07/2019 Telephone Adult Medicine [address] [phone] Madeleine Morgan PA-C [address] [place] [address] [phone] Mammography Outreach Social History Tobacco Use Types [...] on filedocumented in this encounter Care Teams Risk Control Manager Relationship Specialty Start Date End Date Lacey Rivas MD [address] [place], [place] [phone] PCP - General Internal Medicine 06/15/15 documented as of this encounter
--- OUTSIDE RECORDS SUMMARY | 2025-03-23 17:36 | XMS_ITS | Encounter Summary ---
Author Organization [facility] Address [address] [place] [address] Care Team Providers Care Permanent Mold Supervisor Name Role Phone Lacey Rivas MD Primary Care Provider [phone] Reason for Visit * Reason Comments E-prescribe Rx Request Encounter Details Date Type Department Care Team Description 08/24/2020 Refill Adult Medicine [address] [phone] Lacey Rivas MD [address] [place] [address] [phone] E-prescribe Rx Request Social History Tobacco Use [...] N/A Patients current insurance carrier is: Payor: [facility] / Plan: PPO $20 [place] [id number] / Product Type: PPO [id number] documented in this encounter Plan of Treatment Not on file documented as of this encounter Visit Diagnoses Not on filedocumented in this encounter Care Teams Permanent Mold Supervisor Relationship Specialty Start Date End Date Lacey Rivas MD [address] [place] [address] PCP - General Internal Medicine 06/15/15 documented as of this encounter
== END 2025-03-23 12:44 | disposition home or self-care (01) ==
LOC: HO.CT 12:43
PROVIDERS: Visit Provider Physician Assistant Medical
DX: Z12.2 Encounter for screening for malignant neoplasm of respiratory organs (principal); Z87.891 Personal history of nicotine dependence
CPT/HCPCS: 71271

== ENCOUNTER → 2025-03-23 12:46 | Outpatient (BNV) | payer OTHER, SELFPAY | PROVIDERS: Visit Provider Radiology Diagnostic Radiology | DX: Z87.891 Personal history of nicotine dependence (principal) | CPT/HCPCS: 71271 ==

== ENCOUNTER 2025-04-05 08:19 | Outpatient (AMB) | payer OTHER, SELFPAY ==
--- NOTE | 2025-04-05 08:21 | A.OFFVIS_ITS ---
Vital Signs 04/05/25 08:28 Height 5 ft 3.5 in Weight 157 lb BMI 27.4 Intake Visit Reasons: OV - Left Knee MRI Review Intake Note: Ms. Frank presents for follow up of her left knee pain. She describes her knee pain as achy in nature. Her pain has gotten somewhat better over the last few weeks. Most recently she has been bothered by chronic low back pain, diverticulitis and pain along the posterior aspect of her right hip. She denies any numbness or tingling in either of her legs. She has tried physical therapy exercises which aggravated her pain. Allergies gabapentin Allergy (Intermediate, Verified 04/05/25 08:27) Insomnia ibuprofen Adverse Reaction (Intermediate, Verified 04/05/25 08:27) Stomach Upset Medication List - Last Reconciled 04/05/25 by Micheal Bardales MD baclofen 10 mg PO TID PRN 90 days melatonin 6 mg (2 x 3 mg) PO BEDTIME PRN omeprazole 20 mg PO DAILY ondansetron 4 mg PO Q8H PRN tizanidine 4 mg PO DAILY@1800 PRN trazodone 50 mg PO BEDTIME MRX1 PRN PFSH Medical History PTSD (post-traumatic stress disorder) Generalized anxiety disorder Personal history of nicotine dependence Emphysema lung COVID-19 vaccine series completed GERD (gastroesophageal reflux disease) Arthritis COPD (chronic obstructive pulmonary disease) Surgical History H/O total hysterectomy History of colonoscopy History of dental surgery History of cholecystectomy History of partial hysterectomy History of tubal ligation Family History Mother GERD (gastroesophageal reflux disease) DVT (deep venous thrombosis) Father HTN (hypertension) Abnormal thyroid hormone metabolism Social History Housing: House Do you presently have visiting nurse or other home services: No Alcohol intake: current Alcohol intake frequency: a few times a week Alcohol type: wine Comment: COUNTS CORRECT Patient Tobacco Use Status: Former Tobacco user Tobacco use type: Cigarette Years Smoked: onset 15yo, 1ppd x 34yrs, 30pyh - quit 2019) e-Cigarette/Vaping Use: Never Used Second Hand Smoke Exposure: No Substance Use Type: Marijuana service: No Current occupational status: employed 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 Sexual orientation: Straight/Heterosexual Gender identity: Female Cognitive needs: No Hearing needs: No Vision needs: Yes (glasses) Physical Exam Vital Signs: BMI result Body Mass Index 27.4 Const Other: Well-nourished well-developed very friendly female awake alert and oriented x3 in no acute distress Back/Spine/Pelvis Other: Low back examination shows right-sided paraspinal muscle tenderness, tenderness over her right sacroiliac joint, no overlying skin lesions, negative straight leg raise test bilaterally at 70 degrees Extrem Other: Left knee examination shows a minimal effusion, minimal crepitus with range of motion, tenderness along her medial and lateral joint lines, positive Sandrita's test Results Reviewed Results Reviewed: MRI of the patient's left knee shows mild diffuse degenerative changes as well as tearing of the medial and lateral menisci Assessment & Plan Assessment & Plan (1) Low back pain: Code(s): M54.50 - Low back pain, unspecified Category: Medical (2) Tear of medial meniscus of left knee: Code(s): S83.242A - Other tear of medial meniscus, current injury, left knee, initial encounter Category: Medical Plan Ms. Frank presents with intermittent left knee discomfort due to early degenerative joint disease as well as tearing of her medial and lateral menisci. I had a lengthy discussion with the patient regarding the treatment options. At this point the patient's symptoms are tolerable to her. We will hold off on a cortisone injection. The patient does have chronic low back pain as well as right sacroiliitis. Thus, I will refer her to our pain management department here at [facility]. She will follow up as instructed. Feel free to call me at any time should questions regarding her orthopedic management arise. I spent 21 minutes in reviewing the patient's records and imaging studies, seeing the patient and documenting in the medical record. Orders: Referrals Pain Management Referral G89.29 - Other chronic pain, M53.3 - Sacrococcygeal disorders, not elsewhere classified, M54.50 - Low back pain, unspecified Coding Level of Care Code Est Pt Level 3 (80619) Complex EM visit Add On G2211 Diagnoses Low back pain M54.50 Tear of medial meniscus of left knee S83.242A
[2025-04-05 08:28] VITALS: BMI 27.4
--- OUTSIDE RECORDS SUMMARY | 2025-04-05 08:40 | XMS_ITS | Clinical Summary ---
Author Organization [facility] ity Address [address] [place] [address] Care Team Providers Care Window Shade Ring Coverer Name Role Phone Lacey Rivas MD Primary Care Provider [phone] Allergies No known active allergies Medications tiZANidine [...] stabilized Immunizations Immunization Administration Dates Next Due [employer] SARS-CoV-2 COVID-19, mRNA, LNP-S, preservative free 10/18/2020 Tdap Tetanus diptheria acell ular pertussis (Boostrix; Adacel) 7yo and older 07/08/2016 Surgical History Surgery Date Site/Laterality Comments CHOLECYSTECTOMY 1989 PROCEDURE: LAPAROSCOPY, CHOLECYSTECTOMY PARTIAL HYSTERECTOMY jan 2013 PROCEDURE: [place] SUPRACERVICAL ABDL HYSTER W/WO RMVL TUBE OVARY BREAST SURGERY age 21 Left PROCEDURE: [place] UNLISTED PROCEDURE BREAST; COMMENT: cyst removed left [...] Info) Description 05/17/2025 1:00 PM EST Appointment [facility] Xray [address] [place] [address] Health Maintenance Due Date Last [...] Resul t * (ABNORMAL) Lipid panel (01/10/2021) [facility] LDL/HDL Ratio 4 0 - 4 Triglycerides 87 0 - 150 mg/dL Cholesterol 225(A) 0 - 200 mg/dL HDL 52 >=40 mg/dL LDL Cholesterol 156(A) 0 - 100 mg/dL Blood Venous blood specimen / Unknown Result [facility] Provider LAB BLOOD ORDERABLES Vanessa l Result * Cervical Cancer Screening: HPV (07/19/2016) [facility] Cervical Cancer Screening: HPV No interpretation , abstracted Result [facility] Provider HEALTH MAINTENANCE Final Result * HIV Screening (07/19/2016) [facility] HIV Screening Abstracted Result [facility] Provider HEALTH MAINTENANCE Final Result * Hepatitis C Screening (07/19/2016) [facility] Hepatitis C Screening Abstracted Result [facility] Provider HEALTH MAINTENANCE Final Result from Last 3 Months or Most Recently Relevant to Health Maintenance Insurance [facility] [employer] Care Teams Window Shade Ring Coverer Relationship Specialty Start Date End Date Lacey Rivas MD [address] [place] [address] PCP - General Internal Medicine 06/15/15
== END 2025-04-05 08:34 | disposition home or self-care (01) ==
LOC: HO.HOS 08:19
PROVIDERS: Visit Provider Orthopaedic Surgery
DX: M54.50 Low back pain, unspecified (principal); S83.242A Other tear of medial meniscus, current injury, left knee, initial encounter
CPT/HCPCS: 99213

== ENCOUNTER → 2025-04-05 08:19 | Outpatient (BNVA) | payer OTHER, SELFPAY | PROVIDERS: Visit Provider Orthopaedic Surgery | DX: M54.50 Low back pain, unspecified (principal); S83.242A Other tear of medial meniscus, current injury, left knee, initial encounter; M53.3 Sacrococcygeal disorders, not elsewhere classified; G89.29 Other chronic pain | CPT/HCPCS: 99212 ==

== ENCOUNTER 2025-04-15 08:54 | Outpatient (REF) | payer OTHER, SELFPAY ==
--- NOTE | ~2025-04-15 | XR_ITS ---
EXAMINATION: XR HIP, RIGHT CLINICAL INFORMATION: M25.551 - Pain in right hip COMPARISON: None available. TECHNIQUE: Two views of the right hip. Pelvis 1 view FINDINGS: No acute fracture or dislocation. Right hip joint space is maintained. Mild symphysis pubis degeneration. No abnormal soft tissue calcification. Pelvis: No acute fracture or dislocation. Hip joint spaces are maintained. SI joints are intact. No abnormal soft tissue calcification. Surgical clips projected over the pelvis. XR/XR hip RT w PEL1V IMPRESSION: No acute osseous findings Electronically signed by: Dalton Franklin MD 04/15/2025 10:53 AM KIERRA
--- NOTE | ~2025-04-15 | XR_ITS ---
EXAMINATION: XR SACROILIAC JOINTS CLINICAL INFORMATION: M54.50 - Low back pain, unspecified COMPARISON: None available. TECHNIQUE: 3 views of the sacroiliac joints FINDINGS: No significant SI joint space narrowing or marginal sclerosis. No erosions.. No acute fractures identified. Surgical clips projected over the pelvis. Phleboliths in the pelvis. XR/XR sacroiliac joint min 3V IMPRESSION: No acute findings Electronically signed by: Dalton Franklin MD 04/15/2025 03:50 PM KIERRA
== END 2025-04-15 08:55 | disposition home or self-care (01) ==
LOC: HO.HMGCX 08:54
PROVIDERS: Visit Provider Nurse Practitioner Family
DX: M51.360 Other intervertebral disc degeneration, lumbar region with discogenic back pain only (principal); M47.817 Spondylosis without myelopathy or radiculopathy, lumbosacral region; G89.29 Other chronic pain; M25.551 Pain in right hip; M53.3 Sacrococcygeal disorders, not elsewhere classified
CPT/HCPCS: 72202; 73502; 99212

== ENCOUNTER 2025-04-15 08:54 | Outpatient (AMB) | payer OTHER, SELFPAY ==
--- NOTE | 2025-04-15 08:59 | MHC.OFFVIS ---
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 The chronic low back pain has been persistent, with a history of disc degeneration and sacroiliac joint pain. The patient reports that the pain radiates to the right buttock, extending to her right lateral hip and occasionally into her right groin and thigh without numbness or tingling. Changing positions from sitting to standing, prolonged driving, and walking increases her symptoms. The patient also reports right hip pain, which she believes is separate from her back pain. The pain radiates through the buttock and into the thigh, and she experiences difficulty with activities such as climbing stairs. She also reports chronic discogenic low back pain with plan to proceed with Intracept basivertebral nerve ablation at L3, L4, L5, S1 levels to address vertebrogenic pain which was on hold due to multiple other medical concerns. The patient is currently undergoing cardiac monitoring with a Holter monitor due to palpitations. She reports that the EKG and ultrasound were normal, and she is scheduled for a tilt table test next month per [facility]. Denies any recent cough, cold, infection, fever or any significant changes in medical history since last office visit except ER visit and treatment for diverticulitis and left carpal tunnel release on 12/23/[address] Mackenzie. - Onset: Chronic, with a history of disc degeneration and sacroiliac joint pain - Quality: Sharp ache, radiating from the right buttock to the thigh - Location: Right hip and buttock, with radiation to the thigh and groin - Exacerbating factors: Climbing stairs, prolonged sitting, and walking - Relieving factors: None specifically mentioned - Impact: Difficulty with activities such as climbing stairs and walking, requiring the use of a cane at times - Affect: Pain impacts daily activities and limits mobility - Analgesia: Uses Tylenol and diclofenac cream for pain relief - Adverse Effects: None reported - Activities of Daily Living: Pain limits ability to perform activities such as walking and climbing stairs - Aberrant Drug Related Behaviors: None reported Past Procedures: 01/01/23: Bilateral Diagnostic C3, C4, C5 MBB-10% pain relief for 2-3 hours PFSH Medical History PTSD (post-traumatic stress disorder) Generalized anxiety disorder Personal history of nicotine dependence Emphysema lung COVID-19 vaccine series completed GERD (gastroesophageal reflux disease) Arthritis COPD (chronic obstructive pulmonary disease) Surgical History H/O total hysterectomy History of colonoscopy History of dental surgery History of cholecystectomy History of partial hysterectomy History of tubal ligation Family History Mother GERD (gastroesophageal reflux disease) DVT (deep venous thrombosis) Father HTN (hypertension) Abnormal thyroid hormone metabolism Social History Housing: House Do you presently have visiting nurse or other home services: No Alcohol intake: former Year quit: 2023 Patient Tobacco Use Status: Former Tobacco user Tobacco use type: Cigarette Years Smoked: onset 15yo, 1ppd x 34yrs, 30pyh - quit 2019) e-Cigarette/Vaping Use: Never Used Second Hand Smoke Exposure: No Substance Use Type: Marijuana service: No Current occupational status: employed 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 Wearing Holter monitor. - Gastrointestinal: Reports history of diverticulitis, with recent ER visit - Neurological: Denies groin pain during examination, but reports occasional groin pain All systems reviewed & are unremarkable except as noted in HPI and below Physical Exam Vital Signs: Last Vital Signs Pulse 78 04/15/25 09:03 BP 130/79 04/15/25 09:03 Pulse Ox 98 04/15/25 09:03 Oxygen Delivery Method Room Air 04/15/25 09:03 BMI result Body Mass Index 28.3 General: Appears afebrile. Alert and oriented. Mood and affect appropriate. Follows and participates in conversation appropriately. Respiratory effort is unlabored. No cough. Able to transition from sit to stand unassisted. Ambulates with bilaterally normal heel strike and toe off. General: Yes no CVA tenderness Back/Spine/Pelvis Other: Limited lumbar ROM due to pain. Lumbar bending and flexing forward reproduces moderate to severe pain, lumbar extension reproduces mild to moderate pain. Lumbar spine stiffness upon forward flexion with increased discomfort while rising from flexed position. Demonstrates 5/5 strength of quadriceps bilaterally as well as flexion/dorsiflexion of bilateral feet against resistance. 2+ pedal pulses bilaterally. Straight leg rise with dorsiflexion is negative bilaterally. +2 patellar and +1 achilles reflexes bilaterally. Facet loading test positive bilaterally. Santy sign, Yboany?s, Gaenslen, Pelvic compression and Stinchfield tests are positive on the right. No groin pain with I/E hip rotations. Valsalva maneuver is negative. Back: no CVA tenderness Cervical Spine: cervical ROM normal, No Cervical spine tenderness and No step off deformity Thoracic/Lumbar Spine: thoracic and lumbar spine normal to inspection, No Thoracic/lumbar spine scar(s), Lasegue's sign negative, straight leg raise negative bilaterally, pain with thoraco-lumbar ROM, paraspinal muscle tenderness, thoraco-lumbar ROM limited, No thoracic spinal tenderness and lumbar spinal tenderness (L4-S1) Pelvis: buttock tenderness on the right Sacroiliac joints: on the right tender to palpation and on the left nontender Extrem General: Yes capillary refill normal, Yes no clubbing, cyanosis or edema and Yes no calf tenderness Results Reviewed Results Reviewed: MR lumbar spine without gadolinium 10/30/24 Comparison: None Findings: No scoliosis or spondylolisthesis. No acute fracture or pathologic bone lesion. Cauda equina and conus medullaris within normal limits. No significant spinal canal or foraminal stenoses. There is broad-based degenerative disc bulge at L4-L5 and L5-S1. There is reactive marrow signal changes in the posterior superior L5 vertebra. Paraspinous musculature intact. IMPRESSION: No acute findings. XR HIP, RIGHT 04/15/25 CLINICAL INFORMATION: M25.551 - Pain in right hip COMPARISON: None available. TECHNIQUE: Two views of the right hip. Pelvis 1 view FINDINGS: No acute fracture or dislocation. Right hip joint space is maintained. Mild symphysis pubis degeneration. No abnormal soft tissue calcification. Pelvis: No acute fracture or dislocation. Hip joint spaces are maintained. SI joints are intact. No abnormal soft tissue calcification. Surgical clips projected over the pelvis. IMPRESSION: No acute osseous findings Assessment & Plan Assessment & Plan (1) Low back pain: Code(s): M54.50 - Low back pain, unspecified Category: Medical (2) Right hip pain: Code(s): M25.551 - Pain in right hip Category: Medical (3) Lumbosacral spondylosis: Code(s): M47.817 - Spondylosis without myelopathy or radiculopathy, lumbosacral region Category: Medical (4) Lumbar degenerative disc disease: Code(s): M51.369 - Other intervertebral disc degeneration, lumbar region without mention of lumbar back pain or lower extremity pain Category: Medical (5) Vertebrogenic low back pain: Code(s): M54.51 - Vertebrogenic low back pain Category: Medical (6) Chronic low back pain: Code(s): M54.50 - Low back pain, unspecified; G89.29 - Other chronic pain Category: Medical (7) Chronic right sacroiliac joint pain: Code(s): M53.3 - Sacrococcygeal disorders, not elsewhere classified; G89.29 - Other chronic pain Category: Medical Plan The plan includes obtaining x-rays of the hip and sacroiliac joint to further evaluate the source of pain which patient completed after today's visit. We will proceed with Right therapeutic SI joint injection with local and fluoroscopy. Expectations, risks and benefits were reviewed. Patient is aware she will be contacted to schedule this procedure. The patient is advised to continue with her current pain management regimen, including the use of Tylenol and diclofenac cream. For her cardiac concerns, the patient will complete the Holter monitor assessment and follow up with a tilt table test next month per Cardiology. She is encouraged to maintain communication with her Rock Dust Sprayer regarding any changes in her symptoms. All questions and concerns have been answered and patient agreed with the treatment plan. Follow up after injection and sooner as needed. Patient was informed and verbally consented to the use of an ambient scribe for clinic note documentation during this visit. Orders: Orders XR sacroiliac joint min 3V Today M53.3 - Sacrococcygeal disorders, not elsewhere classified, M54.50 - Low back pain, unspecified XR hip RT w PEL1V Today M25.551 - Pain in right hip Coding Level of Care Code Est Pt Level 4 (33000) Complex EM visit Add On G2211 Diagnoses Low back pain M54.50 Right hip pain M25.551 Lumbosacral spondylosis M47.817 Lumbar degenerative disc disease M51.369 Vertebrogenic low back pain M54.51 Chronic low back pain M54.50; G89.29 Chronic right sacroiliac joint pain M53.3; G89.29
[2025-04-15 09:03] VITALS: BP 130/79; PULSE 78; O2SAT 98; BMI 28.3
--- OUTSIDE RECORDS SUMMARY | 2025-04-15 09:20 | XMS_ITS | Clinical Summary ---
Author Organization [facility] ity Address [address] [place] [address] Care Team Providers Care Bead Cutter Name Role Phone Lacey Rivas MD Primary Care Provider [phone] Allergies No known active allergies Medications tiZANidine [...] stabilized Immunizations Immunization Administration Dates Next Due [employer] SARS-CoV-2 COVID-19, mRNA, LNP-S, preservative free 10/18/2020 [...] Info) Description 05/17/2025 1:00 PM EST Appointment [facility] Xray [address] [place] [address] Health Maintenance Due Date Last [...] Resul t * (ABNORMAL) Lipid panel (01/10/2021) [facility] LDL/HDL Ratio 4 0 - 4 Triglycerides 87 0 - 150 mg/dL Cholesterol 225(A) 0 - 200 mg/dL HDL 52 >=40 mg/dL LDL Cholesterol 156(A) 0 - 100 mg/dL Blood Venous blood specimen / Unknown Result [facility] Provider LAB BLOOD ORDERABLES Vanessa l Result * Cervical Cancer Screening: HPV (07/19/2016) [facility] Cervical Cancer Screening: HPV No interpretation , abstracted Result [facility] Provider HEALTH MAINTENANCE Final Result * HIV Screening (07/19/2016) [facility] HIV Screening Abstracted Result [facility] Provider HEALTH MAINTENANCE Final Result * Hepatitis C Screening (07/19/2016) [facility] Hepatitis C Screening Abstracted Result [facility] Provider HEALTH MAINTENANCE Final Result from Last 3 Months or Most Recently Relevant to Health Maintenance Insurance [facility] [employer] Care Teams Bead Cutter Relationship Specialty Start Date End Date Lacey Rivas MD [address] [place] [address] PCP - General Internal Medicine 06/15/15
== END 2025-04-15 09:19 | disposition home or self-care (01) ==
LOC: HO.PMC 08:56
PROVIDERS: Visit Provider Nurse Practitioner Family
DX: M54.50 Low back pain, unspecified (principal); M25.551 Pain in right hip; M47.817 Spondylosis without myelopathy or radiculopathy, lumbosacral region; M51.369 Other intervertebral disc degeneration, lumbar region without mention of lumbar back pain or lower extremity pain; M54.51 Vertebrogenic low back pain; G89.29 Other chronic pain; M53.3 Sacrococcygeal disorders, not elsewhere classified
CPT/HCPCS: 99214

== ENCOUNTER 2025-05-19 06:24 | Outpatient (REF) | payer OTHER, SELFPAY ==
--- OUTSIDE RECORDS SUMMARY | 2025-05-17 12:44 | XMS_ITS | Encounter Summary ---
Author Organization [facility] Address [address] [place] [address] Care Team Providers Care Day Treatment Clinician/Art Therapist Name Role Phone John Gastelum MD Primary Care Provider [phone]- [phone] Reason for Referral * Cardiac Stress Testing (Routine) - Authorized Specialty Diagnoses / Procedures Referred By Pemaac t Referred To Contact Cardiology Diagnoses Unspecified coma (CMS/HCC V24, CMS/HCC V28) Procedures Tilt table Paul Dominguez MD [facility] CARDIOVASCULAR SPEC [address] [place] [address] Phone: tel: fax: [facility] Referral ID Status Reason Start Date Expiration Date V isits Requested Visits Authorized [id number] Authorized 02/01/2025 02/01/2026 1 1 Reason for Visit * Cardiac Stress Testing (Routine) - Authorized Specialty Diagnoses / Procedures Referred By Contac t Referred To Contact Cardiology Diagnoses Unspecified coma (CMS/HCC V24, CMS/HCC V28) Procedures Tilt table Paul Dominguez MD [facility] CARDIOVASCULAR SPEC [address] [place] [address] Phone: tel: fax: [facility] Referral ID Status Reason Start Date Expiration Date V isits Requested Visits Authorized [id number] Authorized 02/01/2025 02/01/2026 1 1 Encounter Details Date Type Department Care Team (Latest Contact Info) Description 05/17/2025 12:44 PM EST - 05/17/2025 11:59 PM EST Hospital Encounter [facility] Xray [address] [place] [address] Unspecified coma (CMS/HCC V24, CMS/HCC [...] Routine 05/17/2025 1:17 PM EST Unspecified coma (CMS/[facility] V24, CMS/[facility] V28) documented in this encounter [...] Visit Diagnoses Diagnosis Unspecified coma (CMS/HCC V24, CMS/[facility] V28) documented in this encounter Care Teams Day Treatment Clinician/Art Therapist Relationship Specialty Start Date End Date John Gastelum MD [address] [place] [address] PCP - General Internal Medicine 05/17/25 documented as of this encounter
--- NOTE | ~2025-05-19 | FL_ITS ---
EXAMINATION: FL GUIDANCE ONLY HISTORY: M53.3 - Sacrococcygeal disorders, not elsewhere classified COMPARISON: None available. TECHNIQUE: Fluoroscopy time: 17 seconds. Cumulative Dose: 6.80 mGy. DAP: 355.00 mGycm2 Images: 2. FINDINGS: Fluoroscopic spot films of the right hemipelvis demonstrate a needle in the region of the sacroiliac joint. FL/FL guidance in treatment room IMPRESSION: Fluoroscopy during procedure. Please see procedure report for additional information. Electronically signed by: Abundio Castro MD 05/19/2025 03:48 PM KIERRA
--- OUTSIDE RECORDS SUMMARY | 2025-05-19 06:26 | XMS_ITS | Clinical Summary ---
Author Organization [facility] Address [address] [place] [address] Phone Care Team Providers Care Fulfillment Mail Clerk Name Role Phone John Gastelum MD Primary Care Provider +1- [phone] Allergies No known active allergies Medications tiZANidine (ZANAFLEX) 4 mg tablet TAKE 1 TABLET BY MOUTH 3 TIMES A WEEK 11/13/2020 Active acetaminophen (TYLENOL) 500 mg tablet Take 500 mg by mouth every 6 hours as needed. Active Active Problems Problem Noted Date Diagnosed Date GERD (gastroesophageal reflux disease) Cervical polyp 11/01/2020 Seasonal allergies 11/01/2020 Cervical spondylosis 05/07/2019 Heavy alcohol use 05/07/2019 Subclinical hypothyroidism 07/06/2015 Overview (05/24/2024): Graves disease in the distant past, rx methimazole, no JONES, stabilized Encounters Date Type Department Care Team Description 05/17/2025 12:44 PM EST - 05/17/2025 11:59 PM EST Hospital Encounter [facility] Xray [address] [place] [address] Unspecified coma (CMS/HCC V24, CMS/[facility] V28) Discharge Disposition: Home or Self Care from Last 3 Months Immunizations Immunization Administration Dates Next Due Pfizer SARS-CoV-2 COVID-19, mRNA, LNP-S, preservative free 10/18/2020 Tdap Tetanus diptheria acell ular pertussis (Boostrix; Adacel) 7yo and older 07/08/2016 Surgical History Surgery Date Site/Laterality Comments CHOLECYSTECTOMY 1989 PROCEDURE: LAPAROSCOPY, CHOLECYSTECTOMY PARTIAL HYSTERECTOMY jan 2013 PROCEDURE: [place] SUPRACERVICAL ABDL HYSTER W/WO RMVL TUBE OVARY BREAST SURGERY age 21 Left PROCEDURE: [place] UNLISTED PROCEDURE BREAST; COMMENT: cyst removed left [...] on file Sexual Orientation Not on file Plan of Treatment Health Maintenance Due Date Last Done Comments Colorectal Cancer Screening: Colonoscopy 1971 Hepatitis B Vaccines (1 of 3 - 19+ 3-dose series) 1990 Pneumococcal Vaccine: 50+ Years (1 of 2 - PCV) 1990 Cervical Cancer Screening: P ap Smear 07/19/2019 07/19/2016 RSV Immunization Adult Patients (1 - Risk 50-74 years 1-dose series) 2021 Zoster Vaccines (1 of 2) 2021 Social Influencers of Health Screening 05/04/2022 Breast Cancer Screening 02/17/2023 02/17/2021 Depression Screening 06/02/2024 COVID-19 Vaccine (4 - 2024-2 6 season) 2025 06/25/2021, 10/18/2020, 09/27/2020 Influenza Vaccine (#1) 2025 Cholesterol Screening (Lipid Panel) 01/10/2026 01/10/2021 DTaP,Tdap,and Td Vaccines (2 - Td or Tdap) 07/08/2026 07/08/2016 HIV Screening Completed 07/19/2016 Hepatitis C Screening [...] Routine 05/17/2025 1:17 PM EST Unspecified coma (CMS/HCC V24, CMS/HCC V28) SCREENING MAMMOGRAPHY BI 2-VIEW BREAST INC CAD Routine 02/17/2021 9:17 AM EDT Encounter for screening mammogram for malignant neoplasm of breast LIPID PANEL Routine 01/10/2021 HEPATITIS C SCREENING Routine 07/19/2016 HIV SCREENING Routine 07/19/2016 PAP SMEAR Routine 07/19/2016 from Last 3 Months or Most Recently Relevant to Health Maintenance Results * Tilt table (05/17/2025 1:17 PM [...] were not reproduced. Conclusion: Negative tilt test. us Paul Dominguez MD [facility] PROCEDURES F inal Result * SCREENING MAMMOGRAPHY BI 2-VIEW BREAST INC [...] evidence of malignancy. BI-RADS 1 - negative Result [facility] Madeleine ALVAREZ IMG XR PROCEDURES Final Resul t * (ABNORMAL) Lipid panel (01/10/2021) [facility] LDL/HDL Ratio 4 0 - 4 Triglycerides 87 0 - 150 mg/dL Cholesterol 225(A) 0 - 200 mg/dL HDL 52 >=40 mg/dL LDL Cholesterol 156(A) 0 - 100 mg/dL Blood Venous blood specimen / Unknown Result [facility] Provider LAB BLOOD ORDERABLES Vanessa l Result * HIV Screening (07/19/2016) [facility] HIV Screening Abstracted Result [facility] Provider HEALTH MAINTENANCE Final Result * Hepatitis C Screening (07/19/2016) [facility] Hepatitis C Screening Abstracted Result [facility] Provider HEALTH MAINTENANCE Final Result * Pap Smear (07/19/2016) Pathologist [facility] Pap smear No interpretation , abstracted Result [facility] Provider HEALTH MAINTENANCE Final Result from Last 3 Months or Most Recently Relevant to Health Maintenance Insurance [facility] Care Teams Fulfillment Mail Clerk Relationship Specialty Start Date End Date John Gastelum MD [address] [place] [id number] PCP - General Internal Medicine 05/17/25
== END 2025-05-19 06:25 | disposition home or self-care (01) ==
LOC: CF 06:24
PROVIDERS: Visit Provider Internal Medicine
DX: M53.3 Sacrococcygeal disorders, not elsewhere classified (principal)
CPT/HCPCS: 27096; J2003; J2795; J3301

== ENCOUNTER 2025-05-19 11:24 | Outpatient (AMB) | payer OTHER, SELFPAY ==
--- OUTSIDE RECORDS SUMMARY | 2025-05-17 12:44 | XMS_ITS | Encounter Summary ---
Author Organization [facility] Address [address] [place] [address] Care Team Providers Care Systems Security Analyst Name Role Phone John Gastelum MD Primary Care Provider [phone]- [phone] Reason for Referral * Cardiac Stress Testing (Routine) - Authorized Specialty Diagnoses / Procedures Referred By Pemaac t Referred To Contact Cardiology Diagnoses Unspecified coma (CMS/HCC V24, CMS/HCC V28) Procedures Tilt table Palu Dominguez MD [facility] SPE[facility] [address] [place] [address] Phone: tel: fax: [facility] Referral ID Status Reason Start Date Expiration Date V isits Requested Visits Authorized [id number] Authorized 02/01/2025 02/01/2026 1 1 Reason for Visit * Cardiac Stress Testing (Routine) - Authorized Specialty Diagnoses / Procedures Referred By Contac t Referred To Contact Cardiology Diagnoses Unspecified coma (CMS/HCC V24, CMS/HCC V28) Procedures Tilt table Paul Dominguez MD [facility] [address] [place] [address] Phone: tel: fax: [facility] Referral ID Status Reason Start Date Expiration Date V isits Requested Visits Authorized [id number] Authorized 02/01/2025 02/01/2026 1 1 Encounter Details Date Type Department Care Team (Latest Contact Info) Description 05/17/2025 12:44 PM EST - 05/17/2025 11:59 PM EST Hospital Encounter [facility] Xray [address] [place] [address] Unspecified coma (CMS/HCC V24, CMS/HCC [...] Routine 05/17/2025 1:17 PM EST Unspecified coma (CMS/[facility] V24, CMS/[facility] V28) documented in this encounter Results * [...] Visit Diagnoses Diagnosis Unspecified coma (CMS/HCC V24, CMS/[facility] V28) documented in this encounter Care Teams Systems Security Analyst Relationship Specialty Start Date End Date John Gastelum MD [address] [place] [address] PCP - General Internal Medicine 05/17/25 documented as of this encounter
[2025-05-19 11:32] VITALS: BP 110/78; PULSE 76; RESP 16; O2SAT 99
--- NOTE | 2025-05-19 11:32 | MHC.OFFVIS ---
Vital Signs 05/19/25 11:32 05/19/25 12:12 BP 110/78 98/70 Blood Pressure Location Lt brachial Lt brachial Position Sitting Sitting Respiration 16 16 Pulse 76 75 Pulse Source Pulse Oximeter Pulse Oximeter Pulse Oximetry (%) 99 98 Oxygen Delivery Method Room Air Room Air Intake Visit Reasons: Right Therapeutic SIJ Injection Dyslexia Teacher Required: No Allergies gabapentin Allergy (Intermediate, Verified 05/20/25 14:24) Insomnia ibuprofen Adverse Reaction (Intermediate, Verified 05/20/25 14:24) Stomach Upset HPI HPI Right Therapeutic SIJ Injection: Details: Patient presents for scheduled procedure. Denies any recent cough, cold, infection, fever or other significant changes in medical history since last office visit. COUNT INCLUDES THE [facility] Medical History PTSD (post-traumatic stress disorder) Generalized anxiety disorder Personal history of nicotine dependence Emphysema lung COVID-19 vaccine series completed GERD (gastroesophageal reflux disease) Arthritis COPD (chronic obstructive pulmonary disease) Surgical History H/O total hysterectomy History of colonoscopy History of dental surgery History of cholecystectomy History of partial hysterectomy History of tubal ligation Family History Mother GERD (gastroesophageal reflux disease) DVT (deep venous thrombosis) Father HTN (hypertension) Abnormal thyroid hormone metabolism Social History Housing: House Do you presently have visiting nurse or other home services: No Alcohol intake: former Year quit: 2023 Patient Tobacco Use Status: Former Tobacco user Tobacco use type: Cigarette Years Smoked: onset 15yo, 1ppd x 34yrs, 30pyh - quit 2019) e-Cigarette/Vaping Use: Never Used Second Hand Smoke Exposure: No Substance Use Type: Marijuana service: No Current occupational status: employed 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 Immediately prior to starting the procedure, a time-out safety check was conducted. The patient's identification, procedure name, procedure site, and procedure laterality were confirmed with the patient. ? Patient was placed prone on the fluoroscopy table and the lumbosacral area was prepped using ChloraPrep and draped with sterile draped in standard fashion. The C-arm was rotated in a contralateral oblique fashion until the medial border of the iliac crest no longer foreshadowed the posterior sacroiliac joint line. The skin and subcutaneous tissue was anesthetized using 1 mL of 0.75% plain lidocaine with 1.5-inch 25-gauge needle in the middle region of the joint line.? A 3.5-inch 22-gauge spinal needle with small bend on the tip was slowly advanced towards the joint line, coaxial to the x-ray beam. Once bony content was obtained, the needle was easily slid into the intra-articular space.? Intra-articular needle position was confirmed using lateral fluoroscopy.? A total volume of 2.5mL of solution containing 40 mg trimcinilone and rest 0.5% of ropivacaine was injected intra-articularly. The stylet was reinserted and needle was removed. The patient tolerated the procedure well. Patient denied any lower extremity weakness or numbness. Patient was observed for 30 min and was discharged after fulfilling the standard discharge criteria. Coding 43410 - Sacroiliac Procedure code (CPT) selection complete Assessment & Plan Assessment & Plan (1) Sacroiliac joint pain: Code(s): M53.3 - Sacrococcygeal disorders, not elsewhere classified Category: Medical Plan Patient is status post right therapeutic SIJ injection. Patient tolerated procedure well and was discharged home in stable condition with discharge instructions. All questions were answered. We will follow-up via telephone or in clinic to assess response to therapy. A follow-up appointment was made during today's visit. Orders: Orders FL guidance in treatment room 05/19/25 M53.3 - Sacrococcygeal disorders, not elsewhere classified Coding Level of Care Code Procedure Only Diagnoses Sacroiliac joint pain M53.3 CPT Codes Coding - Joint 9: 15798 - Sacroiliac ([id number])
[2025-05-19 12:12] VITALS: BP 98/70; PULSE 75; RESP 16; O2SAT 98
--- OUTSIDE RECORDS SUMMARY | 2025-05-19 14:59 | XMS_ITS | Clinical Summary ---
Author Organization [facility] Address [address] [place] [address] Phone Care Team Providers Care Loan Underwriter Name Role Phone John Gastelum MD Primary Care Provider +1- [phone] Allergies No known active allergies Medications tiZANidine [...] - 05/17/2025 11:59 PM EST Hospital Encounter [facility] Xray [address] [place] [address] Unspecified coma (CMS/HCC V24, CMS/[facility] V28) Discharge Disposition: Home or Self Care from Last 3 Months Immunizations Immunization Administration Dates Next Due Pfizer SARS-CoV-2 COVID-19, mRNA, LNP-S, preservative free 10/18/2020 Tdap Tetanus diptheria acell ular pertussis (Boostrix; Adacel) 7yo and older 07/08/2016 Surgical History Surgery Date Site/Laterality Comments CHOLECYSTECTOMY 1989 PROCEDURE: LAPAROSCOPY, CHOLECYSTECTOMY PARTIAL HYSTERECTOMY jan 2013 PROCEDURE: [place] SUPRACERVICAL ABDL HYSTER W/WO RMVL TUBE OVARY BREAST SURGERY age 21 Left PROCEDURE: [place] UNLISTED PROCEDURE BREAST; COMMENT: cyst removed left [...] of malignancy. BI-RADS 1 - negative Result [facility] Madeleine ALVAREZ IMG XR PROCEDURES Final Resul t * (ABNORMAL) Lipid panel (01/10/2021) [facility] LDL/HDL Ratio 4 0 - 4 Triglycerides 87 0 - 150 mg/dL Cholesterol 225(A) 0 - 200 mg/dL HDL 52 >=40 mg/dL LDL Cholesterol 156(A) 0 - 100 mg/dL Blood Venous blood specimen / Unknown Result [facility] Provider LAB BLOOD ORDERABLES Vanessa l Result * HIV Screening (07/19/2016) [facility] HIV Screening Abstracted Result [facility] Provider HEALTH MAINTENANCE Final Result * Hepatitis C Screening (07/19/2016) [facility] Hepatitis C Screening Abstracted Result [facility] Provider HEALTH MAINTENANCE Final Result * Pap Smear (07/19/2016) Pathologist [facility] Pap smear No interpretation , abstracted Result [facility] Provider HEALTH MAINTENANCE Final Result from Last 3 Months or Most Recently Relevant to Health Maintenance Insurance [facility] [place] [address] Care Teams Loan Underwriter Relationship Specialty Start Date End Date John Gastelum MD [address] [place] [id number] PCP - General Internal Medicine 05/17/25
== END 2025-05-19 12:09 | disposition home or self-care (01) ==
LOC: HO.PMCPRC 11:24
PROVIDERS: Visit Provider Internal Medicine
DX: M53.3 Sacrococcygeal disorders, not elsewhere classified (principal)
CPT/HCPCS: 27096

== ENCOUNTER 2025-05-20 13:48 | Outpatient (AMB) | payer OTHER, SELFPAY ==
--- OUTSIDE RECORDS SUMMARY | 2025-05-17 12:44 | XMS_ITS | Encounter Summary ---
Author Organization [facility] Address [address] [place] [address] Care Team Providers Care Land Surveyor Name Role Phone John Gastelum MD Primary Care Provider [phone]- [phone] Reason for Referral * Cardiac Stress Testing (Routine) - Authorized Specialty Diagnoses / Procedures Referred By Contac t Referred To Contact Cardiology Diagnoses Unspecified coma (CMS/HCC V24, CMS/HCC V28) Procedures Tilt table Paul Dominguez MD [facility]ARD[facility]ULAR SPEC [address] [place] [address] Phone: tel: fax: [facility] Referral ID Status Reason Start Date Expiration Date V isits Requested Visits Authorized [id number] Authorized 02/01/2025 02/01/2026 1 1 Reason for Visit * Cardiac Stress Testing (Routine) - Authorized Specialty Diagnoses / Procedures Referred By Contac t Referred To Contact Cardiology Diagnoses Unspecified coma (CMS/HCC V24, CMS/HCC V28) Procedures Tilt table Paul Dominguez MD [facility] C[facility] SPEC [address] [place] [address] Phone: tel: fax: [facility] Referral ID Status Reason Start Date Expiration Date V isits Requested Visits Authorized [id number] Authorized 02/01/2025 02/01/2026 1 1 Encounter Details Date Type Department Care Team (Latest Contact Info) Description 05/17/2025 12:44 PM EST - 05/17/2025 11:59 PM EST Hospital Encounter [facility] Xray [address] [place] [address] Unspecified coma (CMS/HCC V24, CMS/HCC V28) Discharge Disposition: Home or Self Care Social History Tobacco Use Types Packs/Day Years Used Date Smoking Tobacco: Former Cigarettes Smokeless Tobacco: Former Alcohol Use Standard Drinks/Week Comments Yes 0 (1 standard drink = 0.6 oz pur e alcohol) Comments Unknown Sex and Gender Information Value Date Recorded Sex Assigned at Not on file Legal Sex Female 8:17 PM EST Gender Identity Not on file Sexual Orientation Not on file documented as of this encounter Medications at Time of Discharge acetaminophen (TYLENOL) 500 mg tablet Take 500 mg by mouth every 6 hours as needed. tiZANidine (ZANAFLEX) 4 mg tablet TAKE 1 TABLET BY MOUTH 3 TIMES A WEEK 11/13/2020 documented as of this encounter Discharge Disposition Disposition Code Departure Means Destination Home or Self Care documented in this encounter Plan of Treatment Not on file documented as of this encounter Procedures Procedure Name Priority Date/Time Associated Diagnosis Comments TILT TABLE Routine 05/17/2025 1:17 PM EST Unspecified coma (CMS/[facility] V24, CMS/[facility] V28) documented in this encounter Results * Tilt table (05/17/2025 1:17 PM EST) Anatomical Region Laterality Modality Radiographic Michelle ging Narrative 05/17/2025 1:53 PM EST Tilt Table The patient was brought to lab in fasting state. Baseline ECG showed normal sinus rhythm. Baseline supine minimum BP: 121/64 mmHg Baseline supine minimum HR: 73 bpm Patient tilted to 70 degrees. Tilt maintained for 20 minutes. Minimum BP during tilt: 11/70 mmHg Maximum BP during tilt: 139/87 mmHg Minimum heart rate during tilt: 87 bpm Maximum heart rate during tilt: 101 bpm Rhythm during tilt: normal sinus rhythm There was a clear orthostatic response not noted. Patient experienced a physiologic HR increase with tilt. Symptoms seen on tilt include: pressure in head. Premonitory symptoms were reproduced. Syncope/presyncope symptoms were not reproduced. Conclusion: Negative tilt test. Paul Dominguez MD [facility]ED[facility] F inal Result documented in this encounter Visit Diagnoses Diagnosis Unspecified coma (CMS/HCC V24, CMS/[facility] V28) documented in this encounter Care Teams Land Surveyor Relationship Specialty Start Date End Date John Gastelum MD [address] [place] [address] PCP - General Internal Medicine 05/17/25 documented as of this encounter
[2025-05-20 14:21] VITALS: BP 118/72; PULSE 79; BMI 29.3
--- NOTE | 2025-05-20 14:21 | A.OFFVIS_ITS ---
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 Patient was previously seen in the office for evaluation of palpitations and loss of consciousness past winter. Patient also with hypercholesteremia and family history of coronary artery disease. Patient states that her 1 episode of passing out in the past winter where she got out of bed and was not feeling well so goal she was going to the bathroom and later found herself on the floor in urine incontinence. Patient states that she was previously on atorvastatin started by her PCP however she stopped taking this with questions of elevated bilirubin levels. Otherwise, patient today is reporting feeling well overall without any cardiac symptoms of exertional chest pain, shortness of breath, palpitations, dizziness, orthopnea, PND, leg edema, presyncope or syncope. PFSH Medical History PTSD (post-traumatic stress disorder) Generalized anxiety disorder Personal history of nicotine dependence Emphysema lung COVID-19 vaccine series completed GERD (gastroesophageal reflux disease) Arthritis COPD (chronic obstructive pulmonary disease) Surgical History H/O total hysterectomy History of colonoscopy History of dental surgery History of cholecystectomy History of partial hysterectomy History of tubal ligation Family History Mother GERD (gastroesophageal reflux disease) DVT (deep venous thrombosis) Father HTN (hypertension) Abnormal thyroid hormone metabolism Social History Housing: House Do you presently have visiting nurse or other home services: No Alcohol intake: former Year quit: 2023 Patient Tobacco Use Status: Former Tobacco user Tobacco use type: Cigarette Years Smoked: onset 15yo, 1ppd x 34yrs, 30pyh - quit 2019) e-Cigarette/Vaping Use: Never Used Second Hand Smoke Exposure: No Substance Use Type: Marijuana service: No Current occupational status: employed 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 Sexual orientation: Straight/Heterosexual Gender identity: Female Cognitive needs: No Hearing needs: No Vision needs: Yes (glasses) Review of Systems Const Denies daytime sleepiness, Denies difficulty sleeping, Denies snoring, Denies stops breathing during sleep and Denies weakness Card Denies chest pain, Denies rapid heart rate, Denies irregular heart rhythm, Denies claudication, Denies leg edema, Denies lightheadedness, Denies palpitations, Denies dyspnea, Denies dyspnea on exertion, Denies orthopnea, Denies paroxysmal nocturnal dyspnea and Denies slow heart rate Resp Denies cough, Denies dyspnea, Denies dyspnea on exertion and Denies snoring GI Reports no additional complaints, Denies hematochezia, Denies change in stool character and Denies dyspepsia Musc Denies abnormal gait, Denies muscle weakness and Denies numbness Neuro Denies abnormal gait, Denies numbness and Denies weakness Endo Denies palpitations Physical Exam Vital Signs: Last Vital Signs Pulse 79 05/20/25 14:21 BP 118/72 05/20/25 14:21 BMI result Body Mass Index 29.3 Const General: cooperative, healthy appearing, comfortable and no acute distress Orientation/consciousness: patient oriented x3 HEENT Head: Yes normal to inspection Neck Neck: Yes normal visual inspection, Yes trachea midline and Yes supple Chest Chest palpation & inspection: normal inspection of the chest Resp Effort & Inspection: normal respiratory effort Auscultation: clear to auscultation bilaterally, no crackles, no rales, no rhonchi and no wheezes Cardio Jugular venous distension: no JVD Palpation: normal PMI Rate: regular rate Rhythm: regular rhythm Heart sounds: S1 normal heart sound present, S2 normal heart sound present, no click, no gallops, no murmurs and no rubs Peripheral pulses: Peripheral pulses 2+ throughout GI Inspection: Yes normal to inspection Palpation (GI): Soft to palpation Auscultation: normal bowel sounds Skin General skin exam: no rashes or lesions noted Neuro General: patient oriented x3 Extrem General: Yes normal to inspection, No no pedal edema and No calf tenderness Psych Appearance: grossly normal Mental Status: mental status grossly normal Speech and movement: Normal speech and movement present Assessment & Plan Assessment & Plan (1) Hyperlipidemia: Code(s): E78.5 - Hyperlipidemia, unspecified Category: Medical Plan: Clinically stable without any cardiac symptoms. Patient's lipid profile was elevated back in November and was started on atorvastatin however patient stopped this. Patient was offered coronary calcium score however patient is not working currently and therefore can not financially afford this. Given her significant family history of coronary artery disease, we will start patient on rosuvastatin 10 mg daily and plan to repeat lipid profile with liver function tests in 3 months. Advised on low-fat diet. Advised to seek ER care in case of exertional chest pain not resolved with rest. (2) Syncopal episodes: Code(s): R55 - Syncope and collapse Category: Medical Plan: 03/16/2025-cardiac event monitor showed underlying normal sinus rhythm with rare PACs. 03/16/2025-echo study showed normal LV systolic function with the ejection fraction between a 60-65%. 05/17/2025-tilt table study was negative. Given above findings, no further indications for cardiac testing at this point. Given urinary incontinence with her passing out, advised meeting with Neurology for ruling out seizure. Patient is working on this with her PCP. Advised on heart healthy diet, regular exercise, med compliance, and aggressive management of vascular risk factors. Follow up in 1 year, sooner if needed. In the interim, patient will call the office with any concerns or change in symptoms. This note was generated using voice recognition software. While every effort has been made to ensure accuracy and proper deputy chief counsel, there may be occasional errors that could affect the content or meaning of the described symptoms. Orders: Orders Liver Panel 3 Months E78.5 - Hyperlipidemia, unspecified Lipid Panel 3 Months E78.5 - Hyperlipidemia, unspecified Medications: New rosuvastatin 10 mg PO DAILY 90 tabs 3RF Coding Level of Care Code Est Pt Level 4 (91345) Add On Problem Visit Only Diagnoses Hyperlipidemia E78.5 Syncopal episodes R55 Time Spent (min) 32 Comment Time spent in reviewing the chart, test results, assessment, counseling and documentation.
--- OUTSIDE RECORDS SUMMARY | 2025-05-20 15:30 | XMS_ITS | Clinical Summary ---
Author Organization [facility] Address [address] [place] [address] Phone Care Team Providers Care [employer] S[employer] Name Role Phone John Gastelum MD Primary Care Provider [phone] Allergies No known active allergies Medications tiZANidine [...] - 05/17/2025 11:59 PM EST Hospital Encounter [facility] Xray [address] [place] [address] Unspecified coma (CMS/HCC V24, CMS/[facility] V28) Discharge Disposition: Home or Self Care from Last 3 Months Immunizations Immunization Administration Dates Next Due Pfizer SARS-CoV-2 COVID-19, mRNA, LNP-S, preservative free 10/18/2020 Tdap Tetanus diptheria acell ular pertussis (Boostrix; Adacel) 7yo and older 07/08/2016 Surgical History Surgery Date Site/Laterality Comments CHOLECYSTECTOMY 1989 PROCEDURE: LAPAROSCOPY, CHOLECYSTECTOMY PARTIAL HYSTERECTOMY jan 2013 PROCEDURE: VT SUPRACERVICAL ABDL HYSTER W/WO RMVL TUBE OVARY BREAST SURGERY age 21 Left PROCEDURE: VT UNLISTED PROCEDURE BREAST; COMMENT: cyst removed left [...] of malignancy. BI-RADS 1 - negative Result [facility] Madeleine ALVAREZ IMG XR PROCEDURES Final Resul t * (ABNORMAL) Lipid panel (01/10/2021) [facility] LDL/HDL Ratio 4 0 - 4 Triglycerides 87 0 - 150 mg/dL Cholesterol 225(A) 0 - 200 mg/dL HDL 52 >=40 mg/dL LDL Cholesterol 156(A) 0 - 100 mg/dL Blood Venous blood specimen / Unknown Result [facility] Provider LAB BLOOD ORDERABLES Vanessa l Result * HIV Screening (07/19/2016) [facility] HIV Screening Abstracted Result [facility] Provider HEALTH MAINTENANCE Final Result * Hepatitis C Screening (07/19/2016) [facility] Hepatitis C Screening Abstracted Result [facility] Provider HEALTH MAINTENANCE Final Result * Pap Smear (07/19/2016) Pathologist [facility] Pap smear No interpretation , abstracted Result [facility] Provider HEALTH MAINTENANCE Final Result from Last 3 Months or Most Recently Relevant to Health Maintenance Insurance [facility] [address] Care Teams Rouge S[employer] Miller Relationship Specialty Start Date End Date John Gastelum MD [address] [place] [id number] PCP - General Internal Medicine 05/17/25
== END 2025-05-20 14:45 | disposition home or self-care (01) ==
LOC: HO.HCS 13:49
PROVIDERS: PCP Internal Medicine
DX: E78.5 Hyperlipidemia, unspecified (principal); R55 Syncope and collapse
CPT/HCPCS: 99214

== ENCOUNTER → 2025-05-20 13:48 | Outpatient (BNVA) | payer OTHER, SELFPAY | PROVIDERS: PCP Internal Medicine | DX: R55 Syncope and collapse (principal); E78.5 Hyperlipidemia, unspecified | CPT/HCPCS: 99212 ==

== ENCOUNTER 2025-05-30 13:48 | Outpatient (AMB) | payer OTHER, SELFPAY ==
[2025-05-30 13:50] VITALS: BP 107/72; PULSE 85; O2SAT 96; BMI 29.2
--- NOTE | 2025-05-30 13:50 | MHC.OFFVIS ---
Vital Signs 05/30/25 13:50 Height 5 ft 3 in Weight 165 lb BMI 29.2 BP 107/72 Blood Pressure Location Rt brachial Position Sitting Pulse 85 Pulse Source Pulse Oximeter Pulse Oximetry (%) 96 Oxygen Delivery Method Room Air Intake Visit Reasons: asthma Allergies gabapentin Allergy (Intermediate, Verified 05/30/25 13:56) Insomnia ibuprofen Adverse Reaction (Intermediate, Verified 05/30/25 13:56) Stomach Upset HPI HPI asthma: Details: 54-year-old lady, former 25+ pack-year smoker, quit 2019 followed for underlying emphysema without fixed obstruction. Patient continues to follow-up with lung cancer screening program, with essentially normal last CT chest. She is a rarely using albuterol MDI. She denies recent exacerbations. [facility] Medical History PTSD (post-traumatic stress disorder) Generalized anxiety disorder Personal history of nicotine dependence Emphysema lung COVID-19 vaccine series completed GERD (gastroesophageal reflux disease) Arthritis COPD (chronic obstructive pulmonary disease) Surgical History H/O total hysterectomy History of colonoscopy History of dental surgery History of cholecystectomy History of partial hysterectomy History of tubal ligation Family History Mother GERD (gastroesophageal reflux disease) DVT (deep venous thrombosis) Father HTN (hypertension) Abnormal thyroid hormone metabolism Social History Housing: House Do you presently have visiting nurse or other home services: No Alcohol intake: former Year quit: 2023 Patient Tobacco Use Status: Former Tobacco user Tobacco use type: Cigarette Years Smoked: onset 15yo, 1ppd x 34yrs, 30pyh - quit 2019) e-Cigarette/Vaping Use: Never Used Second Hand Smoke Exposure: No Substance Use Type: Marijuana service: No Current occupational status: employed 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 Sexual orientation: Straight/Heterosexual Gender identity: Female Cognitive needs: No Hearing needs: No Vision needs: Yes (glasses) Review of Systems Const Denies daytime sleepiness, Denies excessive sweating, Denies fatigue, Denies fever(s), Denies lethargy, Denies malaise, Denies night sweats, Denies snoring and Denies weight loss Eyes Denies blurry vision and Denies itchy eyes ENT Denies nasal congestion, Denies post nasal drip, Denies sinus pain, Denies sinus pressure and Denies other ( Thrush) Card Denies chest pain, Denies pedal edema, Denies dyspnea, Denies orthopnea and Denies paroxysmal nocturnal dyspnea Resp Denies cough, Denies hemoptysis, Denies excessive phlegm production, Denies dyspnea, Denies snoring and Denies wheezing GI Denies abdominal pain and Denies heartburn Musc Denies myalgias, Denies arthralgias and Denies joint swelling Skin/Breast Denies rash Neuro Denies memory loss and Denies seizure-like activity Psych Denies abnormal sleep pattern, Denies anxiety and Denies memory loss Endo Denies excessive sweating, Denies fatigue and Denies heat intolerance Arie/Lymph Denies easy bruising Aller/Immun Denies itchy eyes, Denies seasonal rhinorrhea and Denies wheezing Physical Exam Vital Signs: Last Vital Signs Pulse 85 05/30/25 13:50 BP 107/72 05/30/25 13:50 Pulse Ox 96 05/30/25 13:50 Oxygen Delivery Method Room Air 05/30/25 13:50 BMI result Body Mass Index 29.2 Const General: no acute distress and alert Nutritional Appearance: not obese Orientation/consciousness: Other orientation findings ( oriented) HEENT Head: Yes atraumatic Eyes General: appearance normal, both eyes and all related structures Sclerae: sclerae normal EOM: EOMs intact bilaterally Neck Neck: Yes supple Lymphatic: no lymphadenopathy noted Resp Effort & Inspection: normal respiratory effort and no use of accessory muscles Auscultation: clear to auscultation bilaterally Cardio Rate: regular rate Rhythm: regular rhythm Heart sounds: no gallops, no murmurs and no rubs Skin General skin exam: other ( warm) Extrem General: No clubbing, No cyanosis and No edema Assessment & Plan Assessment & Plan (1) Emphysema lung: Code(s): J43.9 - Emphysema, unspecified Category: Medical Plan: Essentially asymptomatic. Continue on as needed albuterol MDI. (2) Personal history of nicotine dependence: Comment: (former smoker - onset 15yo, 1ppd x 34yrs, 30pyh - quit 2019) Code(s): Z87.891 - Personal history of nicotine dependence Category: Medical Plan: Results of lung cancer screening from March of 2025 reviewed, no worrisome nodules at this time. Continue with yearly screening. Coding Level of Care Code Est Pt Level 4 (19617) Diagnoses Emphysema lung J43.9 Personal history of nicotine dependence Z87.891
--- OUTSIDE RECORDS SUMMARY | 2025-05-30 16:05 | XMS_ITS | Clinical Summary ---
Author Organization [facility] Address [address] [place] [address] Phone Care Team Providers Care Director Of Consulting Services Name Role Phone John Gastelum MD Primary Care Provider [phone] Allergies No known active allergies Medications tiZANidine [...] - 05/17/2025 11:59 PM EST Hospital Encounter [facility] Xray [address] [place] [address] Unspecified coma (CMS/HCC V24, CMS/[facility] [...] of malignancy. BI-RADS 1 - negative Result [facility] Madeleine ALVAREZ IMG XR PROCEDURES Final Resul t * (ABNORMAL) Lipid panel (01/10/2021) [facility] LDL/HDL Ratio 4 0 - 4 Triglycerides 87 0 - 150 mg/dL Cholesterol 225(A) 0 - 200 mg/dL HDL 52 >=40 mg/dL LDL Cholesterol 156(A) 0 - 100 mg/dL Blood Venous blood specimen / Unknown Result [facility] Provider LAB BLOOD ORDERABLES Vanessa l Result * HIV Screening (07/19/2016) [facility] HIV Screening Abstracted Result [facility] Provider HEALTH MAINTENANCE Final Result * Hepatitis C Screening (07/19/2016) [facility] Hepatitis C Screening Abstracted Result [facility] Provider HEALTH MAINTENANCE Final Result * Pap Smear (07/19/2016) Pathologist [facility] Pap smear No interpretation , abstracted Result [facility] Provider HEALTH MAINTENANCE Final Result from Last 3 Months or Most Recently Relevant to Health Maintenance Insurance [facility] Care Teams Director Of Consulting Services Relationship Specialty Start Date End Date John Gastelum MD [address] [place] [id number] PCP - General Internal Medicine 05/17/25
== END 2025-05-30 14:06 | disposition home or self-care (01) ==
LOC: HO.HPS 13:49
PROVIDERS: Visit Provider Internal Medicine Pulmonary Disease
DX: J43.9 Emphysema, unspecified (principal); Z87.891 Personal history of nicotine dependence
CPT/HCPCS: 99214

== ENCOUNTER → 2025-05-30 13:48 | Outpatient (BNVA) | payer OTHER, SELFPAY | PROVIDERS: Visit Provider Internal Medicine Pulmonary Disease | DX: J43.9 Emphysema, unspecified (principal); Z87.891 Personal history of nicotine dependence | CPT/HCPCS: 99212 ==